=== PATIENT | female | born 1995 | race Caucasian/White ===

== ENCOUNTER 2016-11-15 12:23 | Emergency (ER) | payer OTHER ==
[2016-11-15 12:32] VITALS: PULSE 79; RESP 16
[2016-11-15] MEDS ORDERED: ONDANSETRON 4 MG/2 ML VIAL IVP STA (13:21)
[2016-11-15] MEDS ORDERED: SUCRALFATE 1 GM TAB PO STA (13:21)
[2016-11-15] MEDS ORDERED: SODIUM CHLORIDE 0.9% 1,000 ML IV ONE (13:21)
[2016-11-15] MEDS ORDERED: KETOROLAC 30 MG/ML 1 ML VIAL IVP STA (13:21)
[2016-11-15] MEDS ORDERED: FAMOTIDINE 20 MG/2 ML VIAL IV STA (13:25)
[2016-11-15 14:11] LABS: Basophils % (A) 0 %; CH 31.2; CHCM 34.5; Eosinophils # (A) 0.1 k/uL (0-0.7); Eosinophils % (A) 1 %; HCT 35.6 % (34.0-46.0); HDW 2.75; HGB 12.2 gm/dL (11.4-16.0); Luc # (Auto) 0.17; Luc % (Auto) 2; Lymphocytes % (A) 26 %; MCH 31.1 pg (25.0-35.0); MCHC 34.2 g/dL (31.0-37.0); Mean Platelet Volume 7.5; Monocytes # (A) 0.3 k/uL (0-1.0); Monocytes % (A) 4 %; Neutrophils # (A) 5.1 k/uL (1.3-7.7); Neutrophils % (A) 67 %; RBC 3.91 m/uL (3.80-5.40); RDW 12.6 % (11.5-15.5); WBC 7.6 k/uL (4.0-11.0); WBC (Perox) 7.72
[2016-11-15 14:19] LABS: Appearance,Urine Clear (Clear); Bilirubin,Urine Negative (Negative); Glucose,Urine (UA) Negative (Negative); Ketones,Urine Negative (Negative); Leukocyte Esterase,Urine Negative (Negative); Nitrite,Urine Negative (Negative); PH, Urine 6.5 (5.0-8.0); Protein,Urine Negative (Negative); Specific Gravity,Urine 1.002 (1.001-1.035); UA Billing (MACRO vs. MICRO) CHEM; Urobilinogen,Urine <2.0 mg/dL (<2.0)
[2016-11-15 14:20] LABS: ALT 41 U/L (9-52); AST 27 U/L (14-36); Alkaline Phosphatase 65 U/L (38-126); Anion Gap 11 mmol/L; Blood Urea Nitrogen 8 mg/dL (7-17); Calcium 9.4 mg/dL (8.4-10.2); Carbon Dioxide 26 mmol/L (22-30); Chloride 107 mmol/L (98-107); Glucose 97 mg/dL (74-99); Non-African American GFR(MDRD) >60 (>60 ml/min/1.73 sqM); Potassium 3.8 mmol/L (3.5-5.1); Sodium 144 mmol/L (137-145); Total Bilirubin 0.3 mg/dL (0.2-1.3)
--- NOTE | 2016-11-15 14:49 | US ---
EXAMINATION TYPE: US abdomen limited DATE OF EXAM: 11/15/2016 2:28 PM COMPARISON: Prior ultrasound abdomen second of July 2016 CLINICAL HISTORY: Pain. EXAM MEASUREMENTS: Liver Length: 15.7 cm Gallbladder Wall: 0.2 cm CBD: 0.2 cm Right Kidney: 12.4 x 6.0 x 4.8 cm cm TECHNOLOGIST IMPRESSION: Pancreas: Tail Obscured by bowel gas. Liver: wnl, partially obscured by bowel gas. The liver is penetrated by the ultrasound beam. Gallbladder: wnl Evidence for sonographic Butts's sign: no CBD: wnl Right Kidney: wnl There is no ascites. IMPRESSION: Somewhat limited exam. There may be hepatocellular disease or fatty infiltration of the l iver.
--- NOTE | 2016-11-15 15:00 | ED ---
Abdominal Pain HPI - General Chief Complaint: Abdominal Pain Stated Complaint: abd pain Source: patient Mode of arrival: ambulatory Limitations: no limitations - History of Present Illness Initial Comments: Patient is a 20-year-old female presents for evaluation for epigastric discomfort. Past medical history as below. Patient states that she's been having this pain on and off for the past several weeks. Seems to worsen over the last few days. Pain is worse after eating. States that she eats a lot of fatty foods. Associated nausea. Couple episodes of vomiting. Nothing seems to make the pain better. No radiation of pain. No recent travel or changes in medications. No known sick contacts at home. Patient denies fever, chills, headache, changes in vision, URI symptoms, shortness of breath, cough, chest pain, diarrhea, pain or burning with urination. - Related Data Home Medications Medication Instructions Recorded Confirmed Ibuprofen [Motrin] 400 mg PO Q6HR PRN 11/15/16 11/15/16 Previous Rx's Medication Instructions Recorded Omeprazole [PriLOSEC] 20 mg PO AC-BID 7 Days 11/15/16 Allergies Allergy/AdvReac Type Severity Reaction Status Date / Time peanut Allergy Unknown Anaphylaxis Verified 11/15/16 13:42 celery Allergy Anaphylaxis Verified 11/15/16 13:42 Milk Containing Products Allergy Unknown Verified 11/15/16 13:42 [Dairy] peas Allergy Anaphylaxis Verified 11/15/16 13:42 peppers Allergy Anaphylaxis Uncoded 11/15/16 12:32 Review of Systems ROS Statement: Those systems with pertinent positive or pertinent negative responses have been documented in the HPI. ROS Other: All systems not noted in ROS Statement are negative. Past Medical History Past Medical History: Asthma, Osteoarthritis (OA) History of Any Multi-Drug Resistant Organisms: None Reported Past Surgical History: Appendectomy Past Psychological History: ADD/ADHD, Depression Smoking Status: Former smoker Past Alcohol Use History: None Reported Past Drug Use History: None Reported General Exam Limitations: no limitations General appearance: alert, in no apparent distress, other (Well-appearing. Sitting upright in the stretcher) Head exam: Present: atraumatic, normocephalic, normal inspection Eye exam: Present: normal appearance, PERRL, EOMI. Absent: scleral icterus, conjunctival injection, periorbital swelling ENT exam: Present: normal exam, mucous membranes moist Neck exam: Present: normal inspection. Absent: tenderness, meningismus, lymphadenopathy Respiratory exam: Present: normal lung sounds bilaterally. Absent: respiratory distress, wheezes, rales, rhonchi, stridor Cardiovascular Exam: Present: regular rate, normal rhythm, normal heart sounds. Absent: systolic murmur, diastolic murmur, rubs, gallop, clicks GI/Abdominal exam: Present: soft, tenderness, normal bowel sounds, other ( Tenderness elicited in the epigastric area. Somewhat tender in the right upper quadrant. Negative Butts sign. Soft abdomen. No peritoneal signs.). Absent : distended, guarding, rebound, rigid Extremities exam: Present: normal inspection, full ROM, normal capillary refill. Absent: tenderness, pedal edema, joint swelling, calf tenderness Back exam: Present: normal inspection Neurological exam: Present: alert, oriented X3, CN II-XII intact Psychiatric exam: Present: normal affect, normal mood Skin exam: Present: warm, dry, intact, normal color. Absent: rash Course Vital Signs 11/15/16 11/15/16 12:30 15:11 Temperature 97.3 F L 97.8 F Pulse Rate 79 79 Respiratory 16 16 Rate Blood Pressure 113/57 129/70 O2 Sat by Pulse 99 98 Oximetry Medical Decision Making - Medical Decision Making Patient resents for evaluation for epigastric/right upper quadrant abdominal pain. Worse after eating. The symptoms that she is describing is very classic for biliary colic. We'll order abdominal labs with the GI cocktail, ultrasound of the right upper quadrant. -Laboratory findings as below. Unremarkable. Ultrasound was limited but did not reveal an acute abnormality with the gallbladder. There is evidence of fatty liver. Discussed all the results with the patient. Recommend follow-up with a surgeon and possible further testing with a HIDA scan. She will follow- up with her primary care physician first. Discussed ingesting a bland diet over the next couple of days. Plenty of clear fluids. Will provide omeprazole as an outpatient. Discussed signs and symptoms on when to return to the emergency department for further evaluation. Comfortable with discharge home and will follow-up. - Lab Data Result diagrams: 11/15/16 13:59 11/15/16 13:59 Lab Results 11/15/16 11/15/16 11/15/16 Range/Units 13:59 13:59 13:59 WBC 7.6 (4.0-11.0) k/uL RBC 3.91 (3.80-5.40) m/uL Hgb 12.2 (11.4-16.0) gm/dL Hct 35.6 (34.0-46.0) % MCV 91.0 (80.0-100.0) fL MCH 31.1 (25.0-35.0) pg MCHC 34.2 (31.0-37.0) g/dL RDW 12.6 (11.5-15.5) % Plt Count 262 (150-450) k/uL Neutrophils % 67 % Lymphocytes % 26 % Monocytes % 4 % Eosinophils % 1 % Basophils % 0 % Neutrophils # 5.1 (1.3-7.7) k/uL Lymphocytes # 2.0 (1.0-4.8) k/uL Monocytes # 0.3 (0-1.0) k/uL Eosinophils # 0.1 (0-0.7) k/uL Basophils # 0.0 (0-0.2) k/uL Sodium 144 (137-145) mmol/L Potassium 3.8 (3.5-5.1) mmol/L Chloride 107 (98-107) mmol/L Carbon Dioxide 26 (22-30) mmol/L Anion Gap 11 mmol/L BUN 8 (7-17) mg/dL Creatinine 0.62 (0.52-1.04) mg/dL Est GFR (MDRD) Af Amer >60 (>60 ml/min/1.73 sqM) Est GFR (MDRD) Non-Af >60 (>60 ml/min/1.73 sqM) Glucose 97 (74-99) mg/dL Calcium 9.4 (8.4-10.2) mg/dL Total Bilirubin 0.3 (0.2-1.3) mg/dL AST 27 (14-36) U/L ALT 41 (9-52) U/L Alkaline Phosphatase 65 (38-126) U/L Total Protein 7.0 (6.3-8.2) g/dL Albumin 4.0 (3.5-5.0) g/dL Lipase 74 (23-300) U/L Urine Color Urine Appearance (Clear) Urine pH (5.0-8.0) Ur Specific [place] (1.001-1.035) Urine Protein (Negative) Urine Glucose (UA) (Negative) Urine Ketones (Negative) Urine Blood (Negative) Urine Nitrate (Negative) Urine Bilirubin (Negative) Urine Urobilinogen (<2.0) mg/dL Ur Leukocyte Esterase (Negative) Urine HCG, Qual Not Detected (Not Detectd) 11/15/16 Range/Units 13:59 WBC (4.0-11.0) k/uL RBC (3.80-5.40) m/uL Hgb (11.4-16.0) gm/dL Hct (34.0-46.0) % MCV (80.0-100.0) fL MCH (25.0-35.0) pg MCHC (31.0-37.0) g/dL RDW (11.5-15.5) % Plt Count (150-450) k/uL Neutrophils % % Lymphocytes % % Monocytes % % Eosinophils % % Basophils % % Neutrophils # (1.3-7.7) k/uL Lymphocytes # (1.0-4.8) k/uL Monocytes # (0-1.0) k/uL Eosinophils # (0-0.7) k/uL Basophils # (0-0.2) k/uL Sodium (137-145) mmol/L Potassium (3.5-5.1) mmol/L Chloride (98-107) mmol/L Carbon Dioxide (22-30) mmol/L Anion Gap mmol/L BUN (7-17) mg/dL Creatinine (0.52-1.04) mg/dL Est GFR (MDRD) Af Amer (>60 ml/min/1.73 sqM) Est GFR (MDRD) Non-Af (>60 ml/min/1.73 sqM) Glucose (74-99) mg/dL Calcium (8.4-10.2) mg/dL Total Bilirubin (0.2-1.3) mg/dL AST (14-36) U/L ALT (9-52) U/L Alkaline Phosphatase (38-126) U/L Total Protein (6.3-8.2) g/dL Albumin (3.5-5.0) g/dL Lipase (23-300) U/L Urine Color Colorless Urine Appearance Clear (Clear) Urine pH 6.5 (5.0-8.0) Ur Specific [place] 1.002 (1.001-1.035) Urine Protein Negative (Negative) Urine Glucose (UA) Negative (Negative) Urine Ketones Negative (Negative) Urine Blood Negative (Negative) Urine Nitrate Negative (Negative) Urine Bilirubin Negative (Negative) Urine Urobilinogen <2.0 (<2.0) mg/dL Ur Leukocyte Esterase Negative (Negative) Urine HCG, Qual (Not Detectd) Disposition Clinical Impression: Abdominal pain, Biliary colic Disposition: HOME SELF-CARE Condition: Good Instructions: Biliary Colic (ED) Prescriptions: Omeprazole [PriLOSEC] 20 mg PO AC-BID 7 Days Referrals: Shyann Morgan MD [Primary Care Provider] - 1-2 days
[2016-11-15 15:12] VITALS: BP 129/70; TEMP 97.8
== END 2016-11-15 15:11 | disposition home or self-care (01) ==
LOC: EC 12:23
DX: K80.50 Calculus of bile duct without cholangitis or cholecystitis without obstruction (principal); R11.2 Nausea with vomiting, unspecified; Z87.891 Personal history of nicotine dependence; Z91.010 Allergy to peanuts; Z91.018 Allergy to other foods; Z91.011 Allergy to milk products; Z90.49 Acquired absence of other specified parts of digestive tract
CPT/HCPCS: 36415; 80053; 83690; 85025; 81003; 81025; 76705; 99284; 96374; 96375 ×2; 96361; J2405; J1885

== ENCOUNTER 2016-12-11 11:46 | Emergency (ER) | payer OTHER ==
[2016-12-11 11:58] VITALS: BP 110/68; PULSE 99; RESP 20; TEMP 98.8
--- NOTE | 2016-12-11 12:11 | ED ---
Skin/Abscess/FB HPI - General Chief complaint: Skin/Abscess/Foreign Body Stated complaint: rash Time Seen by Provider: 12/11/16 12:00 Source: patient, RN notes reviewed Mode of arrival: ambulatory Limitations: no limitations - History of Present Illness Initial comments: 21-year-old female presents to the ER with a sore on her left lower lip. She states that it is been there for 1-1/2-2 weeks. She states there is no pain or burning at rest but it does get irritated when she eats certain foods. She states that last week she did have a cough and possible cold. She states that her mom noticed the area on her lip was worsening and decided to bring her to the ER today to get it checked out. She also states that her nose normal normally get dry in the winter and crack. She denies any trauma to the area. She's never noticed something that looks like this. 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 She also states that she does not have a current primary care physician. She denies any nausea, vomiting, diarrhea, any other oral sores, sore throat, difficulty swallowing. - Related Data Home Medications Medication Instructions Recorded Confirmed Ibuprofen [Motrin] 400 mg PO Q6HR PRN 11/15/16 11/15/16 Previous Rx's Medication Instructions Recorded Omeprazole [PriLOSEC] 20 mg PO AC-BID 7 Days 11/15/16 Mupirocin 2% Oint [Bactroban 2% 1 applic TOPICAL TID #22 gm 12/11/16 Oint] Allergies Allergy/AdvReac Type Severity Reaction Status Date / Time peanut Allergy Unknown Anaphylaxis Verified 12/11/16 11:58 celery Allergy Anaphylaxis Verified 12/11/16 11:58 Milk Containing Products Allergy Unknown Verified 12/11/16 11:58 [Dairy] peas Allergy Anaphylaxis Verified 12/11/16 11:58 peppers Allergy Anaphylaxis Uncoded 12/11/16 11:58 Review of Systems ROS Statement: Those systems with pertinent positive or pertinent negative responses have been documented in the HPI. ROS Other: All systems not noted in ROS Statement are negative. Past Medical History Past Medical History: Asthma, Osteoarthritis (OA) History of Any Multi-Drug Resistant Organisms: None Reported Past Surgical History: Appendectomy Past Psychological History: ADD/ADHD, Depression Smoking Status: Current every day smoker Past Alcohol Use History: None Reported Past Drug Use History: None Reported General Exam Limitations: no limitations General appearance: alert, in no apparent distress Head exam: Present: atraumatic, normocephalic Eye exam: Present: normal appearance, PERRL, EOMI Pupils: Present: normal accommodation ENT exam: Present: normal oropharynx, mucous membranes moist, normal external ear exam, other (Left lower wet lip: 2-3 mm areas of superficial ulceration with central honey crust, upper lip clear of any lesions. Oral mucosa clear of any lesions. Multiple cavities noticed on exam.) Neck exam: Present: normal inspection, full ROM Respiratory exam: Present: normal lung sounds bilaterally Cardiovascular Exam: Present: regular rate, normal rhythm Neurological exam: Present: alert, oriented X3, CN II-XII intact Psychiatric exam: Present: normal affect, normal mood Course Vital Signs 12/11/16 11:56 Temperature 98.8 F Pulse Rate 99 Respiratory 20 Rate Blood Pressure 110/68 O2 Sat by Pulse 100 Oximetry Medical Decision Making - Medical Decision Making 21-year-old female presented to the ER with lesions on her lower left lip. She states they've been there for about a week and a half to 2 weeks following a upper respiratory infection. On visual exam there does appear to be 2 areas of superficial ulceration with honey crust. This is consistent with impetigo. Recommend treatment with topical antibiotic to the area 3 times a day. Smoking cessation was also discussed with patient. As well as good oral and hand hygiene to decrease spread. Also urged patient to establish with primary care physician. All questions were answered and patient was instructed to follow-up with a PCP return to ER if any worsening symptoms or concerns. Disposition Clinical Impression: Impetigo Disposition: HOME SELF-CARE Condition: Good Instructions: Impetigo (ED) Additional Instructions: Encourage patient to follow up with her PCP or establish with a new PCP. To return to clinic if any new or worsening symptoms. Referrals: Shyann Morgan MD [Primary Care Provider] - 1-2 days Time of Disposition: 12:18
== END 2016-12-11 12:30 | disposition home or self-care (01) ==
LOC: EC 11:46
DX: L01.00 Impetigo, unspecified (principal); F17.200 Nicotine dependence, unspecified, uncomplicated; Z91.010 Allergy to peanuts; Z91.011 Allergy to milk products; Z91.018 Allergy to other foods
CPT/HCPCS: 99282

== ENCOUNTER 2017-02-07 00:27 | Emergency (ER) | payer OTHER ==
[2017-02-07 00:49] VITALS: BP 123/56; PULSE 90; RESP 16; TEMP 99.1
--- NOTE | 2017-02-07 01:02 | ED ---
Lower Extremity Injury HPI - General Chief Complaint: Extremity Injury, Lower Stated Complaint: R Knee Injury Time Seen by Provider: 02/07/17 00:53 Source: patient, RN notes reviewed Mode of arrival: ambulatory Limitations: no limitations - History of Present Illness Initial Comments: 21-year-old female presents to the department with a chief complaint of right knee pain. Patient states she was getting out of her discharge and she hurt her right knee. Patient states it hurts along the inferior aspect of the right knee. Worse with walking or cuts. Patient states that there is no trauma with the ground at the knee with more of the stepping down motion. Patient states she has a little walk however with pain. Patient states she was concerned so she thought that she should be seen. He states the pain is moderate. There is no radiation. Patient denies any recent fever, chills, shortness of breath, chest pain, back pain, abdominal pain, nausea vomiting, numbness or tingling, dysuria or hematuria, constipation or diarrhea, headaches or visual changes, or any other current symptoms. - Related Data Home Medications Medication Instructions Recorded Confirmed Ibuprofen [Motrin] 400 mg PO Q6HR PRN 11/15/16 02/07/17 Previous Rx's Medication Instructions Recorded Omeprazole [PriLOSEC] 20 mg PO AC-BID 7 Days 11/15/16 Mupirocin 2% Oint [Bactroban 2% 1 applic TOPICAL TID #22 gm 12/11/16 Oint] Ibuprofen [Motrin] 600 mg PO Q6HR PRN #20 tab 02/07/17 Allergies Allergy/AdvReac Type Severity Reaction Status Date / Time peanut Allergy Unknown Anaphylaxis Verified 02/07/17 00:48 celery Allergy Anaphylaxis Verified 02/07/17 00:48 Milk Containing Products Allergy Unknown Verified 02/07/17 00:48 [Dairy] peas Allergy Anaphylaxis Verified 02/07/17 00:48 peppers Allergy Anaphylaxis Uncoded 02/07/17 00:48 Review of Systems ROS Statement: Those systems with pertinent positive or pertinent negative responses have been documented in the HPI. ROS Other: All systems not noted in ROS Statement are negative. Past Medical History Past Medical History: Asthma, Osteoarthritis (OA) History of Any Multi-Drug Resistant Organisms: None Reported Past Surgical History: Appendectomy Past Psychological History: ADD/ADHD, Depression Smoking Status: Current every day smoker Past Alcohol Use History: None Reported Past Drug Use History: None Reported General Exam - General Exam Comments Initial Comments: General: The patient is awake and alert, in no distress, and does not appear acutely ill. Neck: The neck is supple, there is no tenderness. Cardiovascular: There is a regular rate and rhythm. No murmur, rub or gallop is appreciated. Respiratory: Lungs are clear to auscultation, respirations are non-labored, breath sounds are equal. No wheezes, stridor, rales, or rhonchi. Musculoskeletal: Sensation intact with 2+ pulses throughout the right lower extremity. Full range of motion of the right knee, right ankle and right hip. There is some anterior tenderness no swelling or deformity noted. No laxity noted. 5 out of 5 muscle strength testing. Neurological: CN II-XII intact, There are no obvious motor or sensory deficits. Coordination appears grossly intact. Speech is normal. Skin: Skin is warm and dry and no rashes or lesions are noted. Psychiatric: Normal mood and affect. Limitations: no limitations Course Vital Signs 02/07/17 00:45 Temperature 99.1 F Pulse Rate 90 Respiratory 16 Rate Blood Pressure 123/56 O2 Sat by Pulse 99 Oximetry Medical Decision Making - Medical Decision Making 21-year-old female presents for what appears to be a right knee strain. This and we did place him utilizing to follow-up with orthopedic. Discussed return parameters all patient's questions. She stated that she understood and she is in agreement. At this time she will be discharged home. - Radiology Data Radiology results: report reviewed, image reviewed Disposition Clinical Impression: Right knee sprain Disposition: HOME SELF-CARE Condition: Serious Instructions: Knee Sprain (ED) Additional Instructions: Please use medication as discussed. Please follow up with family doctor if symptoms have not improved over the next two days. Please return to the emergency room if your symptoms increase or worsen or for any other concerns. Prescriptions: Ibuprofen [Motrin] 600 mg PO Q6HR PRN #20 tab PRN Reason: Pain Referrals: Shyann Morgan MD [Primary Care Provider] - 1-2 days Kevyn Butts MD [STAFF PHYSICIAN] - 1-2 days Time of Disposition: 01:24
[2017-02-07] MEDS ORDERED: IBUPROFEN 600 MG TAB PO STA (01:08)
--- NOTE | 2017-02-07 01:24 | XR ---
EXAM: XR Right Knee, 3 views CLINICAL HISTORY: Pain TECHNIQUE: Three views of the right knee. COMPARISON: No relevant prior studies available. FINDINGS: Bones/joints: Unremarkable. No acute fracture. No dislocation. Soft tissues: Unremarkable. IMPRESSION: Normal right knee x-rays.
== END 2017-02-07 01:36 | disposition home or self-care (01) ==
LOC: EC 00:27
DX: S83.91XA Sprain of unspecified site of right knee, initial encounter (principal); F17.200 Nicotine dependence, unspecified, uncomplicated; Z91.010 Allergy to peanuts; Z91.011 Allergy to milk products; Z91.018 Allergy to other foods; Z91.048 Other nonmedicinal substance allergy status; X58.XXXA Exposure to other specified factors, initial encounter; Y93.39 Activity, other involving climbing, rappelling and jumping off
CPT/HCPCS: 73562; 99283; L1830 ×2

== ENCOUNTER 2017-03-20 23:49 | Emergency (ER) | payer OTHER ==
--- NOTE | 2017-03-21 02:16 | XR ---
EXAM: XR Left Ankle Complete, 3 or More Views CLINICAL HISTORY: Fall TECHNIQUE: Frontal, lateral and oblique views of the left ankle. COMPARISON: No relevant prior studies available. FINDINGS: Bones/joints: Unremarkable. No acute fracture. No dislocation. Soft tissues: Unremarkable. IMPRESSION: Normal left ankle x-rays.
--- NOTE | 2017-03-21 02:22 | XR ---
EXAM: XR Left Foot Complete, 3 or More Views CLINICAL HISTORY: Fall TECHNIQUE: Frontal, lateral and oblique views of the left foot. COMPARISON: No relevant prior studies available. FINDINGS: Bones/joints: Fracture of the medial navicula. Adjacent soft tissue swelling. No dislocation. Soft tissues: See above. IMPRESSION: Fracture of the medial navicula. Adjacent soft tissue swelling.
[2017-03-21] MEDS ORDERED: ACET/COD 300 MG/30 MG STARTER PACK 6 TAB BTL PO STA (02:46)
--- NOTE | 2017-03-21 02:49 | ED ---
Lower Extremity Injury HPI - General Chief Complaint: Extremity Injury, Lower Stated Complaint: Fall-Ankle Injury Time Seen by Provider: 03/21/17 01:35 Source: patient, RN notes reviewed, old records reviewed Mode of arrival: wheelchair Limitations: no limitations - History of Present Illness Initial Comments: 21 -year-old female chief complaint of left foot and ankle pain after she fell off of the hover board. Patient reports that she rolled her foot. Patient states that the pain is mainly over the top of her foot and ankle. She denies any difficulty moving her toes. Denies any peripheral paresthesias. Patient states that she's had a previous fractures or injuries to the ankle. She reports that she was having a difficult time bearing weight over and did have to walk to the emergency department. Patient denies any recent fever, chills, shortness of breath, chest pain, back pain, abdominal pain, nausea vomiting, numbness or tingling, dysuria or hematuria, constipation or diarrhea, headaches or visual changes, or any other current symptoms - Related Data Home Medications Medication Instructions Recorded Confirmed Atomoxetine HCl [Strattera] 25 mg PO 03/21/17 Naproxen Sodium [Naprelan] 500 mg PO DAILY 03/21/17 03/21/17 Previous Rx's Medication Instructions Recorded Acetaminophen-Codeine 300-30mg 1 tab PO Q4H PRN #15 tablet 03/21/17 [Tylenol #3] Allergies Allergy/AdvReac Type Severity Reaction Status Date / Time peanut Allergy Unknown Anaphylaxis Verified 02/07/17 00:48 celery Allergy Anaphylaxis Verified 02/07/17 00:48 Milk Containing Products Allergy Unknown Verified 02/07/17 00:48 [Dairy] peas Allergy Anaphylaxis Verified 02/07/17 00:48 peppers Allergy Anaphylaxis Uncoded 02/07/17 00:48 Review of Systems ROS Statement: Those systems with pertinent positive or pertinent negative responses have been documented in the HPI. ROS Other: All systems not noted in ROS Statement are negative. Past Medical History Past Medical History: Asthma, Osteoarthritis (OA) History of Any Multi-Drug Resistant Organisms: None Reported Past Surgical History: Appendectomy Past Psychological History: ADD/ADHD, Depression Smoking Status: Current every day smoker Past Alcohol Use History: None Reported Past Drug Use History: None Reported General Exam - General Exam Comments Initial Comments: 21-year-old female. No acute distress. Limitations: no limitations General appearance: alert, in no apparent distress Head exam: Present: atraumatic, normocephalic, normal inspection Eye exam: Present: normal appearance, PERRL, EOMI. Absent: scleral icterus, conjunctival injection, periorbital swelling ENT exam: Present: normal exam, mucous membranes moist Neck exam: Present: normal inspection. Absent: tenderness, meningismus, lymphadenopathy Respiratory exam: Present: normal lung sounds bilaterally. Absent: respiratory distress, wheezes, rales, rhonchi, stridor Cardiovascular Exam: Present: regular rate, normal rhythm, normal heart sounds. Absent: systolic murmur, diastolic murmur, rubs, gallop, clicks GI/Abdominal exam: Present: soft, normal bowel sounds. Absent: distended, tenderness, guarding, rebound, rigid Extremities exam: Present: normal inspection, full ROM, normal capillary refill. Absent: tenderness, pedal edema, joint swelling, calf tenderness Left Knee exam: Present: normal inspection, full ROM Lower Leg exam: Present: normal inspection, full ROM Ankle exam: Present: normal inspection, full ROM Foot/Toe exam: Present: normal inspection, tenderness (Patient is some tenderness and swelling over the dorsum proximal aspect of the foot.), swelling Neurovascular tendon exam: Present: no vascular compromise Gait: observed and limited by pain Back exam: Present: normal inspection Neurological exam: Present: alert, oriented X3, CN II-XII intact Psychiatric exam: Present: normal affect, normal mood Course Vital Signs 03/21/17 03/21/17 00:30 03:10 Temperature 97.0 F L 97.8 F Pulse Rate 87 78 Respiratory 18 16 Rate Blood Pressure 126/71 107/63 O2 Sat by Pulse 100 98 Oximetry Procedures - Orthopedic Splinting/Casting Injury #1 Side: left Lower Extremity Injury Location: foot Lower Extremity Immobilizer: posterior splint, post-op shoe Medical Decision Making - Medical Decision Making 21 -year-old female chief complaint of left foot and ankle pain after she fell off of the hover board. Patient reports that she rolled her foot. Patient states that the pain is mainly over the top of her foot and ankle. She denies any difficulty moving her toes. Denies any peripheral paresthesias. Asians x- ray shows evidence of a midclavicular fracture. No significant displacement. Patient is placed in a posterior splint. Patient draped for crutches and pain medication. Advised to follow[facility]up with [facility]. Patient agrees to treatment plan and will comply. Return parameters were discussed. - Radiology Data Radiology results: report reviewed X-ray shows evidence of a mid left navicular fracture. Disposition Clinical Impression: Left navicular fracture of foot Disposition: HOME SELF-CARE Condition: Good Instructions: Foot Fracture in Adults (ED) Additional Instructions: Advised to rest, ice, elevate extremity. Take medications and follow-up with orthopedic physician. Return to emergency department if any alarming signs or symptoms occur. Prescriptions: Acetaminophen-Codeine 300-30mg [Tylenol #3] 1 tab PO Q4H PRN #15 tablet PRN Reason: Pain Referrals: Shyann Morgan MD [Primary Care Provider] - 1-2 days Sidney Beavers MD [STAFF PHYSICIAN] - 1-2 days Time of Disposition: 02:45
[2017-03-21 03:11] VITALS: BP 107/63; PULSE 78; RESP 16; TEMP 97.8
--- NOTE | 2017-04-04 10:38 | CDI ---
Documentation Clarification OP Dear Dr. Jarrell Diaz Please do addendum to ED report that provides Splint MAterial Thank you, Yanick Peter Sales Assistant [employer] If you have any questions, please contact House Father at [phone] [facility]
== END 2017-03-21 03:10 | disposition home or self-care (01) ==
LOC: EC 23:49
DX: S92.252A Displaced fracture of navicular [scaphoid] of left foot, initial encounter for closed fracture (principal); M19.90 Unspecified osteoarthritis, unspecified site; F90.9 Attention-deficit hyperactivity disorder, unspecified type; F17.200 Nicotine dependence, unspecified, uncomplicated; Z88.8 Allergy status to other drugs, medicaments and biological substances; Z91.010 Allergy to peanuts; Z91.011 Allergy to milk products; Z91.018 Allergy to other foods; Z79.1 Long term (current) use of non-steroidal anti-inflammatories (NSAID); Z79.899 Other long term (current) drug therapy; V00.831A Fall from motorized mobility scooter, initial encounter
CPT/HCPCS: 29515; 99284

== ENCOUNTER 2017-04-09 20:46 | Emergency (ER) | payer OTHER ==
[2017-04-09 21:19] VITALS: TEMP 98
--- NOTE | 2017-04-09 21:19 | ED ---
Lower Extremity Injury HPI - General Stated Complaint: Got her cast wet Time Seen by Provider: 04/09/17 21:11 - History of Present Illness Initial Comments: 21-year-old male with a history of a left medial navicular fracture would like her cast off today. Patient states it's been almost 5 weeks and she feels like it is fully healed. Patient states she is supposed to have the cast removed on April 21. Patient states she just wants it off she feels like it "barricading her". She states she is no pain in her foot or ankle anymore. She denies any numbness or tingling, she denies any cold extremities. She states she feels great and she just wants it off. Patient wants to go back to work. [facility] Patient denies any other pain on her left lower extremity. MD Complaint: foot injury - Related Data Home Medications Medication Instructions Recorded Confirmed Atomoxetine HCl [Strattera] 25 mg PO 03/21/17 Naproxen Sodium [Naprelan] 500 mg PO DAILY 03/21/17 03/21/17 Previous Rx's Medication Instructions Recorded Acetaminophen-Codeine 300-30mg 1 tab PO Q4H PRN #15 tablet 03/21/17 [Tylenol #3] Allergies Allergy/AdvReac Type Severity Reaction Status Date / Time peanut Allergy Unknown Anaphylaxis Verified 02/07/17 00:48 celery Allergy Anaphylaxis Verified 02/07/17 00:48 Milk Containing Products Allergy Unknown Verified 02/07/17 00:48 [Dairy] peas Allergy Anaphylaxis Verified 02/07/17 00:48 peppers Allergy Anaphylaxis Uncoded 02/07/17 00:48 Review of Systems ROS Statement: Those systems with pertinent positive or pertinent negative responses have been documented in the HPI. ROS Other: All systems not noted in ROS Statement are negative. Constitutional: Reports: as per HPI Skin: Denies: rash Neurological: Denies: weakness, numbness, paresthesias, abnormal gait Past Medical History Past Medical History: Asthma, Osteoarthritis (OA) History of Any Multi-Drug Resistant Organisms: None Reported Past Surgical History: Appendectomy Past Psychological History: ADD/ADHD, Depression Smoking Status: Current every day smoker Past Alcohol Use History: None Reported Past Drug Use History: None Reported General Exam General appearance: alert Left Upper Leg exam: Present: normal inspection, full ROM. Absent: tenderness, swelling Knee exam: Present: normal inspection, full ROM. Absent: tenderness, swelling Lower Leg exam: Absent: normal inspection (Patient has cast on), tenderness Ankle exam: Absent: normal inspection (Patient has), tenderness, swelling Foot/Toe exam: Absent: normal inspection (Patient has), tenderness, swelling, abrasion, ecchymosis Neurovascular tendon exam: Present: no vascular compromise. Absent: abnormal cap refill, motor deficit, sensory deficit, extremity cold to touch, pallor, abnormal 2-point discrimination, decreased fine/light touch Gait: observed and normal (With cast on) Medical Decision Making - Medical Decision Making Discussed with both Dr. Carpenter and Dr. Fontana. Patient was asked again and examined by me and there is no neurovascular compromise and no pain. Therefore at this time I explained that she needs to leave the cast on until evaluated by her floor care specialist and she does not have any neurovascular compromise or pain. Disposition Clinical Impression: Navicular fracture of ankle Disposition: HOME SELF-CARE Condition: Good Referrals: Shyann Morgan MD [Primary Care Provider] - 1-2 days Candace Feng PAC [PHYSICIAN RENAL TECHNICIAN] - 1-2 days Time of Disposition: 21:18
[2017-04-09 21:44] VITALS: BP 120/78; PULSE 94; RESP 16
== END 2017-04-09 21:43 | disposition home or self-care (01) ==
LOC: EC 20:46
DX: S92.252D Displaced fracture of navicular [scaphoid] of left foot, subsequent encounter for fracture with routine healing (principal); F90.9 Attention-deficit hyperactivity disorder, unspecified type; M19.90 Unspecified osteoarthritis, unspecified site; F17.200 Nicotine dependence, unspecified, uncomplicated; Z91.010 Allergy to peanuts; Z91.011 Allergy to milk products; Z91.018 Allergy to other foods; Z79.1 Long term (current) use of non-steroidal anti-inflammatories (NSAID); Z79.899 Other long term (current) drug therapy
CPT/HCPCS: 99282

== ENCOUNTER 2017-04-10 14:36 | Emergency (ER) | payer OTHER ==
[2017-04-10 14:45] VITALS: RESP 18
--- NOTE | 2017-04-10 14:55 | ED ---
Psych HPI - General Chief Complaint: Psychiatric Symptoms Stated Complaint: Mental Health Time Seen by Provider: 04/10/17 14:46 Source: patient, RN notes reviewed Mode of arrival: ambulatory Limitations: no limitations - History of Present Illness Initial Comments: 21-year-old female presents emergency Department with chief complaint of depression suicidal ideations. Patient states that she's been increasing depressive last 2 weeks. States her last few days she's felt suicidal. Patient states that she denied yesterday when she was in the emergency department states she is suicidal with no plan. Patient has any homicidal thoughts denies any drug or alcohol abuse. Patient states she has not tried to harm himself she has never been admitted to psychiatric services and states that she's never been on medications for depression. - Related Data Home Medications Medication Instructions Recorded Confirmed Atomoxetine HCl [Strattera] 25 mg PO DAILY 04/10/17 04/10/17 Naproxen 500 mg PO BID 04/10/17 04/10/17 traZODone HCL 50 mg PO HS 04/10/17 04/10/17 Allergies Allergy/AdvReac Type Severity Reaction Status Date / Time peanut Allergy Unknown Anaphylaxis Verified 04/10/17 15:30 celery Allergy Anaphylaxis Verified 04/10/17 15:30 Milk Containing Products Allergy Unknown Verified 04/10/17 15:30 [Dairy] peas Allergy Anaphylaxis Verified 04/10/17 15:30 peppers Allergy Anaphylaxis Uncoded 04/10/17 14:45 Review of Systems ROS Statement: Those systems with pertinent positive or pertinent negative responses have been documented in the HPI. ROS Other: All systems not noted in ROS Statement are negative. Past Medical History Past Medical History: Asthma, Osteoarthritis (OA) History of Any Multi-Drug Resistant Organisms: None Reported Past Surgical History: Appendectomy Past Psychological History: ADD/ADHD, Depression Smoking Status: Current every day smoker Past Alcohol Use History: None Reported Past Drug Use History: None Reported General Exam Limitations: physical limitation General appearance: alert, in no apparent distress Head exam: Present: atraumatic, normocephalic, normal inspection Eye exam: Present: normal appearance, PERRL, EOMI. Absent: scleral icterus, conjunctival injection, periorbital swelling ENT exam: Present: normal exam, normal oropharynx, mucous membranes moist, TM's normal bilaterally, normal external ear exam Neck exam: Present: normal inspection, full ROM. Absent: tenderness, meningismus, lymphadenopathy Respiratory exam: Present: normal lung sounds bilaterally. Absent: respiratory distress, wheezes, rales, rhonchi, stridor Cardiovascular Exam: Present: regular rate, normal rhythm, normal heart sounds. Absent: systolic murmur, diastolic murmur, rubs, gallop, clicks Extremities exam: Present: other (Short leg cast noted on the left) Psychiatric exam: Present: depressed Skin exam: Present: warm, dry, intact, normal color. Absent: rash Course Vital Signs 04/10/17 14:42 Temperature 97.3 F L Pulse Rate 105 H Respiratory 18 Rate Blood Pressure 105/52 O2 Sat by Pulse 98 Oximetry Medical Decision Making - Medical Decision Making 21-year-old female presented emergency department for psychiatric evaluation. Patient was evaluated by EPS and case is discussed with psychiatrist in which recommend discharge and follow palpation. Patient was given information for follow-up return parameters were discussed. - Lab Data Lab Results 04/10/17 Range/Units 15:06 Urine Opiates Screen Not Detected (NotDetected) Ur Oxycodone Screen Not Detected (NotDetected) Urine Methadone Screen Not Detected (NotDetected) Ur Propoxyphene Screen Not Detected (NotDetected) Ur Barbiturates Screen Not Detected (NotDetected) U Tricyclic Antidepress Not Detected (NotDetected) Ur Phencyclidine Scrn Not Detected (NotDetected) Ur Amphetamines Screen Not Detected (NotDetected) U Methamphetamines Scrn Not Detected (NotDetected) U Benzodiazepines Scrn Not Detected (NotDetected) Urine Cocaine Screen Not Detected (NotDetected) U Marijuana (THC) Screen Not Detected (NotDetected) Disposition Clinical Impression: Depression Disposition: HOME SELF-CARE Condition: Stable Instructions: Depression (ED) Additional Instructions: Please return to the Emergency Department if symptoms worsen or any other concerns. Referrals: Shyann Morgan MD [Primary Care Provider] - 1-2 days Time of Disposition: 16:04
[2017-04-10 16:52] VITALS: BP 110/73; PULSE 97; TEMP 97.9
== END 2017-04-10 16:52 | disposition home or self-care (01) ==
LOC: EC 14:36
DX: F32.9 Major depressive disorder, single episode, unspecified (principal); F90.9 Attention-deficit hyperactivity disorder, unspecified type; M19.90 Unspecified osteoarthritis, unspecified site; F17.200 Nicotine dependence, unspecified, uncomplicated; Z91.010 Allergy to peanuts; Z91.018 Allergy to other foods; Z91.011 Allergy to milk products; Z79.1 Long term (current) use of non-steroidal anti-inflammatories (NSAID); Z79.899 Other long term (current) drug therapy
CPT/HCPCS: 80306; 82075; 99285

== ENCOUNTER 2017-09-28 12:05 | Emergency (ER) | payer OTHER ==
[2017-09-28 12:29] VITALS: BP 113/68; PULSE 90; RESP 16; TEMP 98.1
--- NOTE | 2017-09-28 14:16 | ED ---
Female Urogenital HPI - General Chief complaint: Urogenital Stated complaint: Cannot Urinate Time Seen by Provider: 09/28/17 13:46 Source: patient, RN notes reviewed Mode of arrival: ambulatory Limitations: no limitations - History of Present Illness Initial comments: This is a 21-year-old female who presents to the emergency department with chief complaint of failure to urinate. Patient states that she has been unable to urinate for the past 2 weeks. She states that she uses the bathroom every couple hours and does have some dribbling but does not empty her bladder fully. She states that she has been drinking the same amount of fluid as she usually does. Patient denies hematuria or dysuria. She does state that she has a sensation to go all the time and reports an increase in frequency. Patient admits to having one UTI in the past. She denies any history of STDs. She denies any sexual activity. Patient also reports some suprapubic pain that is sharp in nature and radiates to the right side of her back. This is made worse while lying down at night. Patient states that yesterday at work she experienced the pain every half an hour to every hour. Patient denies any past pregnancies. She states that she ended her last menstrual period on Monday. States bowel movements have been normal. Denies ever experiencing something like this in the past. Denies fever, chills, chest pain, shortness of breath, nausea or vomiting, constipation or diarrhea, numbness or tingling, headache or vision changes. Last Menstrual Period: 09/25/17 - Related Data Home Medications Medication Instructions Recorded Confirmed Atomoxetine HCl [Strattera] 25 mg PO DAILY 04/10/17 04/10/17 Naproxen 500 mg PO BID 04/10/17 04/10/17 traZODone HCL 50 mg PO HS 04/10/17 04/10/17 Allergies Allergy/AdvReac Type Severity Reaction Status Date / Time peanut Allergy Unknown Anaphylaxis Verified 09/28/17 12:29 celery Allergy Anaphylaxis Verified 09/28/17 12:29 Milk Containing Products Allergy Unknown Verified 09/28/17 12:29 [Dairy] peas Allergy Anaphylaxis Verified 09/28/17 12:29 peppers Allergy Anaphylaxis Uncoded 09/28/17 12:29 Review of Systems ROS Statement: Those systems with pertinent positive or pertinent negative responses have been documented in the HPI. ROS Other: All systems not noted in ROS Statement are negative. Past Medical History Past Medical History: Asthma, Osteoarthritis (OA) History of Any Multi-Drug Resistant Organisms: None Reported Past Surgical History: Appendectomy Past Psychological History: ADD/ADHD, Depression Smoking Status: Current every day smoker Past Alcohol Use History: None Reported Past Drug Use History: None Reported General Exam - General Exam Comments Initial Comments: General: Awake and alert, well-developed; in no apparent distress. HEENT: Head atraumatic, normocephalic. Pupils are equal, round and reactive to light. Extraocular movements intact. Oropharynx moist without erythema or exudate. Missing dentition throughout. Neck: Supple. Normal ROM. Cardiovascular: Regular rate and rhythm. No murmurs, rubs or gallops. Chest symmetrical. Respiratory: Lungs clear to auscultation bilaterally. No wheezes, rales or rhonchi. Normal respiratory effort with no use of accessory muscles. Abdomen: Soft, non-distended. Suprapubic tenderness on palpation. No rigidity , rebound or guarding. Normal bowel sounds in all 4 quadrants. Musculoskeletal: Normal ROM, no tenderness bilateral upper and lower extremities. Patient is wearing a left wrist brace. Ambulating normally. Skin: [place], warm and dry without rashes or lesions. Neurological: Alert and oriented x3. CN II-XII grossly intact. Speech is fluent and answers are appropriate. No focal neuro deficits. Psychiatric: Normal mood and affect. No overt signs of depression or anxiety noted. Limitations: no limitations Course Vital Signs 09/28/17 12:26 Temperature 98.1 F Pulse Rate 90 Respiratory 16 Rate Blood Pressure 113/68 O2 Sat by Pulse 99 Oximetry Medical Decision Making - Medical Decision Making This is a 21-year-old female who presented to the emergency department for evaluation of urinary retention. Patient attempted to urinate twice while in the emergency department and was unable to. Bladder scan revealed volume of 500 cc. A paredes catheter was inserted and volume of approximately 450 cc was collected. UA revealed small blood, small leukocyte esterase and rare bacteria. CBC and CMP were within normal limits. Patient has good kidney function with a BUN of 9 and creatinine of 0.79. Patient states that she is feeling much better and she has no longer experiencing the abdominal pain. This case was discussed with attending physician, Dr. Brian. Patient will be discharged home with recommendation to follow-up with her primary care provider if this issue should continue. Patient is in agreement with plan and voices understanding. All questions were answered. - Lab Data Result diagrams: 09/28/17 14:50 09/28/17 14:50 Lab Results 09/28/17 09/28/17 09/28/17 Range/Units 14:35 14:35 14:50 WBC 8.9 (3.8-10.6) k/uL RBC 3.81 (3.80-5.40) m/uL Hgb 12.0 (11.4-16.0) gm/dL Hct 35.1 (34.0-46.0) % MCV 92.1 (80.0-100.0) fL MCH 31.5 (25.0-35.0) pg MCHC 34.2 (31.0-37.0) g/dL RDW 13.0 (11.5-15.5) % Plt Count 262 (150-450) k/uL Neutrophils % 64 % Lymphocytes % 29 % Monocytes % 4 % Eosinophils % 1 % Basophils % 0 % Neutrophils # 5.6 (1.3-7.7) k/uL Lymphocytes # 2.6 (1.0-4.8) k/uL Monocytes # 0.4 (0-1.0) k/uL Eosinophils # 0.1 (0-0.7) k/uL Basophils # 0.0 (0-0.2) k/uL Sodium (137-145) mmol/L Potassium (3.5-5.1) mmol/L Chloride (98-107) mmol/L Carbon Dioxide (22-30) mmol/L Anion Gap mmol/L BUN (7-17) mg/dL Creatinine (0.52-1.04) mg/dL Est GFR (MDRD) Af Amer (>60 ml/min/1.73 sqM) Est GFR (MDRD) Non-Af (>60 ml/min/1.73 sqM) Glucose (74-99) mg/dL Calcium (8.4-10.2) mg/dL Total Bilirubin (0.2-1.3) mg/dL AST (14-36) U/L ALT (9-52) U/L Alkaline Phosphatase (38-126) U/L Total Protein (6.3-8.2) g/dL Albumin (3.5-5.0) g/dL Urine Color Light Yellow Urine Appearance Clear (Clear) Urine pH 7.5 (5.0-8.0) Ur Specific [place] 1.002 (1.001-1.035) Urine Protein Negative (Negative) Urine Glucose (UA) Negative (Negative) Urine Ketones Negative (Negative) Urine Blood Small H (Negative) Urine Nitrite Negative (Negative) Urine Bilirubin Negative (Negative) Urine Urobilinogen <2.0 (<2.0) mg/dL Ur Leukocyte Esterase Small H (Negative) Urine RBC 1 (0-5) /hpf Urine WBC 2 (0-5) /hpf Ur Squamous Epith Cells <1 (0-4) /hpf Urine Bacteria Rare H (None) /hpf Urine HCG, Qual Not Detected (Not Detectd) 09/28/17 Range/Units 14:50 WBC (3.8-10.6) k/uL RBC (3.80-5.40) m/uL Hgb (11.4-16.0) gm/dL Hct (34.0-46.0) % MCV (80.0-100.0) fL MCH (25.0-35.0) pg MCHC (31.0-37.0) g/dL RDW (11.5-15.5) % Plt Count (150-450) k/uL Neutrophils % % Lymphocytes % % Monocytes % % Eosinophils % % Basophils % % Neutrophils # (1.3-7.7) k/uL Lymphocytes # (1.0-4.8) k/uL Monocytes # (0-1.0) k/uL Eosinophils # (0-0.7) k/uL Basophils # (0-0.2) k/uL Sodium 142 (137-145) mmol/L Potassium 4.1 (3.5-5.1) mmol/L Chloride 107 (98-107) mmol/L Carbon Dioxide 25 (22-30) mmol/L Anion Gap 10 mmol/L BUN 9 (7-17) mg/dL Creatinine 0.79 (0.52-1.04) mg/dL Est GFR (MDRD) Af Amer >60 (>60 ml/min/1.73 sqM) Est GFR (MDRD) Non-Af >60 (>60 ml/min/1.73 sqM) Glucose 92 (74-99) mg/dL Calcium 9.7 (8.4-10.2) mg/dL Total Bilirubin 0.3 (0.2-1.3) mg/dL AST 15 (14-36) U/L ALT 21 (9-52) U/L Alkaline Phosphatase 78 (38-126) U/L Total Protein 6.7 (6.3-8.2) g/dL Albumin 4.0 (3.5-5.0) g/dL Urine Color Urine Appearance (Clear) Urine pH (5.0-8.0) Ur Specific [place] (1.001-1.035) Urine Protein (Negative) Urine Glucose (UA) (Negative) Urine Ketones (Negative) Urine Blood (Negative) Urine Nitrite (Negative) Urine Bilirubin (Negative) Urine Urobilinogen (<2.0) mg/dL Ur Leukocyte Esterase (Negative) Urine RBC (0-5) /hpf Urine WBC (0-5) /hpf Ur Squamous Epith Cells (0-4) /hpf Urine Bacteria (None) /hpf Urine HCG, Qual (Not Detectd) Disposition Clinical Impression: Acute urinary retention Disposition: HOME SELF-CARE Condition: Good Instructions: Acute Urinary Retention in Women (ED) Additional Instructions: Please follow up with primary care provider within 1-2 days. Return to emergency department if symptoms should worsen or any concerns arise. Referrals: Malini Piña MD [Primary Care Provider] - 1-2 days Time of Disposition: 15:36
[2017-09-28 14:56] LABS: Appearance,Urine Clear (Clear); Bacteria,Urine Rare /hpf; Bilirubin,Urine Negative (Negative); Blood,Urine Small (Negative); Color,Urine Light Yellow; Glucose,Urine (UA) Negative (Negative); Ketones,Urine Negative (Negative); Leukocyte Esterase,Urine Small (Negative); Nitrite,Urine Negative (Negative); PH, Urine 7.5 (5.0-8.0); Protein,Urine Negative (Negative); RBC,Urine 1 /hpf (0-5); Specific Gravity,Urine 1.002 (1.001-1.035); Squamous Epithelial Cell,Urine <1 /hpf (0-4); Urobilinogen,Urine <2.0 mg/dL (<2.0); WBC,Urine 2 /hpf (0-5)
[2017-09-28 15:06] LABS: Basophils % (A) 0 %; Eosinophils # (A) 0.1 k/uL (0-0.7); Eosinophils % (A) 1 %; HCT 35.1 % (34.0-46.0); Lymphocytes # (A) 2.6 k/uL (1.0-4.8); Lymphocytes % (A) 29 %; MCH 31.5 pg (25.0-35.0); MCHC 34.2 g/dL (31.0-37.0); MCV 92.1 fL (80.0-100.0); Mean Platelet Volume 7.3; Monocytes # (A) 0.4 k/uL (0-1.0); Monocytes % (A) 4 %; Neutrophils # (A) 5.6 k/uL (1.3-7.7); Neutrophils % (A) 64 %; Platelet Count 262 k/uL (150-450); RBC 3.81 m/uL (3.80-5.40); WBC 8.9 k/uL (3.8-10.6)
[2017-09-28 15:22] LABS: ALT 21 U/L (9-52); AST 15 U/L (14-36); Alkaline Phosphatase 78 U/L (38-126); Anion Gap 10 mmol/L; Blood Urea Nitrogen 9 mg/dL (7-17); Calcium 9.7 mg/dL (8.4-10.2); Carbon Dioxide 25 mmol/L (22-30); Chloride 107 mmol/L (98-107); Glucose 92 mg/dL (74-99); Potassium 4.1 mmol/L (3.5-5.1); Sodium 142 mmol/L (137-145); Total Bilirubin 0.3 mg/dL (0.2-1.3); Total Protein 6.7 g/dL (6.3-8.2)
== END 2017-09-28 15:44 | disposition home or self-care (01) ==
LOC: EC 12:05
DX: R33.9 Retention of urine, unspecified (principal); R82.71 Bacteriuria; R31.9 Hematuria, unspecified; R82.99 Other abnormal findings in urine; R35.0 Frequency of micturition; R10.30 Lower abdominal pain, unspecified; M54.9 Dorsalgia, unspecified; M19.90 Unspecified osteoarthritis, unspecified site; F90.9 Attention-deficit hyperactivity disorder, unspecified type; F32.9 Major depressive disorder, single episode, unspecified; F17.200 Nicotine dependence, unspecified, uncomplicated; Z79.1 Long term (current) use of non-steroidal anti-inflammatories (NSAID); Z79.899 Other long term (current) drug therapy; Z91.010 Allergy to peanuts; Z91.011 Allergy to milk products; Z91.018 Allergy to other foods; Z87.440 Personal history of urinary (tract) infections
CPT/HCPCS: 36415; 51798; 80053; 81001; 81025; 85025; 99284

== ENCOUNTER 2017-09-30 18:51 | Emergency (ER) | payer OTHER ==
--- NOTE | 2017-09-30 19:13 | ED ---
General Adult HPI - General Chief complaint: Abdominal Pain Stated complaint: Urinary problems Time Seen by Provider: 09/30/17 19:01 Source: patient, RN notes reviewed Mode of arrival: ambulatory Limitations: no limitations - History of Present Illness Initial comments: 21 yo female presents to the ER with cc of constipation. She states she has been under the bowel movement for about 2 weeks. She states she's having hard time urinating now due to this. She states she hasn't had any fever chills cough cold Raynaud's. She denies any nausea or vomiting. Patient states just having a lot of abdominal discomfort. She has not had any high fevers. She denies any history of this in the past. Changes in eating or drinking. She states that she has been drinking more water and they've tried some over-the- counter constipation medication without any relief. Patient states that they were concerned due to her continued constipation so they thought that they should be seen. Patient denies any recent fever, chills, shortness of breath, chest pain, back pain, nausea vomiting, numbness or tingling, diarrhea, headaches or visual changes, or any other current symptoms. - Related Data Home Medications Medication Instructions Recorded Confirmed Atomoxetine HCl [Strattera] 80 mg PO QAM 09/30/17 09/30/17 Loratadine [Claritin] 10 mg PO DAILY 09/30/17 09/30/17 Sertraline [Zoloft] 100 mg PO DAILY 09/30/17 09/30/17 Zolpidem [Ambien] 10 mg PO HS PRN 09/30/17 09/30/17 Allergies Allergy/AdvReac Type Severity Reaction Status Date / Time peanut Allergy Unknown Anaphylaxis Verified 09/30/17 18:59 celery Allergy Anaphylaxis Verified 09/30/17 18:59 Milk Containing Products Allergy Unknown Verified 09/30/17 18:59 [Dairy] peas Allergy Anaphylaxis Verified 09/30/17 18:59 peppers Allergy Anaphylaxis Uncoded 09/30/17 18:59 Review of Systems ROS Statement: Those systems with pertinent positive or pertinent negative responses have been documented in the HPI. ROS Other: All systems not noted in ROS Statement are negative. Past Medical History Past Medical History: Asthma, Osteoarthritis (OA) History of Any Multi-Drug Resistant Organisms: None Reported Past Surgical History: Appendectomy Past Psychological History: ADD/ADHD, Depression Smoking Status: Current every day smoker Past Alcohol Use History: None Reported Past Drug Use History: None Reported General Exam - General Exam Comments Initial Comments: General: The patient is awake and alert, in no distress, and does not appear acutely ill. Eye: Pupils are equal, round and reactive to light. Ears, nose, mouth and throat: There are moist mucous membranes. Neck: The neck is supple, there is no tenderness. Cardiovascular: There is a regular rate and rhythm. No murmur, rub or gallop is appreciated. Respiratory: Lungs are clear to auscultation, respirations are non-labored, breath sounds are equal. No wheezes, stridor, rales, or rhonchi. Gastrointestinal: Soft, non-distended, non-tender abdomen without masses or organomegaly noted. There is no rebound or guarding present. No CVA tenderness. Bowel sounds are unremarkable. Back: There is no tenderness to palpation in the midline. There is no obvious deformity. No rashes noted. Musculoskeletal: Normal ROM, no tenderness, There is no pedal edema. There is no calf tenderness or swelling. Sensation intact. Pulses equal bilaterally 2+. Neurological: CN II-XII intact, There are no obvious motor or sensory deficits. Coordination appears grossly intact. Speech is normal. Skin: Skin is warm and dry and no rashes or lesions are noted. Psychiatric: Cooperative, appropriate mood & affect, normal judgment. Limitations: no limitations Course Vital Signs 09/30/17 18:57 Temperature 97.1 F L Pulse Rate 101 H Respiratory 18 Rate Blood Pressure 120/68 O2 Sat by Pulse 100 Oximetry Medical Decision Making - Medical Decision Making 21-year-old female presents to the emergency department with a chief complaint of constipation. This time patient did have a large bowel movement states that she is feeling much better. This and patient will be discharged home. We discussed continued care at home for her constipation. We discussed dietary recommendations. We discussed return parameters and follow-up. The patient stated that she understood and she is agreement this plan. All questions have been answered. She will be discharged. - Radiology Data Radiology results: report reviewed, image reviewed Disposition Clinical Impression: Constipation Disposition: HOME SELF-CARE Condition: Stable Instructions: Constipation (ED) Additional Instructions: Please use medication as discussed. Please follow up with family doctor if symptoms have not improved over the next two days. Please return to the emergency room if your symptoms increase or worsen or for any other concerns. Referrals: Malini Piña MD [Primary Care Provider] - 1-2 days Time of Disposition: 21:25
--- NOTE | 2017-09-30 19:51 | XR ---
EXAMINATION TYPE: XR abdomen 2V DATE OF EXAM: 09/30/2017 CLINICAL HISTORY: Difficulty urinating for 4 to 5 days. TECHNIQUE: Supine and upright views of the abdomen are obtained. COMPARISON: Abdominal x-ray March 05, 2015. CT abdomen and pelvis July 23, 2011. FINDINGS: Scattered gas is seen in non-distended stomach and small bowel loops. Gas and fecal mater ial is seen in non-distended colon. There is no visceromegaly, pneumoperitoneum, or abnormal calcif ication appreciated. The lung bases are clear and the osseous structures are intact. IMPRESSION: Overall nonobstructive bowel gas pattern. No definite nephrolithiasis.
[2017-09-30] MEDS ORDERED: MAGNESIUM CITRATE 296 ML BOTTLE PO ONE (21:25)
[2017-09-30 22:00] VITALS: BP 111/63; PULSE 99; RESP 20; TEMP 97.8
== END 2017-09-30 22:01 | disposition home or self-care (01) ==
LOC: EC 18:51
DX: K59.00 Constipation, unspecified (principal); F90.9 Attention-deficit hyperactivity disorder, unspecified type; F32.9 Major depressive disorder, single episode, unspecified; F17.200 Nicotine dependence, unspecified, uncomplicated; Z79.899 Other long term (current) drug therapy; Z91.010 Allergy to peanuts; Z91.011 Allergy to milk products; Z91.018 Allergy to other foods
CPT/HCPCS: 74019; 99284

== ENCOUNTER 2017-10-02 16:32 | Emergency (ER) | payer OTHER ==
--- NOTE | 2017-10-02 17:02 | ED ---
General Adult HPI - General Chief complaint: Abdominal Pain Stated complaint: Constipated Time Seen by Provider: 10/02/17 16:35 Source: patient, RN notes reviewed Mode of arrival: ambulatory Limitations: no limitations - History of Present Illness Initial comments: This is a 21-year-old female presents emergency Department complaining that she is constipated. Patient states she was here twice in the last week for difficulty urinating. Patient states he didn't findings. No urinary tract infection. Patient states she has been constipated for the last couple of days. Patient states she's also noticed a little bit of blood in her urine and a little bit of dysuria. Patient denies any sexual activity. Patient denies any abdominal pain. Patient denies nausea vomiting or diarrhea. Patient denies any fever chills. Patient denies any back pain. - Related Data Home Medications Medication Instructions Recorded Confirmed Atomoxetine HCl [Strattera] 80 mg PO QAM 09/30/17 10/02/17 Loratadine [Claritin] 10 mg PO DAILY 09/30/17 10/02/17 Sertraline [Zoloft] 100 mg PO HS 09/30/17 10/02/17 Zolpidem [Ambien] 10 mg PO HS PRN 09/30/17 10/02/17 Ascorbic Acid [Vitamin C] 1,000 mg PO DAILY 10/02/17 10/02/17 Calcium Carbonate [Calcium] 600 mg PO DAILY 10/02/17 10/02/17 buPROPion HCL [Wellbutrin SR] 150 mg PO DAILY 10/02/17 10/02/17 Previous Rx's Medication Instructions Recorded Sulfamethox-Tmp 800-160Mg [Bactrim 1 each PO Q12HR #14 tab 10/02/17 DS 800-160 mg] Allergies Allergy/AdvReac Type Severity Reaction Status Date / Time peanut Allergy Unknown Anaphylaxis Verified 10/02/17 16:56 celery Allergy Anaphylaxis Verified 10/02/17 16:56 Milk Containing Products Allergy Unknown Verified 10/02/17 16:56 [Dairy] peas Allergy Anaphylaxis Verified 10/02/17 16:56 peppers Allergy Anaphylaxis Uncoded 10/02/17 16:35 Review of Systems ROS Statement: Those systems with pertinent positive or pertinent negative responses have been documented in the HPI. ROS Other: All systems not noted in ROS Statement are negative. Past Medical History Past Medical History: Asthma, Osteoarthritis (OA) History of Any Multi-Drug Resistant Organisms: None Reported Past Surgical History: Appendectomy Past Psychological History: ADD/ADHD, Depression Smoking Status: Current every day smoker Past Alcohol Use History: None Reported Past Drug Use History: None Reported General Exam - General Exam Comments Initial Comments: GENERAL: Patient is well-developed and well-nourished. Patient is nontoxic and well- hydrated and is in no acute distress. ENT: Neck is soft and supple. No significant lymphadenopathy is noted. Oropharynx is clear. Moist mucous membranes. Neck has full range of motion without eliciting any pain. EYES: The sclera were anicteric and conjunctiva were pink and moist. Extraocular movements were intact and pupils were equal round and reactive to light. Eyelids were unremarkable. PULMONARY: Unlabored respirations. Good breath sounds bilaterally. No audible rales rhonchi or wheezing was noted. CARDIOVASCULAR: There is a regular rate and rhythm without any murmurs gallops or rubs. ABDOMEN: Soft and nontender with normal bowel sounds. No palpable organomegaly was noted. There is no palpable pulsatile mass. SKIN: Skin is clear with no lesions or rashes and otherwise unremarkable. NEUROLOGIC: Patient is alert and oriented x3. Cranial nerves II through XII are grossly intact. Motor and sensory are also intact. Normal speech, volume and content. Symmetrical smile. MUSCULOSKELETAL: Normal extremities with adequate strength and full range of motion. No lower extremity swelling or edema. No calf tenderness. LYMPHATICS: No significant lymphadenopathy is noted PSYCHIATRIC: Normal psychiatric evaluation. Limitations: no limitations Course Vital Signs 10/02/17 16:33 Temperature 97.7 F Pulse Rate 107 H Respiratory 18 Rate Blood Pressure 116/77 O2 Sat by Pulse 99 Oximetry Medical Decision Making - Lab Data Lab Results 10/02/17 Range/Units 17:20 Urine Color Yellow Urine Appearance Cloudy H (Clear) Urine pH 7.5 (5.0-8.0) Ur Specific [place] 1.006 (1.001-1.035) Urine Protein Trace H (Negative) Urine Glucose (UA) Negative (Negative) Urine Ketones Negative (Negative) Urine Blood Large H (Negative) Urine Nitrite Negative (Negative) Urine Bilirubin Negative (Negative) Urine Urobilinogen <2.0 (<2.0) mg/dL Ur Leukocyte Esterase Trace H (Negative) Urine RBC >182 H (0-5) /hpf Urine WBC 42 H (0-5) /hpf Ur Squamous Epith Cells 21 H (0-4) /hpf Amorphous Sediment Rare H (None) /hpf Urine Bacteria Many H (None) /hpf Urine Mucus Rare H (None) /hpf Disposition Clinical Impression: Urinary tract infection Disposition: HOME SELF-CARE Condition: Good Instructions: Urinary Tract Infection in Women (ED) Prescriptions: Sulfamethox-Tmp 800-160Mg [Bactrim DS 800-160 mg] 1 each PO Q12HR #14 tab Referrals: Malini Piña MD [Primary Care Provider] - 1-2 days Time of Disposition: 17:50
--- NOTE | 2017-10-02 17:40 | XR ---
EXAMINATION TYPE: XR KUB DATE OF EXAM: 10/02/2017 COMPARISON: 09/30/2017 HISTORY: Constipation and hematuria TECHNIQUE: 2 views FINDINGS: There is no sign of intestinal obstruction or pneumoperitoneum. Fecal pattern is normal. Th ere is no sign of a mass. Lung bases are clear. There are no pathologic calcifications over the kidne ys. IMPRESSION: Nonacute abdomen. No adverse change compared to old exam. There is decrease in the fecal material compared to last exam.
[2017-10-02 17:41] LABS: Amorphous Sediment,Urine Rare /hpf; Appearance,Urine Cloudy (Clear); Bacteria,Urine Many /hpf; Bilirubin,Urine Negative (Negative); Blood,Urine Large (Negative); Color,Urine Yellow; Glucose,Urine (UA) Negative (Negative); Ketones,Urine Negative (Negative); Leukocyte Esterase,Urine Trace (Negative); Mucus,Urine Rare /hpf; Nitrite,Urine Negative (Negative); PH, Urine 7.5 (5.0-8.0); Protein,Urine Trace (Negative); RBC,Urine >182 /hpf (0-5); Specific Gravity,Urine 1.006 (1.001-1.035); Squamous Epithelial Cell,Urine 21 /hpf (0-4); Urobilinogen,Urine <2.0 mg/dL (<2.0); WBC,Urine 42 /hpf (0-5)
[2017-10-02] MEDS ORDERED: cefTRIAXone 250 MG VIAL IM STA (17:48)
[2017-10-02] MEDS ORDERED: cefTRIAXone 1,000 MG VIAL (IM USE) IM STA (18:06)
[2017-10-02 18:08] VITALS: BP 107/57; PULSE 106; RESP 16; TEMP 98
== END 2017-10-02 18:28 | disposition home or self-care (01) ==
LOC: EC 16:32
DX: N39.0 Urinary tract infection, site not specified (principal); K59.00 Constipation, unspecified; F32.9 Major depressive disorder, single episode, unspecified; F90.9 Attention-deficit hyperactivity disorder, unspecified type; F17.200 Nicotine dependence, unspecified, uncomplicated; Z79.899 Other long term (current) drug therapy; Z91.010 Allergy to peanuts; Z91.011 Allergy to milk products; Z91.018 Allergy to other foods; Z90.49 Acquired absence of other specified parts of digestive tract
CPT/HCPCS: 81001; 74018; 99284; 96372; J0696

== ENCOUNTER → 2017-10-12 | Outpatient (CLI) | payer OTHER ==
--- NOTE | 2017-10-12 09:20 | US ---
EXAMINATION TYPE: US kidneys/renal and bladder DATE OF EXAM: 10/12/2017 COMPARISON: CT abdomen and pelvis July 23, 2011 CLINICAL HISTORY: R31.9 Hematuria. Difficulty urinating. Difficult exam as patient cannot tolerate pr essure from the ultrasound probe. EXAM MEASUREMENTS: Right Kidney: 10.0 x 4.8 x 4.5 cm Left Kidney: 9.4 x 5.0 x 5.2 cm Post Void Residual Volume: 9.5 mL Right Kidney: No hydronephrosis or masses seen Left Kidney: No hydronephrosis or masses seen Bladder: wnl Bilateral Jets seen: Yes Normal Post Void Residual: Yes There is no evidence for hydronephrosis at this point in time. No nephrolithiasis is seen. No ally s are identified. The urinary bladder is anechoic. Bilateral ureteral jets are seen. IMPRESSION: Suboptimal study due to patient pain, saved images show no suspicious abnormality.
== END | disposition home or self-care (01) ==
LOC: RADUSWWP 08:26
PROVIDERS: ATTEND Internal Medicine
DX: R31.9 Hematuria, unspecified (principal)
CPT/HCPCS: 76770

== ENCOUNTER 2017-10-17 06:54 | Day surgery (SDC) | payer OTHER ==
[2017-10-12 14:43] VITALS: BMI 31.5
[~2017-10-17 06:54] MED LIST: LACTATED RINGERS 1,000 ML IV SCH
[2017-10-17 07:24] VITALS: TEMP 98.5
[2017-10-17] MEDS ORDERED: PROPOFOL 10 MG/ML 20 ML VIAL IV ONE (07:50)
--- NOTE | 2017-10-17 07:51 | P.GSHP ---
History of Present Illness H&P Date: 10/17/17 Chief Complaint: GI Bleed This a 21-year-old female referred from Dr. Piña. Patient rents today for colonoscopy. She's had issues with GI bleed. Past Medical History Past Medical History: Asthma, Osteoarthritis (OA) Additional Past Medical History / Comment(s): SEVERE CONSTIPATION History of Any Multi-Drug Resistant Organisms: None Reported Past Surgical History: Appendectomy Past Anesthesia/Blood Transfusion Reactions: No Reported Reaction Smoking Status: Current every day smoker - Past Family History Mother Family Medical History: No Reported History Medications and Allergies Home Medications Medication Instructions Recorded Confirmed Type Atomoxetine HCl [Strattera] 80 mg PO QAM 09/30/17 10/17/17 History Loratadine [Claritin] 10 mg PO DAILY 09/30/17 10/17/17 History Sertraline [Zoloft] 100 mg PO HS 09/30/17 10/17/17 History Zolpidem [Ambien] 10 mg PO HS PRN 09/30/17 10/17/17 History Ascorbic Acid [Vitamin C] 1,000 mg PO DAILY 10/02/17 10/17/17 History Calcium Carbonate [Calcium] 600 mg PO DAILY 10/02/17 10/17/17 History buPROPion HCL [Wellbutrin SR] 150 mg PO DAILY 10/02/17 10/17/17 History Allergies Allergy/AdvReac Type Severity Reaction Status Date / Time peanut Allergy Unknown Anaphylaxis Verified 10/12/17 14:23 celery Allergy Anaphylaxis Verified 10/12/17 14:23 Milk Containing Products Allergy Abdominal Verified 10/12/17 14:23 [Dairy] Pain peas Allergy Anaphylaxis Verified 10/12/17 14:23 peppers Allergy Anaphylaxis Uncoded 10/12/17 14:23 Surgical - Exam Vital Signs Temp Pulse Resp BP Pulse Ox 98.5 F 106 H 14 106/69 99 10/17/17 07:22 10/17/17 07:22 10/17/17 07:22 10/17/17 07:22 10/17/17 07:22 - General well developed, no distress - Eyes PERRL - ENT normal pinna - Respiratory normal expansion - Cardiovascular Rhythm: regular - Abdomen Abdomen: soft, non tender Assessment and Plan Assessment: GI bleed. We'll perform colonoscopy.
--- NOTE | 2017-10-17 08:07 | P.OP ---
Date of Procedure: 10/17/17 Preoperative Diagnosis: GI bleed Postoperative Diagnosis: Normal colonoscopy Procedure(s) Performed: Colonoscopy Anesthesia: MAC Surgeon: Arturo Diego Pathology: none sent Condition: stable Disposition: PACU Description of Procedure: PROCEDURE: The patient was placed on the endoscopy table in the lateral position. Digital rectal examination was performed which revealed no abnormalities. s. Flexible colonoscope was then placed in the patient's anus and passed throughout the entire colon. The ileocecal valve was visualized. The cecum, ascending, transverse, descending and sigmoid colon were normal. The rectum was normal as well. There were no masses, polyps or diverticula noted in the entire colon. SUMMARY OF FINDINGS: Normal colonoscopy.
[2017-10-17 08:11] VITALS: PULSE 86; RESP 16
[2017-10-17 08:35] VITALS: BP 109/72
== END 2017-10-17 08:55 | disposition home or self-care (01) ==
LOC: ORWHC2ENDO 06:54
PROVIDERS: ATTEND Surgery
DX: K92.2 Gastrointestinal hemorrhage, unspecified (principal); J45.909 Unspecified asthma, uncomplicated; M19.90 Unspecified osteoarthritis, unspecified site; F17.200 Nicotine dependence, unspecified, uncomplicated; F39 Unspecified mood [affective] disorder; Z79.899 Other long term (current) drug therapy; Z91.011 Allergy to milk products; Z91.010 Allergy to peanuts; Z91.018 Allergy to other foods
CPT/HCPCS: 81025; 84703; 45378; J2704

== ENCOUNTER 2018-01-05 13:31 | Emergency (ER) | payer OTHER ==
[2018-01-05] MEDS ORDERED: KETOROLAC 30 MG/ML 1 ML VIAL IVP STA (15:38)
[2018-01-05] MEDS ORDERED: diphenhydrAMINE 50 MG/ML 1 ML VIAL IVP STA (15:38)
[2018-01-05] MEDS ORDERED: PANTOPRAZOLE 40 MG/10 ML VIAL IVP STA (15:38)
[2018-01-05] MEDS ORDERED: ONDANSETRON 4 MG/2 ML VIAL IVP STA (15:38)
[2018-01-05] MEDS ORDERED: METOCLOPRAMIDE 5 MG/ML 2 ML VIAL IVP STA (15:38)
[2018-01-05] MEDS ORDERED: ACETAMINOPHEN IV (For NPO) 1,000 MG in EMPTY BAG 1 BAG IVPB STA (15:38)
[2018-01-05] MEDS ORDERED: SODIUM CHLORIDE 0.9% 1,000 ML IV STA (15:38)
--- NOTE | 2018-01-05 15:38 | ED ---
General Adult HPI - General Chief complaint: Nausea/Vomiting/Diarrhea Stated complaint: vomiting Time Seen by Provider: 01/05/18 14:50 Source: patient, RN notes reviewed, old records reviewed Mode of arrival: ambulatory Limitations: no limitations - History of Present Illness Initial comments: This is a 22-year-old female the ER for evaluation. Patient was essay for evaluation regards to significant nausea vomiting intractable nausea vomiting. Denies . No fever. States she has had fever recent the last 2 weeks. But still with persistent nausea vomiting no medication changes - Related Data Home Medications Medication Instructions Recorded Confirmed Atomoxetine HCl [Strattera] 80 mg PO QAM 09/30/17 01/05/18 Loratadine [Claritin] 10 mg PO DAILY 09/30/17 01/05/18 Sertraline [Zoloft] 100 mg PO HS 09/30/17 01/05/18 Zolpidem [Ambien] 10 mg PO HS PRN 09/30/17 01/05/18 Ascorbic Acid [Vitamin C] 1,000 mg PO DAILY 10/02/17 01/05/18 Calcium Carbonate [Calcium] 600 mg PO DAILY 10/02/17 01/05/18 buPROPion HCL [Wellbutrin XL] 300 mg PO DAILY 01/05/18 01/05/18 Allergies Allergy/AdvReac Type Severity Reaction Status Date / Time peanut Allergy Unknown Anaphylaxis Verified 01/05/18 14:40 celery Allergy Anaphylaxis Verified 01/05/18 14:40 Milk Containing Products Allergy Abdominal Verified 01/05/18 14:40 [Dairy] Pain peas Allergy Anaphylaxis Verified 01/05/18 14:40 peppers Allergy Anaphylaxis Uncoded 01/05/18 14:07 Review of Systems ROS Statement: Those systems with pertinent positive or pertinent negative responses have been documented in the HPI. ROS Other: All systems not noted in ROS Statement are negative. Past Medical History Past Medical History: Asthma, Osteoarthritis (OA) History of Any Multi-Drug Resistant Organisms: None Reported Past Surgical History: Appendectomy Past Psychological History: ADD/ADHD, Depression Smoking Status: Current every day smoker Past Alcohol Use History: None Reported Past Drug Use History: None Reported General Exam Limitations: no limitations General appearance: alert, in no apparent distress Head exam: Present: atraumatic, normocephalic, normal inspection Eye exam: Present: normal appearance, PERRL, EOMI. Absent: scleral icterus, conjunctival injection, periorbital swelling ENT exam: Present: normal exam, mucous membranes moist Neck exam: Present: normal inspection. Absent: tenderness, meningismus, lymphadenopathy Respiratory exam: Present: normal lung sounds bilaterally. Absent: respiratory distress, wheezes, rales, rhonchi, stridor Cardiovascular Exam: Present: regular rate, normal rhythm, normal heart sounds. Absent: systolic murmur, diastolic murmur, rubs, gallop, clicks GI/Abdominal exam: Present: soft, normal bowel sounds. Absent: distended, tenderness, guarding, rebound, rigid Extremities exam: Present: normal inspection, full ROM, normal capillary refill. Absent: tenderness, pedal edema, joint swelling, calf tenderness Back exam: Present: normal inspection Neurological exam: Present: alert, oriented X3, CN II-XII intact Psychiatric exam: Present: normal affect, normal mood Skin exam: Present: warm, dry, intact, normal color. Absent: rash Course Vital Signs 01/05/18 14:05 Temperature 98.3 F Pulse Rate 110 H Respiratory 18 Rate Blood Pressure 125/76 O2 Sat by Pulse 100 Oximetry - Reevaluation(s) Reevaluation #1: 01/05/18 17:32 Symptoms improved Medical Decision Making - Medical Decision Making 22 female the ER with nausea vomiting intractable, symptoms resolved. Labwork unremarkable. Patient can be discharged home - Lab Data Result diagrams: 01/05/18 15:00 01/05/18 15:00 Lab Results 01/05/18 01/05/18 Range/Units 15:00 15:00 WBC 11.9 H (3.8-10.6) k/uL RBC 3.99 (3.80-5.40) m/uL Hgb 12.0 (11.4-16.0) gm/dL Hct 35.6 (34.0-46.0) % MCV 89.4 (80.0-100.0) fL MCH 30.1 (25.0-35.0) pg MCHC 33.7 (31.0-37.0) g/dL RDW 12.1 (11.5-15.5) % Plt Count 291 (150-450) k/uL Neutrophils % 76 % Lymphocytes % 19 % Monocytes % 3 % Eosinophils % 1 % Basophils % 0 % Neutrophils # 9.0 H (1.3-7.7) k/uL Lymphocytes # 2.3 (1.0-4.8) k/uL Monocytes # 0.4 (0-1.0) k/uL Eosinophils # 0.1 (0-0.7) k/uL Basophils # 0.0 (0-0.2) k/uL Sodium 145 (137-145) mmol/L Potassium 3.8 (3.5-5.1) mmol/L Chloride 105 (98-107) mmol/L Carbon Dioxide 25 (22-30) mmol/L Anion Gap 15 mmol/L BUN 8 (7-17) mg/dL Creatinine 0.90 (0.52-1.04) mg/dL Est GFR (CKD-EPI)AfAm >90 (>60 ml/min/1.73 sqM) Est GFR (CKD-EPI)NonAf >90 (>60 ml/min/1.73 sqM) Glucose 85 (74-99) mg/dL Calcium 9.4 (8.4-10.2) mg/dL Phosphorus 4.0 (2.5-4.5) mg/dL Magnesium 1.9 (1.6-2.3) mg/dL Total Bilirubin 0.2 (0.2-1.3) mg/dL AST 16 (14-36) U/L ALT 15 (9-52) U/L Alkaline Phosphatase 76 (38-126) U/L Total Protein 6.3 (6.3-8.2) g/dL Albumin 3.7 (3.5-5.0) g/dL Disposition Clinical Impression: Nausea and vomiting, Anxiety Disposition: HOME SELF-CARE Condition: Good Instructions: Acute Nausea and Vomiting (ED) Is patient prescribed a controlled substance at d/c from ED?: No Referrals: Morteza Davis MD [Primary Care Provider] - 1-2 days
[2018-01-05 16:00] LABS: Basophils % (A) 0 %; Eosinophils # (A) 0.1 k/uL (0-0.7); Eosinophils % (A) 1 %; HCT 35.6 % (34.0-46.0); Lymphocytes # (A) 2.3 k/uL (1.0-4.8); Lymphocytes % (A) 19 %; MCH 30.1 pg (25.0-35.0); MCHC 33.7 g/dL (31.0-37.0); MCV 89.4 fL (80.0-100.0); Mean Platelet Volume 7.4; Monocytes # (A) 0.4 k/uL (0-1.0); Monocytes % (A) 3 %; Neutrophils % (A) 76 %; Platelet Count 291 k/uL (150-450); RBC 3.99 m/uL (3.80-5.40); RDW 12.1 % (11.5-15.5); WBC 11.9 k/uL (3.8-10.6)
[2018-01-05 16:10] LABS: ALT 15 U/L (9-52); AST 16 U/L (14-36); Albumin 3.7 g/dL (3.5-5.0); Alkaline Phosphatase 76 U/L (38-126); Anion Gap 15 mmol/L; Blood Urea Nitrogen 8 mg/dL (7-17); Calcium 9.4 mg/dL (8.4-10.2); Carbon Dioxide 25 mmol/L (22-30); Chloride 105 mmol/L (98-107); Glucose 85 mg/dL (74-99); Magnesium 1.9 mg/dL (1.6-2.3); Potassium 3.8 mmol/L (3.5-5.1); Sodium 145 mmol/L (137-145); Total Bilirubin 0.2 mg/dL (0.2-1.3); Total Protein 6.3 g/dL (6.3-8.2)
[2018-01-05 17:35] LABS: Appearance,Urine Cloudy (Clear); Bacteria,Urine Many /hpf; Bilirubin,Urine Negative (Negative); Blood,Urine Negative (Negative); Budding Yeast,Urine Occasional /hpf; Color,Urine Light Yellow; Glucose,Urine (UA) Negative (Negative); Ketones,Urine Negative (Negative); Leukocyte Esterase,Urine Large (Negative); Mucus,Urine Rare /hpf; Nitrite,Urine Negative (Negative); Protein,Urine Negative (Negative); RBC,Urine 2 /hpf (0-5); Squamous Epithelial Cell,Urine 10 /hpf (0-4); Urobilinogen,Urine <2.0 mg/dL (<2.0); WBC,Urine 12 /hpf (0-5)
[2018-01-05 18:08] VITALS: BP 142/64; PULSE 68; RESP 16; TEMP 97.8
== END 2018-01-05 18:06 | disposition home or self-care (01) ==
LOC: EC 13:31
DX: F41.9 Anxiety disorder, unspecified (principal); R11.2 Nausea with vomiting, unspecified; F32.9 Major depressive disorder, single episode, unspecified; F90.9 Attention-deficit hyperactivity disorder, unspecified type; F17.200 Nicotine dependence, unspecified, uncomplicated; Z79.899 Other long term (current) drug therapy; Z91.010 Allergy to peanuts; Z91.011 Allergy to milk products; Z91.018 Allergy to other foods
CPT/HCPCS: 36415; 80053; 83735; 84100; 85025; 81001; 81025; 87086; 99284; 96374; 96375 ×5; 96361; J1200; J2765; J2405; J1885; J0131; C9113

== ENCOUNTER 2018-01-17 16:38 | Emergency (ER) | payer OTHER ==
[2018-01-17 17:00] VITALS: BP 121/77; PULSE 55; RESP 16; TEMP 98
--- NOTE | 2018-01-17 17:10 | ED ---
General Adult HPI - General Stated complaint: Arm/wrist injury-[facility] Time Seen by Provider: 01/17/18 16:58 Source: patient, RN notes reviewed Mode of arrival: ambulatory Limitations: no limitations - History of Present Illness Initial comments: 22-year-old female presents to the emergency department for a chief complaint of right arm pain 2 days. 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 Patient states this also hurt her right elbow. Patient denies any other injuries. Patient denies falling or hitting her head. Patient states her elbow hurts more than her wrist. Patient has not taken Motrin or Tylenol for pain. Patient has no other complaints at this time including shortness of breath, chest pain, abdominal pain, nausea or vomiting, headache, or visual changes. - Related Data Home Medications Medication Instructions Recorded Confirmed Atomoxetine HCl [Strattera] 80 mg PO QAM 09/30/17 01/05/18 Loratadine [Claritin] 10 mg PO DAILY 09/30/17 01/05/18 Sertraline [Zoloft] 100 mg PO HS 09/30/17 01/05/18 Zolpidem [Ambien] 10 mg PO HS PRN 09/30/17 01/05/18 Ascorbic Acid [Vitamin C] 1,000 mg PO DAILY 10/02/17 01/05/18 Calcium Carbonate [Calcium] 600 mg PO DAILY 10/02/17 01/05/18 buPROPion HCL [Wellbutrin XL] 300 mg PO DAILY 01/05/18 01/05/18 Allergies Allergy/AdvReac Type Severity Reaction Status Date / Time peanut Allergy Unknown Anaphylaxis Verified 01/05/18 14:40 celery Allergy Anaphylaxis Verified 01/05/18 14:40 Milk Containing Products Allergy Abdominal Verified 01/05/18 14:40 [Dairy] Pain peas Allergy Anaphylaxis Verified 01/05/18 14:40 peppers Allergy Anaphylaxis Uncoded 01/05/18 14:07 Review of Systems ROS Statement: Those systems with pertinent positive or pertinent negative responses have been documented in the HPI. ROS Other: All systems not noted in ROS Statement are negative. Past Medical History Past Medical History: Asthma, Osteoarthritis (OA) History of Any Multi-Drug Resistant Organisms: None Reported Past Surgical History: Appendectomy Past Psychological History: ADD/ADHD, Depression Smoking Status: Current every day smoker Past Alcohol Use History: None Reported Past Drug Use History: None Reported General Exam Limitations: no limitations General appearance: alert, in no apparent distress Head exam: Present: atraumatic, normocephalic, normal inspection Neck exam: Present: normal inspection. Absent: tenderness, meningismus, lymphadenopathy Respiratory exam: Present: normal lung sounds bilaterally. Absent: respiratory distress, wheezes, rales, rhonchi, stridor Cardiovascular Exam: Present: regular rate, normal rhythm, normal heart sounds. Absent: bradycardia, tachycardia, irregular rhythm Extremities exam: Present: tenderness (Patient has tenderness throughout her right wrist and forearm and right elbow. No tenderness in the scaphoid area.), normal capillary refill (Refill less than 2 seconds and radial pulse 2+.), other (Sensation intact in RUE. ). Absent: normal inspection, full ROM (Full range of motion in the right wrist. Patient refuses to bend her R elbow.), joint swelling (No swelling edema or ecchymosis noted in the right wrist or elbow.) Course Vital Signs 01/17/18 16:55 Temperature 98 F Pulse Rate 55 L Respiratory 16 Rate Blood Pressure 121/77 O2 Sat by Pulse 96 Oximetry Medical Decision Making - Medical Decision Making 22-year-old female presents to the emergency department for a chief complaint of right arm pain 2 days. 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 Patient complains of wrist pain forearm pain and elbow pain. Patient states her elbow hurts the worse. On exam there is no swelling or ecchymosis. Patient has full range of motion of the right wrist but refuses to try to move the right elbow. Tenderness from wrist to elbow. No tenderness in the hand. No scaphoid tenderness. Neurovascular intact in the right upper extremity and sensation intact as well. Patient has not had Motrin or Tylenol. Patient denies any chance of and states she is not currently sexually active. She requests to have ibuprofen in the emergency department which was given to her. X-ray of the right forearm including the wrist and elbow shows no acute fracture or dislocation. Overlying soft tissue appears unremarkable. Patient likely has a muscle strain of the right arm. She was wrapped with an javy wrap on her elbow. Patient states she has Motrin and Tylenol at home for pain. She was educated to rest, ice, and elevate the right elbow and wrist. She is aware she can return to the emergency Department if she has any worsening symptoms. Otherwise she will follow-up with primary care in 1-2 days. Disposition Clinical Impression: Arm pain Disposition: HOME SELF-CARE Condition: Good Instructions: RICE Therapy (ED) Additional Instructions: Please take Motrin or Tylenol for pain relief. Please rest, ice, and elevate the right arm. You may wrap it with an Javy wrap if that is helpful. Return to the emergency department if symptoms worsen. Otherwise follow-up with primary care in 1-2 days. Is patient prescribed a controlled substance at d/c from ED?: No Referrals: Morteza Davis MD [Primary Care Provider] - 1-2 days Time of Disposition: 17:47
--- NOTE | 2018-01-17 17:18 | XR ---
EXAMINATION TYPE: XR forearm RT DATE OF EXAM: 01/17/2018 CLINICAL HISTORY: pain TECHNIQUE: Frontal and lateral images of the right forearm are obtained. COMPARISON: None. FINDINGS: There is no acute fracture/dislocation evident. The joint spaces appear within normal limi ts. The overlying soft tissue appears unremarkable. IMPRESSION: There is no acute fracture or dislocation. ICD 10 NO FRACTURE, INITIAL EVALUATION
== END 2018-01-17 18:05 | disposition home or self-care (01) ==
LOC: EC 16:38
DX: M79.601 Pain in right arm (principal); F90.9 Attention-deficit hyperactivity disorder, unspecified type; F32.9 Major depressive disorder, single episode, unspecified; Z79.899 Other long term (current) drug therapy; Z91.010 Allergy to peanuts; Z91.018 Allergy to other foods; Z91.011 Allergy to milk products
CPT/HCPCS: 99283

== ENCOUNTER 2018-01-27 21:09 | Emergency (ER) | payer OTHER ==
[2018-01-27 21:22] VITALS: BP 120/77; PULSE 100; RESP 20; TEMP 98.7
--- NOTE | 2018-01-27 21:40 | XR ---
EXAMINATION TYPE: XR wrist complete RT DATE OF EXAM: 01/27/2018 CLINICAL HISTORY: Right wrist pain TECHNIQUE: Frontal, lateral and oblique images of the right wrist are obtained. Scaphoid view was al so obtained. COMPARISON: 01/17/2018 right forearm radiograph FINDINGS: There is no acute fracture/dislocation evident in the right wrist. The joint spaces in th e right wrist appear within normal limits. The overlying soft tissue appears unremarkable. IMPRESSION: There is no acute fracture or dislocation in the right wrist.
--- NOTE | 2018-01-27 21:44 | ED ---
General Adult HPI - General Chief complaint: Extremity Injury, Upper Stated complaint: Wrist injury Time Seen by Provider: 01/27/18 21:23 Source: patient, family, RN notes reviewed Mode of arrival: ambulatory Limitations: no limitations - History of Present Illness Initial comments: 22-year-old female presents to the emergency department for a chief complaint of right wrist pain. Patient states she was pushing carts when she twisted her wrist backwards. Patient had a similar injury that I saw about a week ago. Patient states she has injured it again since that time. Patient denies pain in the hand. She states all the pain in the wrist. Patient denies any other injuries or complaints. Patient has no other complaints at this time including shortness of breath, chest pain, abdominal pain, nausea or vomiting, headache, or visual changes. - Related Data Home Medications Medication Instructions Recorded Confirmed Atomoxetine HCl [Strattera] 80 mg PO QAM 09/30/17 01/27/18 Loratadine [Claritin] 10 mg PO DAILY 09/30/17 01/27/18 Sertraline [Zoloft] 100 mg PO HS 09/30/17 01/27/18 Zolpidem [Ambien] 10 mg PO HS PRN 09/30/17 01/27/18 Ascorbic Acid [Vitamin C] 1,000 mg PO DAILY 10/02/17 01/27/18 Calcium Carbonate [Calcium] 600 mg PO DAILY 10/02/17 01/27/18 buPROPion HCL [Wellbutrin XL] 300 mg PO DAILY 01/05/18 01/27/18 Allergies Allergy/AdvReac Type Severity Reaction Status Date / Time peanut Allergy Unknown Anaphylaxis Verified 01/27/18 21:22 celery Allergy Anaphylaxis Verified 01/27/18 21:22 Milk Containing Products Allergy Abdominal Verified 01/27/18 21:22 [Dairy] Pain peas Allergy Anaphylaxis Verified 01/27/18 21:22 peppers Allergy Anaphylaxis Uncoded 01/27/18 21:22 Review of Systems ROS Statement: Those systems with pertinent positive or pertinent negative responses have been documented in the HPI. ROS Other: All systems not noted in ROS Statement are negative. Past Medical History Past Medical History: Asthma, Osteoarthritis (OA) History of Any Multi-Drug Resistant Organisms: None Reported Past Surgical History: Appendectomy Past Psychological History: ADD/ADHD, Depression Smoking Status: Current every day smoker Past Alcohol Use History: None Reported Past Drug Use History: None Reported General Exam Limitations: no limitations General appearance: alert, in no apparent distress Respiratory exam: Present: normal lung sounds bilaterally. Absent: respiratory distress, wheezes, rales, rhonchi, stridor Cardiovascular Exam: Present: regular rate Extremities exam: Present: full ROM (Patient has limited range of motion of the right wrist. Patient has about 45 of flexion and extension.), tenderness ( Patient has tenderness to the wrist. No scaphoid tenderness. No tenderness in the hand.), normal capillary refill (Refill less than 2 seconds and radial pulse 2+.), other (Sensation intact in the right upper extremity.). Absent: joint swelling (No swelling, redness, ecchymosis noted in the right wrist or hand.) Course Vital Signs 01/27/18 21:19 Temperature 98.7 F Pulse Rate 100 Respiratory 20 Rate Blood Pressure 120/77 O2 Sat by Pulse 100 Oximetry Medical Decision Making - Medical Decision Making 22-year-old female presents to the emergency department for a chief complaint of right wrist pain times one week. Patient states she was pushing carts at [facility] when she bent her wrist backwards. Patient denies any other injuries. Patient states pain is on her wrist and denies pain in the hand. Patient was seen for a similar complaint about a week ago and given 2 days off of car pushing duty. Patient states she hurt it again since that time. Patient states it never fully resolved either. On exam patient has some limited range of motion of the right wrist. Tenderness of the right wrist. No Alirio. Neurovascular intact. X-ray done states no acute fracture or dislocation. Patient was wrapped with an Javy wrap. She was educated to rest ice and elevate the wrist. She was given a referral to orthopedics as well as her family doctor. She was educated that we cannot keep giving car pushing restrictions to her and she needs to see one of these providers for further restrictions. She will return if she has any worsening symptoms. Disposition Clinical Impression: Right wrist injury Disposition: HOME SELF-CARE Condition: Good Instructions: Wrist Injury (ED) Additional Instructions: Please take Motrin or Tylenol for pain. Please return if you have worsening symptoms. Otherwise follow-up with orthopedics in one to 2 days. Contact your insurance provider about which primary care physician you can see in the area. Is patient prescribed a controlled substance at d/c from ED?: No Referrals: Morteza Davis MD [Primary Care Provider] - 1-2 days Mitchell Blackwood DO [Doctor of Osteopathic Medicine] - 1-2 days Time of Disposition: 21:44
== END 2018-01-27 21:57 | disposition home or self-care (01) ==
LOC: EC 21:09
DX: S69.91XA Unspecified injury of right wrist, hand and finger(s), initial encounter (principal); F32.9 Major depressive disorder, single episode, unspecified; F90.9 Attention-deficit hyperactivity disorder, unspecified type; F17.200 Nicotine dependence, unspecified, uncomplicated; Z79.899 Other long term (current) drug therapy; Z91.010 Allergy to peanuts; Z91.011 Allergy to milk products; Z91.018 Allergy to other foods; X50.1XXA Overexertion from prolonged static or awkward postures, initial encounter; Y93.89 Activity, other specified; Y92.69 Other specified industrial and construction area as the place of occurrence of the external cause; Y99.0 Civilian activity done for income or pay
CPT/HCPCS: 99283

== ENCOUNTER → 2018-02-14 | Outpatient (CLI) | payer OTHER ==
--- NOTE | 2018-02-14 15:21 | XR ---
Left ankle HISTORY: Trauma and pain 3 views of the left ankle Bone mineralization, joint spaces and alignment are maintained. IMPRESSION: No fracture or dislocation.
== END | disposition home or self-care (01) ==
LOC: RADXRMAIN 12:52
PROVIDERS: ATTEND Family Medicine
DX: M25.572 Pain in left ankle and joints of left foot (principal)

== ENCOUNTER → 2018-02-21 | Outpatient (CLI) | payer OTHER ==
--- NOTE | 2018-02-21 15:02 | BD ---
EXAMINATION TYPE: Axial Bone Density DATE OF EXAM: 02/21/2018 COMPARISON: NONE CLINICAL HISTORY: disorder of bone Height: 5'3 1/2 Weight: 185 FRAX RISK QUESTIONS: History of Fracture in Adulthood: y Secondary Osteoporosis: Current Tobacco Use: y RISK FACTORS HISTORY OF: History of Wrist Fracture: both When: age 19 Diet low in dairy products/other sources of calcium: y Frequent falls: y MEDICATIONS: Additional Medications: ADHD ,zoloft Additional History: EXAM MEASUREMENTS: Bone mineral densitometry was performed using the GOODWIN System. Bone mineral density as measured about the Lumbar spine is: ----- L1-L4(G/cm2): 1.304 T Score Values are as follows: ----- L2: 1.0 ----- L3: 1.6 ----- L4: 0.9 ----- L1-L4: 1.0 Bone mineral density about the R hip (g/cm2): 1.127 Bone mineral density about the L hip (g/cm2): 1.070 T Score values are as follows: -----R Neck: 0.6 -----L Neck: 0.2 -----R Total: 1.1 -----L Total: 0.6 IMPRESSION: Normal (Values between +1 and -1 indicate normal bone mass). Consider repeating this study in 5 year s or sooner if there is some new clinical indication. NOTE: T-SCORE=SD OF THE YOUNG ADULT MEAN.
== END | disposition home or self-care (01) ==
LOC: RADBDWWP 08:43
PROVIDERS: ATTEND Family Medicine
DX: M89.9 Disorder of bone, unspecified (principal)
CPT/HCPCS: 77080

== ENCOUNTER → 2018-10-29 | Outpatient (CLI) | payer OTHER | END | disposition home or self-care (01) | LOC: LABWHC1 15:47 | PROVIDERS: ATTEND Family Medicine | DX: I82.409 Acute embolism and thrombosis of unspecified deep veins of unspecified lower extremity (principal) | CPT/HCPCS: 36415; 85379 ==

== ENCOUNTER 2019-03-20 08:08 | Emergency (ER) | payer BC, OTHER ==
[2019-03-20] MEDS ORDERED: SODIUM CHLORIDE 0.9% 1,000 ML IV STA (08:38)
[2019-03-20] MEDS ORDERED: ONDANSETRON 4 MG/2 ML VIAL IVP STA (08:38)
--- NOTE | 2019-03-20 08:40 | ED ---
Nausea/Vomiting/Diarrhea HPI - General Chief complaint: Nausea/Vomiting/Diarrhea Stated complaint: vomiting, fever Time Seen by Provider: 03/20/19 08:20 Source: patient, RN notes reviewed, old records reviewed Mode of arrival: ambulatory Limitations: no limitations - History of Present Illness Initial comments: Patient is a 23-year-old female presents emergency department today with complaints of a had increased coughing. She is a nonsmoker. Surgical history includes appendectomy. She states that she has no pain. She will that her nieces and nephews have been sick with viral gastroenteritis illnesses the past few weeks. Patient states that she's had Motrin and Tylenol for fevers. Patient states that she has no changes in stools or urination at this time. - Related Data Home Medications Medication Instructions Recorded Confirmed Atomoxetine HCl [Strattera] 80 mg PO QAM 09/30/17 03/20/19 Sertraline [Zoloft] 100 mg PO HS 09/30/17 03/20/19 Abilify Unknown Dose 1 tab PO DAILY 03/20/19 03/20/19 Previous Rx's Medication Instructions Recorded Famotidine [Pepcid] 20 mg PO BID #20 tablet 03/20/19 Ondansetron Odt [Zofran Odt] 4 mg PO Q8HR PRN #12 tab 03/20/19 Allergies Allergy/AdvReac Type Severity Reaction Status Date / Time peanut Allergy Unknown Anaphylaxis Verified 03/20/19 08:29 celery Allergy Anaphylaxis Verified 03/20/19 08:29 Milk Containing Products Allergy Abdominal Verified 03/20/19 08:29 [Dairy] Pain peas Allergy Anaphylaxis Verified 03/20/19 08:29 peppers Allergy Anaphylaxis Uncoded 03/20/19 08:17 Review of Systems ROS Statement: Those systems with pertinent positive or pertinent negative responses have been documented in the HPI. ROS Other: All systems not noted in ROS Statement are negative. Past Medical History Past Medical History: Asthma, Osteoarthritis (OA) History of Any Multi-Drug Resistant Organisms: None Reported Past Surgical History: Appendectomy Past Psychological History: ADD/ADHD, Depression Smoking Status: Current every day smoker Past Alcohol Use History: None Reported Past Drug Use History: None Reported General Exam - General Exam Comments Initial Comments: Patient is a 23-year-old female. Alert and oriented. No distress. Limitations: no limitations General appearance: alert, in no apparent distress Head exam: Present: atraumatic, normocephalic, normal inspection Eye exam: Present: normal appearance, PERRL, EOMI. Absent: scleral icterus, conjunctival injection, periorbital swelling ENT exam: Present: normal exam, mucous membranes moist Neck exam: Present: normal inspection. Absent: tenderness, meningismus, lymphadenopathy Respiratory exam: Present: normal lung sounds bilaterally. Absent: respiratory distress, wheezes, rales, rhonchi, stridor Cardiovascular Exam: Present: regular rate, normal rhythm, normal heart sounds. Absent: systolic murmur, diastolic murmur, rubs, gallop, clicks GI/Abdominal exam: Present: soft, normal bowel sounds. Absent: distended, tenderness, guarding, rebound, rigid Extremities exam: Present: normal inspection, full ROM, normal capillary refill. Absent: tenderness, pedal edema, joint swelling, calf tenderness Back exam: Present: normal inspection Neurological exam: Present: alert, oriented X3, CN II-XII intact Psychiatric exam: Present: normal affect, normal mood Course Vital Signs 03/20/19 08:15 Temperature 98.1 F Pulse Rate 99 Respiratory 16 Rate Blood Pressure 129/78 O2 Sat by Pulse 99 Oximetry Medical Decision Making - Medical Decision Making Patient's 23-year-old female presents with nausea and vomiting for 3 days. She otherwise appears well. No significant abdominal tenderness. Patient started on IV fluids given Zofran and labwork obtained. Lab work was reviewed and unremarkable. Patient's urinalysis is negative for any acute process. Patient likely has viral gastritis. Discussed close follow-up with PCP. Was instructed Patient with a prescription for Zofran and Bentyl. All questions were answered return parameters were discussed. - Lab Data Result diagrams: 03/20/19 08:35 03/20/19 08:35 Lab Results 03/20/19 03/20/19 03/20/19 Range/Units 08:35 08:35 08:35 WBC 8.7 (3.8-10.6) k/uL RBC 4.44 (3.80-5.40) m/uL Hgb 13.3 (11.4-16.0) gm/dL Hct 39.5 (34.0-46.0) % MCV 88.9 (80.0-100.0) fL MCH 29.9 (25.0-35.0) pg MCHC 33.7 (31.0-37.0) g/dL RDW 13.1 (11.5-15.5) % Plt Count 219 (150-450) k/uL Neutrophils % 69 % Lymphocytes % 24 % Monocytes % 4 % Eosinophils % 2 % Basophils % 0 % Neutrophils # 6.0 (1.3-7.7) k/uL Lymphocytes # 2.1 (1.0-4.8) k/uL Monocytes # 0.4 (0-1.0) k/uL Eosinophils # 0.2 (0-0.7) k/uL Basophils # 0.0 (0-0.2) k/uL Sodium 142 (137-145) mmol/L Potassium 4.1 (3.5-5.1) mmol/L Chloride 107 (98-107) mmol/L Carbon Dioxide 24 (22-30) mmol/L Anion Gap 11 mmol/L BUN 9 (7-17) mg/dL Creatinine 0.75 (0.52-1.04) mg/dL Est GFR (CKD-EPI)AfAm >90 (>60 ml/min/1.73 sqM) Est GFR (CKD-EPI)NonAf >90 (>60 ml/min/1.73 sqM) Glucose 89 (74-99) mg/dL Calcium 9.6 (8.4-10.2) mg/dL Total Bilirubin 0.4 (0.2-1.3) mg/dL AST 15 (14-36) U/L ALT 15 (9-52) U/L Alkaline Phosphatase 63 (38-126) U/L Total Protein 7.3 (6.3-8.2) g/dL Albumin 4.4 (3.5-5.0) g/dL Amylase 63 (30-110) U/L Lipase 90 (23-300) U/L Urine Color Urine Appearance (Clear) Urine pH (5.0-8.0) Ur Specific [place] (1.001-1.035) Urine Protein (Negative) Urine Glucose (UA) (Negative) Urine Ketones (Negative) Urine Blood (Negative) Urine Nitrite (Negative) Urine Bilirubin (Negative) Urine Urobilinogen (<2.0) mg/dL Ur Leukocyte Esterase (Negative) Urine HCG, Qual Not Detected (Not Detectd) 03/20/19 Range/Units 10:00 WBC (3.8-10.6) k/uL RBC (3.80-5.40) m/uL Hgb (11.4-16.0) gm/dL Hct (34.0-46.0) % MCV (80.0-100.0) fL MCH (25.0-35.0) pg MCHC (31.0-37.0) g/dL RDW (11.5-15.5) % Plt Count (150-450) k/uL Neutrophils % % Lymphocytes % % Monocytes % % Eosinophils % % Basophils % % Neutrophils # (1.3-7.7) k/uL Lymphocytes # (1.0-4.8) k/uL Monocytes # (0-1.0) k/uL Eosinophils # (0-0.7) k/uL Basophils # (0-0.2) k/uL Sodium (137-145) mmol/L Potassium (3.5-5.1) mmol/L Chloride (98-107) mmol/L Carbon Dioxide (22-30) mmol/L Anion Gap mmol/L BUN (7-17) mg/dL Creatinine (0.52-1.04) mg/dL Est GFR (CKD-EPI)AfAm (>60 ml/min/1.73 sqM) Est GFR (CKD-EPI)NonAf (>60 ml/min/1.73 sqM) Glucose (74-99) mg/dL Calcium (8.4-10.2) mg/dL Total Bilirubin (0.2-1.3) mg/dL AST (14-36) U/L ALT (9-52) U/L Alkaline Phosphatase (38-126) U/L Total Protein (6.3-8.2) g/dL Albumin (3.5-5.0) g/dL Amylase (30-110) U/L Lipase (23-300) U/L Urine Color Colorless Urine Appearance Clear (Clear) Urine pH 7.0 (5.0-8.0) Ur Specific [place] 1.003 (1.001-1.035) Urine Protein Negative (Negative) Urine Glucose (UA) Negative (Negative) Urine Ketones Negative (Negative) Urine Blood Negative (Negative) Urine Nitrite Negative (Negative) Urine Bilirubin Negative (Negative) Urine Urobilinogen <2.0 (<2.0) mg/dL Ur Leukocyte Esterase Negative (Negative) Urine HCG, Qual (Not Detectd) - Radiology Data Radiology results: report reviewed Disposition Clinical Impression: Nausea & vomiting Disposition: HOME SELF-CARE Condition: Good Instructions (If sedation given, give patient instructions): Acute Nausea and Vomiting (ED) Additional Instructions: Patient is advised of close follow-up with primary care doctor. Return to the emergency department if any alarming signs or symptoms occur. Prescriptions: Famotidine [Pepcid] 20 mg PO BID #20 tablet Ondansetron Odt [Zofran Odt] 4 mg PO Q8HR PRN #12 tab PRN Reason: Nausea Is patient prescribed a controlled substance at d/c from ED?: No Referrals: Morteza Davis MD [Primary Care Provider] - 1-2 days Time of Disposition: 10:33
[2019-03-20 08:49] LABS: Basophils % (A) 0 %; Eosinophils # (A) 0.2 k/uL (0-0.7); Eosinophils % (A) 2 %; HCT 39.5 % (34.0-46.0); HGB 13.3 gm/dL (11.4-16.0); Lymphocytes # (A) 2.1 k/uL (1.0-4.8); Lymphocytes % (A) 24 %; MCH 29.9 pg (25.0-35.0); MCHC 33.7 g/dL (31.0-37.0); MCV 88.9 fL (80.0-100.0); Mean Platelet Volume 7.9; Monocytes # (A) 0.4 k/uL (0-1.0); Monocytes % (A) 4 %; Neutrophils % (A) 69 %; Platelet Count 219 k/uL (150-450); RBC 4.44 m/uL (3.80-5.40); RDW 13.1 % (11.5-15.5); WBC 8.7 k/uL (3.8-10.6)
--- NOTE | 2019-03-20 08:58 | XR ---
EXAMINATION TYPE: XR chest 2V DATE OF EXAM: 03/20/2019 COMPARISON: 01/16/2016 HISTORY: Chest pain TECHNIQUE: Frontal and lateral views of the chest are obtained. FINDINGS: There is no focal air space opacity. No evidence for pneumothorax. No pleural effusion. The cardiac silhouette size is within normal limits. The osseous structures are grossly intact. IMPRESSION: 1. No acute cardiopulmonary process.
[2019-03-20 09:11] LABS: ALT 15 U/L (9-52); AST 15 U/L (14-36); African American GFR (CKD) >90 (>60 ml/min/1.73 sqM); Albumin 4.4 g/dL (3.5-5.0); Alkaline Phosphatase 63 U/L (38-126); Amylase 63 U/L (30-110); Anion Gap 11 mmol/L; Blood Urea Nitrogen 9 mg/dL (7-17); Calcium 9.6 mg/dL (8.4-10.2); Carbon Dioxide 24 mmol/L (22-30); Chloride 107 mmol/L (98-107); Glucose 89 mg/dL (74-99); Lipase 90 U/L (23-300); Potassium 4.1 mmol/L (3.5-5.1); Sodium 142 mmol/L (137-145); Total Bilirubin 0.4 mg/dL (0.2-1.3); Total Protein 7.3 g/dL (6.3-8.2)
[2019-03-20 10:26] LABS: Appearance,Urine Clear (Clear); Bilirubin,Urine Negative (Negative); Blood,Urine Negative (Negative); Color,Urine Colorless; Glucose,Urine (UA) Negative (Negative); Ketones,Urine Negative (Negative); Leukocyte Esterase,Urine Negative (Negative); Nitrite,Urine Negative (Negative); Protein,Urine Negative (Negative); Specific Gravity,Urine 1.003 (1.001-1.035); Urobilinogen,Urine <2.0 mg/dL (<2.0)
[2019-03-20] MEDS ORDERED: DICYCLOMINE 20 MG TAB PO STA (10:30)
[2019-03-20] MEDS ORDERED: PANTOPRAZOLE 40 MG/10 ML VIAL IVP STA (10:35)
[2019-03-20 10:47] VITALS: BP 106/67; PULSE 71; RESP 18; TEMP 97.8
== END 2019-03-20 10:50 | disposition home or self-care (01) ==
LOC: EC 08:08
DX: R11.2 Nausea with vomiting, unspecified (principal); R50.9 Fever, unspecified; R05 Cough; F90.9 Attention-deficit hyperactivity disorder, unspecified type; F32.9 Major depressive disorder, single episode, unspecified; F17.200 Nicotine dependence, unspecified, uncomplicated; Z79.899 Other long term (current) drug therapy; Z91.010 Allergy to peanuts; Z91.011 Allergy to milk products; Z91.018 Allergy to other foods; Z90.49 Acquired absence of other specified parts of digestive tract
CPT/HCPCS: 36415; 71046; 80053; 81003; 81025; 82150; 83690; 85025; 96361; 96374; 96375; 99284

== ENCOUNTER 2019-06-27 15:59 | Emergency (ER) | payer BC, OTHER ==
[2019-06-27] MEDS ORDERED: ONDANSETRON 4 MG/2 ML VIAL IVP STA (17:03)
[2019-06-27] MEDS ORDERED: SODIUM CHLORIDE 0.9% 1,000 ML IV STA (17:03)
[2019-06-27 17:37] LABS: Basophils % (A) 0 %; Eosinophils # (A) 0.2 k/uL (0-0.7); Eosinophils % (A) 2 %; HGB 13.1 gm/dL (11.4-16.0); Lymphocytes # (A) 2.1 k/uL (1.0-4.8); Lymphocytes % (A) 19 %; MCH 30.4 pg (25.0-35.0); MCHC 33.5 g/dL (31.0-37.0); MCV 90.7 fL (80.0-100.0); Mean Platelet Volume 7.1; Monocytes # (A) 0.4 k/uL (0-1.0); Monocytes % (A) 3 %; Neutrophils # (A) 8.2 k/uL (1.3-7.7); Neutrophils % (A) 74 %; Platelet Count 222 k/uL (150-450); RDW 12.4 % (11.5-15.5)
[2019-06-27] MEDS ORDERED: IPRATROPIUM-ALBUTEROL 3 ML NEB INHALATION STA (17:39)
[2019-06-27 17:41] LABS: Appearance,Urine Clear (Clear); Bacteria,Urine Many /hpf; Bilirubin,Urine Negative (Negative); Blood,Urine Negative (Negative); Color,Urine Light Yellow; Glucose,Urine (UA) Negative (Negative); Ketones,Urine Negative (Negative); Leukocyte Esterase,Urine Trace (Negative); Mucus,Urine Rare /hpf; Nitrite,Urine Negative (Negative); PH, Urine 6.5 (5.0-8.0); Protein,Urine Negative (Negative); RBC,Urine 2 /hpf (0-5); Specific Gravity,Urine 1.006 (1.001-1.035); Squamous Epithelial Cell,Urine 1 /hpf (0-4); Urobilinogen,Urine <2.0 mg/dL (<2.0); WBC,Urine <1 /hpf (0-5)
[2019-06-27 17:46] LABS: ALT 19 U/L (9-52); AST 28 U/L (14-36); African American GFR (CKD) >90 (>60 ml/min/1.73 sqM); Albumin 3.9 g/dL (3.5-5.0); Alkaline Phosphatase 57 U/L (38-126); Anion Gap 8 mmol/L; Blood Urea Nitrogen 7 mg/dL (7-17); Carbon Dioxide 19 mmol/L (22-30); Chloride 112 mmol/L (98-107); Glucose 87 mg/dL (74-99); Sodium 139 mmol/L (137-145); Total Bilirubin 0.6 mg/dL (0.2-1.3); Total Protein 7.3 g/dL (6.3-8.2)
[2019-06-27 17:48] LABS: Potassium 4.8 mmol/L (3.5-5.1)
--- NOTE | 2019-06-27 18:32 | XR ---
EXAMINATION TYPE: XR chest 2V DATE OF EXAM: 06/27/2019 COMPARISON: 03/20/2019 HISTORY: Cough TECHNIQUE: Frontal and lateral views of the chest are obtained. FINDINGS: Heart and mediastinum are normal. Lungs are clear. Diaphragm is normal. Bony thorax appear s normal. IMPRESSION: Normal chest. No change.
--- NOTE | 2019-06-27 20:54 | ED ---
General Adult HPI - General Chief complaint: Nausea/Vomiting/Diarrhea Stated complaint: Cold/cough Time Seen by Provider: 06/27/19 16:20 Source: patient, family Mode of arrival: ambulatory Limitations: no limitations - History of Present Illness Initial comments: The patient is a 22-year-old female presents emergency room with reported cough. States it's been persistent for the past week. Denies sputum production. Admits to sick contacts. No recent travel. Denies any chest pain. Admits to mild shortness of breath. She has not taken any medications at home for her symptoms. States the cough is worsening to the point where she is having post tussive emesis. No history of asthma. Denies any ear pain. Admits to mild sore throat. States that she is able to fluid. No abdominal pain. No changes in her bowel or bladder habits. No calf pain or swelling. There are no other alleviating, precipitating or modifying factors - Related Data Home Medications Medication Instructions Recorded Confirmed Atomoxetine HCl [Strattera] 80 mg PO QAM 09/30/17 06/27/19 Sertraline [Zoloft] 100 mg PO HS 09/30/17 06/27/19 Previous Rx's Medication Instructions Recorded Albuterol Sulfate [Proair Hfa] 1 - 2 puff INHALATION Q4HR PRN #1 06/27/19 inhaler Azithromycin [Zithromax Z-pack] 250 mg PO DIRECTED #1 pack 06/27/19 predniSONE 20 mg PO BID #10 tab 06/27/19 Allergies Allergy/AdvReac Type Severity Reaction Status Date / Time peanut Allergy Unknown Anaphylaxis Verified 06/27/19 17:16 celery Allergy Anaphylaxis Verified 06/27/19 17:16 Milk Containing Products Allergy Abdominal Verified 06/27/19 17:16 [Dairy] Pain peas Allergy Anaphylaxis Verified 06/27/19 17:16 peppers Allergy Anaphylaxis Uncoded 06/27/19 16:17 Review of Systems ROS Statement: Those systems with pertinent positive or pertinent negative responses have been documented in the HPI. ROS Other: All systems not noted in ROS Statement are negative. Past Medical History Past Medical History: Asthma, Osteoarthritis (OA) History of Any Multi-Drug Resistant Organisms: None Reported Past Surgical History: Appendectomy Past Psychological History: ADD/ADHD, Depression Smoking Status: Current every day smoker Past Alcohol Use History: None Reported Past Drug Use History: None Reported General Exam Limitations: no limitations General appearance: alert, in no apparent distress Head exam: Present: atraumatic, normocephalic, normal inspection Eye exam: Present: normal appearance, PERRL, EOMI. Absent: scleral icterus, conjunctival injection, periorbital swelling ENT exam: Present: normal exam, mucous membranes moist Neck exam: Present: normal inspection. Absent: tenderness, meningismus, lymphadenopathy Respiratory exam: Present: normal lung sounds bilaterally. Absent: respiratory distress, wheezes, rales, rhonchi, stridor Cardiovascular Exam: Present: regular rate, normal rhythm, normal heart sounds. Absent: systolic murmur, diastolic murmur, rubs, gallop, clicks GI/Abdominal exam: Present: soft, normal bowel sounds. Absent: distended, tenderness, guarding, rebound, rigid Extremities exam: Present: normal inspection, full ROM, normal capillary refill. Absent: tenderness, pedal edema, joint swelling, calf tenderness Back exam: Present: normal inspection Neurological exam: Present: alert, oriented X3, CN II-XII intact Psychiatric exam: Present: normal affect, normal mood Skin exam: Present: warm, dry, intact, normal color. Absent: rash Course Vital Signs 06/27/19 06/27/19 06/27/19 16:15 16:17 17:17 Temperature 98.5 F 98.3 F Pulse Rate 101 H 100 Respiratory 20 20 20 Rate Blood Pressure 103/69 97/63 O2 Sat by Pulse 99 97 Oximetry 06/27/19 06/27/19 06/27/19 17:58 18:08 20:00 Temperature 98.6 F Pulse Rate 76 80 90 Respiratory 18 Rate Blood Pressure 110/72 O2 Sat by Pulse 98 Oximetry Medical Decision Making - Medical Decision Making Upon arrival the patient is placed in room 22 and a thorough history and physical exam was performed. The patient states she did take a test at home and was positive. I did request a UA. Peripheral IV was established. The patient was given a liter bolus of normal saline. I also provided her with a DuoNeb breathing treatment. Laboratory studies returned. White blood cell count is 11. Urine hCG is negative. Urinalysis shows many bacteria. Patient is asymptomatic and therefore it is not treated at this time. Influenza is tested and is negative. Chest x-ray demonstrates no acute process. I did provide the patient with a dose of Zofran. She has had no further vomiting while within the ED. She is requesting a work note. I did provide her with 1. Patient also be given a prescription for an inhaler, steroid course and azithromycin. She is to follow-up with the primary care physician in 2-4 days. Return to the emergency room for any new or worsening symptoms. Patient was discharged in stable condition - Lab Data Result diagrams: 06/27/19 17:20 06/27/19 17:20 Lab Results 06/27/19 06/27/19 06/27/19 Range/Units 17:20 17:20 17:20 WBC 11.0 H (3.8-10.6) k/uL RBC 4.30 (3.80-5.40) m/uL Hgb 13.1 (11.4-16.0) gm/dL Hct 39.0 (34.0-46.0) % MCV 90.7 (80.0-100.0) fL MCH 30.4 (25.0-35.0) pg MCHC 33.5 (31.0-37.0) g/dL RDW 12.4 (11.5-15.5) % Plt Count 222 (150-450) k/uL Neutrophils % 74 % Lymphocytes % 19 % Monocytes % 3 % Eosinophils % 2 % Basophils % 0 % Neutrophils # 8.2 H (1.3-7.7) k/uL Lymphocytes # 2.1 (1.0-4.8) k/uL Monocytes # 0.4 (0-1.0) k/uL Eosinophils # 0.2 (0-0.7) k/uL Basophils # 0.0 (0-0.2) k/uL Sodium 139 (137-145) mmol/L Potassium 4.8 (3.5-5.1) mmol/L Chloride 112 H (98-107) mmol/L Carbon Dioxide 19 L (22-30) mmol/L Anion Gap 8 mmol/L BUN 7 (7-17) mg/dL Creatinine 0.58 (0.52-1.04) mg/dL Est GFR (CKD-EPI)AfAm >90 (>60 ml/min/1.73 sqM) Est GFR (CKD-EPI)NonAf >90 (>60 ml/min/1.73 sqM) Glucose 87 (74-99) mg/dL Calcium 9.0 (8.4-10.2) mg/dL Total Bilirubin 0.6 (0.2-1.3) mg/dL AST 28 (14-36) U/L ALT 19 (9-52) U/L Alkaline Phosphatase 57 (38-126) U/L Total Protein 7.3 (6.3-8.2) g/dL Albumin 3.9 (3.5-5.0) g/dL Urine Color Light Yellow Urine Appearance Clear (Clear) Urine pH 6.5 (5.0-8.0) Ur Specific [place] 1.006 (1.001-1.035) Urine Protein Negative (Negative) Urine Glucose (UA) Negative (Negative) Urine Ketones Negative (Negative) Urine Blood Negative (Negative) Urine Nitrite Negative (Negative) Urine Bilirubin Negative (Negative) Urine Urobilinogen <2.0 (<2.0) mg/dL Ur Leukocyte Esterase Trace H (Negative) Urine RBC 2 (0-5) /hpf Urine WBC <1 (0-5) /hpf Ur Squamous Epith Cells 1 (0-4) /hpf Urine Bacteria Many H (None) /hpf Urine Mucus Rare H (None) /hpf Urine HCG, Qual (Not Detectd) Influenza Type A RNA (Not Detectd) Influenza Type B (PCR) (Not Detectd) 06/27/19 06/27/19 Range/Units 17:20 17:20 WBC (3.8-10.6) k/uL RBC (3.80-5.40) m/uL Hgb (11.4-16.0) gm/dL Hct (34.0-46.0) % MCV (80.0-100.0) fL MCH (25.0-35.0) pg MCHC (31.0-37.0) g/dL RDW (11.5-15.5) % Plt Count (150-450) k/uL Neutrophils % % Lymphocytes % % Monocytes % % Eosinophils % % Basophils % % Neutrophils # (1.3-7.7) k/uL Lymphocytes # (1.0-4.8) k/uL Monocytes # (0-1.0) k/uL Eosinophils # (0-0.7) k/uL Basophils # (0-0.2) k/uL Sodium (137-145) mmol/L Potassium (3.5-5.1) mmol/L Chloride (98-107) mmol/L Carbon Dioxide (22-30) mmol/L Anion Gap mmol/L BUN (7-17) mg/dL Creatinine (0.52-1.04) mg/dL Est GFR (CKD-EPI)AfAm (>60 ml/min/1.73 sqM) Est GFR (CKD-EPI)NonAf (>60 ml/min/1.73 sqM) Glucose (74-99) mg/dL Calcium (8.4-10.2) mg/dL Total Bilirubin (0.2-1.3) mg/dL AST (14-36) U/L ALT (9-52) U/L Alkaline Phosphatase (38-126) U/L Total Protein (6.3-8.2) g/dL Albumin (3.5-5.0) g/dL Urine Color Urine Appearance (Clear) Urine pH (5.0-8.0) Ur Specific [place] (1.001-1.035) Urine Protein (Negative) Urine Glucose (UA) (Negative) Urine Ketones (Negative) Urine Blood (Negative) Urine Nitrite (Negative) Urine Bilirubin (Negative) Urine Urobilinogen (<2.0) mg/dL Ur Leukocyte Esterase (Negative) Urine RBC (0-5) /hpf Urine WBC (0-5) /hpf Ur Squamous Epith Cells (0-4) /hpf Urine Bacteria (None) /hpf Urine Mucus (None) /hpf Urine HCG, Qual Not Detected (Not Detectd) Influenza Type A RNA Not Detected (Not Detectd) Influenza Type B (PCR) Not Detected (Not Detectd) Disposition Clinical Impression: Cough Disposition: HOME SELF-CARE Condition: Stable Instructions (If sedation given, give patient instructions): Acute Nausea and Vomiting (ED) Additional Instructions: Please follow with your primary care doctor in 2-4 days. Return to emergency for any new or worsening symptoms Prescriptions: predniSONE 20 mg PO BID #10 tab Albuterol Sulfate [Proair Hfa] 1 - 2 puff INHALATION Q4HR PRN #1 inhaler PRN Reason: difficulty in breathing Azithromycin [Zithromax Z-pack] 250 mg PO DIRECTED #1 pack Is patient prescribed a controlled substance at d/c from ED?: No Referrals: Morteza Davis MD [Primary Care Provider] - 1-2 days Time of Disposition: 20:51
[2019-06-27 21:10] VITALS: BP 110/72; PULSE 90; RESP 18; TEMP 98.6
== END 2019-06-27 21:12 | disposition home or self-care (01) ==
LOC: EC 15:59
DX: R05 Cough (principal); R11.2 Nausea with vomiting, unspecified; R19.7 Diarrhea, unspecified; R06.02 Shortness of breath; J02.9 Acute pharyngitis, unspecified; F90.9 Attention-deficit hyperactivity disorder, unspecified type; F32.9 Major depressive disorder, single episode, unspecified; F17.220 Nicotine dependence, chewing tobacco, uncomplicated; Z87.09 Personal history of other diseases of the respiratory system; Z79.899 Other long term (current) drug therapy; Z91.010 Allergy to peanuts; Z91.018 Allergy to other foods; Z91.011 Allergy to milk products
CPT/HCPCS: 36415; 94640; 80053; 85025; 81001; 81025; 87502; 71046; 99284; 96374; 96361; J2405

== ENCOUNTER 2019-09-05 13:20 | Emergency (ER) | payer BC, OTHER ==
[2019-09-05] MEDS ORDERED: ACET/COD 300 MG/30 MG STARTER PACK 6 TAB BTL PO STA (14:18)
--- NOTE | 2019-09-05 14:21 | ED ---
Upper Extremity HPI - General Chief Complaint: Extremity Injury, Upper Stated Complaint: wrist pain Time Seen by Provider: 09/05/19 14:03 Source: patient Mode of arrival: ambulatory Limitations: no limitations - History of Present Illness Initial Comments: 23-year-old female presenting today for chief complaint of fall yesterday and right wrist pain. Patient states she tripped and fell yesterday falling onto her right wrist. Patient states she has had pain in the right wrist with pain with range of motion sense. Patient denies any numbness tingling or loss sensation. Patient denies any limitation to range of motion but states that is very painful. Patient denies any pain in the elbow or the shoulder. Patient denies any coolness or pallor of the extremity. Patient states the pain persisted today she felt is appropriate to come to emergency department for evaluation to ensure there is no fracture. Patient denies any injury to head neck back or abdomen or chest. Patient denies any injury to other extremities. Patient appears well on arrival. - Related Data Home Medications Medication Instructions Recorded Confirmed Atomoxetine HCl [Strattera] 80 mg PO QAM 09/30/17 06/27/19 Sertraline [Zoloft] 100 mg PO HS 09/30/17 06/27/19 Previous Rx's Medication Instructions Recorded Albuterol Sulfate [Proair Hfa] 1 - 2 puff INHALATION Q4HR PRN #1 06/27/19 inhaler Azithromycin [Zithromax Z-pack] 250 mg PO DIRECTED #1 pack 06/27/19 predniSONE 20 mg PO BID #10 tab 06/27/19 Allergies Allergy/AdvReac Type Severity Reaction Status Date / Time peanut Allergy Unknown Anaphylaxis Verified 06/27/19 17:16 celery Allergy Anaphylaxis Verified 06/27/19 17:16 Milk Containing Products Allergy Abdominal Verified 06/27/19 17:16 [Dairy] Pain peas Allergy Anaphylaxis Verified 06/27/19 17:16 peppers Allergy Anaphylaxis Uncoded 06/27/19 16:17 Review of Systems ROS Statement: Those systems with pertinent positive or pertinent negative responses have been documented in the HPI. ROS Other: All systems not noted in ROS Statement are negative. Past Medical History Past Medical History: Asthma, Osteoarthritis (OA) History of Any Multi-Drug Resistant Organisms: None Reported Past Surgical History: Appendectomy Past Psychological History: ADD/ADHD, Depression Smoking Status: Current every day smoker Past Alcohol Use History: None Reported Past Drug Use History: None Reported General Exam - General Exam Comments Initial Comments: General: The patient is awake and alert, in no distress, splinting right wrist. Eye: +3 mm pupils are equal, round and reactive to light, extra-ocular movements are intact. No nystagmus. There is normal conjunctiva bilaterally. No signs of icterus. Ears, nose, mouth and throat: There are moist mucous membranes and no oral lesions. Neck: The neck is supple, there is no tenderness or JVD. Cardiovascular: There is a regular rate and rhythm. No murmur, rub or gallop is appreciated. Respiratory: Lungs are clear to auscultation, respirations are non-labored, breath sounds are equal. No wheezes, stridor, rales, or rhonchi. Musculoskeletal: Upon inspection of the wrist bilaterally there is mild soft tissue swelling along the radial aspect of the right wrist. No ecchymosis. Patient has midl snuffbox tenderness. Patient is able to extend flex at wrist limited, no evidence of wrist drop. Normal ROM, no tenderness of the digits of the hand. Strength 5/5 at the MCP, PIP and DIP joints, refuses to fully strength test right wrist secondary to pain.. Sensation intact proximal and distal to injury site. Radial and ulnar pulses equal bilaterally 2+. Capillary refill < 3 seconds. Neurological: A&O x 3. CN II-XII intact grossly, There are no obvious motor or sensory deficits. Coordination appears grossly intact. Speech is normal. Skin: Skin is warm and dry and no rashes or lesions are noted. Psychiatric: Cooperative, appropriate mood & affect, normal judgment. Limitations: no limitations Course Vital Signs 09/05/19 13:33 Temperature 97.4 F L Pulse Rate 124 H Respiratory 19 Rate Blood Pressure 119/79 O2 Sat by Pulse 100 Oximetry Medical Decision Making - Medical Decision Making 23-year-old female presenting for right wrist pain status post fall yesterday. Patient neurovascularly intact. X-ray revealed no obviously displaced fracture. Given anatomical snuffbox tenderness patient was placed in a thumb spica splint--pre-padded synthetic taste Javy bandages. Patient is neurovascularly intact after splint placed she was also given orthopedic referral for possible outpatient MRI/further evaluation and discussion. Return parameters discussed at length as well as importance of f/u and patient was discharged appearing well. Disposition Clinical Impression: Wrist injury, Fall, Right wrist pain Disposition: HOME SELF-CARE Condition: Good Instructions (If sedation given, give patient instructions): Wrist Injury (ED) Additional Instructions: Please use medication as discussed. Please follow-up with orthopedic surgery in the next week, to rule out scaphoid fracture. Please return to emergency room if the symptoms increase or worsen or for any other concerns. Is patient prescribed a controlled substance at d/c from ED?: No Referrals: Malini Piña MD [Primary Care Provider] - 1-2 days Wing Singer DO [Medical Doctor] - 1-2 days Time of Disposition: 15:00
--- NOTE | 2019-09-05 14:52 | XR ---
EXAMINATION TYPE: XR wrist complete RT DATE OF EXAM: 09/05/2019 COMPARISON: NONE HISTORY: 23-year-old female with fall downstairs, radial sided pain and swelling TECHNIQUE: 4 views FINDINGS: The radiocarpal and distal radioulnar joint as well as the midcarpal compartment appear intact. Only seen on the oblique view, the sagittal linear lucency along the proximal third scaphoid waist wh ich could represent projectional artifact. Otherwise, no acute fracture, subluxation, dislocation see n. IMPRESSION: A subtle lucency seen along the proximal third scaphoid only on the oblique view could be projectiona l artifact. If high clinical suspicion for subtle scaphoid fracture, follow-up in 10-14 days versus c ross-sectional evaluation.
[2019-09-05 15:22] VITALS: BP 121/80; PULSE 100; RESP 18; TEMP 98
== END 2019-09-05 15:16 | disposition home or self-care (01) ==
LOC: EC 13:20 → SUPCPDRO 13:20 → EC 15:16
DX: S69.91XA Unspecified injury of right wrist, hand and finger(s), initial encounter (principal); F90.9 Attention-deficit hyperactivity disorder, unspecified type; F32.9 Major depressive disorder, single episode, unspecified; F17.200 Nicotine dependence, unspecified, uncomplicated; Z91.010 Allergy to peanuts; Z91.011 Allergy to milk products; Z91.018 Allergy to other foods; Z79.899 Other long term (current) drug therapy; W10.9XXA Fall (on) (from) unspecified stairs and steps, initial encounter
CPT/HCPCS: 29125; 99283

== ENCOUNTER 2019-11-21 08:44 | Emergency (ER) | payer OTHER ==
[2019-11-21 08:48] VITALS: BP 106/69; PULSE 112; RESP 19; TEMP 97.9
[2019-11-21] MEDS ORDERED: SODIUM CHLORIDE 0.9% 1,000 ML IV STA (09:24)
[2019-11-21] MEDS ORDERED: FAMOTIDINE 20 MG/2 ML VIAL IV STA (09:25)
[2019-11-21 09:36] LABS: Appearance,Urine Clear (Clear); Basophils % (A) 0 %; Bilirubin,Urine Negative (Negative); Blood,Urine Negative (Negative); Color,Urine Light Yellow; Eosinophils # (A) 0.1 k/uL (0-0.7); Eosinophils % (A) 1 %; Glucose,Urine (UA) Negative (Negative); HCT 38.1 % (34.0-46.0); Ketones,Urine Negative (Negative); Leukocyte Esterase,Urine Negative (Negative); Lymphocytes # (A) 1.8 k/uL (1.0-4.8); Lymphocytes % (A) 17 %; MCHC 34.1 g/dL (31.0-37.0); Mean Platelet Volume 7.4; Monocytes # (A) 0.3 k/uL (0-1.0); Monocytes % (A) 3 %; Neutrophils % (A) 77 %; Nitrite,Urine Negative (Negative); PH, Urine 6.5 (5.0-8.0); Platelet Count 262 k/uL (150-450); Protein,Urine Negative (Negative); RBC 4.18 m/uL (3.80-5.40); RDW 13.3 % (11.5-15.5); Urobilinogen,Urine <2.0 mg/dL (<2.0); WBC 10.4 k/uL (3.8-10.6)
[2019-11-21 09:48] LABS: ALT 16 U/L (4-34); AST 21 U/L (14-36); African American GFR (CKD) >90 (>60 ml/min/1.73 sqM); Alkaline Phosphatase 65 U/L (38-126); Amylase 75 U/L (30-110); Anion Gap 8 mmol/L; Blood Urea Nitrogen 17 mg/dL (7-17); Calcium 9.4 mg/dL (8.4-10.2); Carbon Dioxide 21 mmol/L (22-30); Chloride 108 mmol/L (98-107); Glucose 135 mg/dL (74-99); Non-African American GFR(CKD) >90 (>60 ml/min/1.73 sqM); Potassium 4.4 mmol/L (3.5-5.1); Sodium 137 mmol/L (137-145); Total Bilirubin 0.1 mg/dL (0.2-1.3); Total Protein 7.1 g/dL (6.3-8.2)
--- NOTE | 2019-11-21 10:44 | ED ---
General Adult HPI - General Chief complaint: Abdominal Pain Stated complaint: ABd Pain Time Seen by Provider: 11/21/19 08:59 Source: patient, family, RN notes reviewed Mode of arrival: ambulatory Limitations: no limitations - History of Present Illness Initial comments: 24-year-old female presents to the emergency department for left upper quadrant pain. This has been ongoing for 60s. Patient states this worsens when she eats. Admitted to nausea and vomiting 2 days ago but has not had any since. Denies chance of . Denies diarrhea. Denies any back pain. Denies dysuria or fevers.Patient has no other complaints at this time including s hortness of breath, chest pain, nausea or vomiting, headache, or visual changes. - Related Data Home Medications Medication Instructions Recorded Confirmed Albuterol Sulfate [Ventolin HFA] 2 puff INHALATION Q4H PRN 11/21/19 11/21/19 Sertraline HCl [Zoloft] 50 mg PO DAILY 11/21/19 11/21/19 Zolpidem [Ambien] 10 mg PO HS PRN 11/21/19 11/21/19 buPROPion HCL [Wellbutrin SR] 150 mg PO DAILY 11/21/19 11/21/19 Allergies Allergy/AdvReac Type Severity Reaction Status Date / Time No Known Allergies Allergy Verified 11/21/19 09:49 Review of Systems ROS Statement: Those systems with pertinent positive or pertinent negative responses have been documented in the HPI. ROS Other: All systems not noted in ROS Statement are negative. Past Medical History Past Medical History: Asthma, Osteoarthritis (OA) History of Any Multi-Drug Resistant Organisms: None Reported Past Surgical History: Appendectomy Past Psychological History: ADD/ADHD, Depression Smoking Status: Current every day smoker Past Alcohol Use History: Occasional Past Drug Use History: None Reported General Exam Limitations: no limitations General appearance: alert, in no apparent distress Head exam: Present: atraumatic, normocephalic, normal inspection Eye exam: Present: normal appearance, PERRL, EOMI. Absent: scleral icterus, conjunctival injection, periorbital swelling ENT exam: Present: normal exam, mucous membranes moist Neck exam: Present: normal inspection, full ROM. Absent: tenderness, meningismus, lymphadenopathy Respiratory exam: Present: normal lung sounds bilaterally. Absent: respiratory distress, wheezes, rales, rhonchi, stridor Cardiovascular Exam: Present: regular rate, normal rhythm, normal heart sounds. Absent: systolic murmur, diastolic murmur, rubs, gallop, clicks GI/Abdominal exam: Present: soft, tenderness (Minimal left upper quadrant tenderness without guarding or rebound.), normal bowel sounds. Absent: distended, guarding, rebound, rigid Neurological exam: Present: alert Psychiatric exam: Present: normal affect, normal mood Course Vital Signs 11/21/19 08:46 Temperature 97.9 F Pulse Rate 112 H Respiratory 19 Rate Blood Pressure 106/69 O2 Sat by Pulse 99 Oximetry Procedures - FAST Exam Fluid in Morison's pouch: No Fluid in Splenorenal Junction: No Fluid around bladder, Transverse view: No Fluid around bladder, Sagittal view: No Gross Wall Motion Abnormality: No Study normal for this patient: Yes Images saved for further review: Yes Medical Decision Making - Medical Decision Making HPI physical exam is documented. Physical exam pertinent for mild left upper quadrant tenderness. Patient was given Pepcid. Patient was found to have a positive test. HCG Quant 588. Last menstrual period was about a month or so ago. Patient reports it was sometime in October although she is unsure of when in October. No vaginal bleeding or discharge today. She is a with history of miscarriage when she was 15. Ultrasound shows no IUP. Findings felt to reflect too early to visualize IUP. However spontaneous abo rtion and ectopic is not excluded from the differential. Dr. Dao also saw patient and did a bedside FAST exam which was normal. She talked with Dr. Stanton who recommended repeat hCG and ABO Rh in 2 days and to follow up with her and office. - Lab Data Result diagrams: 11/21/19 09:20 11/21/19 09:20 Lab Results 11/21/19 11/21/19 11/21/19 Range/Units 09:20 09:20 09:20 WBC 10.4 (3.8-10.6) k/uL RBC 4.18 (3.80-5.40) m/uL Hgb 13.0 (11.4-16.0) gm/dL Hct 38.1 (34.0-46.0) % MCV 91.0 (80.0-100.0) fL MCH 31.0 (25.0-35.0) pg MCHC 34.1 (31.0-37.0) g/dL RDW 13.3 (11.5-15.5) % Plt Count 262 (150-450) k/uL Neutrophils % 77 % Lymphocytes % 17 % Monocytes % 3 % Eosinophils % 1 % Basophils % 0 % Neutrophils # 8.0 H (1.3-7.7) k/uL Lymphocytes # 1.8 (1.0-4.8) k/uL Monocytes # 0.3 (0-1.0) k/uL Eosinophils # 0.1 (0-0.7) k/uL Basophils # 0.0 (0-0.2) k/uL Sodium (137-145) mmol/L Potassium (3.5-5.1) mmol/L Chloride (98-107) mmol/L Carbon Dioxide (22-30) mmol/L Anion Gap mmol/L BUN (7-17) mg/dL Creatinine (0.52-1.04) mg/dL Est GFR (CKD-EPI)AfAm (>60 ml/min/1.73 sqM) Est GFR (CKD-EPI)NonAf (>60 ml/min/1.73 sqM) Glucose (74-99) mg/dL Calcium (8.4-10.2) mg/dL Total Bilirubin (0.2-1.3) mg/dL AST (14-36) U/L ALT (4-34) U/L Alkaline Phosphatase (38-126) U/L Total Protein (6.3-8.2) g/dL Albumin (3.5-5.0) g/dL Amylase (30-110) U/L Lipase (23-300) U/L HCG, Quant mIU/mL Urine Color Light Yellow Urine Appearance Clear (Clear) Urine pH 6.5 (5.0-8.0) Ur Specific [place] 1.010 (1.001-1.035) Urine Protein Negative (Negative) Urine Glucose (UA) Negative (Negative) Urine Ketones Negative (Negative) Urine Blood Negative (Negative) Urine Nitrite Negative (Negative) Urine Bilirubin Negative (Negative) Urine Urobilinogen <2.0 (<2.0) mg/dL Ur Leukocyte Esterase Negative (Negative) Urine HCG, Qual Detected (Not Detectd) 11/21/19 11/21/19 Range/Units 09:20 09:20 WBC (3.8-10.6) k/uL RBC (3.80-5.40) m/uL Hgb (11.4-16.0) gm/dL Hct (34.0-46.0) % MCV (80.0-100.0) fL MCH (25.0-35.0) pg MCHC (31.0-37.0) g/dL RDW (11.5-15.5) % Plt Count (150-450) k/uL Neutrophils % % Lymphocytes % % Monocytes % % Eosinophils % % Basophils % % Neutrophils # (1.3-7.7) k/uL Lymphocytes # (1.0-4.8) k/uL Monocytes # (0-1.0) k/uL Eosinophils # (0-0.7) k/uL Basophils # (0-0.2) k/uL Sodium 137 (137-145) mmol/L Potassium 4.4 (3.5-5.1) mmol/L Chloride 108 H (98-107) mmol/L Carbon Dioxide 21 L (22-30) mmol/L Anion Gap 8 mmol/L BUN 17 (7-17) mg/dL Creatinine 0.76 (0.52-1.04) mg/dL Est GFR (CKD-EPI)AfAm >90 (>60 ml/min/1.73 sqM) Est GFR (CKD-EPI)NonAf >90 (>60 ml/min/1.73 sqM) Glucose 135 H (74-99) mg/dL Calcium 9.4 (8.4-10.2) mg/dL Total Bilirubin 0.1 L (0.2-1.3) mg/dL AST 21 (14-36) U/L ALT 16 (4-34) U/L Alkaline Phosphatase 65 (38-126) U/L Total Protein 7.1 (6.3-8.2) g/dL Albumin 4.0 (3.5-5.0) g/dL Amylase 75 (30-110) U/L Lipase 137 (23-300) U/L HCG, Quant 588.3 mIU/mL Urine Color Urine Appearance (Clear) Urine pH (5.0-8.0) Ur Specific [place] (1.001-1.035) Urine Protein (Negative) Urine Glucose (UA) (Negative) Urine Ketones (Negative) Urine Blood (Negative) Urine Nitrite (Negative) Urine Bilirubin (Negative) Urine Urobilinogen (<2.0) mg/dL Ur Leukocyte Esterase (Negative) Urine HCG, Qual (Not Detectd) Disposition Clinical Impression: , Abdominal pain Disposition: HOME SELF-CARE Condition: Good Instructions (If sedation given, give patient instructions): Abdominal Pain in (ED) Additional Instructions: Please follow up with Dr. Stanton. Call the office to make an appointment this week. Repeat blood work through the outpatient lab on Monday. If you have any worsening symptoms or worsening abdominal pain return to the emergency department. Is patient prescribed a controlled substance at d/c from ED?: No Referrals: Malini Piña MD [Primary Care Provider] - 1-2 days Kaye Stanton DO [Doctor of Osteopathic Medicine] - 1-2 days Time of Disposition: 12:22
--- NOTE | 2019-11-21 11:26 | US ---
EXAMINATION TYPE: Transabdominal DATE OF EXAM: 11/21/2019 11:08 AM COMPARISON: NONE CLINICAL HISTORY: pain. Cramping with positive beta-hCG test. EXAM PERFORMED: Transabdominal (TA) EXAM MEASUREMENTS: GESTATIONAL AGE / DATING Physician Established: Not yet established Dates by LMP: (4 weeks/2 days) EDC: 07/28/2020 Dates by First Scan: No previous this is first scan Dates by Current Scan for: No IUP seen at this time MATERNAL ANATOMY Uterus: 6.7 x 3.2 x 3.8 cm Right Ovary: 2.1 x 1.6 x 1.6 cm Left Ovary: 2.4 x 2.4 x 2.3 cm Post CDS / Adnexa: wnl Presence of free fluid: No Presence of corpus luteal cyst: Yes, left ovary measuring 1.8 x 1.4 x 1.7 cm Presence of subchorionic bleed: No GESTATION / SURVEY IUP: No IUP seen at this time Date of LMP: 10/22/2019 Beta HcG (if available): 588 Heterogeneous anteverted uterus. Endometrium measures roughly 10 mm in thickness. No gestational sac, yolk sac, or pole identified. No free fluid in pelvic cul-de-sac. Both ovaries seen. Within the left ovary there is a 1.8 cm peripheral hypervascular hypoechoic lesion thought to reflect corpus luteal cyst. IMPRESSION: Findings felt to reflect too early to visualize intrauterine given ultrasound f indings and beta-hCG value 588 along with last known menstrual period, however spontaneous i s in differential and ectopic is not excluded. Serial beta hCG and ultrasound follow-up is advised.
== END 2019-11-21 12:48 | disposition home or self-care (01) ==
LOC: EC 08:44
DX: O99.89 Other specified diseases and conditions complicating pregnancy, childbirth and the puerperium (principal); O99.511 Diseases of the respiratory system complicating pregnancy, first trimester; J45.909 Unspecified asthma, uncomplicated; O99.341 Other mental disorders complicating pregnancy, first trimester; F32.9 Major depressive disorder, single episode, unspecified; O99.331 Smoking (tobacco) complicating pregnancy, first trimester; F17.200 Nicotine dependence, unspecified, uncomplicated; Z3A.01 Less than 8 weeks gestation of pregnancy; Z79.899 Other long term (current) drug therapy
CPT/HCPCS: 36415; 76801; 80053; 81003; 81025; 82150; 83690; 84702; 85025; 96361; 96374; 99284

== ENCOUNTER 2019-12-16 15:10 | Emergency (ER) | payer OTHER ==
--- NOTE | 2019-12-16 15:33 | ED ---
Abdominal Pain HPI - General Chief Complaint: Abdominal Pain Stated Complaint: upper abd pain/7 wks preg Time Seen by Provider: 12/16/19 15:18 Source: patient, family Mode of arrival: ambulatory Limitations: no limitations - History of Present Illness Initial Comments: The patient is a 24-year-old female is currently approximately 7 weeks presents to emergency room with reported right upper quadrant abdominal pain. Patient was seen previously in the emergency room for similar complaints. States that last time she was evaluated she was told that she was . Review the patient's chart demonstrates that she did have a positive beta Quant however nothing was visualized on ultrasound. She was told to follow-up with OB. States that she follow up with Dr. Stanton and her beta Quant has been rising appropriately. She also had a repeat ultrasound which demonstrated that the patient had an intrauterine . Reports that last night her right upper quadrant pain began once again. She states that intermittently no provocative factors. Denies pain with eating. No nausea or vomiting. Denies any chest pain or shortness of breath. No back or flank pain. Denies any changes in her urination to include dysuria, hematuria or difficulty voiding. Denies diarrhea, constipation, melanotic stools or hematochezia. Denies any abnormal vaginal bleeding or discharge. No fevers or chills. Has not taken any medications at home for her symptoms. There are no alleviating, precipitating or modifying factors - Related Data Home Medications Medication Instructions Recorded Confirmed Albuterol Sulfate [Ventolin HFA] 2 puff INHALATION Q4H PRN 11/21/19 11/21/19 Sertraline HCl [Zoloft] 50 mg PO DAILY 11/21/19 11/21/19 Zolpidem [Ambien] 10 mg PO HS PRN 11/21/19 11/21/19 buPROPion HCL [Wellbutrin SR] 150 mg PO DAILY 11/21/19 11/21/19 Previous Rx's Medication Instructions Recorded Pnv No.95/Ferrous Fum/Folic AC 1 each PO DAILY #90 tablet 11/21/19 [ Multivitamin Tablet] Allergies Allergy/AdvReac Type Severity Reaction Status Date / Time No Known Allergies Allergy Verified 11/21/19 09:49 Review of Systems ROS Statement: Those systems with pertinent positive or pertinent negative responses have been documented in the HPI. ROS Other: All systems not noted in ROS Statement are negative. Past Medical History Past Medical History: Asthma, Osteoarthritis (OA) History of Any Multi-Drug Resistant Organisms: None Reported Past Surgical History: Appendectomy Past Psychological History: ADD/ADHD, Depression Smoking Status: Former smoker Past Alcohol Use History: Occasional Past Drug Use History: None Reported General Exam Limitations: no limitations General appearance: alert, in no apparent distress Head exam: Present: atraumatic, normocephalic, normal inspection Eye exam: Present: normal appearance, PERRL, EOMI. Absent: scleral icterus, conjunctival injection, periorbital swelling ENT exam: Present: normal exam, mucous membranes moist Neck exam: Present: normal inspection. Absent: tenderness, meningismus, lymphadenopathy Respiratory exam: Present: normal lung sounds bilaterally. Absent: respiratory distress, wheezes, rales, rhonchi, stridor Cardiovascular Exam: Present: regular rate, normal rhythm, normal heart sounds. Absent: systolic murmur, diastolic murmur, rubs, gallop, clicks GI/Abdominal exam: Present: soft, tenderness (right upper quadrant), normal bowel sounds. Absent: distended, guarding, rebound, rigid Extremities exam: Present: normal inspection, full ROM, normal capillary refill. Absent: tenderness, pedal edema, joint swelling, calf tenderness Back exam: Present: normal inspection Neurological exam: Present: alert, oriented X3, CN II-XII intact Psychiatric exam: Present: normal affect, normal mood Skin exam: Present: warm, dry, intact, normal color. Absent: rash Course Vital Signs 12/16/19 12/16/19 15:13 17:58 Temperature 98.0 F 97.9 F Pulse Rate 107 H 96 Respiratory 18 16 Rate Blood Pressure 115/70 124/79 O2 Sat by Pulse 98 98 Oximetry Medical Decision Making - Medical Decision Making Upon arrival the patient is placed into room 8. A thorough history and physical exam was performed. Patient was given Tylenol for pain control. Lab studies were conducted. White count elevated at 15. Beta Quant is 125,203. Urinalysis is negative. Ultrasound of the right upper quadrant is performed which demo nstrates no definite process. The patient is reevaluated and continues to have some discomfort. She is then given a dose of Pepcid. I discussed diagnosis, differential and treatment options. I did perform a bedside ultrasound which demonstrated an intrauterine . I also completed an ultrasound of the right upper quadrant which demonstrated no free fluid in Morison's pouch. Blood pressures are normal. I informed the patient that she needs to follow up with Dr. Martinez and she does have a scheduled appointment coming up. I also told her that she needs to follow up with her primary care physician for further evaluation of her discomfort. She may benefit from a HIDA scan. If she has any new or worsening symptoms she should return to the emergency room. The patient was in agreement treatment plan she was discharged home in stable condition - Lab Data Result diagrams: 12/16/19 15:36 12/16/19 15:36 Lab Results 12/16/19 12/16/19 12/16/19 Range/Units 15:36 15:36 15:36 WBC 15.0 H (3.8-10.6) k/uL RBC 4.11 (3.80-5.40) m/uL Hgb 12.6 (11.4-16.0) gm/dL Hct 37.4 (34.0-46.0) % MCV 91.0 (80.0-100.0) fL MCH 30.6 (25.0-35.0) pg MCHC 33.7 (31.0-37.0) g/dL RDW 12.9 (11.5-15.5) % Plt Count 290 (150-450) k/uL Neutrophils % 82 % Lymphocytes % 13 % Monocytes % 4 % Eosinophils % 1 % Basophils % 0 % Neutrophils # 12.2 H (1.3-7.7) k/uL Lymphocytes # 1.9 (1.0-4.8) k/uL Monocytes # 0.5 (0-1.0) k/uL Eosinophils # 0.2 (0-0.7) k/uL Basophils # 0.0 (0-0.2) k/uL Sodium 135 L (137-145) mmol/L Potassium 4.0 (3.5-5.1) mmol/L Chloride 105 (98-107) mmol/L Carbon Dioxide 22 (22-30) mmol/L Anion Gap 8 mmol/L BUN 11 (7-17) mg/dL Creatinine 0.64 (0.52-1.04) mg/dL Est GFR (CKD-EPI)AfAm >90 (>60 ml/min/1.73 sqM) Est GFR (CKD-EPI)NonAf >90 (>60 ml/min/1.73 sqM) Glucose 116 H (74-99) mg/dL Calcium 9.7 (8.4-10.2) mg/dL Total Bilirubin 0.2 (0.2-1.3) mg/dL AST 16 (14-36) U/L ALT 13 (4-34) U/L Alkaline Phosphatase 66 (38-126) U/L Total Protein 6.8 (6.3-8.2) g/dL Albumin 4.0 (3.5-5.0) g/dL Lipase 78 (23-300) U/L HCG, Quant 713368.0 mIU/mL Urine Color Colorless Urine Appearance Clear (Clear) Urine pH 7.0 (5.0-8.0) Ur Specific [employer] 1.002 (1.001-1.035) Urine Protein Negative (Negative) Urine Glucose (UA) Negative (Negative) Urine Ketones Negative (Negative) Urine Blood Negative (Negative) Urine Nitrite Negative (Negative) Urine Bilirubin Negative (Negative) Urine Urobilinogen <2.0 (<2.0) mg/dL Ur Leukocyte Esterase Negative (Negative) Disposition Clinical Impression: Right upper quadrant abdominal pain, First trimester Disposition: HOME SELF-CARE Condition: Stable Instructions (If sedation given, give patient instructions): Abdominal Pain in (ED) Additional Instructions: Please follow up with your primary care doctor. I do recommend you have a HIDA scan performed. Do not eat any foods high in fat. Return to the emergency room for any new or worsening symptoms Is patient prescribed a controlled substance at d/c from ED?: No Referrals: Malini Piña MD [Primary Care Provider] - 1-2 days Sangita Houser DO [Doctor of Osteopathic Medicine] - 1-2 days Kaye Stanton DO [Doctor of Osteopathic Medicine] - 1-2 days Time of Disposition: 17:32
[2019-12-16] MEDS ORDERED: ACETAMINOPHEN TAB 325 MG TAB PO STA (15:39)
[2019-12-16 15:45] LABS: Basophils % (A) 0 %; Eosinophils # (A) 0.2 k/uL (0-0.7); Eosinophils % (A) 1 %; HCT 37.4 % (34.0-46.0); HGB 12.6 gm/dL (11.4-16.0); Lymphocytes # (A) 1.9 k/uL (1.0-4.8); Lymphocytes % (A) 13 %; MCH 30.6 pg (25.0-35.0); MCHC 33.7 g/dL (31.0-37.0); Mean Platelet Volume 7.5; Monocytes # (A) 0.5 k/uL (0-1.0); Monocytes % (A) 4 %; Neutrophils # (A) 12.2 k/uL (1.3-7.7); Neutrophils % (A) 82 %; Platelet Count 290 k/uL (150-450); RBC 4.11 m/uL (3.80-5.40); RDW 12.9 % (11.5-15.5)
[2019-12-16 15:46] LABS: Appearance,Urine Clear (Clear); Bilirubin,Urine Negative (Negative); Blood,Urine Negative (Negative); Color,Urine Colorless; Glucose,Urine (UA) Negative (Negative); Ketones,Urine Negative (Negative); Leukocyte Esterase,Urine Negative (Negative); Nitrite,Urine Negative (Negative); Protein,Urine Negative (Negative); Specific Gravity,Urine 1.002 (1.001-1.035); Urobilinogen,Urine <2.0 mg/dL (<2.0)
[2019-12-16 15:54] LABS: ALT 13 U/L (4-34); AST 16 U/L (14-36); African American GFR (CKD) >90 (>60 ml/min/1.73 sqM); Alkaline Phosphatase 66 U/L (38-126); Anion Gap 8 mmol/L; Blood Urea Nitrogen 11 mg/dL (7-17); Calcium 9.7 mg/dL (8.4-10.2); Carbon Dioxide 22 mmol/L (22-30); Chloride 105 mmol/L (98-107); Glucose 116 mg/dL (74-99); Non-African American GFR(CKD) >90 (>60 ml/min/1.73 sqM); Sodium 135 mmol/L (137-145); Total Bilirubin 0.2 mg/dL (0.2-1.3); Total Protein 6.8 g/dL (6.3-8.2)
--- NOTE | 2019-12-16 16:27 | US ---
EXAMINATION TYPE: US abdomen limited DATE OF EXAM: 12/16/2019 COMPARISON: NONE CLINICAL HISTORY: right upper quadrant pain. RUQ pain, patient not NPO, ate 3 hours prior to exam EXAM MEASUREMENTS: Liver Length: 15.2 cm Gallbladder Wall: 0.3 cm CBD: 0.3 cm Right Kidney: 10.4 x 4.6 x 4.7 cm Technical limitations due to large amount of overlying bowel content Pancreas: Obscured by bowel gas Liver: visualized portions appear wnl Gallbladder: no evidence of stones Evidence for sonographic Butts's sign: no CBD: limited evaluation Right Kidney: no evidence of hydronephrosis IMPRESSION: 1. Limited exam demonstrates no definite acute process.
[2019-12-16] MEDS: FAMOTIDINE 20 MG/2 ML VIAL IV STA ×2 (17:43→17:48)
[2019-12-16] MEDS ORDERED: FAMOTIDINE 20 MG TAB PO STA (17:48)
[2019-12-16 18:00] VITALS: BP 124/79; PULSE 96; RESP 16; TEMP 97.9
== END 2019-12-16 17:58 | disposition home or self-care (01) ==
LOC: EC 15:10
DX: O99.111 Other diseases of the blood and blood-forming organs and certain disorders involving the immune mechanism complicating pregnancy, first trimester (principal); D72.829 Elevated white blood cell count, unspecified; O99.511 Diseases of the respiratory system complicating pregnancy, first trimester; J45.909 Unspecified asthma, uncomplicated; O99.341 Other mental disorders complicating pregnancy, first trimester; F32.9 Major depressive disorder, single episode, unspecified; Z87.891 Personal history of nicotine dependence; Z3A.01 Less than 8 weeks gestation of pregnancy; Z79.899 Other long term (current) drug therapy; Z53.29 Procedure and treatment not carried out because of patient's decision for other reasons
CPT/HCPCS: 36415; 76705; 80053; 81003; 83690; 84702; 85025; 99284

== ENCOUNTER 2019-12-31 19:19 | Emergency (ER) | payer OTHER ==
--- NOTE | 2019-12-31 19:40 | ED ---
General Adult HPI - General Chief complaint: Abdominal Pain Stated complaint: Abd pain, 9 weeks Time Seen by Provider: 12/31/19 19:30 Source: patient Mode of arrival: ambulatory Limitations: no limitations - History of Present Illness Initial comments: Dictation was produced using [employer] dictation software. please excuse any grammatical, word or spelling errors. This patient was cared for during a federal and state declared state of emergency secondary to Covid 19 Chief Complaint: 24-year-old female presents with right upper quadrant abdominal pain. History of Present Illness: She 24-year-old feel she presents today with right u pper quadrant abdominal pain. She states is been on and off for the last 2 weeks. Patient was seen here in emergency department approximately 2 weeks ago where she had an abdominal ultrasound performed. States that her ultrasound was negative for any acute processes. Patient states she has right upper quadrant pain is worse with eating fatty foods. Denies any fever, chills or night sweats. His complain of some mild nausea. She states that her tenderness is worse with deep inspiration. She is allegedly 19 weeks . She states she had an ultrasound to confirm the already. The ROS documented in this emergency department record has been reviewed and confirmed by me. Those systems with pertinent positive or negative responses have been documented in the HPI. All other systems are other negative and/or noncontributory. PHYSICAL EXAM: General Impression: Alert and oriented x3, not in acute distress HEENT: Normocephalic atraumatic, extra-ocular movements intact, pupils equal and reactive to light bilaterally, mucous membranes moist. Cardiovascular: Heart regular rate and rhythm Chest: Able to complete full sentences, no retractions, no tachypnea Abdomen: abdomen soft, right upper quadrant abdominal pain, positive Butts sign Musculoskeletal: Pulses present and equal in all extremities, no peripheral edema Motor: no focal deficits noted Neurological: CN II-XII grossly intact, no focal motor or sensory deficits noted Skin: Intact with no visualized rashes Psych: Normal affect and mood ED course: 24-year-old male presents with chief complaint of right upper quadrant abdominal pain. Patient is . Vital signs upon arrival are within acceptable limits. Laboratory evaluation obtained mild leukocytosis of 13.4 likely secondary to . Metabolic panel is unremarkable. Normal labs are negative. Beta Quant is 141,000. Urinalysis is negative. ultrasound shows no comment of getting processes. She is dated 410 weeks in 2 days gallbladder ultrasound was repeated showing no acute processes. Discussed with patient that there is no identifiable abnormalities. She is told that perhaps her symptoms could be secondary to gastritis. Patient given prescription of Pepcid. She is given referral to general surgery for outpatient management of right upper quadrant pain. Patient assembled agreeable to plan. Return parameters discussed. Patient will be discharged. - Related Data Home Medications Medication Instructions Recorded Confirmed Albuterol Sulfate [Ventolin HFA] 2 puff INHALATION Q4H PRN 11/21/19 11/21/19 Sertraline HCl [Zoloft] 50 mg PO DAILY 11/21/19 11/21/19 Zolpidem [Ambien] 10 mg PO HS PRN 11/21/19 11/21/19 buPROPion HCL [Wellbutrin SR] 150 mg PO DAILY 11/21/19 11/21/19 Previous Rx's Medication Instructions Recorded Pnv No.95/Ferrous Fum/Folic AC 1 each PO DAILY #90 tablet 11/21/19 [ Multivitamin Tablet] Famotidine [Pepcid] 40 mg PO BID #24 tab 12/31/19 Allergies Allergy/AdvReac Type Severity Reaction Status Date / Time No Known Allergies Allergy Verified 12/31/19 19:27 Review of Systems ROS Statement: Those systems with pertinent positive or pertinent negative responses have been documented in the HPI. ROS Other: All systems not noted in ROS Statement are negative. Past Medical History Past Medical History: Asthma, Osteoarthritis (OA) History of Any Multi-Drug Resistant Organisms: None Reported Past Surgical History: Appendectomy Past Psychological History: ADD/ADHD, Depression Smoking Status: Former smoker Past Alcohol Use History: Occasional Past Drug Use History: None Reported General Exam Limitations: no limitations Course Vital Signs 12/31/19 12/31/19 19:24 21:57 Temperature 97.8 F 100.0 F H Pulse Rate 92 113 H Respiratory 20 18 Rate Blood Pressure 104/70 135/82 O2 Sat by Pulse 100 97 Oximetry Medical Decision Making - Lab Data Result diagrams: 12/31/19 19:50 12/31/19 19:50 Lab Results 12/31/19 12/31/19 12/31/19 Range/Units 19:50 19:50 19:50 WBC 13.4 H (3.8-10.6) k/uL RBC 4.11 (3.80-5.40) m/uL Hgb 12.9 (11.4-16.0) gm/dL Hct 38.2 (34.0-46.0) % MCV 93.0 (80.0-100.0) fL MCH 31.5 (25.0-35.0) pg MCHC 33.9 (31.0-37.0) g/dL RDW 12.7 (11.5-15.5) % Plt Count 258 (150-450) k/uL Neutrophils % 80 % Lymphocytes % 16 % Monocytes % 3 % Eosinophils % 1 % Basophils % 0 % Neutrophils # 10.7 H (1.3-7.7) k/uL Lymphocytes # 2.1 (1.0-4.8) k/uL Monocytes # 0.4 (0-1.0) k/uL Eosinophils # 0.1 (0-0.7) k/uL Basophils # 0.0 (0-0.2) k/uL Sodium 137 (137-145) mmol/L Potassium 3.5 (3.5-5.1) mmol/L Chloride 102 (98-107) mmol/L Carbon Dioxide 25 (22-30) mmol/L Anion Gap 10 mmol/L BUN 5 L (7-17) mg/dL Creatinine 0.71 (0.52-1.04) mg/dL Est GFR (CKD-EPI)AfAm >90 (>60 ml/min/1.73 sqM) Est GFR (CKD-EPI)NonAf >90 (>60 ml/min/1.73 sqM) Glucose 93 (74-99) mg/dL Calcium 9.4 (8.4-10.2) mg/dL Total Bilirubin 0.2 (0.2-1.3) mg/dL AST 18 (14-36) U/L ALT 16 (4-34) U/L Alkaline Phosphatase 70 (38-126) U/L Total Protein 7.2 (6.3-8.2) g/dL Albumin 4.1 (3.5-5.0) g/dL Lipase 81 (23-300) U/L HCG, Quant 575230.0 mIU/mL Urine Color Light Yellow Urine Appearance Clear (Clear) Urine pH 6.5 (5.0-8.0) Ur Specific [place] 1.008 (1.001-1.035) Urine Protein Negative (Negative) Urine Glucose (UA) Negative (Negative) Urine Ketones Negative (Negative) Urine Blood Negative (Negative) Urine Nitrite Negative (Negative) Urine Bilirubin Negative (Negative) Urine Urobilinogen <2.0 (<2.0) mg/dL Ur Leukocyte Esterase Negative (Negative) Disposition Clinical Impression: Abdominal pain Disposition: HOME SELF-CARE Condition: Good Instructions (If sedation given, give patient instructions): Abdominal Pain (ED), Abdominal Pain in (ED) Additional Instructions: Today you were evaluated for right upper quadrant pain. Ultrasound of her gallbladder did not show any significant processes. Her labs were unremarkable. There is concern however that your symptoms are secondary to gastritis. Please. Your prescriptions for Pepcid at [facility]. Please follow up with Dr. Diego for outpatient evaluation of her symptoms. Prescriptions: Famotidine [Pepcid] 40 mg PO BID #24 tab Is patient prescribed a controlled substance at d/c from ED?: No Referrals: Arturo Diego MD [STAFF PHYSICIAN] - 1-2 days Time of Disposition: 22:10
[2019-12-31 20:08] LABS: Basophils % (A) 0 %; Eosinophils # (A) 0.1 k/uL (0-0.7); Eosinophils % (A) 1 %; HCT 38.2 % (34.0-46.0); HGB 12.9 gm/dL (11.4-16.0); Lymphocytes # (A) 2.1 k/uL (1.0-4.8); Lymphocytes % (A) 16 %; MCH 31.5 pg (25.0-35.0); MCHC 33.9 g/dL (31.0-37.0); Mean Platelet Volume 7.7; Monocytes # (A) 0.4 k/uL (0-1.0); Monocytes % (A) 3 %; Neutrophils # (A) 10.7 k/uL (1.3-7.7); Neutrophils % (A) 80 %; Platelet Count 258 k/uL (150-450); RBC 4.11 m/uL (3.80-5.40); RDW 12.7 % (11.5-15.5); WBC 13.4 k/uL (3.8-10.6)
[2019-12-31 20:14] LABS: ALT 16 U/L (4-34); AST 18 U/L (14-36); African American GFR (CKD) >90 (>60 ml/min/1.73 sqM); Albumin 4.1 g/dL (3.5-5.0); Alkaline Phosphatase 70 U/L (38-126); Anion Gap 10 mmol/L; Blood Urea Nitrogen 5 mg/dL (7-17); Calcium 9.4 mg/dL (8.4-10.2); Carbon Dioxide 25 mmol/L (22-30); Chloride 102 mmol/L (98-107); Glucose 93 mg/dL (74-99); Non-African American GFR(CKD) >90 (>60 ml/min/1.73 sqM); Potassium 3.5 mmol/L (3.5-5.1); Sodium 137 mmol/L (137-145); Total Bilirubin 0.2 mg/dL (0.2-1.3); Total Protein 7.2 g/dL (6.3-8.2)
[2019-12-31 20:19] LABS: Appearance,Urine Clear (Clear); Bilirubin,Urine Negative (Negative); Blood,Urine Negative (Negative); Color,Urine Light Yellow; Glucose,Urine (UA) Negative (Negative); Ketones,Urine Negative (Negative); Leukocyte Esterase,Urine Negative (Negative); Nitrite,Urine Negative (Negative); PH, Urine 6.5 (5.0-8.0); Protein,Urine Negative (Negative); Specific Gravity,Urine 1.008 (1.001-1.035); Urobilinogen,Urine <2.0 mg/dL (<2.0)
--- NOTE | 2019-12-31 21:40 | US ---
EXAMINATION TYPE: US gallbladder DATE OF EXAM: 12/31/2019 COMPARISON: US 2019 CLINICAL HISTORY: RUQ pain. Abdominal pain x 3 weeks. Appendectomy. EXAM MEASUREMENTS: Liver Length: 16.7 cm Gallbladder Wall: 0.24 cm CBD: Not visualized Right Kidney: 11.1 x 6.2 x 5.3 cm *Limited due to overlying bowel gas. Pancreas: Limited. Liver: Limited due to gas. Slightly increased echogenicity. Gallbladder: Appears partially contracted, limited. Evidence for sonographic Butts's sign: Yes CBD: Not visualized. Right Kidney: Hypoechoic area seen 1.9 x 2.5 x 1.5 cm. IMPRESSION: No gallstones or dilated ducts. Small right renal cortical cyst. No free fluid.
--- NOTE | 2019-12-31 21:43 | US ---
EXAMINATION TYPE: Transabdominal DATE OF EXAM: 12/31/2019 9:20 PM COMPARISON: US 2019 CLINICAL HISTORY: abd pain. Abdominal pain x 3 weeks. EXAM PERFORMED: Transabdominal (TA) EXAM MEASUREMENTS: GESTATIONAL AGE / DATING Physician Established: (9 weeks/4 days) EDC: 07/31/2020 Dates by LMP: (11 weeks/3 days) EDC: 07/18/2020 Dates by First Scan: No IUP seen Dates by Current Scan for: (10 weeks/2 days) EDC: 07/26/2020 MATERNAL ANATOMY Uterus: 11.8 x 6.9 x 6.3 cm. Anteverted. Right Ovary: 3.3 x 1.8 x 1.7 cm. Left Ovary: 2.9 x 2.0 x 2.3 cm. Hypoechoic area seen measurin.1 x 1.5 x 1.1 cm. Post CDS / Adnexa: Appears to be wnl. Presence of free fluid: Not seen. Presence of corpus luteal cyst: Hypoechoic area seen left ovary measurin.1 x 1.5 x 1.1 cm. Presence of subchorionic bleed: No GESTATION / SURVEY CRL: 3.33 cm. (10 weeks/2 days) Yolk Sac (normal less than 6mm): 2.8 mm. Heart Rate: 171 bpm Rhythm: Slightly elevated? IUP: Viable IUP Nuchal Translucency 10-14wks (normal less than 3mm): Not well seen. Date of LMP: 10/12/2019 Beta HcG (if available): 141,287.0 IMPRESSION: The ultrasound gestational age is 10 weeks and 2 days. No complicating process seen.
[2019-12-31 21:57] VITALS: BP 135/82; RESP 18
[2019-12-31 22:38] VITALS: PULSE 93; TEMP 99
== END 2019-12-31 22:38 | disposition home or self-care (01) ==
LOC: EC 19:19
DX: O99.89 Other specified diseases and conditions complicating pregnancy, childbirth and the puerperium (principal); R10.11 Right upper quadrant pain; O99.511 Diseases of the respiratory system complicating pregnancy, first trimester; J45.909 Unspecified asthma, uncomplicated; O99.341 Other mental disorders complicating pregnancy, first trimester; F32.9 Major depressive disorder, single episode, unspecified; O99.111 Other diseases of the blood and blood-forming organs and certain disorders involving the immune mechanism complicating pregnancy, first trimester; D72.829 Elevated white blood cell count, unspecified; Z79.51 Long term (current) use of inhaled steroids; Z79.899 Other long term (current) drug therapy; Z87.891 Personal history of nicotine dependence; Z3A.11 11 weeks gestation of pregnancy
CPT/HCPCS: 36415; 76705; 76801; 80053; 81003; 83690; 84702; 85025; 99284

== ENCOUNTER 2020-01-02 21:23 | Emergency (ER) | payer OTHER ==
[2020-01-02 21:30] VITALS: RESP 18
[2020-01-02] MEDS ORDERED: METOCLOPRAMIDE 5 MG/ML 2 ML VIAL IVP STA (21:49)
[2020-01-02] MEDS ORDERED: SODIUM CHLORIDE 0.9% 500 ML 500 ML IV STA (21:49)
[2020-01-02] MEDS ORDERED: SODIUM CHLORIDE 0.9% 1,000 ML IV STA (21:49)
[2020-01-02] MEDS ORDERED: FAMOTIDINE 20 MG/2 ML VIAL IV STA (21:50)
--- NOTE | 2020-01-02 21:52 | ED ---
General Adult HPI - General Chief complaint: Abdominal Pain Stated complaint: Abdominal Pain Time Seen by Provider: 01/02/20 21:39 Source: patient, RN notes reviewed, old records reviewed Mode of arrival: ambulatory Limitations: no limitations - History of Present Illness Initial comments: Patient is a pleasant 24-year-old female presenting to the emergency Department with right upper quadrant abdominal discomfort. Symptoms have been occurring for weeks. Symptoms are worse after eating pizza this evening. Patient has abdominal discomfort, more of the upper or/right abdomen. Patient has had similar problems previously and seen 3 times previously in the emergency department. 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 Patient is . Patient has minimal nausea. No vomiting. patient diarrhea. No fevers. - Related Data Home Medications Medication Instructions Recorded Confirmed Albuterol Sulfate [Ventolin HFA] 2 puff INHALATION Q4H PRN 11/21/19 11/21/19 Sertraline HCl [Zoloft] 50 mg PO DAILY 11/21/19 11/21/19 Zolpidem [Ambien] 10 mg PO HS PRN 11/21/19 11/21/19 buPROPion HCL [Wellbutrin SR] 150 mg PO DAILY 11/21/19 11/21/19 Previous Rx's Medication Instructions Recorded Pnv No.95/Ferrous Fum/Folic AC 1 each PO DAILY #90 tablet 11/21/19 [ Multivitamin Tablet] Famotidine [Pepcid] 40 mg PO BID #24 tab 12/31/19 Allergies Allergy/AdvReac Type Severity Reaction Status Date / Time No Known Allergies Allergy Verified 01/02/20 21:30 Review of Systems ROS Statement: Those systems with pertinent positive or pertinent negative responses have been documented in the HPI. ROS Other: All systems not noted in ROS Statement are negative. Constitutional: Denies: fever, chills Eyes: Denies: eye pain ENT: Denies: ear pain Respiratory: Denies: cough Cardiovascular: Denies: chest pain Endocrine: Denies: fatigue Gastrointestinal: Reports: as per HPI. Denies: vomiting Genitourinary: Denies: dysuria Musculoskeletal: Denies: back pain Skin: Denies: rash Neurological: Denies: weakness Past Medical History Past Medical History: Asthma, Osteoarthritis (OA) History of Any Multi-Drug Resistant Organisms: None Reported Past Surgical History: Appendectomy Past Psychological History: ADD/ADHD, Depression Smoking Status: Former smoker Past Alcohol Use History: Occasional Past Drug Use History: None Reported General Exam Limitations: no limitations General appearance: alert, in no apparent distress Head exam: Present: normocephalic Eye exam: Present: normal appearance Neck exam: Present: normal inspection Respiratory exam: Present: normal lung sounds bilaterally Cardiovascular Exam: Present: regular rate, normal rhythm GI/Abdominal exam: Present: soft, tenderness (Mild tenderness right upper quadrant), normal bowel sounds, other (No lower abdominal tenderness). Absent: distended, guarding, rebound, rigid, pulsatile mass Extremities exam: Present: normal inspection Neurological exam: Present: alert Psychiatric exam: Present: normal affect, normal mood Skin exam: Present: normal color Course Vital Signs 01/02/20 21:27 Temperature 98.4 F Pulse Rate 107 H Respiratory 18 Rate Blood Pressure 127/76 O2 Sat by Pulse 100 Oximetry Medical Decision Making - Medical Decision Making heart tones reported as positive by mother-baby. Patient reevaluated and resting comfortably in bed. Abdomen nontender and soft. Patient updated on results and need for follow-up. Patient does request Tylenol - Lab Data Result diagrams: 01/02/20 21:45 01/02/20 21:45 Lab Results 01/02/20 01/02/20 01/02/20 Range/Units 21:45 21:45 21:45 WBC 14.5 H (3.8-10.6) k/uL RBC 3.96 (3.80-5.40) m/uL Hgb 12.2 (11.4-16.0) gm/dL Hct 37.1 (34.0-46.0) % MCV 93.7 (80.0-100.0) fL MCH 30.9 (25.0-35.0) pg MCHC 33.0 (31.0-37.0) g/dL RDW 12.7 (11.5-15.5) % Plt Count 266 (150-450) k/uL Neutrophils % 77 % Lymphocytes % 17 % Monocytes % 3 % Eosinophils % 1 % Basophils % 0 % Neutrophils # 11.2 H (1.3-7.7) k/uL Lymphocytes # 2.5 (1.0-4.8) k/uL Monocytes # 0.5 (0-1.0) k/uL Eosinophils # 0.1 (0-0.7) k/uL Basophils # 0.0 (0-0.2) k/uL Sodium 136 L (137-145) mmol/L Potassium 4.1 (3.5-5.1) mmol/L Chloride 106 (98-107) mmol/L Carbon Dioxide 20 L (22-30) mmol/L Anion Gap 10 mmol/L BUN 7 (7-17) mg/dL Creatinine 0.65 (0.52-1.04) mg/dL Est GFR (CKD-EPI)AfAm >90 (>60 ml/min/1.73 sqM) Est GFR (CKD-EPI)NonAf >90 (>60 ml/min/1.73 sqM) Glucose 99 (74-99) mg/dL Calcium 9.7 (8.4-10.2) mg/dL Total Bilirubin 0.2 (0.2-1.3) mg/dL AST 20 (14-36) U/L ALT 15 (4-34) U/L Alkaline Phosphatase 68 (38-126) U/L Total Protein 7.2 (6.3-8.2) g/dL Albumin 4.0 (3.5-5.0) g/dL Amylase 63 (30-110) U/L Lipase 76 (23-300) U/L Urine Color Yellow Urine Appearance Clear (Clear) Urine pH 6.0 (5.0-8.0) Ur Specific [place] 1.013 (1.001-1.035) Urine Protein Negative (Negative) Urine Glucose (UA) Negative (Negative) Urine Ketones Negative (Negative) Urine Blood Negative (Negative) Urine Nitrite Negative (Negative) Urine Bilirubin Negative (Negative) Urine Urobilinogen <2.0 (<2.0) mg/dL Ur Leukocyte Esterase Negative (Negative) Disposition Clinical Impression: Abdominal pain Disposition: HOME SELF-CARE Condition: Stable Instructions (If sedation given, give patient instructions): Abdominal Pain in (ED) Additional Instructions: Please follow-up with your BIKE DESIGNER and primary care physician in the next day or 2 for recheck. Return for fevers, persistent vomiting, increased pain, pelvic pain, bleeding, worsening or changing symptoms or other concerns. Is patient prescribed a controlled substance at d/c from ED?: No Referrals: Malini Piña MD [Primary Care Provider] - 1-2 days Kaye Stanton DO [Doctor of Osteopathic Medicine] - 1-2 days Time of Disposition: 23:05
[2020-01-02 22:03] LABS: Basophils % (A) 0 %; Eosinophils # (A) 0.1 k/uL (0-0.7); Eosinophils % (A) 1 %; HCT 37.1 % (34.0-46.0); HGB 12.2 gm/dL (11.4-16.0); Lymphocytes # (A) 2.5 k/uL (1.0-4.8); Lymphocytes % (A) 17 %; MCH 30.9 pg (25.0-35.0); MCV 93.7 fL (80.0-100.0); Mean Platelet Volume 7.6; Monocytes # (A) 0.5 k/uL (0-1.0); Monocytes % (A) 3 %; Neutrophils # (A) 11.2 k/uL (1.3-7.7); Neutrophils % (A) 77 %; Platelet Count 266 k/uL (150-450); RBC 3.96 m/uL (3.80-5.40); RDW 12.7 % (11.5-15.5); WBC 14.5 k/uL (3.8-10.6)
[2020-01-02 22:06] LABS: Appearance,Urine Clear (Clear); Bilirubin,Urine Negative (Negative); Blood,Urine Negative (Negative); Color,Urine Yellow; Glucose,Urine (UA) Negative (Negative); Ketones,Urine Negative (Negative); Leukocyte Esterase,Urine Negative (Negative); Nitrite,Urine Negative (Negative); Protein,Urine Negative (Negative); Specific Gravity,Urine 1.013 (1.001-1.035); Urobilinogen,Urine <2.0 mg/dL (<2.0)
[2020-01-02 22:14] LABS: ALT 15 U/L (4-34); AST 20 U/L (14-36); African American GFR (CKD) >90 (>60 ml/min/1.73 sqM); Alkaline Phosphatase 68 U/L (38-126); Amylase 63 U/L (30-110); Anion Gap 10 mmol/L; Blood Urea Nitrogen 7 mg/dL (7-17); Calcium 9.7 mg/dL (8.4-10.2); Carbon Dioxide 20 mmol/L (22-30); Chloride 106 mmol/L (98-107); Glucose 99 mg/dL (74-99); Non-African American GFR(CKD) >90 (>60 ml/min/1.73 sqM); Potassium 4.1 mmol/L (3.5-5.1); Sodium 136 mmol/L (137-145); Total Bilirubin 0.2 mg/dL (0.2-1.3); Total Protein 7.2 g/dL (6.3-8.2)
[2020-01-02] MEDS ORDERED: ACETAMINOPHEN TAB 500 MG TAB PO STA (23:04)
[2020-01-02 23:22] VITALS: BP 121/84; PULSE 85; TEMP 98
== END 2020-01-02 23:20 | disposition home or self-care (01) ==
LOC: EC 21:23
DX: O26.891 Other specified pregnancy related conditions, first trimester (principal); R10.9 Unspecified abdominal pain; R10.811 Right upper quadrant abdominal tenderness; O99.511 Diseases of the respiratory system complicating pregnancy, first trimester; J45.909 Unspecified asthma, uncomplicated; O99.341 Other mental disorders complicating pregnancy, first trimester; F32.9 Major depressive disorder, single episode, unspecified; Z3A.00 Weeks of gestation of pregnancy not specified; Z79.899 Other long term (current) drug therapy; Z90.89 Acquired absence of other organs; Z87.891 Personal history of nicotine dependence
CPT/HCPCS: 99284; 96374; 96375; 96361; 36415; 80053; 82150; 83690; 85025; 81003; 84702; J2765

== ENCOUNTER 2020-03-16 15:41 | Outpatient (CLI) | payer OTHER ==
[2020-03-16 16:46] LABS: Amorphous Sediment,Urine Rare /hpf; Appearance,Urine Cloudy (Clear); Bacteria,Urine Occasional /hpf; Bilirubin,Urine Negative (Negative); Blood,Urine Negative (Negative); Color,Urine Yellow; Glucose,Urine (UA) Negative (Negative); Hyaline Casts,Urine 1 /lpf (0-2); Ketones,Urine Negative (Negative); Leukocyte Esterase,Urine Moderate (Negative); Mucus,Urine Rare /hpf; Nitrite,Urine Negative (Negative); PH, Urine 7.5 (5.0-8.0); Protein,Urine Negative (Negative); RBC,Urine 1 /hpf (0-5); Specific Gravity,Urine 1.009 (1.001-1.035); Squamous Epithelial Cell,Urine 2 /hpf (0-4); Urobilinogen,Urine <2.0 mg/dL (<2.0); WBC,Urine 4 /hpf (0-5)
[2020-03-16 17:57] VITALS: BP 125/66; PULSE 113; RESP 18; TEMP 97.8
--- NOTE | 2020-03-22 12:49 | P.MSEPDOC ---
Presenting Problems - Arrival Data Date of Arrival on Unit: 03/16/20 Time of Arrival on Unit: 15:41 Mode of Transport: Wheelchair - Complaint OB-Reason for Admission/Chief Complaint: Pain Comment: pt presents to triage for cramping that started last night, rates pain at 6/10 Medical History - Information : 1 Para: 0 Term: 0 : 0 Abortions: Spontaneous or Elective: 0 Number of Living Children: 0 - Gestational Age Gestational Age by LEONEL (wks/days): 20 Weeks and 3 Days Review of Systems - Review of Systems Constitutional: No problems Breast: No problems ENT: No problems Cardiovascular: No problems Respiratory: No problems Gastrointestinal: No problems Genitourinary: No problems Musculoskeletal: No problems Neurological: No problems Skin: No problems Vital Signs - Temperature Temperature: 97.8 F Temperature Source: Oral - Pulse Right Brachial Pulse Rate: 113 Pulse Assessment Method: Automatic Cuff - Respirations Respiratory Rate: 18 Oxygen Delivery Method: Room Air O2 Sat by Pulse Oximetry: 98 - Blood Pressure Right Arm Blood Pressure: 125/66 Blood Pressure Mean: 85 Blood Pressure Source: Automatic Cuff Medical Screen Scoring (Pre) - Cervical Exam Dilation: 0 cm = 0 Effacement: Exam Deferred Membranes: Intact - Uterine Contractions Frequency: N/A Duration: N/A Intensity: N/A - Maternal Vital Signs Maternal Temperature: N/A Signs of Preeclampsia: N/A Maternal Respirations: N/A - Maternal Trauma Maternal Trauma: N/A - Assessment - Baby A Heart Rate - NICHD Category: Category I (Normal) = 0 Position: N/A Station: N/A - Total Score - Baby A Total Score - Baby A: 0 - Total Score - Baby B Total Score - Baby B: 0 - Total Score - Baby C Total Score - Baby C: 0 - Level of Risk - Baby A Level of Risk - Baby A: Low (0-5) - Level of Risk - Baby B Level of Risk - Baby B: Low (0-5) - Level of Risk - Baby C Level of Risk - Baby C: Low (0-5) Physician Notification (Pre) - Physician Notified Physician Notified Date: 03/16/20 Physician Notified Time: 17:05 New Order Received: Yes - Notification Comment Comment: sent urine for ua and culture, discharge pt home with instructions to increase oral fluids, and call office to be seen later this week for follow up Disposition - Disposition OB Disposition: Triage, Discharge to home, Written follow up instructions reviewed Discharge Date: 03/16/20 Discharge Time: 17:15 I agree with the RN Medical Screening Exam: Yes Risk & Benefit of care provided described in d/c instruction: Yes Diagnosis: RELATED CONDITIONS, UNSPECIFIED, SECOND TRIMESTER
== END 2020-03-16 17:15 | disposition home or self-care (01) ==
LOC: FBPOP 15:41
PROVIDERS: ATTEND Obstetrics & Gynecology
DX: O26.92 Pregnancy related conditions, unspecified, second trimester (principal); Z3A.20 20 weeks gestation of pregnancy
CPT/HCPCS: 81001; 87086; G0463; 99213

== ENCOUNTER 2020-05-30 12:52 | Emergency (ER) | payer OTHER ==
[2020-05-30 13:17] VITALS: RESP 18
--- NOTE | 2020-05-30 13:52 | XR ---
EXAMINATION TYPE: XR chest 2V DATE OF EXAM: 05/30/2020 COMPARISON: Chest x-ray June 27, 2019 HISTORY: Cough and fever. TECHNIQUE: Frontal and lateral views of the chest are obtained. FINDINGS: There is no focal air space opacity, pleural effusion, or pneumothorax seen. The cardiac silhouette size is within normal limits. The osseous structures are intact. IMPRESSION: No suspicious acute pulmonary process. No significant change from prior.
[2020-05-30 14:42] LABS: Basophils % (A) 0 %; Eosinophils # (A) 0.1 k/uL (0-0.7); Eosinophils % (A) 1 %; HCT 31.6 % (34.0-46.0); HGB 10.4 gm/dL (11.4-16.0); Lymphocytes # (A) 1.7 k/uL (1.0-4.8); Lymphocytes % (A) 13 %; MCH 29.5 pg (25.0-35.0); MCV 89.3 fL (80.0-100.0); Mean Platelet Volume 7.4; Monocytes # (A) 0.4 k/uL (0-1.0); Monocytes % (A) 3 %; Neutrophils % (A) 82 %; Platelet Count 236 k/uL (150-450); RBC 3.54 m/uL (3.80-5.40); RDW 13.5 % (11.5-15.5); WBC 13.4 k/uL (3.8-10.6)
[2020-05-30 14:50] LABS: Appearance,Urine Cloudy (Clear); Bacteria,Urine Rare /hpf; Bilirubin,Urine Negative (Negative); Blood,Urine Trace (Negative); Color,Urine Yellow; Glucose,Urine (UA) Negative (Negative); Ketones,Urine Negative (Negative); Leukocyte Esterase,Urine Trace (Negative); Mucus,Urine Rare /hpf; Nitrite,Urine Negative (Negative); PH, Urine 6.5 (5.0-8.0); Protein,Urine Negative (Negative); RBC,Urine 1 /hpf (0-5); Squamous Epithelial Cell,Urine 22 /hpf (0-4); Urobilinogen,Urine <2.0 mg/dL (<2.0); WBC,Urine 10 /hpf (0-5)
[2020-05-30 14:52] LABS: ALT 9 U/L (4-34); AST 13 U/L (14-36); African American GFR (CKD) >90 (>60 ml/min/1.73 sqM); Albumin 3.1 g/dL (3.5-5.0); Alkaline Phosphatase 95 U/L (38-126); Anion Gap 6 mmol/L; Blood Urea Nitrogen 5 mg/dL (7-17); Calcium 8.7 mg/dL (8.4-10.2); Carbon Dioxide 20 mmol/L (22-30); Chloride 108 mmol/L (98-107); Glucose 110 mg/dL (74-99); Non-African American GFR(CKD) >90 (>60 ml/min/1.73 sqM); Potassium 3.6 mmol/L (3.5-5.1); Sodium 134 mmol/L (137-145); Total Bilirubin 0.3 mg/dL (0.2-1.3)
--- NOTE | 2020-05-30 14:57 | US ---
EXAMINATION TYPE: US OB >= 14 wk fetus DATE OF EXAM: 05/30/2020 COMPARISON: None CLINICAL HISTORY: mild cramping TECHNIQUE: US 12/31/2019 GESTATIONAL AGE / DATING Physician Established: (31 weeks/1 days) EDC: 07/31/2020 Dates by LMP: Does not correlate Dates by First Scan: (31 weeks/6 days) EDC: 07/26/2020 Dates by Current Scan: (30 weeks/0 days) EDC: 08/08/2020 SURVEY IUP: Single PLACENTA: Anterior PREVIA: No Previa SHERRIE: 15.3 cm Normal CERVICAL LENGTH (transabdominal: norm > 3.0cm): 3.4 cm BIOMETRY PRESENTATION: Vertex LIE: Longitudinal BPD: 7.5 cm 30 weeks / 1 days HC: 27.9 cm 30 weeks / 4 days AC: 25.8 cm 30 weeks / 0 days FL: 5.5 cm 29 weeks / 0 days ESTIMATED WEIGHT IN GRAMS: 1431 grams ESTIMATED WEIGHT IN LBS/OZ: 3 lbs. 2 oz. WEIGHT PERCENTAGE BASED ON ESTABLISHED DATES: 2% HC/AC: 1.08 Normal FL/AC: 21 Normal HEART RATE: 136 bpm RHYTHM: Normal Viable IUP with an LEONEL of 08/08/2020 by this exam. IMPRESSION: The ultrasound gestational age is 30 weeks and the LEONEL is 08/08/2020 which is 13 days later than the E DD estimation from the first exam of 12/31/2019. The possibility of some mild IUGR should be considere jude
--- NOTE | 2020-05-30 15:28 | ED ---
URI HPI - General Chief Complaint: Upper Respiratory Infection Stated Complaint: Weakness Time Seen by Provider: 05/30/20 13:18 Source: patient Mode of arrival: ambulatory Limitations: no limitations - History of Present Illness Initial Comments: 24-year-old feel presenting for cough, congestion low grade fever. Patient is currently 31 weeks . She states she is worried about baby was having this upper respiratory infection. She denies any decreased movement she denies any vaginal bleeding or severe pain patient denies dysuria urgency frequency. Patient denies any shortness of breath chest pain. Deep inspiration or leg swelling. Patient is no additional complaints she states that she has not had any nausea vomiting diarrhea or rashes. Patient appears well and nontoxic on arrival blood pressure thinks that the limits heart rate mildly elevated - Related Data Home Medications Medication Instructions Recorded Confirmed Albuterol Sulfate [Ventolin HFA] 2 puff INHALATION Q4H PRN 11/21/19 11/21/19 Sertraline HCl [Zoloft] 50 mg PO DAILY 11/21/19 11/21/19 Zolpidem [Ambien] 10 mg PO HS PRN 11/21/19 11/21/19 buPROPion HCL [Wellbutrin SR] 150 mg PO DAILY 11/21/19 11/21/19 Previous Rx's Medication Instructions Recorded Pnv No.95/Ferrous Fum/Folic AC 1 each PO DAILY #90 tablet 11/21/19 [ Multivitamin Tablet] Famotidine [Pepcid] 40 mg PO BID #24 tab 12/31/19 Allergies Allergy/AdvReac Type Severity Reaction Status Date / Time No Known Allergies Allergy Verified 03/16/20 15:51 Review of Systems ROS Statement: Those systems with pertinent positive or pertinent negative responses have been documented in the HPI. ROS Other: All systems not noted in ROS Statement are negative. Past Medical History Past Medical History: Asthma, Osteoarthritis (OA) History of Any Multi-Drug Resistant Organisms: None Reported Past Surgical History: Appendectomy Past Psychological History: ADD/ADHD, Depression Smoking Status: Never smoker Past Alcohol Use History: None Reported Past Drug Use History: None Reported General Exam - General Exam Comments Initial Comments: General: The patient is awake and alert, in no distress Eye: +3 mm pupils are equal, round and reactive to light, extra-ocular movements are intact. No nystagmus. There is normal conjunctiva bilaterally. No signs of icterus. Ears, nose, mouth and throat: There are moist mucous membranes and no oral lesions. Neck: The neck is supple, there is no tenderness or JVD. Cardiovascular: There is a regular rate and rhythm. No murmur, rub or gallop is appreciated. Respiratory: Lungs are clear to auscultation, respirations are non-labored, breath sounds are equal. No wheezes, stridor, rales, or rhonchi. dry cough Gastrointestinal: non-tender abdomen without masses or organomegaly noted. There is no rebound or guarding present. Musculoskeletal: Normal ROM, no tenderness. Strength 5/5. Sensation intact. radial pulses equal bilaterally 2+. Neurological: A&O x 3. CN II-XII intact grossly, There are no obvious motor or sensory deficits. Coordination appears grossly intact. Speech is normal. Skin: Skin is warm and dry and no rashes or lesions are noted. Psychiatric: Cooperative, appropriate mood & affect, normal judgment. Limitations: no limitations Course Vital Signs 05/30/20 05/30/20 13:15 15:40 Temperature 97.9 F 98.2 F Pulse Rate 128 H 94 Respiratory 18 18 Rate Blood Pressure 116/80 118/74 O2 Sat by Pulse 98 98 Oximetry Medical Decision Making - Medical Decision Making 24 yo female presenting for cc of URI symptoms. Mild occasional cramping-wanted to "check on baby". CXR (-) obtained after discussing risk vs benefit. no PNA. labs consistent with third trimester. 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 I discussed case wt Dr. Ceron who is agreeable to care plan and discharge. - Lab Data Result diagrams: 05/30/20 14:30 05/30/20 14:30 Lab Results 05/30/20 05/30/20 05/30/20 Range/Units 14:30 14:30 14:30 WBC 13.4 H (3.8-10.6) k/uL RBC 3.54 L (3.80-5.40) m/uL Hgb 10.4 L (11.4-16.0) gm/dL Hct 31.6 L (34.0-46.0) % MCV 89.3 (80.0-100.0) fL MCH 29.5 (25.0-35.0) pg MCHC 33.0 (31.0-37.0) g/dL RDW 13.5 (11.5-15.5) % Plt Count 236 (150-450) k/uL Neutrophils % 82 % Lymphocytes % 13 % Monocytes % 3 % Eosinophils % 1 % Basophils % 0 % Neutrophils # 11.0 H (1.3-7.7) k/uL Lymphocytes # 1.7 (1.0-4.8) k/uL Monocytes # 0.4 (0-1.0) k/uL Eosinophils # 0.1 (0-0.7) k/uL Basophils # 0.0 (0-0.2) k/uL Sodium 134 L (137-145) mmol/L Potassium 3.6 (3.5-5.1) mmol/L Chloride 108 H (98-107) mmol/L Carbon Dioxide 20 L (22-30) mmol/L Anion Gap 6 mmol/L BUN 5 L (7-17) mg/dL Creatinine 0.59 (0.52-1.04) mg/dL Est GFR (CKD-EPI)AfAm >90 (>60 ml/min/1.73 sqM) Est GFR (CKD-EPI)NonAf >90 (>60 ml/min/1.73 sqM) Glucose 110 H (74-99) mg/dL Calcium 8.7 (8.4-10.2) mg/dL Total Bilirubin 0.3 (0.2-1.3) mg/dL AST 13 L (14-36) U/L ALT 9 (4-34) U/L Alkaline Phosphatase 95 (38-126) U/L Total Protein 6.0 L (6.3-8.2) g/dL Albumin 3.1 L (3.5-5.0) g/dL Urine Color Yellow Urine Appearance Cloudy H (Clear) Urine pH 6.5 (5.0-8.0) Ur Specific [place] 1.010 (1.001-1.035) Urine Protein Negative (Negative) Urine Glucose (UA) Negative (Negative) Urine Ketones Negative (Negative) Urine Blood Trace H (Negative) Urine Nitrite Negative (Negative) Urine Bilirubin Negative (Negative) Urine Urobilinogen <2.0 (<2.0) mg/dL Ur Leukocyte Esterase Trace H (Negative) Urine RBC 1 (0-5) /hpf Urine WBC 10 H (0-5) /hpf Ur Squamous Epith Cells 22 H (0-4) /hpf Urine Bacteria Rare H (None) /hpf Urine Mucus Rare H (None) /hpf Disposition Clinical Impression: Cough, Low grade fever Disposition: HOME SELF-CARE Condition: Good Instructions (If sedation given, give patient instructions): Upper Respiratory Infection (ED) Additional Instructions: Please use medication as discussed. Please follow-up with OBGYN in the next 2 days. Please return to emergency room if the symptoms increase or worsen or for any other concerns. Is patient prescribed a controlled substance at d/c from ED?: No Referrals: Malini Piña MD [Primary Care Provider] - 1-2 days Sandip Quintana MD [STAFF PHYSICIAN] - 1-2 days Time of Disposition: 15:25
[2020-05-30 15:44] VITALS: BP 118/74; PULSE 94; TEMP 98.2
== END 2020-05-30 15:46 | disposition home or self-care (01) ==
LOC: EC 12:52
DX: O99.89 Other specified diseases and conditions complicating pregnancy, childbirth and the puerperium (principal); R05 Cough; R50.9 Fever, unspecified; O99.513 Diseases of the respiratory system complicating pregnancy, third trimester; J45.909 Unspecified asthma, uncomplicated; O99.343 Other mental disorders complicating pregnancy, third trimester; F90.9 Attention-deficit hyperactivity disorder, unspecified type; F32.9 Major depressive disorder, single episode, unspecified; Z79.899 Other long term (current) drug therapy; Z3A.30 30 weeks gestation of pregnancy; Z20.828 Contact with and (suspected) exposure to other viral communicable diseases
CPT/HCPCS: 99285 ×2; 36415; 80053; 85025; 81001; 71046; 76805; U0003

== ENCOUNTER 2020-06-01 12:21 | Outpatient (CLI) | payer OTHER ==
[2020-06-01] MEDS ORDERED: ONDANSETRON 4 MG/2 ML VIAL IVP STA (12:50)
[2020-06-01] MEDS ORDERED: LACTATED RINGERS 1,000 ML IV SCH ×2 (13:00→14:15)
[2020-06-01 13:26] VITALS: BP 96/54; PULSE 123; RESP 15; TEMP 99
[2020-06-01 13:38] LABS: Appearance,Urine Cloudy (Clear); Bacteria,Urine Rare /hpf; Bilirubin,Urine Negative (Negative); Blood,Urine Small (Negative); Color,Urine Yellow; Glucose,Urine (UA) Negative (Negative); Hyaline Casts,Urine 2 /lpf (0-2); Ketones,Urine Negative (Negative); Leukocyte Esterase,Urine Trace (Negative); Mucus,Urine Occasional /hpf; Nitrite,Urine Negative (Negative); Protein,Urine Trace (Negative); RBC,Urine 1 /hpf (0-5); Specific Gravity,Urine 1.012 (1.001-1.035); Squamous Epithelial Cell,Urine 20 /hpf (0-4); Urobilinogen,Urine <2.0 mg/dL (<2.0); WBC,Urine 6 /hpf (0-5)
--- NOTE | 2020-06-18 17:10 | P.MSEPDOC ---
Presenting Problems - Arrival Data Date of Arrival on Unit: 06/01/20 Time of Arrival on Unit: 12:21 Mode of Transport: Ambulatory - Complaint OB-Reason for Admission/Chief Complaint: Acute Nausea/Vomiting Comment: Pt complains of n/v for 4 days Medical History - Information : 1 Para: 0 Term: 0 : 0 Abortions: Spontaneous or Elective: 0 Number of Living Children: 0 - Gestational Age Gestational Age by LEONEL (wks/days): 31 Weeks and 3 Days Review of Systems - Review of Systems Constitutional: No problems Breast: No problems ENT: No problems Cardiovascular: No problems Respiratory: No problems Gastrointestinal: No problems Genitourinary: No problems Musculoskeletal: No problems Neurological: No problems Skin: No problems Vital Signs - Temperature Temperature: 99 F Temperature Source: Axillary - Pulse Pulse Oximetery Pulse Rate: 123 Pulse Assessment Method: Pulse Oximetry - Respirations Respiratory Rate: 15 Oxygen Delivery Method: Room Air - Blood Pressure Right Arm Blood Pressure: 96/54 Blood Pressure Mean: 68 Blood Pressure Source: Automatic Cuff Medical Screen Scoring (Pre) - Cervical Exam Dilation: Exam Deferred Effacement: Exam Deferred Membranes: Intact - Uterine Contractions Frequency: N/A Duration: N/A Intensity: N/A - Maternal Vital Signs Maternal Temperature: N/A Maternal Blood Pressure: N/A Signs of Preeclampsia: N/A Maternal Respirations: N/A - Maternal Trauma Maternal Trauma: N/A - Assessment - Baby A Baseline FHR: 140 Heart Rate - NICHD Category: Category I (Normal) = 0 NST: Reactive Position: N/A Station: N/A - Total Score - Baby A Total Score - Baby A: 0 - Total Score - Baby B Total Score - Baby B: 0 - Total Score - Baby C Total Score - Baby C: 0 - Level of Risk - Baby A Level of Risk - Baby A: Low (0-5) - Level of Risk - Baby B Level of Risk - Baby B: Low (0-5) - Level of Risk - Baby C Level of Risk - Baby C: Low (0-5) Medical Screen Scoring (Post) - Cervical Exam Dilation: Exam Deferred Effacement: Exam Deferred Membranes: Intact - Uterine Contractions Frequency: N/A Duration: N/A Intensity: N/A - Maternal Vital Signs Maternal Temperature: N/A Maternal Blood Pressure: N/A Signs of Preeclampsia: N/A Maternal Respirations: N/A - Maternal Trauma Maternal Trauma: N/A - Assessment - Baby A Heart Rate: 140 Heart Rate - NICHD Category: Category I (Normal) = 0 NST: Reactive Position: N/A Station: N/A - Total Score Total Score - Baby A: 0 Total Score - Baby B: 0 Total Score - Baby C: 0 - Post Treatment Level of Risk Post Treatment Level of Risk - Baby A: Low (0-5) Post Treatment Level of Risk - Baby B: Low (0-5) Post Treatment Level of Risk - Baby C: Low (0-5) Disposition - Disposition OB Disposition: Discharge to home Discharge Date: 06/01/20 Discharge Time: 15:24 I agree with the RN Medical Screening Exam: Yes Risk & Benefit of care provided described in d/c instruction: Yes Diagnosis: VOMITING OF , UNSPECIFIED
== END 2020-06-01 15:26 | disposition home or self-care (01) ==
LOC: FBPOP 12:21
PROVIDERS: ATTEND Obstetrics & Gynecology Obstetrics
DX: O21.2 Late vomiting of pregnancy (principal); Z3A.31 31 weeks gestation of pregnancy
CPT/HCPCS: 59025; 96361; 96374; 81001; 87502; G0463; J2405; 99214

== ENCOUNTER 2020-06-08 16:44 | Emergency (ER) | payer OTHER ==
[2020-06-08 16:53] VITALS: BP 106/64; PULSE 108; RESP 16; TEMP 97.7
[2020-06-08] MEDS ORDERED: ACETAMINOPHEN TAB 325 MG TAB PO STA (17:05)
--- NOTE | 2020-06-08 17:07 | ED ---
General Adult HPI - General Chief complaint: Fall Stated complaint: 32 wks pre fell down stairs Time Seen by Provider: 06/08/20 16:58 Source: patient, RN notes reviewed, old records reviewed Mode of arrival: wheelchair Limitations: no limitations - History of Present Illness Initial comments: 24-year-old female patient presented to ED for evaluation of slip and fall. Patient is 32 weeks gestation. She reports that she was walking when she short slipped on something landed on her backside. Patient reports that her cheif complaint is left ankle pain but does have a very mild amount of minimal left paralumbar discomfort, denies any red flag symptoms. Denies any trauma to her abdomen denies any abdominal pain cramping or any vaginal bleeding. Denies any other complaints. Systemic: Pt denies fatigue, fever/chills, rash. Pt denies weakness, night sweats, weight loss. Neuro: Pt denies headache, visual disturbances, syncope or pre-syncope. HEENT: Pt denies ocular discharge or irritation, otalgia, rhinorrhea, pharyngitis or notable lymphadenopathy. Cardiopulmonary: Pt denies chest pain, SOB, heart palpitations, dyspnea on exertion. Abdominal/GI: Pt denies abdominal pain, n/v/d. : Pt denies dysuria, burning w/ urination, frequency/urgency. Denies new onset urinary or bowel incontinence. MSK: Pt denies myalgia, loss of strength or function in extremities. Neuro: Pt denies new onset weakness, paresthesias. - Related Data Home Medications Medication Instructions Recorded Confirmed busPIRone HCl [Buspar] 5 mg PO BID 06/01/20 06/01/20 Previous Rx's Medication Instructions Recorded Pnv No.95/Ferrous Fum/Folic AC 1 each PO DAILY #90 tablet 11/21/19 [ Multivitamin Tablet] Allergies Allergy/AdvReac Type Severity Reaction Status Date / Time No Known Allergies Allergy Verified 06/08/20 16:53 Review of Systems ROS Statement: Those systems with pertinent positive or pertinent negative responses have been documented in the HPI. ROS Other: All systems not noted in ROS Statement are negative. Past Medical History Past Medical History: Asthma, Osteoarthritis (OA) History of Any Multi-Drug Resistant Organisms: None Reported Past Surgical History: Appendectomy Past Psychological History: ADD/ADHD, Depression Smoking Status: Never smoker General Exam - General Exam Comments Initial Comments: Constitutional: NAD, AOX3, Pt has pleasant affect. HEENT: NC/AT, trachea midline, neck supple, no lymphadenopathy. External ears appear normal, without discharge. Mucous membranes moist. Eyes PERRLA, EOM intact. There is no scleral icterus. No pallor noted. Cardiopulmonary: RRR, no murmurs, rubs or gallops, no JVD noted. Lungs CTAB in anterior and posterior paez. No peripheral edema. Abdominal exam: Abdomen soft and non-distended. Abdomen non-tender to palpation in all 4 quadrants. Bowel sounds active in LLQ. No hepatosplenomegaly. No ecchymosis Neuro: CN II-XII grossly intact. No nuchal rigidity. No raccon eyes, no cruz sign, no hemotympanum. No cervical spinal tenderness. MSK: left lateral malleoli mildly tender to palpation. No other areas of tenderness. No proximal tib-fib tenderness. No midfoot tenderness. Pulses intact and equal. Mild left paralumbar tenderness. SFull active ROM in upper and lower extremities, 5/5 stregnth. Limitations: no limitations Course Vital Signs 06/08/20 16:48 Temperature 97.7 F Pulse Rate 108 H Respiratory 16 Rate Blood Pressure 106/64 O2 Sat by Pulse 100 Oximetry Medical Decision Making - Medical Decision Making 24-year-old female patient presents to ED for evaluation of a slip and fall. Patient was that she was walking slipped on something twisted her ankle fell on her backside. Patient is denies any abdominal trauma denies abdominal pain and vaginal bleeding. Plain films are negative patient placed in an ankle stirrup splint. heart tones are reassuring 138. We'll discharge the patient, The patient will go upstairs for 4 hours of monitoring on the OB floor. Will follow up with PCP and orthopedics and return to ED with any worsening symptoms. Dr. Dao did bedside ultrasound which was reassuring. Cse discussed with Dr. Dao. Disposition Clinical Impression: Fall, Ankle sprain Disposition: HOME SELF-CARE Condition: Stable Instructions (If sedation given, give patient instructions): Ankle Sprain (ED), Ankle Stirrup Splint (ED) Additional Instructions: Go directly to OB floor for monitoring. Continue to to wear ankle stirrup splint. Use crutches do not bear weight on left lower extremity. Follow-up with orthopedic consult 1-2 days. Return to ER if any worsening symptoms. Is patient prescribed a controlled substance at d/c from ED?: No Referrals: Malini Piña MD [Primary Care Provider] - 1-2 days Kyle Nguyen DO [Doctor of Osteopathic Medicine] - 1-2 days
--- NOTE | 2020-06-08 17:47 | XR ---
Left ankle and left foot HISTORY: Trauma and pain 3 views of the left ankle and 3 views of the left foot Correlation to prior exam 02/14/2018 There is no significant interval change. Bone mineralization, joint spaces and alignment are maintain ed. No significant soft tissue swelling. IMPRESSION: No fracture or dislocation.
== END 2020-06-08 18:35 | disposition home or self-care (01) ==
LOC: EC 16:44
DX: O9A.213 Injury, poisoning and certain other consequences of external causes complicating pregnancy, third trimester (principal); S93.402A Sprain of unspecified ligament of left ankle, initial encounter; O99.343 Other mental disorders complicating pregnancy, third trimester; F32.9 Major depressive disorder, single episode, unspecified; Z79.899 Other long term (current) drug therapy; Z3A.32 32 weeks gestation of pregnancy; W01.0XXA Fall on same level from slipping, tripping and stumbling without subsequent striking against object, initial encounter; Y93.01 Activity, walking, marching and hiking; Y92.009 Unspecified place in unspecified non-institutional (private) residence as the place of occurrence of the external cause
CPT/HCPCS: 29515; 99284

== ENCOUNTER 2020-06-08 18:31 | Outpatient (CLI) | payer OTHER ==
[2020-06-08 23:36] VITALS: BP 95/53; PULSE 85; RESP 16; TEMP 97
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
== END 2020-06-08 20:05 | disposition home or self-care (01) ==
LOC: FBPOP 18:31
PROVIDERS: ATTEND Obstetrics & Gynecology
DX: O26.93 Pregnancy related conditions, unspecified, third trimester (principal); Z3A.32 32 weeks gestation of pregnancy
CPT/HCPCS: 59025; G0463; 99213

== ENCOUNTER 2020-07-22 12:35 | Inpatient (IN) | payer OTHER ==
[~2020-07-22 12:35] MED LIST changes: -LACTATED RINGERS 1,000 ML IV SCH; +ROPIVACAINE 5MG/ML 20ML VIAL ONE; +SODIUM CHLORIDE 0.9% 100 ML BAG ONE; +fentaNYL (PF) 50 MCG/ML 5 ML AMP ONE
[2020-07-22] MEDS ORDERED: OXYTOCIN 10 UNIT/ML 1 ML VIAL IM PRN (12:50)
[2020-07-22] MEDS ORDERED: METHYLERGONOVINE 0.2 MG/ML 1 ML AMP IM PRN (12:50)
[2020-07-22] MEDS ORDERED: LIDOCAINE 0.5% (PF) 5 MG/ML (50 ML SDV) SQ PRN (12:50)
[2020-07-22] MEDS ORDERED: TERBUTALINE 1 MG/ML VIAL SQ PRN (12:50)
[2020-07-22] MEDS ORDERED: CARBOPROST TROMETHAMINE 250 MCG/ML 1 ML AMP IM PRN (12:50)
[2020-07-22] MEDS ORDERED: DINOPROSTONE 10 MG INSERT.ER VAGINAL ONE (12:52)
[2020-07-22 14:28] LABS: Basophils % (A) 0 %; Eosinophils % (A) 0 %; HCT 35.2 % (34.0-46.0); HGB 11.9 gm/dL (11.4-16.0); Lymphocytes # (A) 1.7 k/uL (1.0-4.8); Lymphocytes % (A) 11 %; MCH 30.3 pg (25.0-35.0); MCV 89.1 fL (80.0-100.0); Mean Platelet Volume 8.5; Monocytes # (A) 0.4 k/uL (0-1.0); Monocytes % (A) 3 %; Neutrophils # (A) 12.3 k/uL (1.3-7.7); Neutrophils % (A) 84 %; Platelet Count 278 k/uL (150-450); RBC 3.95 m/uL (3.80-5.40); RDW 13.9 % (11.5-15.5); WBC 14.6 k/uL (3.8-10.6)
[2020-07-22] MEDS: BUTORPHANOL 1 MG/ML 1 ML VIAL IV PRN (21:58)
[2020-07-22] MEDS: LACTATED RINGERS 1,000 ML IV SCH (22:06)
[2020-07-23] MEDS: OXYTOCIN 30 UNITS/500 ML NS 30 UNIT in SALINE 1 500ML.BAG IV SCH (01:30)
[2020-07-23] MEDS: BUTORPHANOL 1 MG/ML 1 ML VIAL IV PRN ×2 (01:50→04:26)
[2020-07-23] MEDS: LACTATED RINGERS 1,000 ML IV SCH ×3 (01:52→23:48)
[2020-07-23] MEDS ORDERED: MEASLES-MUMPS-RUBELLA VACC/PF 12,500 UNIT/0.5 ML VIAL SQ ONE (01:58)
[2020-07-23] MEDS ORDERED: CITRIC ACID-SODIUM CITRATE 15 ML CUP PO ONE (11:38)
[2020-07-23] MEDS ORDERED: MORPHINE SULFATE (PF) 0.3 MG/0.3 ML SYR ONE (11:53)
[2020-07-23] MEDS ORDERED: ROPIVACAINE 5MG/ML 20ML VIAL ONE (11:53)
[2020-07-23] MEDS ORDERED: ceFAZolin 1,000 MG VIAL ONE (11:53)
[2020-07-23] MEDS ORDERED: NALBUPHINE 10 MG/ML (1 ML AMP) ONE (11:53)
[2020-07-23] MEDS ORDERED: ONDANSETRON 4 MG/2 ML VIAL ONE (11:53)
[2020-07-23] MEDS ORDERED: SODIUM CHLORIDE 0.9% 100 ML BAG ONE ×2 (11:53)
[2020-07-23] MEDS ORDERED: fentaNYL (PF) 50 MCG/ML 5 ML AMP ONE (11:53)
[2020-07-23] MEDS ORDERED: OXYTOCIN 10 UNIT/ML 1 ML VIAL ONE (11:53)
[2020-07-23] MEDS ORDERED: ZOLPIDEM 5 MG TAB PO PRN (12:35)
[2020-07-23] MEDS ORDERED: ACETAMINOPHEN IV (For NPO) 1,000 MG in EMPTY BAG 1 BAG IVPB ONE (12:35)
[2020-07-23] MEDS ORDERED: diphenhydrAMINE 50 MG CAP PO PRN (12:35)
[2020-07-23] MEDS ORDERED: SIMETHICONE 80 MG CHEWABLE PO PRN (12:35)
[2020-07-23] MEDS ORDERED: ONDANSETRON 4 MG/2 ML VIAL IVP PRN (12:35)
[2020-07-23] MEDS ORDERED: diphenhydrAMINE 25 MG CAP PO PRN (12:35)
[2020-07-23] MEDS ORDERED: ACETAMINOPHEN TAB 325 MG TAB PO PRN (12:35)
[2020-07-23] MEDS ORDERED: METOCLOPRAMIDE 5 MG/ML 2 ML VIAL IVP PRN (12:35)
[2020-07-23] MEDS ORDERED: diphenhydrAMINE 50 MG/ML 1 ML VIAL IVP PRN ×2 (12:35)
[2020-07-23] MEDS ORDERED: NALOXONE 0.4 MG/ML 1 ML VIAL IV PRN (12:35)
[2020-07-23] MEDS ORDERED: IBUPROFEN IV 800 MG in SODIUM CHLORIDE 0.9% 250 ML IV ONE (12:42)
--- NOTE | 2020-07-23 12:42 | P.HPOB ---
History of Present Illness H&P Date: 07/23/20 Chief Complaint: IUP @ 38 6/7 weeks, IUGR This is a 24-year-old 1 para 0 at 38-6/7 weeks that presented from the office for nonreassuring heart tones. Patient is being followed for small for gestational age with noted decreasing head circumference, length. Patient has noted good movement. Patient denies contractions. Patient's cervix is unfavorable but given the decrease in her head circumference and length and also nonreactive NST patient was sent to the hospital for induction of labor with Cervidil. Patient has been receiving routine care which has been complicated by small for gestational age she has been followed with ultrasound and nonstress test. On blood work, patient has a blood type of A+, rubella status nonimmune, HIV negative, RPR nonreactive, hepatitis B surface antigen negative, GBS negative. Review of Systems Constitutional: Denies chills, Denies fatigue, Denies fever Ears, nose, mouth and throat: Denies headache Cardiovascular: Reports leg edema Respiratory: Denies dyspnea Gastrointestinal: Denies nausea, Denies vomiting Genitourinary: Reports Past Medical History Past Medical History: Asthma, Osteoarthritis (OA) History of Any Multi-Drug Resistant Organisms: None Reported Past Surgical History: Appendectomy Past Anesthesia/Blood Transfusion Reactions: No Reported Reaction Past Psychological History: ADD/ADHD, Depression Smoking Status: Former smoker Past Alcohol Use History: None Reported Past Drug Use History: None Reported - Past Family History Father Family Medical History: No Reported History Medications and Allergies Home Medications Medication Instructions Recorded Confirmed Type Pnv No.95/Ferrous Fum/Folic AC 1 each PO DAILY #90 tablet 11/21/19 07/22/20 Rx [ Multivitamin Tablet] Allergies Allergy/AdvReac Type Severity Reaction Status Date / Time No Known Allergies Allergy Verified 07/22/20 14:07 Exam Osteopathic Statement: *. No significant issues noted on an osteopathic struc tural exam other than those noted in the History and Physical/Consult. 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 Of note her cervical exams are very difficult secondary to discomfort. Results Result Diagrams: 07/22/20 13:30 Abnormal Lab Results - Last 24 Hours (Table) 07/22/20 Range/Units 13:30 WBC 14.6 H (3.8-10.6) k/uL Neutrophils # 12.3 H (1.3-7.7) k/uL Assessment and Plan (1) Term Current Visit: Yes Status: Acute Code(s): Z34.90 - ENCNTR FOR SUPRVSN OF NORMAL , UNSP, UNSP TRIMESTER SNOMED Code(s): 70487276 (2) IUGR (intrauterine growth restriction) Current Visit: Yes Status: Acute Code(s): QET8250 - SNOMED Code(s): 89032035 Plan: This 24-year-old 1 para 0 at 38-6/7 weeks presented to labor and delivery for Cervidil induction of labor secondary to IUGR. Patient is offered Stadol or epidural should she change her cervix. Patient states understanding of the plan of care and denies questions.
--- NOTE | 2020-07-23 12:42 | P.OP ---
Date of Procedure: 07/23/20 Preoperative Diagnosis: IUP at 38 and 6/sevenths weeks, IUGR, nonreassuring heart tones Postoperative Diagnosis: Same Procedure(s) Performed: Primary low transverse section Anesthesia: epidural Surgeon: Kaye Stanton Service Dog Trainer #1: Jennifer Cooper Estimated Blood Loss (ml): 400 IV fluids (ml): 600 Urine output (ml): 200 Pathology: other (Placenta) Condition: stable Disposition: observation Indications for Procedure: This 24-year-old 1 para 0 presented to the hospital for Cervidil induction of labor secondary to IUGR. She has made minimal change with Cervidil/Pitocin augmentation of labor clear fluid was noted on amniotomy, nonreassuring heart tones were noted with Pitocin augmentation of labor. Operative Findings: Normal uterus tubes and ovaries were appreciated, viable female delivered at 1207, weight of 5:15 Apgars 9 and 9 at one and 5 minutes respectively. Description of Procedure: The patient was prepped and draped in the usual fashion after epidural anesthesia was found be adequate. A Pfannenstiel incision was made and extended of the abdominal cavity without difficulty. The bladder peritoneum was elevated and incised and reflected distally. A 2 cm incision was made in the transverse plane of the lower uterine segment to enter the uterus at which time clear fluid was noted. The incision was extended, . the head was encountered within the field and delivered up and through the incision where the nose and mouth were thoroughly suctioned. Remainder of the was delivered onto the surgical field where the cord was doubly clamped, cut, and the infant was passed for resuscitative measures with weight and Apgars as noted above. A segment of cord was then doubly clamped, cut, and set aside should cord gases become necessary. The placenta was delivered manually, intact, and was grossly normal with a grossly normal three-vessel cord. The uterus was exteriorized and the interior cavity of the uterus swept of any remaining placental and membranous fragments with a laparotomy sponge. The margins of the incision were grasped with allis clamps and the incision closed in 2 layers. First layer was a running locking layer of 0 vicrylt from margin to margin followed by a second layer of imbricating 0 vicryl from margin to margin. Any small points of bl eeding were then made hemostatic with the Bovie. Once hemostasis was achieved, the posterior cul-de-sac was suctioned with a guard and the uterine and ovarian findings are as noted above. The uterus was replaced within the abdominal cavity and the gutters swept of any remaining blood fluid or clot. The incision was again reexamined and hemostasis was noted to be excellent. Any small point of bleeding were made hemostatic with the Bovie. Once hemostasis was achieved the parietal peritoneum was loosely reapproximated. The layer of muscles were examined and made hemostatic with the Bovie. Attention was then turned to the fascia which was closed with 2 running stitches of 0 Vicryl proceeding from the lateral margins to the midpoint. The subcutaneous tissues were irrigated, made hemostatic with the Bovie, and reapproximated with a running stitch of 30 plain catgut. The skin was reapproximated with 4-0 vicryl. Estimated blood loss for the case was approximately 400 mL. All sponge instrument and needle counts are correct. There were no complications. The patient tolerated the procedure well and proceeded to the recovery room in stable condition. Both mother and infant are resting comfortably in recovery.
[2020-07-23] MEDS ORDERED: OXYTOCIN 20 UNITS/1000 ML NS 1,000 ML IV SCH (12:45)
[2020-07-23] MEDS: SENNOSIDES-DOCUSATE SODIUM 1 EACH TAB PO SCH (19:55)
[2020-07-24] MEDS: HYDROcodone/APAP 5-325MG 1 EACH TAB PO PRN ×4 (02:55→18:23)
--- NOTE | 2020-07-24 05:38 | P.PNOBGPC ---
Subjective - Subjective Principal diagnosis: POD 1 LTCS NRFHTs Interval history: Patient is doing well. She is ambulating without difficulty, lot awaiting spontaneous void status post straight cath last evening. Patient states her pain is well-controlled. She is bottle feeding. Her lochia is noted to be minimal. Patient reports: Reports appetite normal, Reports pain well controlled, Reports ambulating normally [place]: doing well, bottle feeding Objective - Vital Signs Latest vital signs: Vital Signs Temp Pulse Resp BP Pulse Ox 07/24/20 03:21 98.4 F 90 16 131/76 99 07/24/20 00:00 98.1 F 89 16 126/75 96 07/23/20 20:00 98.5 F 93 16 121/73 96 07/23/20 16:00 98.3 F 95 16 132/72 100 07/23/20 14:20 96 16 128/61 07/23/20 13:50 93 16 125/62 07/23/20 13:20 100 16 133/79 07/23/20 13:05 115 H 16 162/89 98 07/23/20 12:50 101 H 16 145/88 99 07/23/20 12:35 98.9 F 107 H 16 138/79 99 Intake and Output 07/23/20 07/23/20 07/24/20 14:59 22:59 06:59 Output Total 1250 1000 Balance -1250 -1000 Output: Urine 850 1000 Uretheral (Childers) 350 650 Estimated Blood Loss 400 - Exam Extremities: Present: normal, edema Abdomen: Present: normal appearance, soft Incision: Present: normal, dry, intact Uterus: Present: normal, firm Assessment and Plan (1) Term Current Visit: Yes Status: Acute Code(s): Z34.90 - ENCNTR FOR SUPRVSN OF NORMAL , UNSP, UNSP TRIMESTER SNOMED Code(s): 04700526 (2) IUGR (intrauterine growth restriction) Current Visit: Yes Status: Acute Code(s): YPP9947 - SNOMED Code(s): 23042127 (3) S/P section Current Visit: Yes Status: Acute Code(s): Z98.891 - HISTORY OF UTERINE SCAR FROM PREVIOUS SURGERY SNOMED Code(s): 484924177 Plan: This 24-year-old G1 now P1 status post primary for nonreassuring heart tones is doing well overall. Awaiting spontaneous void this morning. We'll advance diet to regular for breakfast. Encouraged increased ambulation today.
[2020-07-24 06:59] LABS: Basophils % (A) 0 %; Eosinophils % (A) 0 %; HCT 29.1 % (34.0-46.0); Lymphocytes # (A) 1.5 k/uL (1.0-4.8); Lymphocytes % (A) 14 %; MCH 29.7 pg (25.0-35.0); MCHC 33.6 g/dL (31.0-37.0); MCV 88.5 fL (80.0-100.0); Mean Platelet Volume 8.2; Monocytes # (A) 0.4 k/uL (0-1.0); Monocytes % (A) 4 %; Neutrophils # (A) 8.6 k/uL (1.3-7.7); Neutrophils % (A) 80 %; Platelet Count 211 k/uL (150-450); RBC 3.28 m/uL (3.80-5.40); RDW 13.9 % (11.5-15.5); WBC 10.7 k/uL (3.8-10.6)
[2020-07-24 07:09] LABS: HGB 9.8 gm/dL (11.4-16.0)
[2020-07-24] MEDS: IBUPROFEN 600 MG TAB PO PRN ×3 (09:46→20:07)
[2020-07-24] MEDS: SENNOSIDES-DOCUSATE SODIUM 1 EACH TAB PO SCH (09:46)
[2020-07-24] MEDS: PRENATAL VIT-IRON-FOLIC ACID 1 EACH CAP PO SCH (09:46)
[2020-07-25] MEDS: HYDROcodone/APAP 5-325MG 1 EACH TAB PO PRN ×2 (00:40→09:05)
[2020-07-25] MEDS: LACTATED RINGERS 1,000 ML IV SCH ×4 (00:49→06:39)
[2020-07-25] MEDS: PRENATAL VIT-IRON-FOLIC ACID 1 EACH CAP PO SCH ×2 (00:50→07:59)
[2020-07-25] MEDS: SENNOSIDES-DOCUSATE SODIUM 1 EACH TAB PO SCH ×2 (00:54→07:59)
[2020-07-25] MEDS: IBUPROFEN 600 MG TAB PO PRN (06:01)
[2020-07-25] MEDS: OXYTOCIN 30 UNITS/500 ML NS 30 UNIT in SALINE 1 500ML.BAG IV SCH (06:39)
[2020-07-25 08:29] VITALS: BP 111/73; PULSE 86; RESP 18; TEMP 99
--- NOTE | 2020-07-25 11:04 | P.DS ---
Providers Date of admission: 07/22/20 12:35 Expected date of discharge: 07/25/20 Attending physician: Kaye Stanton Primary care physician: Stated None - Discharge Diagnosis(es) (1) IUGR (intrauterine growth restriction) Current Visit: Yes Status: Acute (2) Non-reassuring heart rate or rhythm affecting management of fetus Current Visit: Yes Status: Acute (3) S/P section Current Visit: Yes Status: Acute (4) Term Current Visit: Yes Status: Acute Hospital Course: This is a 24-year-old 1 now para 1 woman who is admitted at 38-6/7 weeks' gestation from the office for nonreassuring heart tones. She is a known small for gestational age infant. Plan for an induction secondary to this. She had a Cervidil placed for cervical ripening as her cervix was unfavorable. We went on to have a Pitocin induction of labor with artificial rupture of membranes however developed nonreassuring heart tones remote from delivery. She therefore was taken for primary low transverse section. Findings at the time of surgery were significant for a female with Apgars of 9 at 1 minute and 9 at 5 minutes weighing 5 lbs. 15 oz. The patient's postoperative course was unremarkable. By postoperative day #1 she was ambulating and voiding without difficulty her vital signs were stable and her lochia was moderate. By postoperative day #2 she continued to do very well. Her incision appeared well healing, her postoperative labs were within normal limits and her lochia was minimal. She was therefore discharged home with routine instructions for postoperative care and follow-up. Procedures: Primary low transverse section Patient Condition at Discharge: Good Plan - Discharge Summary New Discharge Prescriptions: New Ibuprofen [Motrin] 600 mg PO Q6HR PRN tab PRN Reason: Mild Pain Or Fever >= 100.5 Acetaminophen Tab [Tylenol] 650 mg PO Q4HR PRN tab PRN Reason: Mild Pain Or Fever >= 100.5 No Action Pnv No.95/Ferrous Fum/Folic AC [ Multivitamin Tablet] 1 each PO DAILY #90 tablet Discharge Medication List Pnv No.95/Ferrous Fum/Folic AC [ Multivitamin Tablet] 1 each PO DAILY #90 tablet 11/21/19 [Rx] Acetaminophen Tab [Tylenol] 650 mg PO Q4HR PRN tab 07/25/20 [Rx] Ibuprofen [Motrin] 600 mg PO Q6HR PRN tab 07/25/20 [Rx] Follow up Appointment(s)/Referral(s): Kaye Stanton DO [Doctor of Osteopathic Medicine] - 2 Weeks Activity/Diet/Wound Care/Special Instructions: Follow-up in 2 weeks after surgery in the office. Call the office with any conc erning signs or symptoms including fever greater than 101, severe abdominal pain, heavy vaginal bleeding, signs of wound infection, increased swelling or redness of the lower extremities, signs of depression. No driving for 2 weeks after surgery. No heavy lifting or vigorous activity until reevaluated in the office. No intercourse for 6 weeks after delivery. Discharge Disposition: HOME SELF-CARE
== END 2020-07-25 12:10 | disposition home or self-care (01) | DRG 788 ==
LOC: 4FBP 12:35
PROVIDERS: ADMIT Obstetrics & Gynecology Obstetrics; ATTEND Obstetrics & Gynecology Obstetrics
PROC: 3E0P7VZ Introduction of Hormone into Female Reproductive, Via Natural or Artificial Opening (ICD-10-PCS; 2020-07-23)
PROC: 10907ZC Drainage of Amniotic Fluid, Therapeutic from Products of Conception, Via Natural or Artificial Opening (ICD-10-PCS; 2020-07-23)
PROC: 3E0R3BZ Introduction of Anesthetic Agent into Spinal Canal, Percutaneous Approach (ICD-10-PCS; 2020-07-23)
PROC: 3E0134Z Introduction of Serum, Toxoid and Vaccine into Subcutaneous Tissue, Percutaneous Approach (ICD-10-PCS; 2020-07-23)
PROC: 10D00Z1 Extraction of Products of Conception, Low, Open Approach (ICD-10-PCS; principal; 2020-07-23 11:45)
DX: O76 Abnormality in fetal heart rate and rhythm complicating labor and delivery (principal); O36.5930 Maternal care for other known or suspected poor fetal growth, third trimester, not applicable or unspecified; J45.909 Unspecified asthma, uncomplicated; O99.52 Diseases of the respiratory system complicating childbirth; M19.90 Unspecified osteoarthritis, unspecified site; F32.9 Major depressive disorder, single episode, unspecified; O99.344 Other mental disorders complicating childbirth; F90.9 Attention-deficit hyperactivity disorder, unspecified type; Z3A.38 38 weeks gestation of pregnancy; Z37.0 Single live birth; Z87.891 Personal history of nicotine dependence; Z79.899 Other long term (current) drug therapy; Z23 Encounter for immunization
CPT/HCPCS: 85025; 86850; 86900; 86901; 88307; 90471; 90707

== ENCOUNTER 2020-08-06 20:35 | Emergency (ER) | payer OTHER ==
--- NOTE | 2020-08-06 21:32 | ED ---
General Adult HPI - General Source: patient Mode of arrival: ambulatory Limitations: no limitations <Liss Angel - Last Filed: 08/06/20 22:59> <Aftab Ceron - Last Filed: 08/07/20 02:08> - General Chief complaint: Psychiatric Symptoms Stated complaint: Mental Health Time Seen by Provider: 08/06/20 20:54 - History of Present Illness Initial comments: 24-year-old female 2 weeks presents to the emergency Department with complaints of feeling depressed and suicidal. Patient states she was home for 4 days from the hospital with her new baby before she began feeling overwhelmed by her situation. Patient states her baby cries frequently and sleeps very little; her mother and sister are present in the home to assist her with the 's needs. Patient reports poor appetite and lack of energy for the past 5 days. Patient denies any recent rash, fever, chills, cough, shortness of breath, chest pain, abdominal pain, nausea, vomiting, diarrhea, constipation, back pain, numbness, tingling, dizziness, weakness, hematuria, dysuria, urinary urgency, urinary frequency, headache, visual changes, or any other complaints. (Liss Angel) - Related Data Home Medications Medication Instructions Recorded Confirmed Famotidine 40 mg PO DAILY 08/06/20 08/06/20 Pnv No.95/Ferrous Fum/Folic AC 1 tab PO DAILY 08/06/20 08/06/20 [ Multivitamin Tablet] Previous Rx's Medication Instructions Recorded Acetaminophen Tab [Tylenol] 650 mg PO Q4HR PRN tab 07/25/20 Ibuprofen [Motrin] 600 mg PO Q6HR PRN tab 07/25/20 Allergies Allergy/AdvReac Type Severity Reaction Status Date / Time No Known Allergies Allergy Verified 08/06/20 21:41 Review of Systems ROS Other: All systems not noted in ROS Statement are negative. <Liss Angel - Last Filed: 08/06/20 22:59> ROS Other: All systems not noted in ROS Statement are negative. <Aftab Ceron - Last Filed: 08/07/20 02:08> ROS Statement: Those systems with pertinent positive or pertinent negative responses have been documented in the HPI. Past Medical History Past Medical History: Asthma, Osteoarthritis (OA) History of Any Multi-Drug Resistant Organisms: None Reported Past Surgical History: Appendectomy Additional Past Surgical History / Comment(s): Past Anesthesia/Blood Transfusion Reactions: No Reported Reaction Past Psychological History: ADD/ADHD, Anxiety, Depression Smoking Status: Never smoker Past Alcohol Use History: None Reported Past Drug Use History: None Reported - Past Family History Father Family Medical History: No Reported History <Liss Angel M - Last Filed: 08/06/20 22:59> General Exam Limitations: no limitations General appearance: alert, in no apparent distress, other (Well-developed, well- nourished female reporting depression and suicidal thoughts. Initial temperature 97.8F, pulse 112, respirations 19, blood pressure 104/62, pulse ox 100% on room air) Respiratory exam: Present: normal lung sounds bilaterally. Absent: respiratory distress, wheezes, rales, rhonchi, stridor Cardiovascular Exam: Present: regular rate, normal rhythm, tachycardia, normal heart sounds. Absent: systolic murmur, diastolic murmur, rubs, gallop, clicks GI/Abdominal exam: Present: soft, normal bowel sounds, other (Surgical incision site appears well-healed; no drainage or tenderness.). Absent: distended, tenderness, guarding, rebound, rigid Neurological exam: Present: alert, oriented X3 Psychiatric exam: Present: depressed, flat affect, suicidal ideation (States she is so tired she wants to . Denies having a plan to hurt herself.), other (Patient is pleasant and cooperative with plan of care. Tearfully describes having a colicky baby with an irregular sleep pattern that frequently wants to be held and eats inconsistently.) Skin exam: Present: warm, dry, intact, normal color. Absent: rash <Liss Angel M - Last Filed: 08/06/20 22:59> General appearance: alert, in no apparent distress Head exam: Present: atraumatic, normocephalic, normal inspection Eye exam: Present: normal appearance, PERRL, EOMI. Absent: scleral icterus, conjunctival injection, periorbital swelling ENT exam: Present: normal exam, mucous membranes moist Neck exam: Present: normal inspection. Absent: tenderness, meningismus, lymphadenopathy Respiratory exam: Present: normal lung sounds bilaterally. Absent: respiratory distress, wheezes, rales, rhonchi, stridor Cardiovascular Exam: Present: regular rate, normal rhythm, normal heart sounds. Absent: systolic murmur, diastolic murmur, rubs, gallop, clicks GI/Abdominal exam: Present: soft, normal bowel sounds. Absent: distended, tenderness, guarding, rebound, rigid Extremities exam: Present: normal inspection, full ROM, normal capillary refill. Absent: tenderness, pedal edema, joint swelling, calf tenderness Back exam: Present: normal inspection Neurological exam: Present: alert, oriented X3, CN II-XII intact Psychiatric exam: Present: normal affect, normal mood Skin exam: Present: warm, dry, intact, normal color. Absent: rash <Aftab Ceron - Last Filed: 08/07/20 02:08> Course <Aftab Ceron - Last Filed: 08/07/20 02:08> Vital Signs 08/06/20 20:40 Temperature 97.8 F Pulse Rate 112 H Respiratory 19 Rate Blood Pressure 104/62 O2 Sat by Pulse 100 Oximetry - Reevaluation(s) Reevaluation #1: 08/07/20 02:08 Medical record is reviewed 08/07/20 02:08 Patient was made medically clear for psychiatric evaluation (Aftab Ceron) Reevaluation #2: 08/07/20 02:08 patient is not homicidal or suicidal (Aftab Ceron) Medical Decision Making <Liss Angel - Last Filed: 08/06/20 22:59> <Aftab Ceron - Last Filed: 08/07/20 02:08> - Medical Decision Making 24 year-old female patient presents to the emergency department for reports of depression and suicidal ideation. She is 2 weeks post . Denies any specific plan to take her life. She is cleared medically and will be evaluated by EPS. Care is handed over to my attending Dr. Ceron at 2300. (Liss Angel) 24 female is able to be discharged after psychiatric evaluation, patient given follow-up (Aftab Ceron) - Lab Data Lab Results 08/06/20 08/06/20 Range/Units 21:25 21:25 Urine HCG, Qual Not Detected (Not Detectd) Urine Opiates Screen Not Detected (NotDetected) Ur Oxycodone Screen Not Detected (NotDetected) Urine Methadone Screen Not Detected (NotDetected) Ur Propoxyphene Screen Not Detected (NotDetected) Ur Barbiturates Screen Not Detected (NotDetected) U Tricyclic Antidepress Not Detected (NotDetected) Ur Phencyclidine Scrn Not Detected (NotDetected) Ur Amphetamines Screen Not Detected (NotDetected) U Methamphetamines Scrn Not Detected (NotDetected) U Benzodiazepines Scrn Not Detected (NotDetected) Urine Cocaine Screen Not Detected (NotDetected) U Marijuana (THC) Screen Not Detected (NotDetected) Disposition <Liss Angel - Last Filed: 08/06/20 22:59> Is patient prescribed a controlled substance at d/c from ED?: No <Aftab Ceron - Last Filed: 08/07/20 02:08> Clinical Impression: Depression Disposition: HOME SELF-CARE Condition: Fair Instructions (If sedation given, give patient instructions): Depression (DC) Referrals: Malini Piña MD [Primary Care Provider] - 1-2 days
[2020-08-06 21:49] LABS: Amphetamine Screen,Urine Not Detected (NotDetected); Barbiturate Screen,Urine Not Detected (NotDetected); Benzodiazepines Screen,Urine Not Detected (NotDetected); Cocaine Screen,Urine Not Detected (NotDetected); Methadone Screen, Urine Not Detected (NotDetected); Opiate Screen,Urine Not Detected (NotDetected); Oxycodone Screen, Urine Not Detected (NotDetected); Phencyclidine Screen,Urine Not Detected (NotDetected); Tricyclic Antidepressant,Urine Not Detected (NotDetected); Urn Cannabinoid Scrn Not Detected (NotDetected)
[2020-08-06] MEDS ORDERED: IBUPROFEN 600 MG TAB PO STA (22:41)
[2020-08-06] MEDS ORDERED: FAMOTIDINE 20 MG TAB PO STA (22:42)
[2020-08-07 02:38] VITALS: BP 109/63; PULSE 95; RESP 18; TEMP 97.9
== END 2020-08-07 02:34 | disposition home or self-care (01) ==
LOC: EC 20:35
DX: F32.9 Major depressive disorder, single episode, unspecified (principal); R45.851 Suicidal ideations; Z79.899 Other long term (current) drug therapy
CPT/HCPCS: 80306; 81025; 82075; 99285

== ENCOUNTER 2020-09-06 16:32 | Emergency (ER) | payer OTHER ==
[2020-09-06 16:39] VITALS: RESP 18
[2020-09-06] MEDS ORDERED: SODIUM CHLORIDE 0.9% 1,000 ML IV STA ×3 (17:07→19:44)
[2020-09-06 17:30] LABS: Basophils # (A) 0.1 k/uL (0-0.2); Basophils % (A) 1 %; Eosinophils # (A) 0.1 k/uL (0-0.7); Eosinophils % (A) 1 %; HCT 38.9 % (34.0-46.0); Lymphocytes % (A) 21 %; MCH 28.8 pg (25.0-35.0); MCHC 33.2 g/dL (31.0-37.0); MCV 86.9 fL (80.0-100.0); Mean Platelet Volume 7.6; Monocytes # (A) 0.4 k/uL (0-1.0); Monocytes % (A) 4 %; Neutrophils # (A) 6.9 k/uL (1.3-7.7); Neutrophils % (A) 73 %; Platelet Count 224 k/uL (150-450); RBC 4.47 m/uL (3.80-5.40); RDW 13.7 % (11.5-15.5); WBC 9.5 k/uL (3.8-10.6)
[2020-09-06 17:37] LABS: HGB 12.9 gm/dL (11.4-16.0)
[2020-09-06 17:45] LABS: ALT 32 U/L (4-34); AST 30 U/L (14-36); African American GFR (CKD) >90 (>60 ml/min/1.73 sqM); Albumin 4.2 g/dL (3.5-5.0); Alkaline Phosphatase 63 U/L (38-126); Anion Gap 6 mmol/L; Blood Urea Nitrogen 13 mg/dL (7-17); Calcium 9.6 mg/dL (8.4-10.2); Carbon Dioxide 27 mmol/L (22-30); Chloride 104 mmol/L (98-107); Glucose 99 mg/dL (74-99); Non-African American GFR(CKD) 88 (>60 ml/min/1.73 sqM); Potassium 4.2 mmol/L (3.5-5.1); Sodium 137 mmol/L (137-145); Total Bilirubin 0.4 mg/dL (0.2-1.3); Total Protein 7.4 g/dL (6.3-8.2)
--- NOTE | 2020-09-06 18:07 | ED ---
General Adult HPI - General Chief complaint: Dizziness Stated complaint: High BP, Lightheaded Time Seen by Provider: 09/06/20 16:53 Source: patient, RN notes reviewed Mode of arrival: wheelchair Limitations: no limitations - History of Present Illness Initial comments: 24-year-old female with a past medical history of asthma, osteoarthritis, hypertension currently 6 weeks presents to the emergency room for a chief complaint of lightheadedness. Patient states for the past 3 or 4 days she has been lightheaded. Reports this is especially bad when she is in the shower and feels like she needs to sit down. Patient does have a history of high blood pressure and is supposed to take medications however has not been taking these since her . Patient denies taking any blood pressure medications today. Patient reports at home her blood pressure has been running in the 180s over 90. She denies any other symptoms. Denies chest pain, shortness of breath, leg swelling.Patient has no other complaints at this time including shortness of breath, chest pain, abdominal pain, nausea or vomiting, headache, or visual changes. - Related Data Home Medications Medication Instructions Recorded Confirmed Famotidine 40 mg PO DAILY 08/06/20 09/06/20 Pnv No.95/Ferrous Fum/Folic AC 1 tab PO DAILY 08/06/20 09/06/20 [ Multivitamin Tablet] Previous Rx's Medication Instructions Recorded Acetaminophen Tab [Tylenol] 650 mg PO Q4HR PRN tab 07/25/20 Ibuprofen [Motrin] 600 mg PO Q6HR PRN tab 07/25/20 Allergies Allergy/AdvReac Type Severity Reaction Status Date / Time No Known Allergies Allergy Verified 09/06/20 19:51 Review of Systems ROS Statement: Those systems with pertinent positive or pertinent negative responses have been documented in the HPI. ROS Other: All systems not noted in ROS Statement are negative. Past Medical History Past Medical History: Asthma, Osteoarthritis (OA) History of Any Multi-Drug Resistant Organisms: None Reported Past Surgical History: Appendectomy Additional Past Surgical History / Comment(s): Past Anesthesia/Blood Transfusion Reactions: No Reported Reaction Past Psychological History: ADD/ADHD, Anxiety, Depression Smoking Status: Never smoker Past Alcohol Use History: None Reported Past Drug Use History: None Reported - Past Family History Father Family Medical History: No Reported History General Exam Limitations: no limitations General appearance: alert Head exam: Present: atraumatic, normocephalic, normal inspection Eye exam: Present: normal appearance ENT exam: Present: normal exam, mucous membranes moist Neck exam: Present: normal inspection. Absent: tenderness, meningismus, lymphadenopathy Respiratory exam: Present: normal lung sounds bilaterally. Absent: respiratory distress, wheezes, rales, rhonchi, stridor Cardiovascular Exam: Present: regular rate, normal rhythm, normal heart sounds. Absent: systolic murmur, diastolic murmur, rubs, gallop, clicks GI/Abdominal exam: Present: soft, normal bowel sounds. Absent: distended, tenderness, guarding, rebound, rigid Neurological exam: Present: alert Course Vital Signs 09/06/20 09/06/20 09/06/20 16:34 17:08 19:43 Temperature 98.4 F Pulse Rate 98 Pulse Rate [ 112 H 72 Right Sitting Pulse Oximetery ] Pulse Rate [ 123 H Right Standing Graphics Editor ] Pulse Rate [ 102 H Right Standing Pulse Oximetery ] Pulse Rate [ 74 58 L Right Supine Pulse Oximetery ] Respiratory 18 Rate Blood Pressure 84/65 Blood Pressure 119/84 136/89 [Left Arm Sitting] Blood Pressure 98/67 133/86 [Left Arm Standing] Blood Pressure 102/66 131/89 [Left Arm Supine] O2 Sat by Pulse 98 Oximetry 09/06/20 20:28 Temperature 98.3 F Pulse Rate Pulse Rate [ 89 Right Sitting Pulse Oximetery ] Pulse Rate [ 94 Right Standing Graphics Editor ] Pulse Rate [ Right Standing Pulse Oximetery ] Pulse Rate [ 57 L Right Supine Pulse Oximetery ] Respiratory 18 Rate Blood Pressure Blood Pressure 113/91 [Left Arm Sitting] Blood Pressure 121/79 [Left Arm Standing] Blood Pressure 137/97 [Left Arm Supine] O2 Sat by Pulse 100 Oximetry EKG Findings - EKG Comments: EKG Findings:: Normal sinus rhythm, ventricular rate 80, NJ interval 136, QTC 438 Medical Decision Making - Medical Decision Making Vitals are stable however orthostatics are positive when going from sitting to standing. This does explain patient's symptoms. EKG shows a normal sinus rhythm. Ventricular rate is 80. CBC CMP are unremarkable. Hemoglobin is stable. Patient was given a liter of fluids. Patient continued to be symptomatic after a liter of fluids with orthostatic vitals from sitting to standing so a second liter was given. She did have significant improvement in symptoms. No longer orthostatic or symptomatic with standing. She did have orthostatic BP with laying to sitting but was asymptomatic. Patient requesting discharge home. She will drink any fluids at home and return here for any worsening symptoms. - Lab Data Result diagrams: 09/06/20 17:17 09/06/20 17:17 Lab Results 09/06/20 09/06/20 Range/Units 17:17 17:17 WBC 9.5 (3.8-10.6) k/uL RBC 4.47 (3.80-5.40) m/uL Hgb 12.9 D (11.4-16.0) gm/dL Hct 38.9 (34.0-46.0) % MCV 86.9 (80.0-100.0) fL MCH 28.8 (25.0-35.0) pg MCHC 33.2 (31.0-37.0) g/dL RDW 13.7 (11.5-15.5) % Plt Count 224 (150-450) k/uL MPV 7.6 Neutrophils % 73 % Lymphocytes % 21 % Monocytes % 4 % Eosinophils % 1 % Basophils % 1 % Neutrophils # 6.9 (1.3-7.7) k/uL Lymphocytes # 2.0 (1.0-4.8) k/uL Monocytes # 0.4 (0-1.0) k/uL Eosinophils # 0.1 (0-0.7) k/uL Basophils # 0.1 (0-0.2) k/uL Sodium 137 (137-145) mmol/L Potassium 4.2 (3.5-5.1) mmol/L Chloride 104 (98-107) mmol/L Carbon Dioxide 27 (22-30) mmol/L Anion Gap 6 mmol/L BUN 13 (7-17) mg/dL Creatinine 0.92 (0.52-1.04) mg/dL Est GFR (CKD-EPI)AfAm >90 (>60 ml/min/1.73 sqM) Est GFR (CKD-EPI)NonAf 88 (>60 ml/min/1.73 sqM) Glucose 99 (74-99) mg/dL Calcium 9.6 (8.4-10.2) mg/dL Total Bilirubin 0.4 (0.2-1.3) mg/dL AST 30 (14-36) U/L ALT 32 (4-34) U/L Alkaline Phosphatase 63 (38-126) U/L Total Protein 7.4 (6.3-8.2) g/dL Albumin 4.2 (3.5-5.0) g/dL Disposition Clinical Impression: Orthostatic hypotension Disposition: HOME SELF-CARE Condition: Good Instructions (If sedation given, give patient instructions): Hypotension (ED) Additional Instructions: Please drink plenty of fluids. Please follow-up with your doctor in one to 2 days. If you have worsening symptoms return to the emergency room. Is patient prescribed a controlled substance at d/c from ED?: No Referrals: Malini Piña MD [Primary Care Provider] - 1-2 days Time of Disposition: 20:53
[2020-09-06 20:38] VITALS: BP 137/97; PULSE 57; TEMP 98.3
== END 2020-09-06 20:59 | disposition home or self-care (01) ==
LOC: EC 16:32
DX: I95.1 Orthostatic hypotension (principal); Z90.49 Acquired absence of other specified parts of digestive tract
CPT/HCPCS: 36415; 80053; 85025; 93005; 96360; 96361; 99284

== ENCOUNTER 2020-09-08 17:24 | Observation (INO) | payer OTHER ==
[2020-09-08] MEDS ORDERED: SODIUM CHLORIDE 0.9% 1,000 ML IV STA (17:45)
[2020-09-08 18:10] LABS: Basophils # (A) 0.1 k/uL (0-0.2); Basophils % (A) 1 %; Eosinophils # (A) 0.1 k/uL (0-0.7); Eosinophils % (A) 2 %; HCT 41.7 % (34.0-46.0); HGB 13.8 gm/dL (11.4-16.0); Lymphocytes # (A) 2.1 k/uL (1.0-4.8); Lymphocytes % (A) 24 %; MCH 28.8 pg (25.0-35.0); MCV 87.2 fL (80.0-100.0); Mean Platelet Volume 7.6; Monocytes # (A) 0.3 k/uL (0-1.0); Monocytes % (A) 3 %; Neutrophils # (A) 6.2 k/uL (1.3-7.7); Neutrophils % (A) 70 %; Platelet Count 232 k/uL (150-450); RBC 4.78 m/uL (3.80-5.40); RDW 13.6 % (11.5-15.5); WBC 8.8 k/uL (3.8-10.6)
[2020-09-08 18:31] LABS: ALT 33 U/L (4-34); AST 30 U/L (14-36); African American GFR (CKD) >90 (>60 ml/min/1.73 sqM); Albumin 4.3 g/dL (3.5-5.0); Alkaline Phosphatase 70 U/L (38-126); Anion Gap 9 mmol/L; Blood Urea Nitrogen 14 mg/dL (7-17); Calcium 9.6 mg/dL (8.4-10.2); Carbon Dioxide 20 mmol/L (22-30); Chloride 108 mmol/L (98-107); Glucose 94 mg/dL (74-99); Magnesium 1.8 mg/dL (1.6-2.3); Non-African American GFR(CKD) >90 (>60 ml/min/1.73 sqM); Potassium 3.8 mmol/L (3.5-5.1); Sodium 137 mmol/L (137-145); Total Bilirubin 0.3 mg/dL (0.2-1.3); Total Protein 7.5 g/dL (6.3-8.2)
[2020-09-08 18:31] LABS: Appearance,Urine Clear (Clear); Bilirubin,Urine Negative (Negative); Blood,Urine Negative (Negative); Color,Urine Light Yellow; Glucose,Urine (UA) Negative (Negative); Ketones,Urine Negative (Negative); Leukocyte Esterase,Urine Small (Negative); Nitrite,Urine Negative (Negative); PH, Urine 6.5 (5.0-8.0); Protein,Urine Negative (Negative); RBC,Urine 2 /hpf (0-5); Specific Gravity,Urine 1.007 (1.001-1.035); Squamous Epithelial Cell,Urine 1 /hpf (0-4); Urobilinogen,Urine <2.0 mg/dL (<2.0); WBC,Urine 8 /hpf (0-5)
[2020-09-08 18:36] LABS: Amphetamine Screen,Urine Not Detected (NotDetected); Barbiturate Screen,Urine Not Detected (NotDetected); Benzodiazepines Screen,Urine Not Detected (NotDetected); Cocaine Screen,Urine Not Detected (NotDetected); Methadone Screen, Urine Not Detected (NotDetected); Opiate Screen,Urine Not Detected (NotDetected); Oxycodone Screen, Urine Not Detected (NotDetected); Phencyclidine Screen,Urine Not Detected (NotDetected); Tricyclic Antidepressant,Urine Not Detected (NotDetected); Urn Cannabinoid Scrn Not Detected (NotDetected)
--- NOTE | 2020-09-08 19:00 | ED ---
General Adult HPI - General Chief complaint: Dizziness Stated complaint: High BP, Lightheaded Time Seen by Provider: 09/08/20 17:40 Source: patient, RN notes reviewed Mode of arrival: wheelchair Limitations: no limitations - History of Present Illness Initial comments: 24-year-old female with a past medical history of asthma, osteoarthritis, hypertension currently 6 weeks with presents for lightheadedness. Patient reports she has been lightheaded for about one week. States that when she is at home it is difficult to get up and walk because of this. Which she is in the shower she feels like she needs to sit down. States she has a at home and it is difficult to care for her because of this. She denies chest pain or shortness of breath. Patient was seen here 2 days ago and given fluids. She did have some improvement at that time however apparently this worsened again when she went home. States she has been trying to drink fluids but has not been helping.Patient has no other complaints at this time including shortness of breath, chest pain, abdominal pain, nausea or vomiting, headache, or visual changes. - Related Data Home Medications Medication Instructions Recorded Confirmed Famotidine 40 mg PO DAILY PRN 08/06/20 09/08/20 Albuterol Sulfate [Proventil Hfa] 2 puff INHALATION RT-QID PRN 09/08/20 09/08/20 Atomoxetine HCl [Strattera] 25 mg PO DAILY@0900 09/08/20 09/08/20 Clindamycin HCl 300 mg PO Q6H 09/08/20 09/08/20 Norethindrone-Ethinyl Estrad 1 tab PO HS 09/08/20 09/08/20 [Ortho-Novum 7-7-7-28 Tablet] Sertraline [Zoloft] 50 mg PO BID@0900,1500 09/08/20 09/08/20 Previous Rx's Medication Instructions Recorded Ibuprofen [Motrin] 600 mg PO Q6HR PRN tab 07/25/20 Allergies Allergy/AdvReac Type Severity Reaction Status Date / Time No Known Allergies Allergy Verified 09/08/20 18:29 Review of Systems ROS Statement: Those systems with pertinent positive or pertinent negative responses have been documented in the HPI. ROS Other: All systems not noted in ROS Statement are negative. Past Medical History Past Medical History: Asthma, Osteoarthritis (OA) History of Any Multi-Drug Resistant Organisms: None Reported Past Surgical History: Appendectomy Additional Past Surgical History / Comment(s): Past Anesthesia/Blood Transfusion Reactions: No Reported Reaction Past Psychological History: ADD/ADHD, Anxiety, Depression Smoking Status: Never smoker Past Alcohol Use History: None Reported Past Drug Use History: None Reported - Past Family History Father Family Medical History: No Reported History General Exam Limitations: no limitations General appearance: alert, in no apparent distress Head exam: Present: atraumatic, normocephalic, normal inspection Eye exam: Present: normal appearance, PERRL, EOMI. Absent: scleral icterus, conjunctival injection, periorbital swelling ENT exam: Present: normal exam, mucous membranes moist Neck exam: Present: normal inspection, full ROM Respiratory exam: Present: normal lung sounds bilaterally. Absent: respiratory distress, wheezes, rales, rhonchi, stridor Cardiovascular Exam: Present: regular rate, normal rhythm, normal heart sounds. Absent: systolic murmur, diastolic murmur, rubs, gallop, clicks GI/Abdominal exam: Present: soft, normal bowel sounds. Absent: distended, tenderness, guarding, rebound, rigid Course Vital Signs 09/08/20 09/08/20 17:28 18:03 Temperature 97.6 F Pulse Rate 102 H Pulse Rate [ 91 Soft Hat Binder ] Respiratory 18 18 Rate Blood Pressure 105/72 Blood Pressure 121/91 [Right Arm Sitting] Blood Pressure 109/83 [Right Arm Standing] Blood Pressure 112/82 [Right Arm Supine] O2 Sat by Pulse 97 97 Oximetry EKG Findings - EKG Comments: EKG Findings:: Normal sinus rhythm, ventricular rate 91, IN interval 144, QTC 437 Medical Decision Making - Medical Decision Making This is patient's second visit to the emergency room for this complaint. Patient was again given fluids and remained symptomatic. Workup was negative in the emergency room. Chest x-ray pending. At this time patient will be admitted for cardiology consultation to rule out cardiomyopathy. - Lab Data Result diagrams: 09/08/20 18:02 09/08/20 18:02 Lab Results 09/08/20 09/08/20 09/08/20 Range/Units 18:02 18:02 18:02 WBC 8.8 (3.8-10.6) k/uL RBC 4.78 (3.80-5.40) m/uL Hgb 13.8 (11.4-16.0) gm/dL Hct 41.7 (34.0-46.0) % MCV 87.2 (80.0-100.0) fL MCH 28.8 (25.0-35.0) pg MCHC 33.0 (31.0-37.0) g/dL RDW 13.6 (11.5-15.5) % Plt Count 232 (150-450) k/uL MPV 7.6 Neutrophils % 70 % Lymphocytes % 24 % Monocytes % 3 % Eosinophils % 2 % Basophils % 1 % Neutrophils # 6.2 (1.3-7.7) k/uL Lymphocytes # 2.1 (1.0-4.8) k/uL Monocytes # 0.3 (0-1.0) k/uL Eosinophils # 0.1 (0-0.7) k/uL Basophils # 0.1 (0-0.2) k/uL D-Dimer (<0.60) mg/L FEU Sodium 137 (137-145) mmol/L Potassium 3.8 (3.5-5.1) mmol/L Chloride 108 H (98-107) mmol/L Carbon Dioxide 20 L (22-30) mmol/L Anion Gap 9 mmol/L BUN 14 (7-17) mg/dL Creatinine 0.86 (0.52-1.04) mg/dL Est GFR (CKD-EPI)AfAm >90 (>60 ml/min/1.73 sqM) Est GFR (CKD-EPI)NonAf >90 (>60 ml/min/1.73 sqM) Glucose 94 (74-99) mg/dL Calcium 9.6 (8.4-10.2) mg/dL Magnesium 1.8 (1.6-2.3) mg/dL Total Bilirubin 0.3 (0.2-1.3) mg/dL AST 30 (14-36) U/L ALT 33 (4-34) U/L Alkaline Phosphatase 70 (38-126) U/L Troponin I <0.012 (0.000-0.034) ng/mL Total Protein 7.5 (6.3-8.2) g/dL Albumin 4.3 (3.5-5.0) g/dL Urine Color Urine Appearance (Clear) Urine pH (5.0-8.0) Ur Specific [place] (1.001-1.035) Urine Protein (Negative) Urine Glucose (UA) (Negative) Urine Ketones (Negative) Urine Blood (Negative) Urine Nitrite (Negative) Urine Bilirubin (Negative) Urine Urobilinogen (<2.0) mg/dL Ur Leukocyte Esterase (Negative) Urine RBC (0-5) /hpf Urine WBC (0-5) /hpf Ur Squamous Epith Cells (0-4) /hpf Urine Opiates Screen (NotDetected) Ur Oxycodone Screen (NotDetected) Urine Methadone Screen (NotDetected) Ur Propoxyphene Screen (NotDetected) Ur Barbiturates Screen (NotDetected) U Tricyclic Antidepress (NotDetected) Ur Phencyclidine Scrn (NotDetected) Ur Amphetamines Screen (NotDetected) U Methamphetamines Scrn (NotDetected) U Benzodiazepines Scrn (NotDetected) Urine Cocaine Screen (NotDetected) U Marijuana (THC) Screen (NotDetected) 09/08/20 09/08/20 09/08/20 Range/Units 18:02 18:17 18:17 WBC (3.8-10.6) k/uL RBC (3.80-5.40) m/uL Hgb (11.4-16.0) gm/dL Hct (34.0-46.0) % MCV (80.0-100.0) fL MCH (25.0-35.0) pg MCHC (31.0-37.0) g/dL RDW (11.5-15.5) % Plt Count (150-450) k/uL MPV Neutrophils % % Lymphocytes % % Monocytes % % Eosinophils % % Basophils % % Neutrophils # (1.3-7.7) k/uL Lymphocytes # (1.0-4.8) k/uL Monocytes # (0-1.0) k/uL Eosinophils # (0-0.7) k/uL Basophils # (0-0.2) k/uL D-Dimer <0.17 (<0.60) mg/L FEU Sodium (137-145) mmol/L Potassium (3.5-5.1) mmol/L Chloride (98-107) mmol/L Carbon Dioxide (22-30) mmol/L Anion Gap mmol/L BUN (7-17) mg/dL Creatinine (0.52-1.04) mg/dL Est GFR (CKD-EPI)AfAm (>60 ml/min/1.73 sqM) Est GFR (CKD-EPI)NonAf (>60 ml/min/1.73 sqM) Glucose (74-99) mg/dL Calcium (8.4-10.2) mg/dL Magnesium (1.6-2.3) mg/dL Total Bilirubin (0.2-1.3) mg/dL AST (14-36) U/L ALT (4-34) U/L Alkaline Phosphatase (38-126) U/L Troponin I (0.000-0.034) ng/mL Total Protein (6.3-8.2) g/dL Albumin (3.5-5.0) g/dL Urine Color Light Yellow Urine Appearance Clear (Clear) Urine pH 6.5 (5.0-8.0) Ur Specific [place] 1.007 (1.001-1.035) Urine Protein Negative (Negative) Urine Glucose (UA) Negative (Negative) Urine Ketones Negative (Negative) Urine Blood Negative (Negative) Urine Nitrite Negative (Negative) Urine Bilirubin Negative (Negative) Urine Urobilinogen <2.0 (<2.0) mg/dL Ur Leukocyte Esterase Small H (Negative) Urine RBC 2 (0-5) /hpf Urine WBC 8 H (0-5) /hpf Ur Squamous Epith Cells 1 (0-4) /hpf Urine Opiates Screen Not Detected (NotDetected) Ur Oxycodone Screen Not Detected (NotDetected) Urine Methadone Screen Not Detected (NotDetected) Ur Propoxyphene Screen Not Detected (NotDetected) Ur Barbiturates Screen Not Detected (NotDetected) U Tricyclic Antidepress Not Detected (NotDetected) Ur Phencyclidine Scrn Not Detected (NotDetected) Ur Amphetamines Screen Not Detected (NotDetected) U Methamphetamines Scrn Not Detected (NotDetected) U Benzodiazepines Scrn Not Detected (NotDetected) Urine Cocaine Screen Not Detected (NotDetected) U Marijuana (THC) Screen Not Detected (NotDetected) Disposition Clinical Impression: Near syncope, Light headed Disposition: ADMITTED IP TO THIS HOSP Is patient prescribed a controlled substance at d/c from ED?: No Referrals: Malini Piña MD [Primary Care Provider] - 1-2 days Time of Disposition: 19:20
[2020-09-08] MEDS ORDERED: NALOXONE 0.4 MG/ML 1 ML VIAL IV PRN (19:20)
[2020-09-08] MEDS ORDERED: ALBUTEROL NEBULIZED 2.5 MG/3 ML INHALATION PRN (19:23)
[2020-09-08] MEDS ORDERED: FAMOTIDINE 20 MG TAB PO PRN (19:23)
[2020-09-08] MEDS ORDERED: IBUPROFEN 600 MG TAB PO PRN (19:23)
--- NOTE | 2020-09-08 19:44 | XR ---
EXAMINATION TYPE: XR chest 2V DATE OF EXAM: 09/08/2020 COMPARISON: 05/30/2020 HISTORY: Syncope TECHNIQUE: 2 views FINDINGS: Heart and mediastinum are normal. Lungs are clear. Diaphragm is normal. Bony thorax appears normal. IMPRESSION: Normal chest. No change.
[2020-09-08] MEDS ORDERED: [UNRECOGNIZED DRUG - OTHER] PO SCH (21:00)
[2020-09-08] MEDS: CLINDAMYCIN 150 MG CAP PO SCH (21:00)
[2020-09-08] MEDS ORDERED: NORETHINDRONE PO SCH (21:00)
[2020-09-08] MEDS: SODIUM CHLORIDE 0.9% 1,000 ML IV SCH (21:00)
[2020-09-08] MEDS ORDERED: ETHINYL ESTRADIOL PO SCH (21:00)
[2020-09-09 05:02] VITALS: RESP 16
[2020-09-09] MEDS ORDERED: ATOMOXETINE HCL 25 MG PO SCH (09:00)
[2020-09-09] MEDS ORDERED: SERTRALINE 50 MG TAB PO SCH (09:00)
[2020-09-09 09:41] VITALS: BP 101/63; PULSE 52; TEMP 97.9
[2020-09-09] MEDS: CLINDAMYCIN 150 MG CAP PO SCH (09:53)
[2020-09-09] MEDS: SODIUM CHLORIDE 0.9% 1,000 ML IV SCH (09:54)
--- NOTE | 2020-09-09 10:40 | P.CRDCN ---
History of Present Illness Consult date: 09/09/20 History of present illness: CHIEF COMPLAINT: Lightheadedness HISTORY OF PRESENT ILLNESS: This is a 24-year-old female with a past medical history significant for asthma and osteoarthritis. Patient also gives a history of hypertension, however she is not prescribed any anti-hypertensive medications Patient does not follow his requisition approver. We have been asked to see the patient in consultation for lightheadedness. Patient has 6 weeks with a C- section delivery. Patient presents to the hospital with a chief complaint of feeling lightheaded for the past week. Patient was evaluated in the emergency room 2 days ago. At that time patient was found to have positive orthostatic blood pressures. She was given 2 L of fluid and discharged home in stable condition. Patient reports she continues to feel lightheaded. This occurs when patient is going from a sitting or laying position to a standing position. She denies any lightheadedness at rest. Orthostatic blood pressures obtained this morning were negative. Patient states when she has been checking her blood pressure at home it has been running with a systolic in the 160s. However patient has not had any elevated blood pressure readings since admission. DIAGNOSTICS: EKG reveals sinus rhythm with no signs of acute ischemia Chest xray negative for acute process. Laboratory data: WBC 8.8. Hemoglobin 13.8. Platelet count 232. D-dimer 0.17. Sodium 137. Potassium 3.8. BUN 14. Creatinine 0.86. Troponin negative 1. B BAFFLE MOUNTER 25. Tox screen negative. Current home cardiac medications include none REVIEW OF SYSTEMS: At the time of my exam: CONSTITUTIONAL: Denies fever or chills. HEENT: Denies blurred vision, vision changes, or eye pain. Denies hemoptysis CARDIOVASCULAR: Denies chest pain, orthopnea, PND or palpitations RESPIRATORY: No shortness of breath. GASTROINTESTINAL: Denies abdominal pain. Denies nausea or vomiting. HEMATOLOGIC: Denies bleeding disorders. GENITOURINARY: Denies any blood in urine. SKIN: Denies pruitis. Denies rash. PHYSICAL EXAM: VITAL SIGNS: Reviewed. GENERAL: Well-developed in no acute distress. HEENT: Head is normocephalic. Pupils are equal, round. Sclerae anicteric. Mucous membranes of the mouth are moist. Neck supple. No JVD or thyromegaly LUNGS: Respirations even and unlabored. Lungs essentially clear to auscultation bilaterally. HEART: Regular rate and rhythm. S1 and S2 heard. ABDOMEN: Soft. Nondistended. Nontender. EXTREMITIES: Normal range of motion. No clubbing or cyanosis. Peripheral pulses intact. No lower extremity edema NEUROLOGIC: Awake and alert. Oriented x 3. ASSESSMENT: Lightheadedness 1 week Orthostatic hypotension, per ER notes from 09/06/2020, orthostatics currently negative 6 weeks post , delivery PLAN: Orthostatics obtained this morning and were negative Patient encouraged to move slowly from a laying/sitting position to a standing position Will obtain 2D echo to assess cardiac structure and function. If no significant abnormalities noted on echocardiogram, patient can be discharged home today from a cardiac perspective. Nurse practitioner note has been reviewed by physician. Signing provider agrees with the documented findings, assessment, and plan of care. Past Medical History Past Medical History: Asthma, Osteoarthritis (OA) History of Any Multi-Drug Resistant Organisms: None Reported Past Surgical History: Appendectomy Additional Past Surgical History / Comment(s): Past Anesthesia/Blood Transfusion Reactions: No Reported Reaction Past Psychological History: ADD/ADHD, Anxiety, Depression Smoking Status: Never smoker Past Alcohol Use History: None Reported Past Drug Use History: None Reported - Past Family History Father Family Medical History: No Reported History Mother Family Medical History: No Reported History Medications and Allergies Home Medications Medication Instructions Recorded Confirmed Type Ibuprofen [Motrin] 600 mg PO Q6HR PRN tab 07/25/20 09/08/20 Rx Famotidine 40 mg PO DAILY PRN 08/06/20 09/08/20 History Albuterol Sulfate [Proventil Hfa] 2 puff INHALATION RT-QID PRN 09/08/20 09/08/20 History Atomoxetine HCl [Strattera] 25 mg PO DAILY@0900 09/08/20 09/08/20 History Clindamycin HCl 300 mg PO Q6H 09/08/20 09/08/20 History Norethindrone-Ethinyl Estrad 1 tab PO HS 09/08/20 09/08/20 History [Ortho-Novum 7-7-7-28 Tablet] Sertraline [Zoloft] 50 mg PO BID@0900,1500 09/08/20 09/08/20 History Allergies Allergy/AdvReac Type Severity Reaction Status Date / Time No Known Allergies Allergy Verified 09/08/20 18:29 Physical Exam Vitals: Vital Signs Temp Pulse Pulse Pulse Pulse Pulse Resp 09/09/20 09:00 62 87 52 L 16 09/09/20 08:25 97.9 F 62 87 52 L 16 09/09/20 04:00 97.6 F 81 16 09/08/20 20:40 98 F 80 17 09/08/20 20:02 97.6 F 71 18 09/08/20 18:03 91 18 09/08/20 17:28 97.6 F 102 H 18 BP BP BP BP Pulse Ox 09/09/20 09:00 09/09/20 08:25 118/68 107/72 101/63 99 09/09/20 04:00 108/70 98 09/08/20 20:40 115/87 97 09/08/20 20:02 120/79 98 09/08/20 18:03 121/91 109/83 112/82 97 09/08/20 17:28 105/72 97 Intake and Output 09/08/20 09/09/20 09/09/20 22:59 06:59 14:59 Intake Total 200 Balance 200 Intake: Oral 200 Other: Voiding Method Toilet Toilet Toilet Weight 81.647 kg Results 09/08/20 18:02 09/08/20 18:02 Cardiac Enzymes 09/08/20 09/08/20 Range/Units 18:02 18:02 AST 30 (14-36) U/L Troponin I <0.012 (0.000-0.034) ng/mL CBC 09/08/20 Range/Units 18:02 WBC 8.8 (3.8-10.6) k/uL RBC 4.78 (3.80-5.40) m/uL Hgb 13.8 (11.4-16.0) gm/dL Hct 41.7 (34.0-46.0) % Plt Count 232 (150-450) k/uL Comprehensive Metabolic Panel 09/08/20 Range/Units 18:02 Sodium 137 (137-145) mmol/L Potassium 3.8 (3.5-5.1) mmol/L Chloride 108 H (98-107) mmol/L Carbon Dioxide 20 L (22-30) mmol/L BUN 14 (7-17) mg/dL Creatinine 0.86 (0.52-1.04) mg/dL Glucose 94 (74-99) mg/dL Calcium 9.6 (8.4-10.2) mg/dL AST 30 (14-36) U/L ALT 33 (4-34) U/L Alkaline Phosphatase 70 (38-126) U/L Total Protein 7.5 (6.3-8.2) g/dL Albumin 4.3 (3.5-5.0) g/dL Current Medications Generic Name Dose Route Start Last Admin Trade Name Freq PRN Reason Stop Dose Admin Albuterol Sulfate 2.5 mg 09/08/20 19:23 Albuterol Nebulized 2.5 Mg/3 Ml INHALATION RT-QID PRN Shortness Of Breath Clindamycin HCl 300 mg 09/08/20 22:00 09/09/20 09:53 Clindamycin 150 Mg Cap PO 09/09/20 13:01 300 mg QID PATRICIA Administration Famotidine 40 mg 09/08/20 19:23 Famotidine 20 Mg Tab PO DAILY PRN Heartburn Sodium Chloride 1,000 mls @ 75 mls/hr 09/08/20 19:30 09/09/20 09:54 Saline 0.9% IV 75 mls/hr .[id number] PATRICIA Administration Ibuprofen 600 mg 09/08/20 19:23 Ibuprofen 600 Mg Tab PO Q6HR PRN Mild Pain or Fever >= 100.5 Naloxone HCl 0.2 mg 09/08/20 19:20 Naloxone 0.4 Mg/Ml 1 Ml Vial IV Q2M PRN Opioid Reversal Non-Formulary Medication 25 mg 09/09/20 09:00 09/09/20 09:55 Atomoxetine Hcl [Strattera] PO Not Given DAILY@0900 PATRICIA Non-Formulary Medication 1 tab 09/08/20 21:00 09/08/20 21:01 Norethindrone-Ethinyl Estrad [Ortho-Novum 7-7-7-28 Tablet] PO Not Given HS PATRICIA Sertraline HCl 50 mg 09/09/20 09:00 09/09/20 09:53 Sertraline 50 Mg Tab PO 50 mg BID@0900,1500 PATRICIA Administration Intake and Output 09/08/20 09/09/20 09/09/20 22:59 06:59 14:59 Intake Total 200 Balance 200 Intake: Oral 200 Other: Voiding Method Toilet Toilet Toilet Weight 81.647 kg 09/08/20 18:02 09/08/20 18:02
--- NOTE | 2020-09-09 11:22 | ECHOF ---
Referral Reason:near syncope, post , rule out PPCM MEASUREMENTS -------- HEIGHT: 160.0 cm WEIGHT: 81.6 kg BP: 108/70 RVIDd: 3.2 cm (< 3.3) IVSd: 1.0 cm (0.6 - 1.1) LVIDd: 4.2 cm (3.9 - 5.3) LVPWd: 1.1 cm (0.6 - 1.1) IVSs: 1.5 cm LVIDs: 2.6 cm LVPWs: 1.7 cm LA Diam: 3.4 cm (2.7 - 3.8) LAESV Index (A-L): 20.16 ml/m Ao Diam: 2.7 cm (2.0 - 3.7) AV Cusp: 1.9 cm (1.5 - 2.6) MV EXCURSION: 11.712 mm (> 18.000) MV EF SLOPE: 92 mm/s (70 - 150) EPSS: 0.5 cm MV E [place]: 0.79 m/s MV DecT: 316 ms MV A [place]: 0.41 m/s MV E/A Ratio: 1.93 RAP: 5.00 mmHg RVSP: 18.77 mmHg FINDINGS -------- Sinus rhythm. This was a technically good study. The left ventricular size is normal. Left ventricular wall thickness is normal. Overall left vent ricular systolic function is normal with, an EF between 60 - 65 %. The right ventricle is normal in size. Normal LA size by volume 22+/-6 ml/m2. The right atrium is normal in size. Interatrial and interventricular septum intact. The aortic valve is trileaflet and appears structurally normal. There is trace mitral regurgitation. Mild tricuspid regurgitation present. Right ventricular systolic pressure is normal at < 35 mmHg. Trace/mild (physiologic) pulmonic regurgitation. The aortic root size is normal. Normal inferior vena cava with normal inspiratory collapse consistent with estimated right atrial pre ssure of 5 mmHg. There is no pericardial effusion. CONCLUSIONS -------- 1. The left ventricular size is normal. 2. Left ventricular wall thickness is normal. 3. Overall left ventricular systolic function is normal with, an EF between 60 - 65 %. 4. There is trace mitral regurgitation. 5. Mild tricuspid regurgitation present. 6. Trace/mild (physiologic) pulmonic regurgitation. 7. There is no pericardial effusion. DIRECT SUPPORT STAFF MEMBER: DAWSON Spencer
--- NOTE | 2020-09-09 12:16 | P.HPIM ---
History of Present Illness Patient is a pleasant 24-year-old female came in with complaints of dizziness has been going on for about for about last 2-3 days send her dizziness is lightheadedness denied any spinning around her vertiginous symptoms patient is 6 weeks patient denied any fever chills nausea vomiting diarrhea. Patient had an echocardiogram which did not show any significant valvular abnormality EKG is within normal limits telemetry did not show any significant abnormality. Patient lightheadedness is better today. Patient apparently has positive orthostatic vitals on admission to ER and presently her orthostatic vitals are negative. Patient received IV fluids overnight. Patient is not on any antihypertensive medications at this time. Review of Systems REVIEW OF SYSTEMS: CONSTITUTIONAL: No fever, no malaise, no fatigue. HEENT: No recent visual problems or hearing problems. Denied any sore throat. CARDIOVASCULAR: No chest pain, orthopnea, PND, no palpitations, no syncope. PULMONARY: No shortness of breath, no cough, no hemoptysis. GASTROINTESTINAL: No diarrhea, no nausea, no vomiting, no abdominal pain. NEUROLOGICAL: No headaches, no weakness, no numbness. HEMATOLOGICAL: Denies any bleeding or petechiae. GENITOURINARY: Denies any burning micturition, frequency, or urgency. MUSCULOSKELETAL/RHEUMATOLOGICAL: Denies any joint pain, swelling, or any muscle pain. ENDOCRINE: Denies any polyuria or polydipsia. The rest of the 14-point review of systems is negative. Past Medical History Past Medical History: Asthma, Osteoarthritis (OA) History of Any Multi-Drug Resistant Organisms: None Reported Past Surgical History: Appendectomy Additional Past Surgical History / Comment(s): Past Anesthesia/Blood Transfusion Reactions: No Reported Reaction Past Psychological History: ADD/ADHD, Anxiety, Depression Smoking Status: Never smoker Past Alcohol Use History: None Reported Past Drug Use History: None Reported - Past Family History Father Family Medical History: No Reported History Mother Family Medical History: No Reported History Medications and Allergies Home Medications Medication Instructions Recorded Confirmed Type Ibuprofen [Motrin] 600 mg PO Q6HR PRN tab 07/25/20 09/08/20 Rx Famotidine 40 mg PO DAILY PRN 08/06/20 09/08/20 History Albuterol Sulfate [Proventil Hfa] 2 puff INHALATION RT-QID PRN 09/08/20 09/08/20 History Atomoxetine HCl [Strattera] 25 mg PO DAILY@0900 09/08/20 09/08/20 History Norethindrone-Ethinyl Estrad 1 tab PO HS 09/08/20 09/08/20 History [Ortho-Novum 7-7-7-28 Tablet] Sertraline [Zoloft] 50 mg PO BID@0900,1500 09/08/20 09/08/20 History Allergies Allergy/AdvReac Type Severity Reaction Status Date / Time No Known Allergies Allergy Verified 09/08/20 18:29 Physical Exam Vitals: Vital Signs Temp Pulse Pulse Pulse Pulse Pulse Resp 09/09/20 09:00 62 87 52 L 16 09/09/20 08:25 97.9 F 62 87 52 L 16 09/09/20 04:00 97.6 F 81 16 09/08/20 20:40 98 F 80 17 09/08/20 20:02 97.6 F 71 18 09/08/20 18:03 91 18 09/08/20 17:28 97.6 F 102 H 18 BP BP BP BP Pulse Ox 09/09/20 09:00 09/09/20 08:25 118/68 107/72 101/63 99 09/09/20 04:00 108/70 98 09/08/20 20:40 115/87 97 09/08/20 20:02 120/79 98 09/08/20 18:03 121/91 109/83 112/82 97 09/08/20 17:28 105/72 97 Intake and Output 09/08/20 09/09/20 09/09/20 22:59 06:59 14:59 Intake Total 200 Balance 200 Intake: Oral 200 Other: Voiding Method Toilet Toilet Toilet # Voids 2 Weight 81.647 kg PHYSICAL EXAMINATION: GENERAL: The patient is alert and oriented x3, not in any acute distress. Well developed, well nourished. HEENT: Pupils are round and equally reacting to light. EOMI. No scleral icterus. No conjunctival pallor. Normocephalic, atraumatic. No pharyngeal erythema. No thyromegaly. CARDIOVASCULAR: S1 and S2 present. No murmurs, rubs, or gallops. PULMONARY: Chest is clear to auscultation, no wheezing or crackles. ABDOMEN: Soft, nontender, nondistended, normoactive bowel sounds. No palpable organomegaly. MUSCULOSKELETAL: No joint swelling or deformity. EXTREMITIES: No cyanosis, clubbing, or pedal edema. NEUROLOGICAL: Gross neurological examination did not reveal any focal deficits. SKIN: No rashes. Results CBC & Chem 7: 09/08/20 18:02 09/08/20 18:02 Labs: Abnormal Lab Results - Last 24 Hours (Table) 09/08/20 09/08/20 Range/Units 18:02 18:17 Chloride 108 H (98-107) mmol/L Carbon Dioxide 20 L (22-30) mmol/L Ur Leukocyte Esterase Small H (Negative) Urine WBC 8 H (0-5) /hpf Thrombosis Risk Factor Assmnt - Choose All That Apply Any of the Below Risk Factors Present?: Yes Each Factor Represents 1 point: Obesity (BMI >25) Other Risk Factors: No Other congenital or acquired thrombophilia - If yes, enter type in comment: No Thrombosis Risk Factor Assessment Total Risk Factor Score: 1 Thrombosis Risk Factor Assessment Level: Low Risk Assessment and Plan Plan: -Lightheadedness and dizziness: Probably secondary to mild intravascular volume depletion patient received IV fluids overnight no significant cardiac rhythm abnormalities on overnight telemetry monitoring and echocardiogram is within normal limits cardiology evaluated the patient patient will be discharged today. If patient continues to have these symptoms of a syncopal episode patient will need to follow with glassware selector or PCP and may benefit from Holter monitor at that time. Patient is presently 6 weeks she says she has been taking clindamycin for one month for UTI. Clindamycin will be discontinued patient denied any UTI symptoms at this time -ADD/ADHD Heparin depression -
--- NOTE | 2020-09-09 12:17 | P.DS ---
Providers Date of admission: 09/08/20 19:16 Attending physician: Kana Escalera Consults: 09/08/20 19:21 Consult Physician Routine Consulting Provider: [facility] Consult Reason/Comments: near syncope, r/o PPCM Do you want consulting provider notified?: Yes Primary care physician: Aayna Nayak [facility] Course: As mentioned in HPI Plan - Discharge Summary Discharge Rx Participant: No New Discharge Prescriptions: Continue Ibuprofen [Motrin] 600 mg PO Q6HR PRN tab PRN Reason: Mild Pain Or Fever >= 100.5 Famotidine 40 mg PO DAILY PRN PRN Reason: Heartburn Sertraline [Zoloft] 50 mg PO BID@0900,1500 Albuterol Sulfate [Proventil Hfa] 2 puff INHALATION RT-QID PRN PRN Reason: Shortness Of Breath Norethindrone-Ethinyl Estrad [Ortho-Novum 7-7-7-28 Tablet] 1 tab PO HS Atomoxetine HCl [Strattera] 25 mg PO DAILY@0900 Discontinued Clindamycin HCl 300 mg PO Q6H Discharge Medication List Ibuprofen [Motrin] 600 mg PO Q6HR PRN tab 07/25/20 [Rx] Famotidine 40 mg PO DAILY PRN 08/06/20 [History] Albuterol Sulfate [Proventil Hfa] 2 puff INHALATION RT-QID PRN 09/08/20 [History] Atomoxetine HCl [Strattera] 25 mg PO DAILY@0900 09/08/20 [History] Norethindrone-Ethinyl Estrad [Ortho-Novum 7-7-7-28 Tablet] 1 tab PO HS 09/08/20 [History] Sertraline [Zoloft] 50 mg PO BID@0900,1500 09/08/20 [History] Follow up Appointment(s)/Referral(s): Malini Piña MD [Primary Care Provider] - 1-2 days Discharge Disposition: HOME SELF-CARE
== END 2020-09-09 11:59 | disposition home or self-care (01) ==
LOC: EC 17:24 → 1SOBS 19:16
PROVIDERS: ADMIT Internal Medicine; ATTEND Internal Medicine
DX: O99.43 Diseases of the circulatory system complicating the puerperium (principal); I95.1 Orthostatic hypotension; O99.53 Diseases of the respiratory system complicating the puerperium; J45.909 Unspecified asthma, uncomplicated; O90.89 Other complications of the puerperium, not elsewhere classified; M19.90 Unspecified osteoarthritis, unspecified site; O16.5 Unspecified maternal hypertension, complicating the puerperium; O99.345 Other mental disorders complicating the puerperium; F90.9 Attention-deficit hyperactivity disorder, unspecified type; F41.9 Anxiety disorder, unspecified; F32.9 Major depressive disorder, single episode, unspecified; O99.215 Obesity complicating the puerperium; E66.9 Obesity, unspecified; Z79.899 Other long term (current) drug therapy; Z79.3 Long term (current) use of hormonal contraceptives; Z90.49 Acquired absence of other specified parts of digestive tract; Z98.890 Other specified postprocedural states; Z87.440 Personal history of urinary (tract) infections
CPT/HCPCS: 96360; 96361; 99285; 36415; 93005; 93306; 85379; 83880; 80053; 83735; 84484; 85025; 81001; 80306; 71046; G0378 ×2

== ENCOUNTER 2020-10-30 15:58 | Emergency (ER) | payer OTHER ==
[2020-10-30 16:27] VITALS: BP 131/75; RESP 18; TEMP 98.8
--- NOTE | 2020-10-30 16:40 | ED ---
General Adult HPI - General Chief complaint: Extremity Injury, Lower Stated complaint: knee injury Time Seen by Provider: 10/30/20 16:25 Source: patient, RN notes reviewed, old records reviewed Mode of arrival: ambulatory Limitations: no limitations - History of Present Illness Initial comments: This is a 24-year-old female who presents emergency Department complaining that she hurt her left knee couple days ago when she fell. Patient has been able to ambulate on it since and she has been wearing a little brace that she has at home. Patient also asked if she get she test because she's having this sensation symmetric and her period is 3 weeks late. Patient denies any fever chills or cough per patient denies any nausea or vomiting. Patient states she occasionally has some cramping in the abdomen but no obvious pain. Patient denies any chest pain difficulty breathing shortest breath. Patient denies any swelling to the knee. - Related Data Home Medications Medication Instructions Recorded Confirmed Famotidine 40 mg PO DAILY PRN 08/06/20 09/08/20 Albuterol Sulfate [Proventil Hfa] 2 puff INHALATION RT-QID PRN 09/08/20 09/08/20 Atomoxetine HCl [Strattera] 25 mg PO DAILY@0900 09/08/20 09/08/20 Norethindrone-Ethinyl Estrad 1 tab PO HS 09/08/20 09/08/20 [Ortho-Novum 7-7-7-28 Tablet] Sertraline [Zoloft] 50 mg PO BID@0900,1500 09/08/20 09/08/20 Previous Rx's Medication Instructions Recorded Ibuprofen [Motrin] 600 mg PO Q6HR PRN tab 07/25/20 Allergies Allergy/AdvReac Type Severity Reaction Status Date / Time No Known Allergies Allergy Verified 10/30/20 16:27 Review of Systems ROS Statement: Those systems with pertinent positive or pertinent negative responses have been documented in the HPI. ROS Other: All systems not noted in ROS Statement are negative. Past Medical History Past Medical History: Asthma, Osteoarthritis (OA) History of Any Multi-Drug Resistant Organisms: None Reported Past Surgical History: Appendectomy Additional Past Surgical History / Comment(s): Past Anesthesia/Blood Transfusion Reactions: No Reported Reaction Past Psychological History: ADD/ADHD, Anxiety, Depression Smoking Status: Never smoker Past Alcohol Use History: None Reported Past Drug Use History: None Reported - Past Family History Father Family Medical History: No Reported History Mother Family Medical History: No Reported History General Exam - General Exam Comments Initial Comments: GENERAL: Patient is well-developed and well-nourished. Patient is nontoxic and well- hydrated and is in mild distress. ENT: Neck is soft and supple. No significant lymphadenopathy is noted. Oropharynx is clear. Moist mucous membranes. Neck has full range of motion without eliciting any pain. EYES: The sclera were anicteric and conjunctiva were pink and moist. Extraocular movements were intact and pupils were equal round and reactive to light. Eyelids were unremarkable. PULMONARY: Unlabored respirations. Good breath sounds bilaterally. No audible rales rhonchi or wheezing was noted. CARDIOVASCULAR: There is a regular rate and rhythm without any murmurs gallops or rubs. ABDOMEN: Soft and nontender with normal bowel sounds. No palpable organomegaly was noted. There is no palpable pulsatile mass. SKIN: Skin is clear with no lesions or rashes and otherwise unremarkable. NEUROLOGIC: Patient is alert and oriented x3. Cranial nerves II through XII are grossly intact. Motor and sensory are also intact. Normal speech, volume and content. Symmetrical smile. MUSCULOSKELETAL: Normal extremities with adequate strength and full range of motion. No lower extremity swelling or edema. Patient has no ligamentous laxity of the left knee LYMPHATICS: No significant lymphadenopathy is noted PSYCHIATRIC: Normal psychiatric evaluation. Limitations: no limitations Course Vital Signs 10/30/20 10/30/20 16:24 17:15 Temperature 98.8 F Pulse Rate 120 H 99 Respiratory 18 Rate Blood Pressure 131/75 O2 Sat by Pulse 99 99 Oximetry Medical Decision Making - Medical Decision Making X-ray of the knee shows no acute normalities. Patient is not . - Lab Data Lab Results 10/30/20 Range/Units 16:43 Urine HCG, Qual Not Detected (Not Detectd) Disposition Clinical Impression: Knee sprain Disposition: HOME SELF-CARE Condition: Good Instructions (If sedation given, give patient instructions): Knee Sprain (ED) Additional Instructions: Patient should continue wearing a knee brace that she wore when she came to the emergency department. Is patient prescribed a controlled substance at d/c from ED?: No Referrals: Malini Piña MD [Primary Care Provider] - 1-2 days Time of Disposition: :51
[2020-10-30 17:15] VITALS: PULSE 99
--- NOTE | 2020-10-30 18:19 | XR ---
Result: History: Pain. Comparison: None available. Technique: 3 views of the left knee. Findings: No acute fracture or dislocation is seen. The visualized osseous structures are in anatomic alignmen t. The joint spaces are preserved. There is no significant knee joint effusion. Impression: No acute osseous abnormality.
== END 2020-10-30 18:07 | disposition home or self-care (01) ==
LOC: EC 15:58
DX: S83.92XA Sprain of unspecified site of left knee, initial encounter (principal); J45.909 Unspecified asthma, uncomplicated; F90.9 Attention-deficit hyperactivity disorder, unspecified type; F32.9 Major depressive disorder, single episode, unspecified; F41.9 Anxiety disorder, unspecified; Z79.3 Long term (current) use of hormonal contraceptives; Z79.899 Other long term (current) drug therapy; W19.XXXA Unspecified fall, initial encounter; Y92.009 Unspecified place in unspecified non-institutional (private) residence as the place of occurrence of the external cause
CPT/HCPCS: 81025; 99284

== ENCOUNTER 2020-11-13 19:03 | Emergency (ER) | payer OTHER ==
[2020-11-13 19:06] VITALS: BP 134/78; TEMP 98.9
--- NOTE | 2020-11-13 19:21 | ED ---
General Adult HPI - General Chief complaint: Fever Stated complaint: fever/not feeling good Time Seen by Provider: 11/13/20 19:08 Source: patient Mode of arrival: ambulatory Limitations: no limitations - History of Present Illness Initial comments: Patient is a 24-year-old female presenting to emergency Department with complaints of a fever that been intermittent for the last 2 days as well as body aches. She states she's had a mild cough as well. She took some Tylenol earlier today. She denies any chest pain, short of breath. He does admit to s ome mild nausea, no vomiting or diarrhea. No abdominal pain. She denies any dysuria. Patient denies any sick contacts. She still been eating and drinking as normal. She admits a history of mild asthma, no other pertinent past medical history. She is no further complaints. Upon arrival to the ER, she is afebrile, slightly tachycardia at 110, rest of vitals are normal. - Related Data Home Medications Medication Instructions Recorded Confirmed Famotidine 40 mg PO DAILY PRN 08/06/20 09/08/20 Albuterol Sulfate [Proventil Hfa] 2 puff INHALATION RT-QID PRN 09/08/20 09/08/20 Atomoxetine HCl [Strattera] 25 mg PO DAILY@0900 09/08/20 09/08/20 Norethindrone-Ethinyl Estrad 1 tab PO HS 09/08/20 09/08/20 [Ortho-Novum 7-7-7-28 Tablet] Sertraline [Zoloft] 50 mg PO BID@0900,1500 09/08/20 09/08/20 Previous Rx's Medication Instructions Recorded Ibuprofen [Motrin] 600 mg PO Q6HR PRN tab 07/25/20 Ondansetron Odt [Zofran Odt] 4 mg PO Q8HR PRN #10 tab 11/13/20 Allergies Allergy/AdvReac Type Severity Reaction Status Date / Time No Known Allergies Allergy Verified 11/13/20 19:06 Review of Systems ROS Statement: Those systems with pertinent positive or pertinent negative responses have been documented in the HPI. ROS Other: All systems not noted in ROS Statement are negative. Past Medical History Past Medical History: Asthma, Osteoarthritis (OA) History of Any Multi-Drug Resistant Organisms: None Reported Past Surgical History: Appendectomy Additional Past Surgical History / Comment(s): Past Anesthesia/Blood Transfusion Reactions: No Reported Reaction Past Psychological History: ADD/ADHD, Anxiety, Depression Smoking Status: Vaper Past Alcohol Use History: None Reported Past Drug Use History: None Reported - Past Family History Father Family Medical History: No Reported History Mother Family Medical History: No Reported History General Exam - General Exam Comments Initial Comments: GENERAL: Patient is well-developed and well-nourished. Patient is nontoxic and in no acute distress. HEAD: Atraumatic, normocephalic. EYES: Pupils equal round and reactive to light, extraocular movements intact, sclera anicteric, conjunctiva are normal. Eyelids were unremarkable. ENT: TMs normal, nares patent, oropharynx clear without exudates. Moist mucous membranes. NECK: Normal range of motion, supple without lymphadenopathy or JVD. LUNGS: Unlabored respirations. Breath sounds clear to auscultation bilaterally and equal. No wheezes rales or rhonchi. HEART: Regular rate and rhythm without murmurs, rubs or gallops. ABDOMEN: Soft, nontender, normoactive bowel sounds. No guarding, no rebound. No masses appreciated. : Deferred MUSCULOSKELETAL: Normal extremities with adequate strength and normal range of motion, no pitting or edema. No clubbing or cyanosis. NEUROLOGICAL: Patient is alert and oriented x 3. Motor and sensory are also intact. Cranial nerves II through XII grossly intact. Symmetrical smile. Normal speech, normal gait. PSYCH: Normal mood, normal affect. SKIN: Warm, Dry, normal turgor, no rashes or lesions noted. Limitations: no limitations Course Vital Signs 11/13/20 19:04 Temperature 98.9 F Pulse Rate 115 H Respiratory 20 Rate Blood Pressure 134/78 O2 Sat by Pulse 98 Oximetry Medical Decision Making - Medical Decision Making Patient is a 24-year-old female here with intermittent fevers for 2 days, cough and body aches. She is afebrile upon arrival, slight tachycardia. Her exam is unremarkable. Patient declined a Covid test, only wanted and a flu test. Influenza is negative, hCG is not detected, chest x-ray reveals no acute process. I discussed with patient that her symptoms most likely viral in nature. Continue with Tylenol for fever or body aches, she can follow-up with her regular doctor. Patient is stable for discharge. Patient is in agreement with this plan of care. Return parameters were discussed with the patient and they verbalized understanding. Case discussed with Dr. Self. - Lab Data Lab Results 11/13/20 11/13/20 Range/Units 19:25 19:32 Urine HCG, Qual Not Detected (Not Detectd) Influenza Type A RNA Not Detected (Not Detectd) Influenza Type B (PCR) Not Detected (Not Detectd) Disposition Clinical Impression: Viral respiratory illness Disposition: HOME SELF-CARE Condition: Stable Instructions (If sedation given, give patient instructions): Viral Syndrome (ED) Additional Instructions: Please return to the Emergency Department if symptoms worsen or any other concerns. Tylenol for fever and body aches. May use Zofran for nausea. Follow-up with your regular doctor. Prescriptions: Ondansetron Odt [Zofran Odt] 4 mg PO Q8HR PRN #10 tab PRN Reason: Nausea Is patient prescribed a controlled substance at d/c from ED?: No Referrals: Malini Piña MD [Primary Care Provider] - 1-2 days
--- NOTE | 2020-11-13 20:06 | XR ---
EXAMINATION TYPE: XR chest 2V DATE OF EXAM: 11/13/2020 COMPARISON: NONE HISTORY: Syncope TECHNIQUE: 2 views FINDINGS: Heart and mediastinum are normal. Lungs are clear. Diaphragm is normal. Bony thorax is inta ct. The pulmonary vascularity is normal. IMPRESSION: Normal chest. No change.
[2020-11-13 20:47] VITALS: PULSE 90; RESP 18
== END 2020-11-13 20:47 | disposition home or self-care (01) ==
LOC: EC 19:03
DX: J98.9 Respiratory disorder, unspecified (principal); J45.909 Unspecified asthma, uncomplicated; M19.90 Unspecified osteoarthritis, unspecified site; Z79.1 Long term (current) use of non-steroidal anti-inflammatories (NSAID); Z79.899 Other long term (current) drug therapy
CPT/HCPCS: 71046; 81025; 87502; 99284

== ENCOUNTER 2021-01-29 13:43 | Emergency (ER) | payer OTHER ==
[2021-01-29 13:50] VITALS: BP 117/71; PULSE 109; RESP 18; TEMP 97.4
[2021-01-29] MEDS ORDERED: KETOROLAC 15 MG/ML 1 ML VIAL IM STA (14:01)
--- NOTE | 2021-01-29 14:08 | ED ---
Upper Extremity HPI - General Chief Complaint: Extremity Injury, Upper Stated Complaint: RT hand injury Time Seen by Provider: 01/29/21 13:50 Source: patient Mode of arrival: ambulatory Limitations: no limitations - History of Present Illness Initial Comments: 25-year-old female presents to the emergency room with a chief complaint right wrist pain. States this occurred about 3 days ago while she was moving furniture. States she felt a pop on the lateral aspect of her right wrist. However, she states most of her pain is located on the dorsal aspect of her right wrist with some radiation proximally to the mid forearm. She denies any paresthesias but reports that her range of motion due to pain with flexion and extension. States she still able to move the fingers. Denies any ecchymosis, erythema or swelling to the region. Denies direct trauma to the wrist. - Related Data Home Medications Medication Instructions Recorded Confirmed Atomoxetine HCl [Strattera] 25 mg PO DAILY 09/08/20 01/29/21 Sertraline [Zoloft] 50 mg PO DAILY 09/08/20 01/29/21 Allergies Allergy/AdvReac Type Severity Reaction Status Date / Time No Known Allergies Allergy Verified 01/29/21 14:22 Review of Systems ROS Statement: Those systems with pertinent positive or pertinent negative responses have been documented in the HPI. ROS Other: All systems not noted in ROS Statement are negative. Past Medical History Past Medical History: Asthma, Osteoarthritis (OA) History of Any Multi-Drug Resistant Organisms: None Reported Past Surgical History: Appendectomy Additional Past Surgical History / Comment(s): Past Anesthesia/Blood Transfusion Reactions: No Reported Reaction Past Psychological History: ADD/ADHD, Anxiety, Depression Smoking Status: Vaper Past Alcohol Use History: None Reported Past Drug Use History: None Reported - Past Family History Father Family Medical History: No Reported History Mother Family Medical History: No Reported History General Exam Limitations: no limitations General appearance: alert, in no apparent distress, obese Head exam: Present: atraumatic, normocephalic, normal inspection Eye exam: Present: normal appearance, PERRL, EOMI Pupils: Present: normal accommodation ENT exam: Present: normal exam, normal oropharynx, mucous membranes moist Neck exam: Present: normal inspection, full ROM Respiratory exam: Present: normal lung sounds bilaterally. Absent: respiratory distress, wheezes, rales, rhonchi, stridor, chest wall tenderness, accessory muscle use Cardiovascular Exam: Present: regular rate, normal rhythm, normal heart sounds. Absent: systolic murmur Extremities exam: Present: normal inspection, tenderness (Tenderness at the right wrist), normal capillary refill, other (Palpable ulnar and radial pulses bilaterally.). Absent: full ROM (Range of motion in the right wrist due to pain), pedal edema, joint swelling, calf tenderness Back exam: Present: normal inspection, full ROM Neurological exam: Present: alert, oriented X3 Psychiatric exam: Present: normal affect, normal mood Skin exam: Present: warm, dry, intact, normal color Course Vital Signs 01/29/21 13:48 Temperature 97.4 F L Pulse Rate 109 H Respiratory 18 Rate Blood Pressure 117/71 O2 Sat by Pulse 99 Oximetry Disposition Clinical Impression: Right wrist injury Disposition: HOME SELF-CARE Condition: Stable Instructions (If sedation given, give patient instructions): Wrist Injury (ED) Additional Instructions: Please return to the Emergency Department if symptoms worsen or any other janee rns. Follow with education program specialist Is patient prescribed a controlled substance at d/c from ED?: No Referrals: Malini Piña MD [REFERRING] - 1-2 days Maxi Marshall MD [STAFF PHYSICIAN] - 1-2 days Time of Disposition: 14:49
--- NOTE | 2021-01-29 14:25 | XR ---
Right wrist HISTORY: Trauma 3 days prior and pain 4 views of the right wrist, correlation to prior exam 09/05/2019 Bone mineralization, joint spaces and alignment are maintained. IMPRESSION: No radiographically apparent fracture or dislocation.
== END 2021-01-29 14:56 | disposition home or self-care (01) ==
LOC: EC 13:43
DX: S69.91XA Unspecified injury of right wrist, hand and finger(s), initial encounter (principal); J45.909 Unspecified asthma, uncomplicated; M19.90 Unspecified osteoarthritis, unspecified site; F32.9 Major depressive disorder, single episode, unspecified; F90.9 Attention-deficit hyperactivity disorder, unspecified type; Z90.49 Acquired absence of other specified parts of digestive tract; X50.0XXA Overexertion from strenuous movement or load, initial encounter; Y93.E6 Activity, residential relocation
CPT/HCPCS: 73110; 99283; 96372; J1885

== ENCOUNTER 2021-03-07 12:29 | Emergency (ER) | payer OTHER ==
[2021-03-07] MEDS ORDERED: METOCLOPRAMIDE 5 MG/ML 2 ML VIAL IVP STA (12:52)
[2021-03-07] MEDS ORDERED: PANTOPRAZOLE 40 MG/10 ML VIAL IVP STA (12:52)
[2021-03-07] MEDS ORDERED: SODIUM CHLORIDE 0.9% 1,000 ML IV STA (12:52)
[2021-03-07] MEDS ORDERED: diphenhydrAMINE 50 MG/ML 1 ML VIAL IVP STA (12:52)
[2021-03-07 12:59] LABS: Appearance,Urine Clear (Clear); Bilirubin,Urine Negative (Negative); Blood,Urine Negative (Negative); Color,Urine Yellow; Glucose,Urine (UA) Negative (Negative); Ketones,Urine Negative (Negative); Leukocyte Esterase,Urine Small (Negative); Mucus,Urine Rare /hpf; Nitrite,Urine Negative (Negative); Protein,Urine Negative (Negative); RBC,Urine 1 /hpf (0-5); Specific Gravity,Urine 1.009 (1.001-1.035); Squamous Epithelial Cell,Urine 1 /hpf (0-4); Urobilinogen,Urine <2.0 mg/dL (<2.0); WBC,Urine 9 /hpf (0-5)
[2021-03-07 13:24] LABS: Basophils # (A) 0.1 k/uL (0-0.2); Basophils % (A) 1 %; Eosinophils # (A) 0.1 k/uL (0-0.7); Eosinophils % (A) 2 %; HCT 37.8 % (34.0-46.0); HGB 13.2 gm/dL (11.4-16.0); Lymphocytes # (A) 2.2 k/uL (1.0-4.8); Lymphocytes % (A) 24 %; MCH 30.4 pg (25.0-35.0); MCHC 34.9 g/dL (31.0-37.0); Mean Platelet Volume 7.9; Monocytes # (A) 0.4 k/uL (0-1.0); Monocytes % (A) 4 %; Neutrophils # (A) 6.6 k/uL (1.3-7.7); Neutrophils % (A) 70 %; Platelet Count 219 k/uL (150-450); RBC 4.34 m/uL (3.80-5.40); RDW 13.2 % (11.5-15.5); WBC 9.4 k/uL (3.8-10.6)
--- NOTE | 2021-03-07 13:26 | ED ---
Abdominal Pain HPI - General Chief Complaint: Abdominal Pain Stated Complaint: abd pain Time Seen by Provider: 03/07/21 12:43 Source: patient, RN notes reviewed Mode of arrival: ambulatory Limitations: no limitations - History of Present Illness Initial Comments: 25-year-old female presents emergency Department chief complaint of upper and lower abdominal pain. Patient states that started days ago. Patient states she has some nausea no significant vomiting diarrhea constipation. Patient states she does have some lower abdominal pain with dysuria she is unsure if she is but does not believe she is. Patient denies any vaginal bleeding or vaginal discharge she's had a prior appendectomy denies any back pain, flank pain no chest pain or shortness breath. Patient does admit that she has had some reflux, heartburn issues has not taken them for this. - Related Data Home Medications Medication Instructions Recorded Confirmed Atomoxetine HCl [Strattera] 25 mg PO DAILY 09/08/20 01/29/21 Sertraline [Zoloft] 50 mg PO DAILY 09/08/20 01/29/21 Previous Rx's Medication Instructions Recorded Cephalexin [Keflex] 500 mg PO Q8HR #21 cap 03/07/21 Omeprazole [PriLOSEC] 40 mg PO DAILY #14 cap 03/07/21 Ondansetron Odt [Zofran Odt] 4 mg PO Q8HR PRN #10 tab 03/07/21 Allergies Allergy/AdvReac Type Severity Reaction Status Date / Time No Known Allergies Allergy Verified 03/07/21 12:33 Review of Systems ROS Statement: Those systems with pertinent positive or pertinent negative responses have been documented in the HPI. ROS Other: All systems not noted in ROS Statement are negative. Past Medical History Past Medical History: Asthma, Osteoarthritis (OA) History of Any Multi-Drug Resistant Organisms: None Reported Past Surgical History: Appendectomy, Section Additional Past Surgical History / Comment(s): Past Anesthesia/Blood Transfusion Reactions: No Reported Reaction Past Psychological History: ADD/ADHD, Anxiety, Depression Smoking Status: Vaper Past Alcohol Use History: None Reported Past Drug Use History: None Reported - Past Family History Father Family Medical History: No Reported History Mother Family Medical History: No Reported History General Exam Limitations: no limitations General appearance: alert, in no apparent distress Head exam: Present: atraumatic, normocephalic, normal inspection Neck exam: Present: normal inspection, full ROM. Absent: tenderness, meningismus, lymphadenopathy Respiratory exam: Present: normal lung sounds bilaterally. Absent: respiratory distress, wheezes, rales, rhonchi, stridor Cardiovascular Exam: Present: regular rate, normal rhythm, normal heart sounds. Absent: systolic murmur, diastolic murmur, rubs, gallop, clicks GI/Abdominal exam: Present: soft, tenderness, normal bowel sounds. Absent: distended, guarding, rebound, rigid Back exam: Absent: CVA tenderness (R), CVA tenderness (L) Neurological exam: Present: alert Skin exam: Present: warm, dry, intact, normal color. Absent: rash Course Vital Signs 03/07/21 12:30 Temperature 98.9 F Pulse Rate 101 H Respiratory 20 Rate Blood Pressure 110/75 O2 Sat by Pulse 99 Oximetry Medical Decision Making - Medical Decision Making 25-year-old female presents emergency Department for upper and lower abdominal pain. Patient has evidence urinary tract infection. Patient feels better after some any masses. Patient may have some gastritis, reflux issues. Patient discharged with omeprazole, Zofran, Keflex - Lab Data Result diagrams: 03/07/21 13:11 03/07/21 13:11 Lab Results 03/07/21 03/07/21 03/07/21 Range/Units 12:39 12:39 13:11 WBC 9.4 (3.8-10.6) k/uL RBC 4.34 (3.80-5.40) m/uL Hgb 13.2 (11.4-16.0) gm/dL Hct 37.8 (34.0-46.0) % MCV 87.0 (80.0-100.0) fL MCH 30.4 (25.0-35.0) pg MCHC 34.9 (31.0-37.0) g/dL RDW 13.2 (11.5-15.5) % Plt Count 219 (150-450) k/uL MPV 7.9 Neutrophils % 70 % Lymphocytes % 24 % Monocytes % 4 % Eosinophils % 2 % Basophils % 1 % Neutrophils # 6.6 (1.3-7.7) k/uL Lymphocytes # 2.2 (1.0-4.8) k/uL Monocytes # 0.4 (0-1.0) k/uL Eosinophils # 0.1 (0-0.7) k/uL Basophils # 0.1 (0-0.2) k/uL Sodium (137-145) mmol/L Potassium (3.5-5.1) mmol/L Chloride (98-107) mmol/L Carbon Dioxide (22-30) mmol/L Anion Gap mmol/L BUN (7-17) mg/dL Creatinine (0.52-1.04) mg/dL Est GFR (CKD-EPI)AfAm (>60 ml/min/1.73 sqM) Est GFR (CKD-EPI)NonAf (>60 ml/min/1.73 sqM) Glucose (74-99) mg/dL Calcium (8.4-10.2) mg/dL Total Bilirubin (0.2-1.3) mg/dL AST (14-36) U/L ALT (4-34) U/L Alkaline Phosphatase (38-126) U/L Total Protein (6.3-8.2) g/dL Albumin (3.5-5.0) g/dL Lipase (23-300) U/L Urine Color Yellow Urine Appearance Clear (Clear) Urine pH 6.0 (5.0-8.0) Ur Specific [place] 1.009 (1.001-1.035) Urine Protein Negative (Negative) Urine Glucose (UA) Negative (Negative) Urine Ketones Negative (Negative) Urine Blood Negative (Negative) Urine Nitrite Negative (Negative) Urine Bilirubin Negative (Negative) Urine Urobilinogen <2.0 (<2.0) mg/dL Ur Leukocyte Esterase Small H (Negative) Urine RBC 1 (0-5) /hpf Urine WBC 9 H (0-5) /hpf Ur Squamous Epith Cells 1 (0-4) /hpf Urine Mucus Rare H (None) /hpf Urine HCG, Qual Not Detected (Not Detectd) 03/07/21 Range/Units 13:11 WBC (3.8-10.6) k/uL RBC (3.80-5.40) m/uL Hgb (11.4-16.0) gm/dL Hct (34.0-46.0) % MCV (80.0-100.0) fL MCH (25.0-35.0) pg MCHC (31.0-37.0) g/dL RDW (11.5-15.5) % Plt Count (150-450) k/uL MPV Neutrophils % % Lymphocytes % % Monocytes % % Eosinophils % % Basophils % % Neutrophils # (1.3-7.7) k/uL Lymphocytes # (1.0-4.8) k/uL Monocytes # (0-1.0) k/uL Eosinophils # (0-0.7) k/uL Basophils # (0-0.2) k/uL Sodium 138 (137-145) mmol/L Potassium 4.2 (3.5-5.1) mmol/L Chloride 106 (98-107) mmol/L Carbon Dioxide 25 (22-30) mmol/L Anion Gap 7 mmol/L BUN 10 (7-17) mg/dL Creatinine 0.73 (0.52-1.04) mg/dL Est GFR (CKD-EPI)AfAm >90 (>60 ml/min/1.73 sqM) Est GFR (CKD-EPI)NonAf >90 (>60 ml/min/1.73 sqM) Glucose 108 H (74-99) mg/dL Calcium 9.5 (8.4-10.2) mg/dL Total Bilirubin 0.2 (0.2-1.3) mg/dL AST 27 (14-36) U/L ALT 31 (4-34) U/L Alkaline Phosphatase 67 (38-126) U/L Total Protein 6.9 (6.3-8.2) g/dL Albumin 4.0 (3.5-5.0) g/dL Lipase 96 (23-300) U/L Urine Color Urine Appearance (Clear) Urine pH (5.0-8.0) Ur Specific [place] (1.001-1.035) Urine Protein (Negative) Urine Glucose (UA) (Negative) Urine Ketones (Negative) Urine Blood (Negative) Urine Nitrite (Negative) Urine Bilirubin (Negative) Urine Urobilinogen (<2.0) mg/dL Ur Leukocyte Esterase (Negative) Urine RBC (0-5) /hpf Urine WBC (0-5) /hpf Ur Squamous Epith Cells (0-4) /hpf Urine Mucus (None) /hpf Urine HCG, Qual (Not Detectd) Disposition Clinical Impression: UTI (urinary tract infection), Abdominal pain Disposition: HOME SELF-CARE Condition: Stable Instructions (If sedation given, give patient instructions): Abdominal Pain (ED) Additional Instructions: Please return to the Emergency Department if symptoms worsen or any other concerns. Prescriptions: Cephalexin [Keflex] 500 mg PO Q8HR #21 cap Omeprazole [PriLOSEC] 40 mg PO DAILY #14 cap Ondansetron Odt [Zofran Odt] 4 mg PO Q8HR PRN #10 tab PRN Reason: Nausea Is patient prescribed a controlled substance at d/c from ED?: No Referrals: Osmar Lundberg MD [Primary Care Provider] - 1-2 days Time of Disposition: 14:00
[2021-03-07 13:36] LABS: ALT 31 U/L (4-34); AST 27 U/L (14-36); African American GFR (CKD) >90 (>60 ml/min/1.73 sqM); Alkaline Phosphatase 67 U/L (38-126); Anion Gap 7 mmol/L; Blood Urea Nitrogen 10 mg/dL (7-17); Calcium 9.5 mg/dL (8.4-10.2); Carbon Dioxide 25 mmol/L (22-30); Chloride 106 mmol/L (98-107); Glucose 108 mg/dL (74-99); Lipase 96 U/L (23-300); Non-African American GFR(CKD) >90 (>60 ml/min/1.73 sqM); Potassium 4.2 mmol/L (3.5-5.1); Sodium 138 mmol/L (137-145); Total Bilirubin 0.2 mg/dL (0.2-1.3); Total Protein 6.9 g/dL (6.3-8.2)
[2021-03-07] MEDS ORDERED: cefTRIAXone IN SWFI 1,000 MG/10 ML SYRINGE IVP STA (13:59)
[2021-03-07 14:32] VITALS: BP 128/78; PULSE 68; RESP 16; TEMP 98.2
== END 2021-03-07 14:31 | disposition home or self-care (01) ==
LOC: EC 12:29
DX: N39.0 Urinary tract infection, site not specified (principal); J45.909 Unspecified asthma, uncomplicated; M19.90 Unspecified osteoarthritis, unspecified site; Z90.89 Acquired absence of other organs; F32.9 Major depressive disorder, single episode, unspecified
CPT/HCPCS: 36415; 80053; 83690; 85025; 81001; 81025; 99284; 96374; 96375 ×3; 96361; J1200; J2765; J0696; C9113

== ENCOUNTER 2021-05-17 11:17 | Emergency (ER) | payer OTHER ==
[2021-05-17 11:49] VITALS: RESP 18; TEMP 98.3
[2021-05-17] MEDS ORDERED: ONDANSETRON 4 MG/2 ML VIAL IVP STA (12:30)
[2021-05-17] MEDS ORDERED: SODIUM CHLORIDE 0.9% 1,000 ML IV STA (12:30)
[2021-05-17] MEDS ORDERED: MORPHINE SULFATE 4 MG/ML SYRINGE IV STA (12:30)
[2021-05-17 13:15] LABS: Basophils % (A) 0 %; Eosinophils # (A) 0.1 k/uL (0-0.7); Eosinophils % (A) 1 %; HCT 37.4 % (34.0-46.0); Lymphocytes # (A) 2.4 k/uL (1.0-4.8); Lymphocytes % (A) 27 %; MCH 30.8 pg (25.0-35.0); MCHC 34.7 g/dL (31.0-37.0); MCV 88.7 fL (80.0-100.0); Mean Platelet Volume 8.2; Monocytes # (A) 0.3 k/uL (0-1.0); Monocytes % (A) 4 %; Neutrophils # (A) 6.1 k/uL (1.3-7.7); Neutrophils % (A) 68 %; Platelet Count 195 k/uL (150-450); RBC 4.21 m/uL (3.80-5.40); RDW 12.9 % (11.5-15.5)
[2021-05-17 13:25] LABS: ALT 32 U/L (4-34); AST 32 U/L (14-36); African American GFR (CKD) >90 (>60 ml/min/1.73 sqM); Albumin 3.7 g/dL (3.5-5.0); Alkaline Phosphatase 64 U/L (38-126); Amylase 69 U/L (30-110); Anion Gap 9 mmol/L; Blood Urea Nitrogen 10 mg/dL (7-17); Calcium 9.1 mg/dL (8.4-10.2); Carbon Dioxide 21 mmol/L (22-30); Chloride 107 mmol/L (98-107); Glucose 98 mg/dL (74-99); Lipase 146 U/L (23-300); Non-African American GFR(CKD) >90 (>60 ml/min/1.73 sqM); Potassium 4.2 mmol/L (3.5-5.1); Sodium 137 mmol/L (137-145); Total Bilirubin 0.4 mg/dL (0.2-1.3); Total Protein 6.6 g/dL (6.3-8.2)
[2021-05-17 13:40] LABS: HCG,Quantitative Serum <2.4 mIU/mL
[2021-05-17 13:42] LABS: Appearance,Urine Cloudy (Clear); Bilirubin,Urine Negative (Negative); Blood,Urine Negative (Negative); Color,Urine Light Yellow; Glucose,Urine (UA) Negative (Negative); Ketones,Urine Negative (Negative); Leukocyte Esterase,Urine Negative (Negative); Mucus,Urine Rare /hpf; Nitrite,Urine Negative (Negative); Protein,Urine Negative (Negative); RBC,Urine 1 /hpf (0-5); Squamous Epithelial Cell,Urine 3 /hpf (0-4); Urobilinogen,Urine <2.0 mg/dL (<2.0); WBC,Urine 1 /hpf (0-5)
--- NOTE | 2021-05-17 14:52 | CT ---
EXAMINATION TYPE: CT abdomen pelvis w con DATE OF EXAM: 05/17/2021 COMPARISON: None HISTORY: Abdominal pain CT DLP: 2413.2 mGycm CONTRAST: CT scan of the abdomen and pelvis is performed without Oral Contrast and with IV Contrast, patient in jected with 100 mL of Isovue 300. FINDINGS: LUNG BASES-: No visible nodule. No infiltrate. LIVER/GB: The gallbladder is mildly distended. Small gallstone is noted. Suggestion of mild wall th ickening without pericholecystic fluid. Hepatic steatosis identified. No space occupying hepatic les ion. Biliary tree is of normal caliber. PANCREAS: No inflammation. No distinct mass. SPLEEN: No splenic enlargement. No lesion seen. ADRENALS: No nodule. No thickening. KIDNEYS/BLADDER: No hydronephrosis. Bilateral nephrolithiasis noted. No distinct renal mass. Urinar y bladder grossly unremarkable. BOWEL: Normal appendix. Normal bowel caliber. No inflammation. GENITAL ORGANS: No gross abnormality. LYMPH NODES: No greater than 1cm abdominal or pelvic lymph nodes are appreciated. AORTA: No significant abnormality. OSSEOUS STRUCTURES: No significant abnormality is seen. OTHER: No significant additional abnormality is seen. IMPRESSION: 1. Mild distention of the gallbladder with mild wall thickening and small gallstone. 2. Nonobstructing bilateral nephrolithiasis. 3. Hepatic steatosis.
--- NOTE | 2021-05-17 14:59 | ED ---
Abdominal Pain HPI - General Chief Complaint: Abdominal Pain Stated Complaint: abd pain, cough Time Seen by Provider: 05/17/21 12:24 Source: patient, RN notes reviewed Mode of arrival: wheelchair Limitations: no limitations - History of Present Illness Initial Comments: Patient is a 25-year-old female that presents to emergency department complaining of abdominal pain that started last night no relief from any at home remedies. She notes that the pain is generalized all over. She notes that resting does not improve pain. She notes that nothing really aggravates pain is constant. She notes the pain is a 10 out of 10 with no relief. She denied any other issues or complaints. She denied any chest pain shortness of breath headache nausea vomiting diarrhea constipation fever fatigue chills. - Related Data Home Medications Medication Instructions Recorded Confirmed Docusate [Colace] 100 mg PO DAILY PRN 05/17/21 05/17/21 Escitalopram Oxalate [Lexapro] 20 mg PO DAILY 05/17/21 05/17/21 Ibuprofen [Motrin] 600 mg PO Q4H PRN 05/17/21 05/17/21 Metoprolol Succinate (ER) [Toprol 25 mg PO DAILY 05/17/21 05/17/21 Xl] Pirmella 1 tab PO DAILY 05/17/21 05/17/21 Previous Rx's Medication Instructions Recorded Omeprazole [PriLOSEC] 40 mg PO DAILY #14 cap 03/07/21 Ketorolac [Toradol] 10 mg PO Q8HR #15 tab 05/17/21 Allergies Allergy/AdvReac Type Severity Reaction Status Date / Time No Known Allergies Allergy Verified 05/17/21 13:38 Review of Systems ROS Statement: Those systems with pertinent positive or pertinent negative responses have been documented in the HPI. ROS Other: All systems not noted in ROS Statement are negative. Past Medical History Past Medical History: Asthma, Osteoarthritis (OA) History of Any Multi-Drug Resistant Organisms: None Reported Past Surgical History: Appendectomy, Section Additional Past Surgical History / Comment(s): Past Anesthesia/Blood Transfusion Reactions: No Reported Reaction Past Psychological History: ADD/ADHD, Anxiety, Depression Smoking Status: Vaper Past Alcohol Use History: None Reported Past Drug Use History: None Reported - Past Family History Father Family Medical History: No Reported History Mother Family Medical History: No Reported History General Exam Limitations: no limitations General appearance: alert, in no apparent distress, obese Head exam: Present: atraumatic, normocephalic, normal inspection Eye exam: Present: normal appearance, PERRL, EOMI. Absent: scleral icterus, conjunctival injection, periorbital swelling ENT exam: Present: normal exam, mucous membranes moist Neck exam: Present: normal inspection Respiratory exam: Present: normal lung sounds bilaterally. Absent: respiratory distress, wheezes, rales, rhonchi, stridor Cardiovascular Exam: Present: regular rate, normal rhythm, normal heart sounds. Absent: systolic murmur, diastolic murmur, rubs, gallop, clicks GI/Abdominal exam: Present: soft, tenderness (In all quadrants.), normal bowel sounds. Absent: distended, guarding, rebound, rigid Extremities exam: Present: normal inspection, full ROM, normal capillary refill. Absent: tenderness, pedal edema, joint swelling, calf tenderness Neurological exam: Present: alert, oriented X3 Psychiatric exam: Present: normal affect, normal mood Skin exam: Present: warm, dry, intact, normal color. Absent: rash Course Vital Signs 05/17/21 11:48 Temperature 98.3 F Pulse Rate 92 Respiratory 18 Rate Blood Pressure 119/74 O2 Sat by Pulse 98 Oximetry Medical Decision Making - Medical Decision Making 25-year-old female with abdominal pain times one day. Labs, 1 L normal saline, 4 mg of morphine, 4 mg Zofran, CT abdomen and pelvis ordered. Labs unremarkable. CT shows a distended gallbladder with a small gallstone nonobstructing bilateral kidney stones. Patient did appear to be feeling better while laying in bed upon reevaluation. Case discussed with Dr. Dao, patient discharge home with follow-up to primary care and GI. - Lab Data Result diagrams: 05/17/21 12:46 05/17/21 12:46 Lab Results 05/17/21 05/17/21 05/17/21 Range/Units 12:46 12:46 12:46 WBC 9.0 (3.8-10.6) k/uL RBC 4.21 (3.80-5.40) m/uL Hgb 13.0 (11.4-16.0) gm/dL Hct 37.4 (34.0-46.0) % MCV 88.7 (80.0-100.0) fL MCH 30.8 (25.0-35.0) pg MCHC 34.7 (31.0-37.0) g/dL RDW 12.9 (11.5-15.5) % Plt Count 195 (150-450) k/uL MPV 8.2 Neutrophils % 68 % Lymphocytes % 27 % Monocytes % 4 % Eosinophils % 1 % Basophils % 0 % Neutrophils # 6.1 (1.3-7.7) k/uL Lymphocytes # 2.4 (1.0-4.8) k/uL Monocytes # 0.3 (0-1.0) k/uL Eosinophils # 0.1 (0-0.7) k/uL Basophils # 0.0 (0-0.2) k/uL Sodium 137 (137-145) mmol/L Potassium 4.2 (3.5-5.1) mmol/L Chloride 107 (98-107) mmol/L Carbon Dioxide 21 L (22-30) mmol/L Anion Gap 9 mmol/L BUN 10 (7-17) mg/dL Creatinine 0.71 (0.52-1.04) mg/dL Est GFR (CKD-EPI)AfAm >90 (>60 ml/min/1.73 sqM) Est GFR (CKD-EPI)NonAf >90 (>60 ml/min/1.73 sqM) Glucose 98 (74-99) mg/dL Plasma Lactic Acid [place] (0.7-2.0) mmol/L Calcium 9.1 (8.4-10.2) mg/dL Total Bilirubin 0.4 (0.2-1.3) mg/dL AST 32 (14-36) U/L ALT 32 (4-34) U/L Alkaline Phosphatase 64 (38-126) U/L Total Protein 6.6 (6.3-8.2) g/dL Albumin 3.7 (3.5-5.0) g/dL Amylase 69 (30-110) U/L Lipase 146 (23-300) U/L HCG, Quant <2.4 mIU/mL Urine Color Light Yellow Urine Appearance Cloudy H (Clear) Urine pH 6.0 (5.0-8.0) Ur Specific [place] 1.010 (1.001-1.035) Urine Protein Negative (Negative) Urine Glucose (UA) Negative (Negative) Urine Ketones Negative (Negative) Urine Blood Negative (Negative) Urine Nitrite Negative (Negative) Urine Bilirubin Negative (Negative) Urine Urobilinogen <2.0 (<2.0) mg/dL Ur Leukocyte Esterase Negative (Negative) Urine RBC 1 (0-5) /hpf Urine WBC 1 (0-5) /hpf Ur Squamous Epith Cells 3 (0-4) /hpf Urine Mucus Rare H (None) /hpf 05/17/21 Range/Units 12:46 WBC (3.8-10.6) k/uL RBC (3.80-5.40) m/uL Hgb (11.4-16.0) gm/dL Hct (34.0-46.0) % MCV (80.0-100.0) fL MCH (25.0-35.0) pg MCHC (31.0-37.0) g/dL RDW (11.5-15.5) % Plt Count (150-450) k/uL MPV Neutrophils % % Lymphocytes % % Monocytes % % Eosinophils % % Basophils % % Neutrophils # (1.3-7.7) k/uL Lymphocytes # (1.0-4.8) k/uL Monocytes # (0-1.0) k/uL Eosinophils # (0-0.7) k/uL Basophils # (0-0.2) k/uL Sodium (137-145) mmol/L Potassium (3.5-5.1) mmol/L Chloride (98-107) mmol/L Carbon Dioxide (22-30) mmol/L Anion Gap mmol/L BUN (7-17) mg/dL Creatinine (0.52-1.04) mg/dL Est GFR (CKD-EPI)AfAm (>60 ml/min/1.73 sqM) Est GFR (CKD-EPI)NonAf (>60 ml/min/1.73 sqM) Glucose (74-99) mg/dL Plasma Lactic Acid [place] 1.0 (0.7-2.0) mmol/L Calcium (8.4-10.2) mg/dL Total Bilirubin (0.2-1.3) mg/dL AST (14-36) U/L ALT (4-34) U/L Alkaline Phosphatase (38-126) U/L Total Protein (6.3-8.2) g/dL Albumin (3.5-5.0) g/dL Amylase (30-110) U/L Lipase (23-300) U/L HCG, Quant mIU/mL Urine Color Urine Appearance (Clear) Urine pH (5.0-8.0) Ur Specific [place] (1.001-1.035) Urine Protein (Negative) Urine Glucose (UA) (Negative) Urine Ketones (Negative) Urine Blood (Negative) Urine Nitrite (Negative) Urine Bilirubin (Negative) Urine Urobilinogen (<2.0) mg/dL Ur Leukocyte Esterase (Negative) Urine RBC (0-5) /hpf Urine WBC (0-5) /hpf Ur Squamous Epith Cells (0-4) /hpf Urine Mucus (None) /hpf - Radiology Data Radiology results: report reviewed, image reviewed CT of the abdomen and pelvis: Mild distention of the gallbladder with mild wall thickening and small gallstone. Nonobstructing bilateral nephrolithiasis. Hepatic steatosis. Disposition Clinical Impression: Abdominal pain, Gallstone, Bilateral nephrolithiasis Disposition: HOME SELF-CARE Condition: Stable Instructions (If sedation given, give patient instructions): Abdominal Pain (ED) Additional Instructions: Please return to the Emergency Department if symptoms worsen or any other concerns. Follow-up with primary care in 1-2 days. Follow-up with GI in 1-2 days. Take pain medication as prescribed. Increase oral fluids. Is patient prescribed a controlled substance at d/c from ED?: No Referrals: Osmar Lundberg MD [Primary Care Provider] - 1-2 days Yasemin Torres MD [STAFF PHYSICIAN] - 1-2 days Time of Disposition: 14:59
[2021-05-17 15:15] VITALS: BP 114/63; PULSE 74
== END 2021-05-17 15:15 | disposition home or self-care (01) ==
LOC: EC 11:17
DX: K80.20 Calculus of gallbladder without cholecystitis without obstruction (principal); N20.0 Calculus of kidney; J45.909 Unspecified asthma, uncomplicated; M19.90 Unspecified osteoarthritis, unspecified site; F90.9 Attention-deficit hyperactivity disorder, unspecified type; F41.9 Anxiety disorder, unspecified; F32.9 Major depressive disorder, single episode, unspecified; F17.290 Nicotine dependence, other tobacco product, uncomplicated; Z90.49 Acquired absence of other specified parts of digestive tract
CPT/HCPCS: 99284; 96374; 96375; 96361 ×2; 36415; 80053; 82150; 83605; 83690; 85025; 81001; 84702; 74177; J2270; J2405; Q9967

== ENCOUNTER 2021-06-04 00:26 | Emergency (ER) | payer OTHER ==
[2021-06-04] MEDS ORDERED: SODIUM CHLORIDE 0.9% 1,000 ML IV STA (01:05)
[2021-06-04] MEDS ORDERED: ONDANSETRON 4 MG/2 ML VIAL IVP STA (01:05)
--- NOTE | 2021-06-04 01:15 | ED ---
General Adult HPI - General Chief complaint: Nausea/Vomiting/Diarrhea Stated complaint: N/V Time Seen by Provider: 06/04/21 00:39 Source: patient, EMS, RN notes reviewed Mode of arrival: EMS Limitations: no limitations - History of Present Illness Initial comments: This is a 25-year-old female who presents to the emergency department via EMS for evaluation. States she has had multiple episodes of nausea and vomiting, onset 90 minutes prior to arrival. Patient states she began using "wax," which she says is marijuana, 2 days ago, then increased the frequency of use today; also reports drinking wine coolers this evening. Zofran was administered per EMS prior to arrival and patient has had a reprieve from her vomiting, but continues to complain of persistent nausea and upper abdominal pain. Patient also states she has known gallstones and is scheduled for a HIDA scan. Denies fever, chills, headache, dizziness, chest pain, shortness of breath, urinary symptoms, diarrhea, and constipation. - Related Data Home Medications Medication Instructions Recorded Confirmed Docusate [Colace] 100 mg PO DAILY PRN 05/17/21 05/17/21 Escitalopram Oxalate [Lexapro] 20 mg PO DAILY 05/17/21 05/17/21 Ibuprofen [Motrin] 600 mg PO Q4H PRN 05/17/21 05/17/21 Metoprolol Succinate (ER) [Toprol 25 mg PO DAILY 05/17/21 05/17/21 Xl] Pirmella 1 tab PO DAILY 05/17/21 05/17/21 Previous Rx's Medication Instructions Recorded Omeprazole [PriLOSEC] 40 mg PO DAILY #14 cap 03/07/21 Ketorolac [Toradol] 10 mg PO Q8HR #15 tab 05/17/21 Ondansetron Odt [Zofran Odt] 4 mg PO Q8HR PRN #10 tab 06/04/21 Allergies Allergy/AdvReac Type Severity Reaction Status Date / Time No Known Allergies Allergy Verified 05/17/21 13:38 Review of Systems ROS Statement: Those systems with pertinent positive or pertinent negative responses have been documented in the HPI. ROS Other: All systems not noted in ROS Statement are negative. Past Medical History Past Medical History: Asthma, Osteoarthritis (OA) History of Any Multi-Drug Resistant Organisms: None Reported Past Surgical History: Appendectomy, Section Additional Past Surgical History / Comment(s): Past Anesthesia/Blood Transfusion Reactions: No Reported Reaction Past Psychological History: ADD/ADHD, Anxiety, Depression Smoking Status: Vaper Past Alcohol Use History: Occasional Past Drug Use History: Marijuana - Past Family History Father Family Medical History: No Reported History Mother Family Medical History: No Reported History General Exam Limitations: no limitations General appearance: alert, in no apparent distress, other (well-developed, well- nourished female in no acute distress) Head exam: Present: atraumatic, normocephalic, normal inspection Respiratory exam: Present: normal lung sounds bilaterally. Absent: respiratory distress, wheezes, rales, rhonchi, stridor Cardiovascular Exam: Present: regular rate, normal rhythm, normal heart sounds. Absent: systolic murmur, diastolic murmur, rubs, gallop, clicks GI/Abdominal exam: Present: soft, tenderness (Right upper quadrant), normal bowel sounds. Absent: distended, guarding, rebound, rigid Back exam: Present: CVA tenderness (R), CVA tenderness (L) Neurological exam: Present: alert, oriented X3 Psychiatric exam: Present: normal affect, flat affect Skin exam: Present: warm, dry, intact, normal color Course Vital Signs 06/04/21 06/04/21 00:44 02:58 Temperature 98.2 F 98.0 F Pulse Rate 88 82 Respiratory 17 20 Rate Blood Pressure 120/72 125/84 O2 Sat by Pulse 96 98 Oximetry Medical Decision Making - Medical Decision Making 25-year-old female with a history of known cholelithiasis and nephrolithiasis is evaluated for acute episode of nausea and vomiting. Physical exam is significant for right upper quadrant tenderness; vomiting resolved upon arrival. Patient does have mildly elevated liver enzymes, AST 53, ALT 42; alk phos and bilirubin within normal limits, which is felt to be reactive to her alcohol intake tonight. Nausea improved with Zofran and hydration. Patient does have a HIDA scan scheduled. Dietary modifications were discussed with patient in detail. Patient was instructed to follow up with her primary care provider for recheck in the next 1-2 days. Return parameters were discussed in detail. Patient verbalizes understanding and agrees with this plan. This patient's case was discussed with my attending. - Lab Data Result diagrams: 06/04/21 01:06/04/21 01: Lab Results 06/04/21 06/04/21 06/04/21 Range/Units 01: 01: 01:28 WBC 10.1 (3.8-10.6) k/uL RBC 4.50 (3.80-5.40) m/uL Hgb 13.3 (11.4-16.0) gm/dL Hct 41.9 (34.0-46.0) % MCV 93.2 (80.0-100.0) fL MCH 29.5 (25.0-35.0) pg MCHC 31.6 (31.0-37.0) g/dL RDW 13.3 (11.5-15.5) % Plt Count 215 (150-450) k/uL MPV 8.2 Neutrophils % 68 % Lymphocytes % 26 % Monocytes % 4 % Eosinophils % 1 % Basophils % 1 % Neutrophils # 6.8 (1.3-7.7) k/uL Lymphocytes # 2.6 (1.0-4.8) k/uL Monocytes # 0.4 (0-1.0) k/uL Eosinophils # 0.1 (0-0.7) k/uL Basophils # 0.1 (0-0.2) k/uL Sodium 138 (137-145) mmol/L Potassium 4.3 (3.5-5.1) mmol/L Chloride 103 (98-107) mmol/L Carbon Dioxide 24 (22-30) mmol/L Anion Gap 11 mmol/L BUN 17 (7-17) mg/dL Creatinine 0.94 (0.52-1.04) mg/dL Est GFR (CKD-EPI)AfAm >90 (>60 ml/min/1.73 sqM) Est GFR (CKD-EPI)NonAf 85 (>60 ml/min/1.73 sqM) Glucose 104 H (74-99) mg/dL Calcium 9.9 (8.4-10.2) mg/dL Total Bilirubin 0.5 (0.2-1.3) mg/dL AST 53 H (14-36) U/L ALT 42 H (4-34) U/L Alkaline Phosphatase 61 (38-126) U/L Total Protein 7.3 (6.3-8.2) g/dL Albumin 4.2 (3.5-5.0) g/dL Lipase 101 (23-300) U/L Urine Color Yellow Urine Appearance Cloudy H (Clear) Urine pH 6.5 (5.0-8.0) Ur Specific [place] 1.019 (1.001-1.035) Urine Protein Negative (Negative) Urine Glucose (UA) Negative (Negative) Urine Ketones Negative (Negative) Urine Blood Negative (Negative) Urine Nitrite Negative (Negative) Urine Bilirubin Negative (Negative) Urine Urobilinogen 4.0 (<2.0) mg/dL Ur Leukocyte Esterase Negative (Negative) Urine RBC 2 (0-5) /hpf Urine WBC 1 (0-5) /hpf Ur Squamous Epith Cells 1 (0-4) /hpf Amorphous Sediment Occasional H (None) /hpf Hyaline Casts 1 (0-2) /lpf Granular Casts 1 (0) /lpf Urine Mucus Rare H (None) /hpf Disposition Clinical Impression: Nausea & vomiting Disposition: HOME SELF-CARE Condition: Stable Instructions (If sedation given, give patient instructions): Acute Nausea and Vomiting (ED) Additional Instructions: Make dietary modifications as discussed. Eat small more frequent meals. Avoid fatty, spicy, and difficult to digest foods. Call on your HIDA scan tomorrow morning. Take Zofran for nausea, Tylenol or Motrin for pain. Return to the emergency department for any new, worsening, or concerning symptoms. Prescriptions: Ondansetron Odt [Zofran Odt] 4 mg PO Q8HR PRN #10 tab PRN Reason: Nausea Is patient prescribed a controlled substance at d/c from ED?: No Referrals: Osmar Lundberg MD [Primary Care Provider] - 1-2 days Time of Disposition: 02:36
[2021-06-04 01:56] LABS: ALT 42 U/L (4-34); AST 53 U/L (14-36); African American GFR (CKD) >90 (>60 ml/min/1.73 sqM); Albumin 4.2 g/dL (3.5-5.0); Alkaline Phosphatase 61 U/L (38-126); Anion Gap 11 mmol/L; Basophils # (A) 0.1 k/uL (0-0.2); Basophils % (A) 1 %; Blood Urea Nitrogen 17 mg/dL (7-17); Calcium 9.9 mg/dL (8.4-10.2); Carbon Dioxide 24 mmol/L (22-30); Chloride 103 mmol/L (98-107); Eosinophils # (A) 0.1 k/uL (0-0.7); Eosinophils % (A) 1 %; Glucose 104 mg/dL (74-99); HCT 41.9 % (34.0-46.0); HGB 13.3 gm/dL (11.4-16.0); Lipase 101 U/L (23-300); Lymphocytes # (A) 2.6 k/uL (1.0-4.8); Lymphocytes % (A) 26 %; MCH 29.5 pg (25.0-35.0); MCHC 31.6 g/dL (31.0-37.0); MCV 93.2 fL (80.0-100.0); Mean Platelet Volume 8.2; Monocytes # (A) 0.4 k/uL (0-1.0); Monocytes % (A) 4 %; Neutrophils # (A) 6.8 k/uL (1.3-7.7); Neutrophils % (A) 68 %; Non-African American GFR(CKD) 85 (>60 ml/min/1.73 sqM); Platelet Count 215 k/uL (150-450); Potassium 4.3 mmol/L (3.5-5.1); RDW 13.3 % (11.5-15.5); Sodium 138 mmol/L (137-145); Total Bilirubin 0.5 mg/dL (0.2-1.3); Total Protein 7.3 g/dL (6.3-8.2); WBC 10.1 k/uL (3.8-10.6)
[2021-06-04 02:07] LABS: Amorphous Sediment,Urine Occasional /hpf; Appearance,Urine Cloudy (Clear); Bilirubin,Urine Negative (Negative); Blood,Urine Negative (Negative); Color,Urine Yellow; Glucose,Urine (UA) Negative (Negative); Granular Casts,Urine 1 /lpf (0); Hyaline Casts,Urine 1 /lpf (0-2); Ketones,Urine Negative (Negative); Leukocyte Esterase,Urine Negative (Negative); Mucus,Urine Rare /hpf; Nitrite,Urine Negative (Negative); PH, Urine 6.5 (5.0-8.0); Protein,Urine Negative (Negative); RBC,Urine 2 /hpf (0-5); Specific Gravity,Urine 1.019 (1.001-1.035); Squamous Epithelial Cell,Urine 1 /hpf (0-4); WBC,Urine 1 /hpf (0-5)
[2021-06-04] MEDS ORDERED: ONDANSETRON 4 MG ODT STARTER PACK 2 TAB BTL PO STA (02:32)
[2021-06-04 03:01] VITALS: BP 125/84; PULSE 82; RESP 20; TEMP 98
== END 2021-06-04 03:15 | disposition home or self-care (01) ==
LOC: EC 00:26
DX: R11.2 Nausea with vomiting, unspecified (principal); J45.909 Unspecified asthma, uncomplicated; M19.90 Unspecified osteoarthritis, unspecified site; F41.9 Anxiety disorder, unspecified; F32.9 Major depressive disorder, single episode, unspecified; F17.290 Nicotine dependence, other tobacco product, uncomplicated; F12.90 Cannabis use, unspecified, uncomplicated; Z90.49 Acquired absence of other specified parts of digestive tract
CPT/HCPCS: 99284; 96374; 96361; 36415; 80053; 83690; 85025; 81001; S0119

== ENCOUNTER → 2021-07-07 | Outpatient (CLI) | payer OTHER ==
--- NOTE | 2021-07-07 13:05 | XR ---
Right ankle HISTORY: Pain, M25.579 Pain in ankle 3 views the right ankle correlated to prior exam 10/10/2014 There is no significant soft tissue swelling. Bone mineralization, joint spaces and alignment are concepcion ntained. IMPRESSION: No acute fracture or dislocation.
== END | disposition home or self-care (01) ==
LOC: RADXRMAIN 12:43
PROVIDERS: ATTEND Family Medicine
DX: M25.571 Pain in right ankle and joints of right foot (principal)

== ENCOUNTER 2021-08-04 13:32 | Emergency (ER) | payer OTHER ==
[2021-08-04 14:11] VITALS: BP 123/75; PULSE 97; RESP 19; TEMP 99.6
[2021-08-04] MEDS ORDERED: ONDANSETRON 4 MG/2 ML VIAL IVP STA (17:11)
[2021-08-04] MEDS ORDERED: KETOROLAC 15 MG/ML 1 ML VIAL IVP STA (17:11)
[2021-08-04] MEDS ORDERED: KETOROLAC 30 MG/ML 1 ML VIAL IVP STA (17:16)
[2021-08-04 17:47] LABS: Basophils % (A) 0 %; Eosinophils # (A) 0.2 k/uL (0-0.7); Eosinophils % (A) 2 %; HCT 37.3 % (34.0-46.0); HGB 12.6 gm/dL (11.4-16.0); Lymphocytes # (A) 2.9 k/uL (1.0-4.8); Lymphocytes % (A) 30 %; MCH 30.8 pg (25.0-35.0); MCHC 33.9 g/dL (31.0-37.0); Mean Platelet Volume 7.7; Monocytes # (A) 0.5 k/uL (0-1.0); Monocytes % (A) 5 %; Neutrophils # (A) 5.9 k/uL (1.3-7.7); Neutrophils % (A) 61 %; Platelet Count 232 k/uL (150-450); RDW 12.7 % (11.5-15.5); WBC 9.6 k/uL (3.8-10.6)
[2021-08-04 17:57] LABS: ALT 85 U/L (4-34); AST 61 U/L (14-36); African American GFR (CKD) >90 (>60 ml/min/1.73 sqM); Albumin 4.1 g/dL (3.5-5.0); Alkaline Phosphatase 58 U/L (38-126); Amylase 62 U/L (30-110); Anion Gap 8 mmol/L; Blood Urea Nitrogen 17 mg/dL (7-17); Calcium 9.4 mg/dL (8.4-10.2); Carbon Dioxide 22 mmol/L (22-30); Chloride 107 mmol/L (98-107); Glucose 89 mg/dL (74-99); Lipase 93 U/L (23-300); Non-African American GFR(CKD) >90 (>60 ml/min/1.73 sqM); Potassium 4.1 mmol/L (3.5-5.1); Sodium 137 mmol/L (137-145); Total Bilirubin 0.2 mg/dL (0.2-1.3); Total Protein 7.2 g/dL (6.3-8.2)
[2021-08-04 18:00] LABS: Appearance,Urine Cloudy (Clear); Bilirubin,Urine Negative (Negative); Blood,Urine Negative (Negative); Calcium Oxalate Crystals,Urine Rare /hpf; Color,Urine Yellow; Glucose,Urine (UA) Negative (Negative); Ketones,Urine Negative (Negative); Leukocyte Esterase,Urine Negative (Negative); Mucus,Urine Rare /hpf; Nitrite,Urine Negative (Negative); Protein,Urine Negative (Negative); RBC,Urine 8 /hpf (0-5); Squamous Epithelial Cell,Urine 4 /hpf (0-4); Urobilinogen,Urine <2.0 mg/dL (<2.0); WBC,Urine 4 /hpf (0-5)
--- NOTE | 2021-08-04 18:17 | ED ---
Abdominal Pain HPI - General Chief Complaint: Abdominal Pain Stated Complaint: Abd Pain, Congestion Time Seen by Provider: 08/04/21 16:52 Source: patient Mode of arrival: wheelchair Limitations: no limitations - History of Present Illness Initial Comments: Patient is a 25-year-old female presenting to the emergency Department with complaints of nausea, vomiting, right upper quadrant pain over the past week. Patient states she noticed she has a few stones in her gallbladder, was supposed to have a HIDA scan a few months ago but stated that she was feeling sick since she canceled it. Patient states her symptoms have been increasing over the past week. She is now having 9/10 pain in the right upper quadrant. She states she also "thinks she may be ." Her periods have been irregular over the past couple months. She denies any lower abdominal pain, no vaginal bleeding. His history of appendectomy, , no other abdominal surgeries. She denies any chest pain or shortness of breath, no fevers or chills. She has no further complaints. Her vital signs are stable upon arrival. - Related Data Home Medications Medication Instructions Recorded Confirmed Escitalopram Oxalate [Lexapro] 20 mg PO HS 05/17/21 08/04/21 Metoprolol Succinate (ER) [Toprol 25 mg PO DAILY 05/17/21 08/04/21 Xl] Pirmella 1 tab PO HS 05/17/21 08/04/21 Acetaminophen Tab [Tylenol] 650 mg PO Q4H PRN 08/04/21 08/04/21 Cyanocobalamin (Vitamin B-12) 2,000 mcg PO DAILY 08/04/21 08/04/21 [Vitamin B-12] Ibuprofen [Motrin Ib] 200 mg PO Q8H PRN 08/04/21 08/04/21 Multivitamins, Thera [Multivitamin 1 tab PO DAILY 08/04/21 08/04/21 (formulary)] Allergies Allergy/AdvReac Type Severity Reaction Status Date / Time No Known Allergies Allergy Verified 08/04/21 17:24 Review of Systems ROS Statement: Those systems with pertinent positive or pertinent negative responses have been documented in the HPI. ROS Other: All systems not noted in ROS Statement are negative. Past Medical History Past Medical History: Asthma, Osteoarthritis (OA) History of Any Multi-Drug Resistant Organisms: None Reported Past Surgical History: Appendectomy, Section Additional Past Surgical History / Comment(s): Past Anesthesia/Blood Transfusion Reactions: No Reported Reaction Past Psychological History: ADD/ADHD, Anxiety, Depression Smoking Status: Vaper Past Alcohol Use History: Occasional Past Drug Use History: Marijuana - Past Family History Father Family Medical History: No Reported History Mother Family Medical History: No Reported History General Exam - General Exam Comments Initial Comments: GENERAL: Patient is well-developed and well-nourished. Patient is nontoxic and in no acute distress. HEAD: Atraumatic, normocephalic. EYES: Pupils equal round and reactive to light, extraocular movements intact, sclera anicteric, conjunctiva are normal. Eyelids were unremarkable. ENT: Moist mucous membranes. NECK: Normal range of motion, supple without lymphadenopathy or JVD. LUNGS: Unlabored respirations. Breath sounds clear to auscultation bilaterally and equal. No wheezes rales or rhonchi. HEART: Regular rate and rhythm without murmurs, rubs or gallops. ABDOMEN: Soft, tender to palpation of the right upper quadrant and epigastric area, normoactive bowel sounds. No rebound. No masses appreciated. : Deferred MUSCULOSKELETAL: Normal extremities with adequate strength and normal range of motion, no pitting or edema. No clubbing or cyanosis. NEUROLOGICAL: Patient is alert and oriented x 3. SKIN: Warm, Dry, normal turgor, no rashes or lesions noted. Limitations: no limitations Course Vital Signs 08/04/21 14:09 Temperature 99.6 F Pulse Rate 97 Respiratory 19 Rate Blood Pressure 123/75 O2 Sat by Pulse 95 Oximetry Medical Decision Making - Medical Decision Making Patient is a 25-year-old female here with right upper quadrant pain, nausea and vomiting for the past week. History of , appendectomy. Her vital signs are stable. Labs are unremarkable including normal liver enzymes and bilirubin. Ultrasound reveals cholelithiasis, no acute cholecystitis. Urine is unremarkable, she is not . Patient received some fluids and pain control, has been resting comfortably. I discussed these findings with her. She can follow up with surgery. She is agreeable to this plan of care and is stable for discharge. Case discussed with Dr. Self. - Lab Data Result diagrams: 08/04/21 17:32 08/04/21 17:32 Lab Results 08/04/21 08/04/21 08/04/21 Range/Units 14:13 17:26 17:26 WBC (3.8-10.6) k/uL RBC (3.80-5.40) m/uL Hgb (11.4-16.0) gm/dL Hct (34.0-46.0) % MCV (80.0-100.0) fL MCH (25.0-35.0) pg MCHC (31.0-37.0) g/dL RDW (11.5-15.5) % Plt Count (150-450) k/uL MPV Neutrophils % % Lymphocytes % % Monocytes % % Eosinophils % % Basophils % % Neutrophils # (1.3-7.7) k/uL Lymphocytes # (1.0-4.8) k/uL Monocytes # (0-1.0) k/uL Eosinophils # (0-0.7) k/uL Basophils # (0-0.2) k/uL Sodium (137-145) mmol/L Potassium (3.5-5.1) mmol/L Chloride (98-107) mmol/L Carbon Dioxide (22-30) mmol/L Anion Gap mmol/L BUN (7-17) mg/dL Creatinine (0.52-1.04) mg/dL Est GFR (CKD-EPI)AfAm (>60 ml/min/1.73 sqM) Est GFR (CKD-EPI)NonAf (>60 ml/min/1.73 sqM) Glucose (74-99) mg/dL Calcium (8.4-10.2) mg/dL Total Bilirubin (0.2-1.3) mg/dL AST (14-36) U/L ALT (4-34) U/L Alkaline Phosphatase (38-126) U/L Total Protein (6.3-8.2) g/dL Albumin (3.5-5.0) g/dL Amylase (30-110) U/L Lipase (23-300) U/L Urine Color Yellow Urine Appearance Cloudy H (Clear) Urine pH 6.0 (5.0-8.0) Ur Specific [place] 1.030 (1.001-1.035) Urine Protein Negative (Negative) Urine Glucose (UA) Negative (Negative) Urine Ketones Negative (Negative) Urine Blood Negative (Negative) Urine Nitrite Negative (Negative) Urine Bilirubin Negative (Negative) Urine Urobilinogen <2.0 (<2.0) mg/dL Ur Leukocyte Esterase Negative (Negative) Urine RBC 8 H (0-5) /hpf Urine WBC 4 (0-5) /hpf Ur Squamous Epith Cells 4 (0-4) /hpf Calcium Oxalate Crystal Rare H (None) /hpf Urine Mucus Rare H (None) /hpf Urine HCG, Qual Not Detected (Not Detectd) Coronavirus (PCR) Not Detected (Not Detectd) 08/04/21 08/04/21 Range/Units 17:32 17:32 WBC 9.6 (3.8-10.6) k/uL RBC 4.10 (3.80-5.40) m/uL Hgb 12.6 (11.4-16.0) gm/dL Hct 37.3 (34.0-46.0) % MCV 91.0 (80.0-100.0) fL MCH 30.8 (25.0-35.0) pg MCHC 33.9 (31.0-37.0) g/dL RDW 12.7 (11.5-15.5) % Plt Count 232 (150-450) k/uL MPV 7.7 Neutrophils % 61 % Lymphocytes % 30 % Monocytes % 5 % Eosinophils % 2 % Basophils % 0 % Neutrophils # 5.9 (1.3-7.7) k/uL Lymphocytes # 2.9 (1.0-4.8) k/uL Monocytes # 0.5 (0-1.0) k/uL Eosinophils # 0.2 (0-0.7) k/uL Basophils # 0.0 (0-0.2) k/uL Sodium 137 (137-145) mmol/L Potassium 4.1 (3.5-5.1) mmol/L Chloride 107 (98-107) mmol/L Carbon Dioxide 22 (22-30) mmol/L Anion Gap 8 mmol/L BUN 17 (7-17) mg/dL Creatinine 0.80 (0.52-1.04) mg/dL Est GFR (CKD-EPI)AfAm >90 (>60 ml/min/1.73 sqM) Est GFR (CKD-EPI)NonAf >90 (>60 ml/min/1.73 sqM) Glucose 89 (74-99) mg/dL Calcium 9.4 (8.4-10.2) mg/dL Total Bilirubin 0.2 (0.2-1.3) mg/dL AST 61 H (14-36) U/L ALT 85 H (4-34) U/L Alkaline Phosphatase 58 (38-126) U/L Total Protein 7.2 (6.3-8.2) g/dL Albumin 4.1 (3.5-5.0) g/dL Amylase 62 (30-110) U/L Lipase 93 (23-300) U/L Urine Color Urine Appearance (Clear) Urine pH (5.0-8.0) Ur Specific [place] (1.001-1.035) Urine Protein (Negative) Urine Glucose (UA) (Negative) Urine Ketones (Negative) Urine Blood (Negative) Urine Nitrite (Negative) Urine Bilirubin (Negative) Urine Urobilinogen (<2.0) mg/dL Ur Leukocyte Esterase (Negative) Urine RBC (0-5) /hpf Urine WBC (0-5) /hpf Ur Squamous Epith Cells (0-4) /hpf Calcium Oxalate Crystal (None) /hpf Urine Mucus (None) /hpf Urine HCG, Qual (Not Detectd) Coronavirus (PCR) (Not Detectd) Disposition Clinical Impression: Abdominal pain, Cholelithiasis Disposition: HOME SELF-CARE Condition: Stable Instructions (If sedation given, give patient instructions): Gallstones (ED) Additional Instructions: Please return to the Emergency Department if symptoms worsen or any other concerns. Try limiting foods that are high in fat contact to help decrease your symptoms. Follow-up with your primary care physician and/or surgery. Is patient prescribed a controlled substance at d/c from ED?: No Referrals: Osmar Lundberg MD [Primary Care Provider] - 1-2 days Yulisa Lou MD [STAFF PHYSICIAN] - 1-2 days Time of Disposition: 19:14
--- NOTE | 2021-08-04 18:48 | US ---
EXAMINATION TYPE: US gallbladder DATE OF EXAM: 08/04/2021 COMPARISON: US 12/31/2019, CT 05/17/2021 CLINICAL HISTORY: RUQ pain. RUQ pain. Hx appendectomy. EXAM MEASUREMENTS: Liver Length: 20.7 cm Gallbladder Wall: 0.24 cm Right Kidney: 10.8 x 5.7 x 3.9 cm Limited due to patient body habitus and overlying bowel gas. Pancreas: Tail obscured by gas. Liver: Appears coarse enlarged with increased echogenicity and attenuation. Hypoechoic, indistinct a jessy seen adjacent to the bri hepatis measuring 5.3 x 4.0 x 3.3 cm. This appears to be some focal sp aring identified on the previous CT. Gallbladder: Multiple tiny hyperechoic foci with posterior shadowing seen within the neck. Evidence for sonographic Butts's sign: Yes. CBD: Not visualized. Right Kidney: Hyperechoic focus seen measuring 0.4 x 0.4 x 0.2 cm. Finding can be a nonobstructing r enal stone. IMPRESSION: 1. Cholelithiasis. 2. Nonobstructing right renal stone. 3. Moderate fatty infiltration of liver. Some ill-defined hypoechoic area near the bri hepatis like ly some focal sparing.
== END 2021-08-04 19:19 | disposition home or self-care (01) ==
LOC: EC 13:32
DX: K80.20 Calculus of gallbladder without cholecystitis without obstruction (principal); J45.909 Unspecified asthma, uncomplicated; M19.90 Unspecified osteoarthritis, unspecified site; F41.9 Anxiety disorder, unspecified; F90.9 Attention-deficit hyperactivity disorder, unspecified type; F32.A Depression, unspecified; F12.90 Cannabis use, unspecified, uncomplicated; F17.290 Nicotine dependence, other tobacco product, uncomplicated
CPT/HCPCS: 36415; 80053; 82150; 83690; 85025; 81001; 81025; 87635; 76705; 99284; 96374; 96375; J2405; J1885

== ENCOUNTER 2021-08-14 13:08 | Emergency (ER) | payer OTHER ==
[2021-08-14 13:40] VITALS: RESP 18; TEMP 98.6
[2021-08-14] MEDS ORDERED: SODIUM CHLORIDE 0.9% 1,000 ML IV STA (16:42)
[2021-08-14] MEDS ORDERED: ONDANSETRON 4 MG/2 ML VIAL IVP STA (16:42)
[2021-08-14 17:33] LABS: Appearance,Urine Clear (Clear); Bilirubin,Urine Negative (Negative); Blood,Urine Negative (Negative); Color,Urine Yellow; Glucose,Urine (UA) Negative (Negative); Ketones,Urine Negative (Negative); Leukocyte Esterase,Urine Negative (Negative); Nitrite,Urine Negative (Negative); Protein,Urine Negative (Negative); Specific Gravity,Urine 1.017 (1.001-1.035); Urobilinogen,Urine <2.0 mg/dL (<2.0)
[2021-08-14 17:34] LABS: Basophils % (A) 1 %; Eosinophils # (A) 0.2 k/uL (0-0.7); Eosinophils % (A) 2 %; HCT 37.4 % (34.0-46.0); HGB 12.6 gm/dL (11.4-16.0); Lymphocytes # (A) 2.3 k/uL (1.0-4.8); Lymphocytes % (A) 28 %; MCH 31.8 pg (25.0-35.0); MCHC 33.7 g/dL (31.0-37.0); MCV 94.3 fL (80.0-100.0); Mean Platelet Volume 7.9; Monocytes # (A) 0.4 k/uL (0-1.0); Monocytes % (A) 5 %; Neutrophils % (A) 61 %; Platelet Count 239 k/uL (150-450); RBC 3.97 m/uL (3.80-5.40); RDW 13.3 % (11.5-15.5); WBC 8.1 k/uL (3.8-10.6)
[2021-08-14 17:46] LABS: ALT 55 U/L (4-34); AST 45 U/L (14-36); African American GFR (CKD) >90 (>60 ml/min/1.73 sqM); Alkaline Phosphatase 64 U/L (38-126); Amylase 62 U/L (30-110); Anion Gap 9 mmol/L; Blood Urea Nitrogen 10 mg/dL (7-17); Calcium 9.2 mg/dL (8.4-10.2); Carbon Dioxide 24 mmol/L (22-30); Chloride 104 mmol/L (98-107); Glucose 125 mg/dL (74-99); Lipase 100 U/L (23-300); Non-African American GFR(CKD) >90 (>60 ml/min/1.73 sqM); Potassium 4.1 mmol/L (3.5-5.1); Sodium 137 mmol/L (137-145); Total Bilirubin 0.3 mg/dL (0.2-1.3)
[2021-08-14 18:19] VITALS: BP 113/63; PULSE 71
[2021-08-14] MEDS ORDERED: ONDANSETRON 4 MG ODT STARTER PACK 2 TAB BTL PO STA (18:20)
--- NOTE | 2021-08-14 18:21 | ED ---
Nausea/Vomiting/Diarrhea HPI - General Chief complaint: Nausea/Vomiting/Diarrhea Stated complaint: revisit - nausea, fatigue, headache Time Seen by Provider: 08/14/21 16:40 Source: patient, EMS, RN notes reviewed Mode of arrival: EMS - History of Present Illness Initial comments: Patient is a 25-year-old female that presents to the emergency department complaining of nausea on and off for the past several weeks. She notes no alleviating or aggravating factors. She notes she does have a a follow-up with a surgeon here the next couple weeks. Patient was well-appearing in no apparent distress. She denied chest pain short of breath headache diarrhea constipation fever fatigue chills. She denied . She notes she does have her gallbladder and appendix. - Related Data Home Medications Medication Instructions Recorded Confirmed Escitalopram Oxalate [Lexapro] 20 mg PO HS 05/17/21 08/14/21 Metoprolol Succinate (ER) [Toprol 25 mg PO DAILY 05/17/21 08/14/21 Xl] Acetaminophen Tab [Tylenol] 650 mg PO Q4H PRN 08/04/21 08/14/21 Cyanocobalamin (Vitamin B-12) 2,000 mcg PO DAILY 08/04/21 08/14/21 [Vitamin B-12] Multivitamins, Thera [Multivitamin 1 tab PO DAILY 08/04/21 08/14/21 (formulary)] Albuterol Sulfate [Proair Hfa] 2 puff INHALATION RT-Q4H PRN 08/14/21 08/14/21 Docusate [Colace] 100 mg PO BID 08/14/21 08/14/21 Hyoscyamine Sulfate [Levsin-Sl] 0.125 mg SL HS 08/14/21 08/14/21 Ibuprofen [Motrin] 800 mg PO Q8H PRN 08/14/21 08/14/21 Norethindrone-Ethinyl Estrad 1 tab PO HS 08/14/21 08/14/21 [Necon 0.5-35-28 Tablet] Allergies Allergy/AdvReac Type Severity Reaction Status Date / Time No Known Allergies Allergy Verified 08/14/21 16:55 Review of Systems ROS Statement: Those systems with pertinent positive or pertinent negative responses have been documented in the HPI. ROS Other: All systems not noted in ROS Statement are negative. Past Medical History Past Medical History: Asthma, Osteoarthritis (OA) History of Any Multi-Drug Resistant Organisms: None Reported Past Surgical History: Appendectomy, Section Additional Past Surgical History / Comment(s): Past Anesthesia/Blood Transfusion Reactions: No Reported Reaction Past Psychological History: ADD/ADHD, Anxiety, Depression Smoking Status: Vaper Past Alcohol Use History: Occasional Past Drug Use History: Marijuana - Past Family History Father Family Medical History: No Reported History Mother Family Medical History: No Reported History General Exam General appearance: alert, in no apparent distress, obese Head exam: Present: atraumatic, normocephalic, normal inspection Eye exam: Present: normal appearance, PERRL, EOMI. Absent: scleral icterus, conjunctival injection, periorbital swelling ENT exam: Present: normal exam, mucous membranes moist Neck exam: Present: normal inspection. Absent: tenderness, meningismus, lymphadenopathy Respiratory exam: Present: normal lung sounds bilaterally. Absent: respiratory distress, wheezes, rales, rhonchi, stridor Cardiovascular Exam: Present: regular rate, normal rhythm, normal heart sounds. Absent: systolic murmur, diastolic murmur, rubs, gallop, clicks GI/Abdominal exam: Present: soft, normal bowel sounds. Absent: distended, tenderness, guarding, rebound, rigid Extremities exam: Present: normal inspection, full ROM, normal capillary refill. Absent: tenderness, pedal edema, joint swelling, calf tenderness Neurological exam: Present: alert, oriented X3 Psychiatric exam: Present: normal affect, normal mood Skin exam: Present: warm, dry, intact, normal color. Absent: rash Course Vital Signs 08/14/21 08/14/21 13:36 17:24 Temperature 98.6 F Pulse Rate 77 75 Respiratory 18 18 Rate Blood Pressure 103/70 107/65 O2 Sat by Pulse 95 95 Oximetry Medical Decision Making - Medical Decision Making 25-year-old female with nausea for the past several weeks. Labs, 1 L normal saline, 4 mg of Zofran ordered. Labs are unremarkable from baseline. Patient is agreeable with discharge home with Zofran starter pack and follow-up to surgeon as planned. Case discussed with Dr. Thomas, patient can discharge home. - Lab Data Result diagrams: 08/14/21 17:13 08/14/21 17:13 Lab Results 12/07/2508/14/21 08/14/21 Range/Units 15:33 17:13 17:13 WBC 8.1 (3.8-10.6) k/uL RBC 3.97 (3.80-5.40) m/uL Hgb 12.6 (11.4-16.0) gm/dL Hct 37.4 (34.0-46.0) % MCV 94.3 (80.0-100.0) fL MCH 31.8 (25.0-35.0) pg MCHC 33.7 (31.0-37.0) g/dL RDW 13.3 (11.5-15.5) % Plt Count 239 (150-450) k/uL MPV 7.9 Neutrophils % 61 % Lymphocytes % 28 % Monocytes % 5 % Eosinophils % 2 % Basophils % 1 % Neutrophils # 5.0 (1.3-7.7) k/uL Lymphocytes # 2.3 (1.0-4.8) k/uL Monocytes # 0.4 (0-1.0) k/uL Eosinophils # 0.2 (0-0.7) k/uL Basophils # 0.0 (0-0.2) k/uL Sodium (137-145) mmol/L Potassium (3.5-5.1) mmol/L Chloride (98-107) mmol/L Carbon Dioxide (22-30) mmol/L Anion Gap mmol/L BUN (7-17) mg/dL Creatinine (0.52-1.04) mg/dL Est GFR (CKD-EPI)AfAm (>60 ml/min/1.73 sqM) Est GFR (CKD-EPI)NonAf (>60 ml/min/1.73 sqM) Glucose (74-99) mg/dL Calcium (8.4-10.2) mg/dL Total Bilirubin (0.2-1.3) mg/dL AST (14-36) U/L ALT (4-34) U/L Alkaline Phosphatase (38-126) U/L Total Protein (6.3-8.2) g/dL Albumin (3.5-5.0) g/dL Amylase (30-110) U/L Lipase (23-300) U/L Urine Color Yellow Urine Appearance Clear (Clear) Urine pH 6.0 (5.0-8.0) Ur Specific [place] 1.017 (1.001-1.035) Urine Protein Negative (Negative) Urine Glucose (UA) Negative (Negative) Urine Ketones Negative (Negative) Urine Blood Negative (Negative) Urine Nitrite Negative (Negative) Urine Bilirubin Negative (Negative) Urine Urobilinogen <2.0 (<2.0) mg/dL Ur Leukocyte Esterase Negative (Negative) Coronavirus (PCR) Not Detected (Not Detectd) 08/14/21 Range/Units 17:13 WBC (3.8-10.6) k/uL RBC (3.80-5.40) m/uL Hgb (11.4-16.0) gm/dL Hct (34.0-46.0) % MCV (80.0-100.0) fL MCH (25.0-35.0) pg MCHC (31.0-37.0) g/dL RDW (11.5-15.5) % Plt Count (150-450) k/uL MPV Neutrophils % % Lymphocytes % % Monocytes % % Eosinophils % % Basophils % % Neutrophils # (1.3-7.7) k/uL Lymphocytes # (1.0-4.8) k/uL Monocytes # (0-1.0) k/uL Eosinophils # (0-0.7) k/uL Basophils # (0-0.2) k/uL Sodium 137 (137-145) mmol/L Potassium 4.1 (3.5-5.1) mmol/L Chloride 104 (98-107) mmol/L Carbon Dioxide 24 (22-30) mmol/L Anion Gap 9 mmol/L BUN 10 (7-17) mg/dL Creatinine 0.76 (0.52-1.04) mg/dL Est GFR (CKD-EPI)AfAm >90 (>60 ml/min/1.73 sqM) Est GFR (CKD-EPI)NonAf >90 (>60 ml/min/1.73 sqM) Glucose 125 H (74-99) mg/dL Calcium 9.2 (8.4-10.2) mg/dL Total Bilirubin 0.3 (0.2-1.3) mg/dL AST 45 H (14-36) U/L ALT 55 H (4-34) U/L Alkaline Phosphatase 64 (38-126) U/L Total Protein 7.0 (6.3-8.2) g/dL Albumin 4.0 (3.5-5.0) g/dL Amylase 62 (30-110) U/L Lipase 100 (23-300) U/L Urine Color Urine Appearance (Clear) Urine pH (5.0-8.0) Ur Specific [place] (1.001-1.035) Urine Protein (Negative) Urine Glucose (UA) (Negative) Urine Ketones (Negative) Urine Blood (Negative) Urine Nitrite (Negative) Urine Bilirubin (Negative) Urine Urobilinogen (<2.0) mg/dL Ur Leukocyte Esterase (Negative) Coronavirus (PCR) (Not Detectd) Disposition Clinical Impression: Dehydration, Nausea & vomiting Disposition: HOME SELF-CARE Condition: Stable Instructions (If sedation given, give patient instructions): Acute Nausea and Vomiting (ED) Additional Instructions: Please return to the Emergency Department if symptoms worsen or any other concerns. Is patient prescribed a controlled substance at d/c from ED?: No Referrals: Osmar Lundberg MD [Primary Care Provider] - 1-2 days Time of Disposition: 18:20
== END 2021-08-14 18:33 | disposition home or self-care (01) ==
LOC: EC 13:08
DX: R11.2 Nausea with vomiting, unspecified (principal); E86.0 Dehydration; J45.909 Unspecified asthma, uncomplicated; M19.90 Unspecified osteoarthritis, unspecified site; F41.9 Anxiety disorder, unspecified; F32.A Depression, unspecified; F17.290 Nicotine dependence, other tobacco product, uncomplicated; F12.90 Cannabis use, unspecified, uncomplicated; Z20.822 Contact with and (suspected) exposure to COVID-19; Z90.49 Acquired absence of other specified parts of digestive tract
CPT/HCPCS: 99284; 96374; 96361; 36415; 80053; 82150; 83690; 85025; 81003; 81025; 87635; J2405; S0119

== ENCOUNTER 2021-09-04 11:18 | Emergency (ER) | payer OTHER ==
[2021-09-04 12:11] VITALS: BP 92/58; RESP 18; TEMP 98.2
[2021-09-04] MEDS ORDERED: ONDANSETRON ODT 4 MG TAB PO STA (12:22)
--- NOTE | 2021-09-04 12:28 | ED ---
General Adult HPI - General Chief complaint: Upper Respiratory Infection Stated complaint: Headache,Sore Throat,Cough Time Seen by Provider: 09/04/21 12:20 Source: patient, RN notes reviewed Mode of arrival: ambulatory Limitations: no limitations - History of Present Illness Initial comments: Well-appearing 25-year-old female presents to the emergency room with complaints of sinus congestion, sore throat and headache. She states that her symptoms started 3 days ago. She also has persistent nausea vomiting 4-5 times a day. She denies any diarrhea or fevers. She does have a history of asthma. She has not been vaccinated against coronavirus but has had the influenza vaccine. She denies any sick exposures. -: days(s) (3) Location: head, face Radiation: non-radiation Severity scale (1-10): 6 Quality: aching, other (sinus pressure) Consistency: constant Improves with: none Worsens with: none Associated Symptoms: cough, headaches, nausea/vomiting, other (sore throat) - Related Data Home Medications Medication Instructions Recorded Confirmed Escitalopram Oxalate [Lexapro] 20 mg PO HS 05/17/21 08/14/21 Metoprolol Succinate (ER) [Toprol 25 mg PO DAILY 05/17/21 08/14/21 Xl] Acetaminophen Tab [Tylenol] 650 mg PO Q4H PRN 08/04/21 08/14/21 Cyanocobalamin (Vitamin B-12) 2,000 mcg PO DAILY 08/04/21 08/14/21 [Vitamin B-12] Multivitamins, Thera [Multivitamin 1 tab PO DAILY 08/04/21 08/14/21 (formulary)] Albuterol Sulfate [Proair Hfa] 2 puff INHALATION RT-Q4H PRN 08/14/21 08/14/21 Docusate [Colace] 100 mg PO BID 08/14/21 08/14/21 Hyoscyamine Sulfate [Levsin-Sl] 0.125 mg SL HS 08/14/21 08/14/21 Ibuprofen [Motrin] 800 mg PO Q8H PRN 08/14/21 08/14/21 Norethindrone-Ethinyl Estrad 1 tab PO HS 08/14/21 08/14/21 [Necon 0.5-35-28 Tablet] Allergies Allergy/AdvReac Type Severity Reaction Status Date / Time No Known Allergies Allergy Verified 09/04/21 12:11 Review of Systems ROS Statement: Those systems with pertinent positive or pertinent negative responses have been documented in the HPI. ROS Other: All systems not noted in ROS Statement are negative. Past Medical History Past Medical History: Asthma, Osteoarthritis (OA) History of Any Multi-Drug Resistant Organisms: None Reported Past Surgical History: Appendectomy, Section Additional Past Surgical History / Comment(s): Past Anesthesia/Blood Transfusion Reactions: No Reported Reaction Past Psychological History: ADD/ADHD, Anxiety, Depression Smoking Status: Vaper Past Alcohol Use History: Occasional Past Drug Use History: Marijuana - Past Family History Father Family Medical History: No Reported History Mother Family Medical History: No Reported History General Exam Limitations: no limitations General appearance: alert, in no apparent distress Head exam: Present: atraumatic, normocephalic, normal inspection Eye exam: Present: normal appearance, EOMI. Absent: scleral icterus, conjunctival injection, periorbital swelling ENT exam: Present: normal exam, normal oropharynx, mucous membranes moist Expanded Mouth exam: Present: normal external inspection, tongue normal, tongue elevation. Absent: drooling, trismus, muffled voice Throat exam: negative: tonsillar erythema, tonsillar exudate, R peritonsillar mass, L peritonsillar mass Neck exam: Present: tenderness (Bilateral cervical chain tenderness), full ROM. Absent: meningismus, lymphadenopathy, thyromegaly Respiratory exam: Present: normal lung sounds bilaterally. Absent: respiratory distress, wheezes, rales, rhonchi, stridor, chest wall tenderness, accessory muscle use, decreased breath sounds, prolonged expiratory Cardiovascular Exam: Present: regular rate, normal rhythm, normal heart sounds. Absent: systolic murmur, diastolic murmur, rubs, gallop, clicks, JVD GI/Abdominal exam: Present: soft, normal bowel sounds. Absent: distended, tenderness, guarding, rebound, rigid Extremities exam: Present: normal inspection, full ROM, normal capillary refill. Absent: tenderness, pedal edema, joint swelling, calf tenderness Back exam: Present: normal inspection, full ROM. Absent: tenderness, CVA tenderness (R), CVA tenderness (L), rash noted Neurological exam: Present: alert, oriented X3 Psychiatric exam: Present: normal affect, normal mood Skin exam: Present: warm, dry, intact, normal color. Absent: rash, cyanosis, diaphoretic, petechiae, pallor Course Vital Signs 09/04/21 09/04/21 12:06 13:28 Temperature 98.2 F 98.2 F Pulse Rate 94 78 Respiratory 18 18 Rate Blood Pressure 92/58 O2 Sat by Pulse 99 97 Oximetry Medical Decision Making - Medical Decision Making Well-appearing [id number] complaints of sinus congestion, sore throat and headache. She states that her symptoms started 3 days ago with nausea and vomiting, denies any diarrhea or fevers. She does have a history of asthma. She has not been vaccinated against coronavirus but has had the influenza vaccine. She is covid positive in the ER and declined the monoclonal antibody infusion. She was advised that the monoclonal antibodies infusion needs to be given within 10 days of symptom onset. She was instructed to take vitamin C, vitamin D and zinc for immune health and increase her fluid intake. Self quarantine for 10 days from symptom onset and 24 hours without a fever. Case discussed with Dr Galvan. - Lab Data Lab Results 09/04/21 Range/Units 12:13 Coronavirus (PCR) Detected A (Not Detectd) Disposition Clinical Impression: COVID-19 Disposition: HOME SELF-CARE Condition: Good Instructions (If sedation given, give patient instructions): Coronavirus Diseas e 2019 (COVID-19) Additional Instructions: Increase your fluid intake. Take vitamin C, vitamin D, and zinc to help promote immune health. Self quarantine for 10 days from symptom onset and 24 hours without a fever. Return to the emergency room with any new or worsening symptoms. Is patient prescribed a controlled substance at d/c from ED?: No Referrals: Osmar Lundberg MD [Primary Care Provider] - 1-2 days Time of Disposition: 13:08
[2021-09-04] MEDS ORDERED: ACETAMINOPHEN TAB 325 MG TAB PO STA (13:00)
[2021-09-04 13:31] VITALS: PULSE 78
== END 2021-09-04 13:28 | disposition home or self-care (01) ==
LOC: EC 11:18
DX: U07.1 COVID-19 (principal); J45.909 Unspecified asthma, uncomplicated; M19.90 Unspecified osteoarthritis, unspecified site; F90.9 Attention-deficit hyperactivity disorder, unspecified type; F32.A Depression, unspecified; F17.290 Nicotine dependence, other tobacco product, uncomplicated; F12.90 Cannabis use, unspecified, uncomplicated; Z72.89 Other problems related to lifestyle; F41.9 Anxiety disorder, unspecified; Z79.51 Long term (current) use of inhaled steroids
CPT/HCPCS: 87635; 99284

== ENCOUNTER 2021-09-09 12:20 | Emergency (ER) | payer OTHER ==
[2021-09-09] MEDS ORDERED: SODIUM CHLORIDE 0.9% 1,000 ML IV ONE (13:46)
--- NOTE | 2021-09-09 13:50 | ED ---
General Adult HPI - General Chief complaint: Upper Respiratory Infection Stated complaint: BAM. covid + Time Seen by Provider: 09/09/21 13:10 Source: patient, RN notes reviewed Mode of arrival: ambulatory Limitations: no limitations - History of Present Illness Initial comments: 25-year-old female presents emergency Department with chief complaint of wanting monoclonal antibodies. Patient states that she tested positive few days ago. Patient was offered at the time but declined. Patient states that she does not feel any better anterior today symptoms started approximate 7 days ago. Patient denies shortness breath but she states she has had some periods of shortness breath with coughing. No chest pain no GI symptoms cc feels lightheaded and s lightly dizzy. Patient continues to have fevers and chills. - Related Data Home Medications Medication Instructions Recorded Confirmed Escitalopram Oxalate [Lexapro] 20 mg PO HS 05/17/21 08/14/21 Metoprolol Succinate (ER) [Toprol 25 mg PO DAILY 05/17/21 08/14/21 Xl] Acetaminophen Tab [Tylenol] 650 mg PO Q4H PRN 08/04/21 08/14/21 Cyanocobalamin (Vitamin B-12) 2,000 mcg PO DAILY 08/04/21 08/14/21 [Vitamin B-12] Multivitamins, Thera [Multivitamin 1 tab PO DAILY 08/04/21 08/14/21 (formulary)] Albuterol Sulfate [Proair Hfa] 2 puff INHALATION RT-Q4H PRN 08/14/21 08/14/21 Docusate [Colace] 100 mg PO BID 08/14/21 08/14/21 Hyoscyamine Sulfate [Levsin-Sl] 0.125 mg SL HS 08/14/21 08/14/21 Ibuprofen [Motrin] 800 mg PO Q8H PRN 08/14/21 08/14/21 Pirmella 1 tab PO HS 09/09/21 09/09/21 Allergies Allergy/AdvReac Type Severity Reaction Status Date / Time No Known Allergies Allergy Verified 09/09/21 13:03 Review of Systems ROS Statement: Those systems with pertinent positive or pertinent negative responses have been documented in the HPI. ROS Other: All systems not noted in ROS Statement are negative. Past Medical History Past Medical History: Asthma, Osteoarthritis (OA) History of Any Multi-Drug Resistant Organisms: None Reported Past Surgical History: Appendectomy, Section Additional Past Surgical History / Comment(s): Past Anesthesia/Blood Transfusion Reactions: No Reported Reaction Past Psychological History: ADD/ADHD, Anxiety, Depression Smoking Status: Vaper Past Alcohol Use History: Occasional Past Drug Use History: Marijuana - Past Family History Father Family Medical History: No Reported History Mother Family Medical History: No Reported History General Exam Limitations: no limitations General appearance: alert, in no apparent distress Head exam: Present: atraumatic, normocephalic, normal inspection Eye exam: Present: normal appearance, PERRL, EOMI. Absent: scleral icterus, conjunctival injection, periorbital swelling ENT exam: Present: normal exam, normal oropharynx, mucous membranes moist Neck exam: Present: normal inspection, full ROM. Absent: tenderness, meningismus, lymphadenopathy Respiratory exam: Present: normal lung sounds bilaterally. Absent: respiratory distress, wheezes, rales, rhonchi, stridor Cardiovascular Exam: Present: regular rate, normal rhythm, normal heart sounds. Absent: systolic murmur, diastolic murmur, rubs, gallop, clicks Neurological exam: Present: alert, oriented X3, CN II-XII intact Skin exam: Present: warm, dry, intact, normal color. Absent: rash Course Vital Signs 09/09/21 13:00 Temperature 97.6 F Pulse Rate 88 Respiratory 16 Rate Blood Pressure 92/71 O2 Sat by Pulse 99 Oximetry Medical Decision Making - Medical Decision Making Patient will receive monoclonal antibodies will be hydrated and will be discharged in stable condition. Disposition Clinical Impression: COVID-19 Disposition: HOME SELF-CARE Condition: Stable Instructions (If sedation given, give patient instructions): Coronavirus Disease 2019 (COVID-19) Additional Instructions: Please return to the Emergency Department if symptoms worsen or any other concerns. Is patient prescribed a controlled substance at d/c from ED?: No Referrals: Osmar Lundberg MD [Primary Care Provider] - 1-2 days Time of Disposition: 13:49
[2021-09-09] MEDS ORDERED: SODIUM CHLORIDE 0.9% 50 ML IVPB ONE (14:00)
[2021-09-09] MEDS ORDERED: CASIRIVIMAB (REGN10933) (EUA) 600 MG, IMDEVIMAB (REGN10987) (EUA) 600 MG in SODIUM CHLO... IVPB ONE (14:30)
[2021-09-09] MEDS ORDERED: diphenhydrAMINE 50 MG/ML 1 ML VIAL IVP STA (14:50)
[2021-09-09 15:35] VITALS: BP 113/73; PULSE 75; RESP 18; TEMP 98
== END 2021-09-09 16:22 | disposition home or self-care (01) ==
LOC: EC 12:20
DX: U07.1 COVID-19 (principal); J45.909 Unspecified asthma, uncomplicated; M19.90 Unspecified osteoarthritis, unspecified site; F32.A Depression, unspecified; F41.9 Anxiety disorder, unspecified; F17.290 Nicotine dependence, other tobacco product, uncomplicated; F12.90 Cannabis use, unspecified, uncomplicated; Z79.1 Long term (current) use of non-steroidal anti-inflammatories (NSAID); Z79.51 Long term (current) use of inhaled steroids; Z79.899 Other long term (current) drug therapy
CPT/HCPCS: 99284; 96374; 96361; J1200; Q0244

== ENCOUNTER → 2021-09-28 | Outpatient (CLI) | payer OTHER | END | disposition home or self-care (01) | LOC: LABPAT 13:40 | PROVIDERS: ATTEND Surgery Plastic and Reconstructive Surgery | DX: Z20.822 Contact with and (suspected) exposure to COVID-19 (principal) | CPT/HCPCS: U0003; C9803 ==

== ENCOUNTER 2021-10-01 06:31 | Day surgery (SDC) | payer OTHER ==
[2021-09-28 15:44] VITALS: BMI 39.8
[~2021-10-01 06:31] MED LIST changes: +DEXAMETHASONE SOD PHOSPHATE 4 MG/ML 1 ML VIAL IV ONE; +HEPARIN SODIUM,PORCINE/PF 5,000 UNIT/0.5 ML SYRINGE SQ PRN; +HYDROmorphone 0.5 MG/0.5 ML SYRINGE IVP PRN; +LACTATED RINGERS 1,000 ML IV SCH; +LIDOCAINE 1% (10MG/ML) FOR IV START INTRADERMA PRN; +MIDAZOLAM 2 MG/2 ML VIAL IV PRN; +ONDANSETRON 4 MG/2 ML VIAL IVP ONE; -ROPIVACAINE 5MG/ML 20ML VIAL ONE; -SODIUM CHLORIDE 0.9% 100 ML BAG ONE; -fentaNYL (PF) 50 MCG/ML 5 ML AMP ONE
[2021-10-01] MEDS ORDERED: GABAPENTIN 300 MG CAP PO STA (06:38)
[2021-10-01] MEDS ORDERED: ACETAMINOPHEN TAB 500 MG TAB PO STA (06:38)
[2021-10-01] MEDS ORDERED: SCOPOLAMINE 1.5MG/72HR PATCH TRANSDERM STA (06:38)
--- NOTE | 2021-10-01 06:38 | P.GSHP ---
History of Present Illness H&P Date: 10/01/21 CHIEF COMPLAINT: Cholecystitis HISTORY OF PRESENT ILLNESS: The patient is a 25-year-old female who presents with history of epigastric including right upper quadrant abdominal pain. She underwent diagnostic studies for her gallbladder. Separately her clinical picture was consistent with cholecystitis. Now she presents for surgical intervention. PAST MEDICAL HISTORY: Please see list PAST SURGICAL HISTORY: Please see list MEDICATIONS: Please see list ALLERGIES: Please see list SOCIAL HISTORY: Please see list FAMILY HISTORY: Please see list REVIEW OF ORGAN SYSTEMS: CONSTITUTIONAL: No reports of fevers or chills. HEENT: Denies any troubles with the vision or hearing. ENDOCRINE: No reports of hypothyroidism. No diabetes. RESPIRATORY: No recent pneumonias. CARDIOVASCULAR: Denies chest pain or palpitations GI: No blood in stools or constipation. MUSCULOSKELETAL: Has occasional joint pain including back pain. NEURO: No seizure disorders or headaches. No recent stroke. PSYCH: No depression or suicidal ideation. GENITOURINARY: No active blood in urine. No urinary hesitancy. HEMATOLOGIC: No personal or family history of DVTs or pulmonary emboli. SKIN: No skin cancer. PHYSICAL EXAM: VITAL SIGNS: Afebrile vital signs stable GENERAL: Well-developed pleasant in no acute distress. HEENT: No scleral icterus. Extraocular movements grossly intact. Moist buccal mucosa. NECK: Supple without lymphadenopathy. CHEST: Unlabored respirations. Equal bilateral excursions. CARDIOVASCULAR: Regular rate regular rhythm rhythm. Distal 2+ pulses. ABDOMEN: Soft, nondistended. Tender along the epigastrium and right upper quadrant. MUSCULOSKELETAL: No clubbing, cyanosis, or edema. NEURO: Cranial nerves II to XII within normal limits. No focal or lateralizing signs. PSYCH: Alert and oriented to person, place and time. SKIN: Well-perfused good skin turgor. ASSESSMENT: 1. Epigastric and right upper quadrant abdominal pain 2. Chronic cholecystitis 3. Symptomatic gallstones. PLAN: 1. Will need a robotic cholecystectomy possible open. Benefits and risks were described. 2. Heparin for DVT prophylaxis 5000 units. 3. Antibiotic prophylaxis. Past Medical History Past Medical History: Asthma, Osteoarthritis (OA) Additional Past Medical History / Comment(s): abdominal pain, tested positive for COVID on 09-04-21-received monoclonal antibodies. History of Any Multi-Drug Resistant Organisms: None Reported Past Surgical History: Appendectomy, Section Additional Past Surgical History / Comment(s): Past Anesthesia/Blood Transfusion Reactions: No Reported Reaction Smoking Status: Vaper - Past Family History Father Family Medical History: No Reported History Mother Family Medical History: No Reported History Medications and Allergies Home Medications Medication Instructions Recorded Confirmed Type Escitalopram Oxalate [Lexapro] 20 mg PO HS 05/17/21 09/28/21 History Metoprolol Succinate (ER) [Toprol 25 mg PO HS 05/17/21 09/28/21 History Xl] Acetaminophen Tab [Tylenol] 650 mg PO Q4H PRN 08/04/21 09/28/21 History Cyanocobalamin (Vitamin B-12) 2,000 mcg PO DAILY 08/04/21 09/28/21 History [Vitamin B-12] Multivitamins, Thera [Multivitamin 1 tab PO DAILY 08/04/21 09/28/21 History (formulary)] Albuterol Sulfate [Proair Hfa] 2 puff INHALATION RT-Q4H PRN 08/14/21 09/28/21 History Docusate [Colace] 100 mg PO DAILY 08/14/21 09/28/21 History Hyoscyamine Sulfate [Levsin-Sl] 0.125 mg SL QID 08/14/21 09/28/21 History Ibuprofen [Motrin] 800 mg PO Q8H PRN 08/14/21 09/28/21 History Pirmella 1 tab PO HS 09/09/21 09/28/21 History Cetirizine HCl [Zyrtec] 10 mg PO BID 09/28/21 09/28/21 History Naproxen 500 mg PO BID PRN 09/28/21 09/28/21 History Allergies Allergy/AdvReac Type Severity Reaction Status Date / Time No Known Allergies Allergy Verified 09/28/21 15:31
[2021-10-01] MEDS ORDERED: MELOXICAM 7.5 MG TAB PO SCH (06:43)
[2021-10-01] MEDS ORDERED: INDOCYANINE GREEN 25 MG VIAL IV STA (06:59)
[2021-10-01 07:19] LABS: Basophils # (A) 0.1 k/uL (0-0.2); Basophils % (A) 1 %; Eosinophils # (A) 0.3 k/uL (0-0.7); Eosinophils % (A) 3 %; HCT 39.8 % (34.0-46.0); HGB 13.3 gm/dL (11.4-16.0); Lymphocytes # (A) 3.9 k/uL (1.0-4.8); Lymphocytes % (A) 34 %; MCH 31.9 pg (25.0-35.0); MCHC 33.4 g/dL (31.0-37.0); MCV 95.6 fL (80.0-100.0); Mean Platelet Volume 8.1; Monocytes # (A) 0.6 k/uL (0-1.0); Monocytes % (A) 5 %; Neutrophils # (A) 6.5 k/uL (1.3-7.7); Neutrophils % (A) 57 %; Platelet Count 233 k/uL (150-450); RBC 4.17 m/uL (3.80-5.40); RDW 12.8 % (11.5-15.5); WBC 11.5 k/uL (3.8-10.6)
[2021-10-01] MEDS ORDERED: ROCURONIUM 10 MG/ML (5 ML VIAL) IV ONE (07:35)
[2021-10-01] MEDS ORDERED: PROPOFOL 10 MG/ML 20 ML VIAL IV ONE (07:35)
[2021-10-01] MEDS ORDERED: NEOSTIGMINE 1 MG/ML 10 ML VIAL ONE (07:35)
[2021-10-01] MEDS ORDERED: GLYCOPYRROLATE 0.2 MG/ML 2 ML VIAL ONE (07:35)
[2021-10-01] MEDS ORDERED: SUCCINYLCHOLINE CHLORIDE 100 MG/5 ML SYR IV ONE (07:35)
[2021-10-01] MEDS ORDERED: PHENYLEPHRINE-0.9% NACL SYG 1,000 MCG/10 ML SYRINGE ONE (07:35)
[2021-10-01] MEDS ORDERED: MIDAZOLAM 2 MG/2 ML VIAL ONE (07:35)
[2021-10-01] MEDS ORDERED: fentaNYL (PF) 50 MCG/ML 2 ML AMP ONE (07:35)
[2021-10-01] MEDS ORDERED: HYDROmorphone (PF) 1 MG/ML ONE (07:35)
[2021-10-01 07:39] LABS: ALT 93 U/L (4-34); AST 73 U/L (14-36); African American GFR (CKD) >90 (>60 ml/min/1.73 sqM); Albumin 4.2 g/dL (3.5-5.0); Alkaline Phosphatase 91 U/L (38-126); Anion Gap 11 mmol/L; Blood Urea Nitrogen 13 mg/dL (7-17); Calcium 9.6 mg/dL (8.4-10.2); Carbon Dioxide 20 mmol/L (22-30); Chloride 107 mmol/L (98-107); Glucose 103 mg/dL (74-99); Non-African American GFR(CKD) >90 (>60 ml/min/1.73 sqM); Potassium 4.6 mmol/L (3.5-5.1); Sodium 138 mmol/L (137-145); Total Bilirubin 0.7 mg/dL (0.2-1.3); Total Protein 7.8 g/dL (6.3-8.2)
[2021-10-01] MEDS ORDERED: BUPIVACAINE (PF) 0.25% 30 ML VIAL SQ ONE (08:07)
[2021-10-01] MEDS ORDERED: LACTATED RINGERS 1,000 ML IV ONE (08:44)
[2021-10-01 09:14] VITALS: TEMP 98
[2021-10-01 09:26] VITALS: RESP 16
--- NOTE | 2021-10-01 09:37 | P.OP ---
Date of Procedure: 10/01/21 Description of Procedure: SURGEON: YULISA LOU MD PREOPERATIVE DIAGNOSES: 1. Chronic cholecystitis with right upper quadrant abdominal pain 2. Morbid obesity due to excess calories, BMI 38.8 3. Depressive disorder 4. Generalized anxiety disorder 5. Asthma 6. ADD with ADHD POSTOPERATIVE DIAGNOSES: 1. Chronic cholecystitis with right upper quadrant abdominal pain 2. Morbid obesity due to excess calories, BMI 38.8 3. Depressive disorder 4. Generalized anxiety disorder 5. Asthma 6. ADD with ADHD 7. Right upper quadrant peritoneal adhesions 8. Severe fatty liver disease with hepatomegaly OPERATION: 1. Robotic-assisted da Jung Xi laparoscopic lysis of adhesions 2. Robotic-assisted da Jung Xi laparoscopic cholecystectomy, multiport with FIREFLY ESTIMATED BLOOD LOSS: 5 mL. SPECIMENS REMOVED: Gallbladder. COMPLICATIONS: None. OPERATIVE FINDINGS: 1. Moderate scarring over entire gallbladder with peritoneal adhesions, pericholecystic with features of chronic cholecystitis 2. Severe fatty liver disease with severe hepatomegaly INDICATIONS: The patient is a 25-year-old female who presents with right upper quadrant abdominal pain and chronic cholecystitis. Robotic assisted laparoscopic approach was described. Benefits and risks of the procedure incl uding but not limited to bleeding, infection, injury to the biliary tree was described. Informed consent was obtained. DESCRIPTION OF PROCEDURE: Patient was brought to the operating room, placed in supine position. After general induction, the abdomen had been prepped and draped in standard sterile fashion. The robotic da Jung XI system was primed. After a timeout protocol was performed, the patient had been prepped and draped in standard sterile fashion. The patient was injected with indocyanine green. A 5 mm 0 degrees laparoscopic trocar entry was performed along the left upper quadrant. The abdomen insufflated to 15 mmHg pressure which was tolerated well. Diagnostic laparoscopy demonstrated no injury to bowel viscera or mesentery. The liver surface was unremarkable. Next, two 8 mm robotic ports were placed along the right upper abdomen. The camera 8-mm port was maintained along the epigastrium. Another 8 mm port was placed along the left upper abdominal wall after exchanging the 5 mm port. Please note that the ports were placed at least 10 to 15 cm away from the target anatomy of the gallbladder. The robot was docked along the left lateral abdomen. The patient was repositioned in reverse Trendelenburg position. Using a grasper for arm 3, a grasper for arm 4, including hook cautery for arm 1, the robotic system was docked and primed as described. Instruments were interchanged by the press assistant including hook cautery, Bovie cautery and clip appliers. I had sat at the console. The gallbladder was scarred with peritoneal adhesions. Lysis of adhesions was performed to free the gallbladder from the surrounding tissues which was moderate. Severe hepatomegaly with fatty liver disease at a complexity to the case. Next attention was brought to the infundibulum and cystic structures. The infundibulum and cystic duct were dissected free from surrounding tissues. The cystic duct was isolated. FIREFLY was used to identify the cystic artery and cystic structures. A critical view of safety was obtained. Large PLASTIC clips were used throughout the entire case. Using a clip optical model maker and tester, 3 clips were placed at the junction of the infundibulum and cystic duct. The cystic duct was divided between proximal and two distal clips. Next, the cystic artery was cauterized. Cystic lymph node was intact. Electro-Bovie cautery was used to remove the gallbladder from the hepatic fossa. Hemostasis was checked and found to be adequate. The robot was undocked. I re-scrubbed into the case. Using a 10 mm Endo Catch bag via the left upper quadrant incision, the specimen was removed from the abdominal cavity. All pneumoperitoneum instruments were evacuated from the abdominal cavity. The incisions were reapproximated using 4-0 Monocryl in an interrupted subcuticular fashion. Fascial defects were less than 8 mm in size. Please note along the trocar sites, local anesthetic was placed as a field block prior to insertion of all instruments. Liquid glue was applied to the skin. At the end of the procedure needle, sponge, and instrument count had been verified correct by the surgical training specialist. The patient was transferred to postanesthesia care unit in stable condition. Intraoperative films were shared with the patient's family. Plan - Discharge Summary Discharge Rx Participant: No New Discharge Prescriptions: New Simethicone [Gas-X] 125 mg PO AC-TID PRN #20 capsule PRN Reason: Pain Ibuprofen [Motrin] 600 mg PO Q8HR PRN #30 tab PRN Reason: Pain Acetaminophen Tab [Tylenol Tab] 1,000 mg PO Q6HR PRN #30 tablet PRN Reason: Pain Continue Escitalopram Oxalate [Lexapro] 20 mg PO HS Multivitamins, Thera [Multivitamin (formulary)] 1 tab PO DAILY Albuterol Sulfate [Proair Hfa] 2 puff INHALATION RT-Q4H PRN PRN Reason: Shortness Of Breath Metoprolol Succinate (ER) [Toprol XL] 25 mg PO HS Acetaminophen Tab [Tylenol] 650 mg PO Q4H PRN PRN Reason: Pain Or Fever > 100.5 Cyanocobalamin (Vitamin B-12) [Vitamin B-12] 2,000 mcg PO DAILY Ibuprofen [Motrin] 800 mg PO Q8H PRN PRN Reason: Pain Hyoscyamine Sulfate [Levsin-Sl] 0.125 mg SL QID Docusate [Colace] 100 mg PO DAILY Pirmella 1 tab PO HS Cetirizine HCl [Zyrtec] 10 mg PO BID Discontinued Naproxen 500 mg PO BID PRN PRN Reason: Pain Discharge Medication List Escitalopram Oxalate [Lexapro] 20 mg PO HS 05/17/21 [History] Metoprolol Succinate (ER) [Toprol XL] 25 mg PO HS 05/17/21 [History] Acetaminophen Tab [Tylenol] 650 mg PO Q4H PRN 08/04/21 [History] Cyanocobalamin (Vitamin B-12) [Vitamin B-12] 2,000 mcg PO DAILY 08/04/21 [History] Multivitamins, Thera [Multivitamin (formulary)] 1 tab PO DAILY 08/04/21 [History] Albuterol Sulfate [Proair Hfa] 2 puff INHALATION RT-Q4H PRN 08/14/21 [History] Docusate [Colace] 100 mg PO DAILY 08/14/21 [History] Hyoscyamine Sulfate [Levsin-Sl] 0.125 mg SL QID 08/14/21 [History] Ibuprofen [Motrin] 800 mg PO Q8H PRN 08/14/21 [History] Pirmella 1 tab PO HS 09/09/21 [History] Cetirizine HCl [Zyrtec] 10 mg PO BID 09/28/21 [History] Acetaminophen Tab [Tylenol Tab] 1,000 mg PO Q6HR PRN #30 tablet 10/01/21 [Rx] Ibuprofen [Motrin] 600 mg PO Q8HR PRN #30 tab 10/01/21 [Rx] Simethicone [Gas-X] 125 mg PO AC-TID PRN #20 capsule 10/01/21 [Rx] Follow up Appointment(s)/Referral(s): Yulisa Lou MD [STAFF PHYSICIAN] - 10/12/21 (Telehealth available) Patient Instructions/Handouts: Laparoscopic Cholecystectomy (DC), Low Fat Diet (DC), Non-Alcoholic Fatty Liver Disease (DC), *[facility] - Managing Your Pain After Surgery Without Opioids Discharge Disposition: HOME SELF-CARE
[2021-10-01] MEDS ORDERED: IBUPROFEN 200 MG TAB PO ONE (09:48)
[2021-10-01 10:06] VITALS: BP 120/77; PULSE 86
== END 2021-10-01 11:09 | disposition home or self-care (01) ==
LOC: OR 06:31
PROVIDERS: ATTEND Surgery Plastic and Reconstructive Surgery
DX: K80.10 Calculus of gallbladder with chronic cholecystitis without obstruction (principal); K76.0 Fatty (change of) liver, not elsewhere classified; J45.909 Unspecified asthma, uncomplicated; M19.90 Unspecified osteoarthritis, unspecified site; Z98.891 History of uterine scar from previous surgery; Z90.49 Acquired absence of other specified parts of digestive tract; F17.290 Nicotine dependence, other tobacco product, uncomplicated; Z79.3 Long term (current) use of hormonal contraceptives; Z79.899 Other long term (current) drug therapy; E66.01 Morbid (severe) obesity due to excess calories; Z68.38 Body mass index [BMI] 38.0-38.9, adult; F32.A Depression, unspecified; F41.1 Generalized anxiety disorder; F90.9 Attention-deficit hyperactivity disorder, unspecified type; Z97.2 Presence of dental prosthetic device (complete) (partial)
CPT/HCPCS: 81025; 88304; 80053; 85025; 83036; 47563; J2250; J1100; J2710; J0690; J2405; J3010; J1170; J2370; J0330; J2704; J1644

== ENCOUNTER 2021-10-19 15:08 | Emergency (ER) | payer OTHER ==
[2021-10-19 15:28] VITALS: BP 120/79; PULSE 102; RESP 20; TEMP 98.8
--- NOTE | 2021-10-19 17:25 | XR ---
EXAMINATION TYPE: XR shoulder complete RT DATE OF EXAM: 10/19/2021 COMPARISON: NONE HISTORY: Fall. Pain TECHNIQUE: 3 views FINDINGS: Glenohumeral joint is intact. I see no fracture nor dislocation. Joint spaces are fairly no rmal. IMPRESSION: Negative right shoulder exam.
[2021-10-19] MEDS ORDERED: MORPHINE SULFATE 4 MG/ML SYRINGE IV STA (18:18)
[2021-10-19] MEDS ORDERED: SODIUM CHLORIDE 0.9% 1,000 ML IV STA (18:18)
[2021-10-19] MEDS ORDERED: ONDANSETRON 4 MG/2 ML VIAL IVP STA (18:18)
[2021-10-19] MEDS ORDERED: ASPIRIN 81 MG PO STA (18:18)
[2021-10-19 18:47] LABS: Basophils # (A) 0.1 k/uL (0-0.2); Basophils % (A) 1 %; Eosinophils # (A) 0.2 k/uL (0-0.7); Eosinophils % (A) 2 %; HCT 37.4 % (34.0-46.0); HGB 12.7 gm/dL (11.4-16.0); Lymphocytes # (A) 2.7 k/uL (1.0-4.8); Lymphocytes % (A) 29 %; MCH 32.6 pg (25.0-35.0); MCHC 34.1 g/dL (31.0-37.0); MCV 95.6 fL (80.0-100.0); Mean Platelet Volume 8.3; Monocytes # (A) 0.4 k/uL (0-1.0); Monocytes % (A) 4 %; Neutrophils # (A) 5.9 k/uL (1.3-7.7); Neutrophils % (A) 63 %; Platelet Count 219 k/uL (150-450); RBC 3.91 m/uL (3.80-5.40); RDW 12.2 % (11.5-15.5); WBC 9.3 k/uL (3.8-10.6)
--- NOTE | 2021-10-19 18:56 | ED ---
General Adult HPI - General Chief complaint: Chest Pain Stated complaint: anxiety Time Seen by Provider: 10/19/21 17:51 Source: patient, RN notes reviewed, old records reviewed Mode of arrival: wheelchair Limitations: no limitations - History of Present Illness Initial comments: Patient is a 25-year-old female with past medical history remarkable for an xiety, marijuana use, asthma who presents emergency Department complaining of multiple complaints. She states she fell yesterday and struck the back of her head possibly on a door. She also fell onto her right shoulder. She is complaining of right shoulder pain and right elbow pain and is unwilling to move it. When she adjusts in bed she does move it. She states she did not lose consciousness when she fell. Endorses some cervical paraspinal muscle tenderness. This is in addition to the right shoulder pain, right elbow pain. She also is endorsing chronic palpitations and intermittent chest pain that she states is worse with deep inspiration. States this is been ongoing for the last day or more. Denies any fevers, chills, cough. Denies any nausea, vomiting, abdominal pain. Denies any shortness of breath. Denies any history of blood clots. His no other acute complaint at this time. I evaluated the patient when she was placed in a room. - Related Data Home Medications Medication Instructions Recorded Confirmed Escitalopram Oxalate [Lexapro] 20 mg PO HS 05/17/21 10/19/21 Metoprolol Succinate (ER) [Toprol 25 mg PO HS 05/17/21 10/19/21 XL] Cyanocobalamin (Vitamin B-12) 2,000 mcg PO DAILY 08/04/21 10/19/21 [Vitamin B-12] Multivitamins, Thera [Multivitamin 1 tab PO DAILY 08/04/21 10/19/21 (formulary)] Albuterol Sulfate [Proair Hfa] 2 puff INHALATION RT-Q4H PRN 08/14/21 10/19/21 Docusate [Colace] 100 mg PO DAILY 08/14/21 10/19/21 Hyoscyamine Sulfate [Levsin-Sl] 0.125 mg SL QID PRN 08/14/21 10/19/21 Pirmella 1 tab PO HS 09/09/21 10/19/21 Cetirizine HCl [Zyrtec] 10 mg PO DAILY 09/28/21 10/19/21 Acetaminophen Tab [Tylenol Tab] 1,000 mg PO Q6H PRN 10/19/21 10/19/21 Previous Rx's Medication Instructions Recorded Ibuprofen [Motrin] 600 mg PO Q8HR PRN #30 tab 10/01/21 Simethicone [Gas-X] 125 mg PO AC-TID PRN #20 capsule 10/01/21 Allergies Allergy/AdvReac Type Severity Reaction Status Date / Time No Known Allergies Allergy Verified 10/19/21 21:03 Review of Systems ROS Statement: Those systems with pertinent positive or pertinent negative responses have been documented in the HPI. Review of Systems: CONST: Denies fever EYES: Denies blurry vision ENT: Denies nasal congestion C/V: Endorses pleuritic chest pain RESP: Denies shortness of breath GI: Denies abdominal pain : Denies dysuria SKIN: Denies rash. MSK: Endorses joint pain NEURO: Denies headache ROS Other: All systems not noted in ROS Statement are negative. Past Medical History Past Medical History: Asthma, Osteoarthritis (OA) History of Any Multi-Drug Resistant Organisms: None Reported Past Surgical History: Appendectomy, Section, Cholecystectomy Additional Past Surgical History / Comment(s): Past Anesthesia/Blood Transfusion Reactions: No Reported Reaction Past Psychological History: ADD/ADHD, Anxiety, Depression Smoking Status: Vaper Past Alcohol Use History: None Reported Past Drug Use History: Marijuana - Past Family History Father Family Medical History: No Reported History Mother Family Medical History: No Reported History General Exam - General Exam Comments Initial Comments: General: Appears in no acute distress. HEAD: Normal with no signs of head trauma. EYES: PERRLA, EOMI, conjunctiva normal, no discharge. Pupils are equal to 3 mm and equal bilaterally. ENT: Hearing grossly intact, normal oropharynx. RESPIRATORY: Clear breath sounds bilaterally. No wheezes, rales, or rhonchi. C/V: Regular rate and rhythm. S1 and S2 auscultated, no edema, peripheral pulses 2+ and intact throughout ABD: Abd is soft, nontender, nondistended EXT: Normal range of motion, no obvious deformity. Patient is tender to palpation over the posterior aspect of the right elbow. Patient is also generally tender to the right shoulder, primarily over the AC joint. Cervical paraspinal muscle tenderness to palpation over the right side. Patient is unwilling to move her right arm, however does intermittently move it. She is neurovascularly intact throughout. SKIN: No rashes or lesions observed on exposed skin. NEURO: Alert and oriented 4. No focal sensory strength deficits. Limitations: no limitations Course Vital Signs 10/19/21 15:25 Temperature 98.8 F Pulse Rate 102 H Respiratory 20 Rate Blood Pressure 120/79 O2 Sat by Pulse 96 Oximetry Medical Decision Making - Medical Decision Making Based on the patient's presentation and physical exam, I'm concerned for possi ble cardiopulmonary etiology due to her pleuritic chest pain. She says complaining of right upper extremity pain and right shoulder pain. She is concerned regarding her head. We discussed and decided the patient will receive a CT brain, cervical spine as well as x-rays of the chest, elbow, as well as right shoulder. Pulmonary workup will be obtained including troponin, d-dimer. She was in agr eement this plan. She'll be given a 1 L fluid bolus in addition to IV morphine, Zofran, as well as by mouth aspirin. EKG showed no acute ischemic process. Chest x-ray revealed no acute process. Right shoulder x-ray as well as right elbow x-ray revealed no acute fracture or subluxation. No abnormality. CT brain and C-spine revealed no acute intracranial process, acute cervical spine process. Laboratory studies are remarkable for a elevated d-dimer 0.79. Troponin is negative. AST and ALT are minimally elevated to 87 and 94 respectively. Remaining laboratory studies are unremarkable. On reevaluation and patient is freely moving her right upper extremity. She is feeling improved. I did update her regarding her elevated d-dimer as well as the remaining of her negative workup. Would like to obtain a CT angiogram of the chest without possibly of pulmonary embolus and due to her pleuritic chest pain. She was in agreement this plan. CT angiogram of the chest revealed no pulmonary and wasn't. No acute process. On reevaluation, patient remains stable. I discussed the results for imaging. I believe it is safe for her to be discharged home per to is in agreement this plan. She likely has a muscle strain, and I recommended that she is rest, icing, as well as [id number] analgesic medications for. She is requesting a sling as well as an Javy bandage which will be provided to her. I instructed the patient to follow up with their PCP in the next 3 days. I explained that the patient should return to the emergency department if they experience any worsening symptoms. Strict return precautions were discussed with the patient. The patient expressed understanding of these instructions. I answered all questions that the patient had. The patient was discharged home in good condition with their prescriptions and follow up information. - Lab Data Result diagrams: 10/19/21 18:39 10/19/21 18:39 Lab Results 10/19/21 10/19/21 10/19/21 Range/Units 18:39 18:39 18:39 WBC 9.3 (3.8-10.6) k/uL RBC 3.91 (3.80-5.40) m/uL Hgb 12.7 (11.4-16.0) gm/dL Hct 37.4 (34.0-46.0) % MCV 95.6 (80.0-100.0) fL MCH 32.6 (25.0-35.0) pg MCHC 34.1 (31.0-37.0) g/dL RDW 12.2 (11.5-15.5) % Plt Count 219 (150-450) k/uL MPV 8.3 Neutrophils % 63 % Lymphocytes % 29 % Monocytes % 4 % Eosinophils % 2 % Basophils % 1 % Neutrophils # 5.9 (1.3-7.7) k/uL Lymphocytes # 2.7 (1.0-4.8) k/uL Monocytes # 0.4 (0-1.0) k/uL Eosinophils # 0.2 (0-0.7) k/uL Basophils # 0.1 (0-0.2) k/uL PT 9.6 (9.0-12.0) sec INR 0.9 (<1.2) APTT 21.6 L (22.0-30.0) sec D-Dimer 0.79 H (<0.60) mg/L FEU Sodium 138 (137-145) mmol/L Potassium 4.2 (3.5-5.1) mmol/L Chloride 107 (98-107) mmol/L Carbon Dioxide 19 L (22-30) mmol/L Anion Gap 12 mmol/L BUN 13 (7-17) mg/dL Creatinine 0.71 (0.52-1.04) mg/dL Est GFR (CKD-EPI)AfAm >90 (>60 ml/min/1.73 sqM) Est GFR (CKD-EPI)NonAf >90 (>60 ml/min/1.73 sqM) Glucose 138 H (74-99) mg/dL Calcium 9.7 (8.4-10.2) mg/dL Magnesium 2.0 (1.6-2.3) mg/dL Total Bilirubin 0.4 (0.2-1.3) mg/dL AST 87 H (14-36) U/L ALT 94 H (4-34) U/L Alkaline Phosphatase 87 (38-126) U/L Troponin I (0.000-0.034) ng/mL Total Protein 7.6 (6.3-8.2) g/dL Albumin 4.2 (3.5-5.0) g/dL 10/19/21 Range/Units 18:39 WBC (3.8-10.6) k/uL RBC (3.80-5.40) m/uL Hgb (11.4-16.0) gm/dL Hct (34.0-46.0) % MCV (80.0-100.0) fL MCH (25.0-35.0) pg MCHC (31.0-37.0) g/dL RDW (11.5-15.5) % Plt Count (150-450) k/uL MPV Neutrophils % % Lymphocytes % % Monocytes % % Eosinophils % % Basophils % % Neutrophils # (1.3-7.7) k/uL Lymphocytes # (1.0-4.8) k/uL Monocytes # (0-1.0) k/uL Eosinophils # (0-0.7) k/uL Basophils # (0-0.2) k/uL PT (9.0-12.0) sec INR (<1.2) APTT (22.0-30.0) sec D-Dimer (<0.60) mg/L FEU Sodium (137-145) mmol/L Potassium (3.5-5.1) mmol/L Chloride (98-107) mmol/L Carbon Dioxide (22-30) mmol/L Anion Gap mmol/L BUN (7-17) mg/dL Creatinine (0.52-1.04) mg/dL Est GFR (CKD-EPI)AfAm (>60 ml/min/1.73 sqM) Est GFR (CKD-EPI)NonAf (>60 ml/min/1.73 sqM) Glucose (74-99) mg/dL Calcium (8.4-10.2) mg/dL Magnesium (1.6-2.3) mg/dL Total Bilirubin (0.2-1.3) mg/dL AST (14-36) U/L ALT (4-34) U/L Alkaline Phosphatase (38-126) U/L Troponin I <0.012 (0.000-0.034) ng/mL Total Protein (6.3-8.2) g/dL Albumin (3.5-5.0) g/dL - EKG Data -: EKG Interpreted by Me EKG Comments: 12-lead Electrocardiogram Interpretation Note EKG was reviewed and interpreted by myself. 12-lead ECG performed at 1621 is interpreted by me as revealing normal sinus rhythm at a rate of 95 beats per minute. [place] is normal. [place] interval is 143 ms, QRS duration is 80 ms, QTc is 408 ms.. There were no ST or T wave abnormalities to suggest myocardial ischemia or injury. R wave progression across the precordium was satisfactory. By my interpretation this EKG is non-diagnostic for acute ischemia. There is a good deal of baseline artifact, particularly in V3 which suspect this EKG occasionally difficult to interpret. Disposition Clinical Impression: Fall, Muscle strain, Pleuritic chest pain Disposition: HOME SELF-CARE Condition: Good Instructions (If sedation given, give patient instructions): Muscle Strain (ED) Is patient prescribed a controlled substance at d/c from ED?: No Referrals: Osmar Lundberg MD [Primary Care Provider] - 1-2 days
[2021-10-19 18:59] LABS: ALT 94 U/L (4-34); AST 87 U/L (14-36); African American GFR (CKD) >90 (>60 ml/min/1.73 sqM); Albumin 4.2 g/dL (3.5-5.0); Alkaline Phosphatase 87 U/L (38-126); Anion Gap 12 mmol/L; Blood Urea Nitrogen 13 mg/dL (7-17); Calcium 9.7 mg/dL (8.4-10.2); Carbon Dioxide 19 mmol/L (22-30); Chloride 107 mmol/L (98-107); Glucose 138 mg/dL (74-99); Non-African American GFR(CKD) >90 (>60 ml/min/1.73 sqM); Potassium 4.2 mmol/L (3.5-5.1); Sodium 138 mmol/L (137-145); Total Bilirubin 0.4 mg/dL (0.2-1.3); Total Protein 7.6 g/dL (6.3-8.2)
--- NOTE | 2021-10-19 19:07 | CT ---
EXAMINATION TYPE: CT brain cspine wo con DATE OF EXAM: 10/19/2021 COMPARISON: 11/03/2015 HISTORY: Fall. CT DLP: 1538.3 mGycm Automated exposure control for dose reduction was used. Ventricles have normal size. There is no mass effect or midline shift. There is no sign of intracrani al hemorrhage. Calvarium is intact. Skull base is intact. There is normal aeration of the mastoid sin uses. There is some debris in the left external auditory canal. Cervical vertebra have normal alignment. Posterior elements are intact. Facet joints are intact. Skul l base is intact. Cervical disc spaces are well-maintained. IMPRESSION: Negative CT scan of the cervical spine. Negative CT scan of the brain. Brain unchanged compared to old exam.
--- NOTE | 2021-10-19 19:11 | XR ---
EXAMINATION TYPE: XR elbow complete RT DATE OF EXAM: 10/19/2021 COMPARISON: NONE HISTORY: Numbness TECHNIQUE: 3 views FINDINGS: There is no evidence of fracture nor dislocation. Joint spaces are normal. There are no pat hologic calcifications. There is no sign of elbow joint effusion. IMPRESSION: Negative right elbow exam.
--- NOTE | 2021-10-19 19:12 | XR ---
EXAMINATION TYPE: XR chest 2V DATE OF EXAM: 10/19/2021 COMPARISON: 11/13/2020 HISTORY: Chest pain TECHNIQUE: 2 view FINDINGS: Heart and mediastinum are normal. Lungs are clear. Diaphragm is normal. Bony thorax is inta ct. IMPRESSION: Normal chest. No change.
[2021-10-19 19:16] LABS: INR 0.9 (<1.2); Prothrombin Time 9.6 sec (9.0-12.0)
[2021-10-19 19:17] LABS: Partial Thromboplastin Time 21.6 sec (22.0-30.0)
--- NOTE | 2021-10-19 21:16 | CT ---
EXAMINATION TYPE: CT chest angio for PE DATE OF EXAM: 10/19/2021 COMPARISON: None HISTORY: elevated d-dimer, c/o anxiety CT DLP: 548.2 mGycm Automated exposure control for dose reduction was used. CONTRAST: Performed with IV Contrast, patient injected with 78cc mL of Isovue 300. There are Three-D postprocessed images. The lungs are clear of infiltrate. There is no evidence of a pulmonary mass. There is no pleural effu ralph. There is no pericardial effusion. There is fatty infiltration of the liver. Heart size is lucie l. There is no mediastinal adenopathy. There are no hilar masses. Thoracic aorta is intact. There is no evidence of aneurysm or dissection. There is normal contrast op acification of the pulmonary arteries. There are no filling defects. The thoracic spine is intact. Th ere is no compression fracture. Sternum is intact. IMPRESSION: Fatty infiltration of the liver. No evidence of pulmonary embolism. No evidence of cardiopulmonary disease.
== END 2021-10-19 21:48 | disposition home or self-care (01) ==
LOC: EC 15:08
DX: S46.811A Strain of other muscles, fascia and tendons at shoulder and upper arm level, right arm, initial encounter (principal); R07.81 Pleurodynia; J45.909 Unspecified asthma, uncomplicated; M19.90 Unspecified osteoarthritis, unspecified site; F90.9 Attention-deficit hyperactivity disorder, unspecified type; F41.9 Anxiety disorder, unspecified; F32.A Depression, unspecified; F17.290 Nicotine dependence, other tobacco product, uncomplicated; F12.90 Cannabis use, unspecified, uncomplicated; Z90.49 Acquired absence of other specified parts of digestive tract; W01.0XXA Fall on same level from slipping, tripping and stumbling without subsequent striking against object, initial encounter
CPT/HCPCS: 99285; 96374; 96375; 36415; 93005; 85379; 80053; 83735; 84484; 85025; 85610; 85730; 73030; 73080; 71046; 72125; 70450; 71275; J2270; J2405; Q9967

== ENCOUNTER 2021-11-28 15:33 | Emergency (ER) | payer OTHER ==
--- NOTE | 2021-11-28 16:51 | ED ---
General Adult HPI - General Chief complaint: Dizziness Stated complaint: Fall Time Seen by Provider: 11/28/21 16:24 Source: patient, RN notes reviewed Mode of arrival: ambulatory Limitations: no limitations - History of Present Illness Initial comments: 26-year-old female presents to the emergency department for evaluation status post syncopal episode. Patient states she recalls being dizzy and lightheaded while in the shower. States she must have passed out but is uncertain. States her boyfriend called EMS who transported her to the emergency department. She complains of right shoulder pain and headache. States she is very tired and feels weak. Denies any known sick contacts, fever, chills, chest pain, shortness of breath, cough, congestion, difficulty breathing, abdominal pain, nausea, vomiting, diarrhea, or dysuria. Reports possible . - Related Data Home Medications Medication Instructions Recorded Confirmed Escitalopram Oxalate [Lexapro] 20 mg PO HS 05/17/21 10/19/21 Metoprolol Succinate (ER) [Toprol 25 mg PO HS 05/17/21 10/19/21 XL] Cyanocobalamin (Vitamin B-12) 2,000 mcg PO DAILY 08/04/21 10/19/21 [Vitamin B-12] Multivitamins, Thera [Multivitamin 1 tab PO DAILY 08/04/21 10/19/21 (formulary)] Albuterol Sulfate [Proair Hfa] 2 puff INHALATION RT-Q4H PRN 08/14/21 10/19/21 Docusate [Colace] 100 mg PO DAILY 08/14/21 10/19/21 Hyoscyamine Sulfate [Levsin-Sl] 0.125 mg SL QID PRN 08/14/21 10/19/21 Pirmella 1 tab PO HS 09/09/21 10/19/21 Cetirizine HCl [Zyrtec] 10 mg PO DAILY 09/28/21 10/19/21 Acetaminophen Tab [Tylenol Tab] 1,000 mg PO Q6H PRN 10/19/21 10/19/21 Previous Rx's Medication Instructions Recorded Ibuprofen [Motrin] 600 mg PO Q8HR PRN #30 tab 10/01/21 Simethicone [Gas-X] 125 mg PO AC-TID PRN #20 capsule 10/01/21 Ibuprofen [Motrin] 600 mg PO Q8HR PRN #20 tab 11/28/21 Allergies Allergy/AdvReac Type Severity Reaction Status Date / Time No Known Allergies Allergy Verified 11/28/21 16:20 Review of Systems ROS Statement: Those systems with pertinent positive or pertinent negative responses have been documented in the HPI. ROS Other: All systems not noted in ROS Statement are negative. Past Medical History Past Medical History: Asthma, Osteoarthritis (OA) History of Any Multi-Drug Resistant Organisms: None Reported Past Surgical History: Appendectomy, Section, Cholecystectomy Additional Past Surgical History / Comment(s): Past Anesthesia/Blood Transfusion Reactions: No Reported Reaction Past Psychological History: ADD/ADHD, Anxiety, Depression Smoking Status: Vaper Past Alcohol Use History: None Reported Past Drug Use History: Marijuana - Past Family History Father Family Medical History: No Reported History Mother Family Medical History: No Reported History General Exam Limitations: no limitations (Well-developed, well-nourished female in no acute distress. Initial temperature 98.1, pulse 75, respirations 18, blood pressure 108/67, pulse ox 98% on room air.) General appearance: alert, in no apparent distress Head exam: Present: atraumatic, normocephalic, normal inspection Eye exam: Present: normal appearance, PERRL, EOMI. Absent: scleral icterus, conjunctival injection, nystagmus, periorbital swelling ENT exam: Present: normal exam, mucous membranes moist Neck exam: Present: normal inspection, full ROM. Absent: tenderness, meningismus, lymphadenopathy Respiratory exam: Present: normal lung sounds bilaterally. Absent: respiratory distress, wheezes, rales, rhonchi, stridor Cardiovascular Exam: Present: regular rate, normal rhythm, normal heart sounds. Absent: systolic murmur, diastolic murmur, rubs, gallop, clicks GI/Abdominal exam: Present: soft, normal bowel sounds. Absent: distended, tenderness, guarding, rebound, rigid Right General: Present: normal inspection Shoulder Exam: Present: normal inspection, full ROM, tenderness (Tenderness upon palpation of the entire shoulder joint). Absent: swelling, deformity, crepitus, tenderness over AC joint Neurological exam: Present: alert, oriented X3, CN II-XII intact Expanded Patient oriented to: Present: person, place, time Speech: Present: fluid speech Cranial nerves: EOM's Intact: Normal, Nystagmus: Normal Cerebellar function: Finger to Nose: Normal Motor strength exam: RUE: 5, LUE: 5, RLE: 5, LLE: 5 Eye Response: (4) open spontaneously Motor Response: (6) obeys commands Verbal Response: (5) oriented Christiano Total: 15 Psychiatric exam: Present: anxious Skin exam: Present: warm, dry, intact, normal color. Absent: rash Course Vital Signs 11/28/21 11/28/21 11/28/21 15:50 18:47 20:00 Temperature 98.1 F 98.0 F 98.1 F Pulse Rate 75 100 95 Respiratory 18 18 18 Rate Blood Pressure 108/67 118/75 116/78 O2 Sat by Pulse 98 98 99 Oximetry 11/28/21 20:33 Temperature 98.0 F Pulse Rate 92 Respiratory 16 Rate Blood Pressure 117/77 O2 Sat by Pulse 98 Oximetry - Reevaluation(s) Reevaluation #1: 11/28/21 18:32 Upon reevaluation, patient states her headache is worsened and she is now vomiting. Medications ordered. Patient is given an emesis basin and warm washcloth. Will re-evaluate after medications. 11/28/21 20:00 Upon reevaluation, patient is resting comfortably, moving all extremities freely, able to tolerate oral intake without difficulty, and verbalizing readiness for discharge. Family member present at bedside to accompany patient home. Medical Decision Making - Medical Decision Making 26-year-old female with a past medical history of anxiety, depression, ADHD, and asthma presents to the emergency department for evaluation status post syncopal episode. Upon exam, patient is well-appearing and in no acute distress. She is alert and oriented and able to follow commands appropriately. GCS 15. Patient does have complaints of headache and dizziness. She has neurologically intact. Complains of right shoulder pain that worsens with palpation and movement. CT brain and C-spine are negative. X-ray of the right shoulder is unremarkable. Laboratory studies are reviewed. Patient does have elevated liver enzymes, though this is not an unusual finding for her and patient reports history of fatty liver disease. EKG shows normal sinus rhythm with no ectopy. Patient did experience an episode of nausea and vomiting while present to the e mergency department she was given a liter of IV fluids and Zofran with improvement. Patient was treated with Toradol. Upon reassessment, patient reports significant improvement and readiness for discharge. She is instructed to follow-up with her PCP for recheck. Return parameters discussed. She verbalizes understanding and agrees with this plan. Attending: Nathan. - Lab Data Result diagrams: 11/28/21 16:23 11/28/21 16:23 Lab Results 11/28/21 11/28/21 11/28/21 Range/Units 16:23 16:23 16:23 WBC 9.1 (3.8-10.6) k/uL RBC 3.90 (3.80-5.40) m/uL Hgb 12.5 (11.4-16.0) gm/dL Hct 37.5 (34.0-46.0) % MCV 96.3 (80.0-100.0) fL MCH 32.0 (25.0-35.0) pg MCHC 33.2 (31.0-37.0) g/dL RDW 12.9 (11.5-15.5) % Plt Count 202 (150-450) k/uL MPV 8.1 Neutrophils % 71 % Lymphocytes % 22 % Monocytes % 3 % Eosinophils % 1 % Basophils % 0 % Neutrophils # 6.5 (1.3-7.7) k/uL Lymphocytes # 2.1 (1.0-4.8) k/uL Monocytes # 0.3 (0-1.0) k/uL Eosinophils # 0.1 (0-0.7) k/uL Basophils # 0.0 (0-0.2) k/uL Sodium 136 L (137-145) mmol/L Potassium 4.0 (3.5-5.1) mmol/L Chloride 105 (98-107) mmol/L Carbon Dioxide 20 L (22-30) mmol/L Anion Gap 11 mmol/L BUN 11 (7-17) mg/dL Creatinine 0.69 (0.52-1.04) mg/dL Est GFR (CKD-EPI)AfAm >90 (>60 ml/min/1.73 sqM) Est GFR (CKD-EPI)NonAf >90 (>60 ml/min/1.73 sqM) Glucose 92 (74-99) mg/dL Calcium 9.1 (8.4-10.2) mg/dL Total Bilirubin 0.5 (0.2-1.3) mg/dL AST 90 H (14-36) U/L ALT 87 H (4-34) U/L Alkaline Phosphatase 73 (38-126) U/L Troponin I <0.012 (0.000-0.034) ng/mL Total Protein 6.8 (6.3-8.2) g/dL Albumin 3.7 (3.5-5.0) g/dL Urine Color Urine Appearance (Clear) Urine pH (5.0-8.0) Ur Specific Sp[place] (1.001-1.035) Urine Protein (Negative) Urine Glucose (UA) (Negative) Urine Ketones (Negative) Urine Blood (Negative) Urine Nitrite (Negative) Urine Bilirubin (Negative) Urine Urobilinogen (<2.0) mg/dL Ur Leukocyte Esterase (Negative) Urine RBC (0-5) /hpf Urine WBC (0-5) /hpf Ur Squamous Epith Cells (0-4) /hpf Urine Mucus (None) /hpf Urine HCG, Qual (Not Detectd) Urine Opiates Screen (NotDetected) Ur Oxycodone Screen (NotDetected) Urine Methadone Screen (NotDetected) Ur Propoxyphene Screen (NotDetected) Ur Barbiturates Screen (NotDetected) U Tricyclic Antidepress (NotDetected) Ur Phencyclidine Scrn (NotDetected) Ur Amphetamines Screen (NotDetected) U Methamphetamines Scrn (NotDetected) U Benzodiazepines Scrn (NotDetected) Urine Cocaine Screen (NotDetected) U Marijuana (THC) Screen (NotDetected) 11/28/21 11/28/21 Range/Units 16:34 16:34 WBC (3.8-10.6) k/uL RBC (3.80-5.40) m/uL Hgb (11.4-16.0) gm/dL Hct (34.0-46.0) % MCV (80.0-100.0) fL MCH (25.0-35.0) pg MCHC (31.0-37.0) g/dL RDW (11.5-15.5) % Plt Count (150-450) k/uL MPV Neutrophils % % Lymphocytes % % Monocytes % % Eosinophils % % Basophils % % Neutrophils # (1.3-7.7) k/uL Lymphocytes # (1.0-4.8) k/uL Monocytes # (0-1.0) k/uL Eosinophils # (0-0.7) k/uL Basophils # (0-0.2) k/uL Sodium (137-145) mmol/L Potassium (3.5-5.1) mmol/L Chloride (98-107) mmol/L Carbon Dioxide (22-30) mmol/L Anion Gap mmol/L BUN (7-17) mg/dL Creatinine (0.52-1.04) mg/dL Est GFR (CKD-EPI)AfAm (>60 ml/min/1.73 sqM) Est GFR (CKD-EPI)NonAf (>60 ml/min/1.73 sqM) Glucose (74-99) mg/dL Calcium (8.4-10.2) mg/dL Total Bilirubin (0.2-1.3) mg/dL AST (14-36) U/L ALT (4-34) U/L Alkaline Phosphatase (38-126) U/L Troponin I (0.000-0.034) ng/mL Total Protein (6.3-8.2) g/dL Albumin (3.5-5.0) g/dL Urine Color Light Yellow Urine Appearance Clear (Clear) Urine pH 5.5 (5.0-8.0) Ur Specific Sp[place] 1.009 (1.001-1.035) Urine Protein Negative (Negative) Urine Glucose (UA) Negative (Negative) Urine Ketones Negative (Negative) Urine Blood Small H (Negative) Urine Nitrite Negative (Negative) Urine Bilirubin Negative (Negative) Urine Urobilinogen <2.0 (<2.0) mg/dL Ur Leukocyte Esterase Negative (Negative) Urine RBC <1 (0-5) /hpf Urine WBC 1 (0-5) /hpf Ur Squamous Epith Cells 1 (0-4) /hpf Urine Mucus Rare H (None) /hpf Urine HCG, Qual Not Detected (Not Detectd) Urine Opiates Screen Not Detected (NotDetected) Ur Oxycodone Screen Not Detected (NotDetected) Urine Methadone Screen Not Detected (NotDetected) Ur Propoxyphene Screen Not Detected (NotDetected) Ur Barbiturates Screen Not Detected (NotDetected) U Tricyclic Antidepress Not Detected (NotDetected) Ur Phencyclidine Scrn Not Detected (NotDetected) Ur Amphetamines Screen Not Detected (NotDetected) U Methamphetamines Scrn Not Detected (NotDetected) U Benzodiazepines Scrn Not Detected (NotDetected) Urine Cocaine Screen Not Detected (NotDetected) U Marijuana (THC) Screen Detected H (NotDetected) - EKG Data EKG shows normal: sinus rhythm Rate: normal EKG Comments: EKG obtained at 1711 shows sinus rhythm. Ventricular rate 82, AR interval 156, QRS duration 93, QT/QTC 392/431. Interpretation normal ECG. - Radiology Data Radiology results: report reviewed, image reviewed CT brain and C-spine was obtained. Report was reviewed in its entirety. Impression per Dr. Cardona as negative computed tomography scan of the brain. Negative computed tomography scan and cervical spine. No change. X-ray of the right shoulder was obtained. Report was reviewed in its entirety. Impression per Dr. Cardona is negative right shoulder exam. Disposition Clinical Impression: Syncope, Shoulder pain, right, Headache Disposition: HOME SELF-CARE Condition: Stable Instructions (If sedation given, give patient instructions): Syncope (ED), Shoulder Pain (ED) Additional Instructions: Take Motrin if needed for shoulder pain. You were given Toradol in the Emergency Department. Do not take Motrin before 10:00pm tonight. Gentle range of motion exercises for the shoulder. Make position changes slowly. Drink plenty of water.. Follow up with your PCP for a recheck. Return to the emergency department with any new, worsening, or concerning symptoms. Prescriptions: Ibuprofen [Motrin] 600 mg PO Q8HR PRN #20 tab PRN Reason: Pain Is patient prescribed a controlled substance at d/c from ED?: No Referrals: Osmar Lundberg MD [Primary Care Provider] - 1-2 days Time of Disposition: 20:16
[2021-11-28 17:01] LABS: Appearance,Urine Clear (Clear); Bilirubin,Urine Negative (Negative); Blood,Urine Small (Negative); Color,Urine Light Yellow; Glucose,Urine (UA) Negative (Negative); Ketones,Urine Negative (Negative); Leukocyte Esterase,Urine Negative (Negative); Mucus,Urine Rare /hpf; Nitrite,Urine Negative (Negative); PH, Urine 5.5 (5.0-8.0); Protein,Urine Negative (Negative); RBC,Urine <1 /hpf (0-5); Specific Gravity,Urine 1.009 (1.001-1.035); Squamous Epithelial Cell,Urine 1 /hpf (0-4); Urobilinogen,Urine <2.0 mg/dL (<2.0); WBC,Urine 1 /hpf (0-5)
[2021-11-28 17:03] LABS: ALT 87 U/L (4-34); AST 90 U/L (14-36); African American GFR (CKD) >90 (>60 ml/min/1.73 sqM); Albumin 3.7 g/dL (3.5-5.0); Alkaline Phosphatase 73 U/L (38-126); Anion Gap 11 mmol/L; Blood Urea Nitrogen 11 mg/dL (7-17); Calcium 9.1 mg/dL (8.4-10.2); Carbon Dioxide 20 mmol/L (22-30); Chloride 105 mmol/L (98-107); Glucose 92 mg/dL (74-99); Non-African American GFR(CKD) >90 (>60 ml/min/1.73 sqM); Sodium 136 mmol/L (137-145); Total Bilirubin 0.5 mg/dL (0.2-1.3); Total Protein 6.8 g/dL (6.3-8.2)
[2021-11-28 17:07] LABS: Basophils % (A) 0 %; Eosinophils # (A) 0.1 k/uL (0-0.7); Eosinophils % (A) 1 %; HCT 37.5 % (34.0-46.0); HGB 12.5 gm/dL (11.4-16.0); Lymphocytes # (A) 2.1 k/uL (1.0-4.8); Lymphocytes % (A) 22 %; MCHC 33.2 g/dL (31.0-37.0); MCV 96.3 fL (80.0-100.0); Mean Platelet Volume 8.1; Monocytes # (A) 0.3 k/uL (0-1.0); Monocytes % (A) 3 %; Neutrophils # (A) 6.5 k/uL (1.3-7.7); Neutrophils % (A) 71 %; Platelet Count 202 k/uL (150-450); RDW 12.9 % (11.5-15.5); WBC 9.1 k/uL (3.8-10.6)
[2021-11-28 17:14] LABS: Amphetamine Screen,Urine Not Detected (NotDetected); Barbiturate Screen,Urine Not Detected (NotDetected); Benzodiazepines Screen,Urine Not Detected (NotDetected); Cocaine Screen,Urine Not Detected (NotDetected); Methadone Screen, Urine Not Detected (NotDetected); Opiate Screen,Urine Not Detected (NotDetected); Oxycodone Screen, Urine Not Detected (NotDetected); Phencyclidine Screen,Urine Not Detected (NotDetected); Tricyclic Antidepressant,Urine Not Detected (NotDetected); Urn Cannabinoid Scrn Detected (NotDetected)
--- NOTE | 2021-11-28 17:53 | CT ---
EXAMINATION TYPE: CT brain cspine wo con DATE OF EXAM: 11/28/2021 COMPARISON: 10/19/2021 HISTORY: fall CT DLP: 1500.4 mGycm Automated exposure control for dose reduction was used. Ventricles and sulci appear normal. There is no mass effect or midline shift. There is no sign of int racranial hemorrhage. Calvarium is intact. Cervical vertebral have a normal alignment. Disc spaces are normal. Posterior elements are intact. Th ere is no compression fracture. Prevertebral soft tissues are intact. IMPRESSION: Negative CT scan of the brain. Negative CT scan cervical spine. No change.
--- NOTE | 2021-11-28 17:57 | XR ---
EXAMINATION TYPE: XR shoulder complete RT DATE OF EXAM: 11/28/2021 COMPARISON: NONE HISTORY: Pain TECHNIQUE: 3 views FINDINGS: There is no fracture nor dislocation. Glenohumeral joint is intact. There are no pathologic calcific ations. IMPRESSION: Negative right shoulder exam.
[2021-11-28] MEDS ORDERED: KETOROLAC 15 MG/ML 1 ML VIAL IVP STA (18:17)
[2021-11-28] MEDS ORDERED: diphenhydrAMINE 50 MG/ML 1 ML VIAL IVP STA (18:31)
[2021-11-28] MEDS ORDERED: ONDANSETRON 4 MG/2 ML VIAL IVP STA (18:31)
[2021-11-28] MEDS ORDERED: IBUPROFEN 600 MG STARTER PACK 4 TAB BTL PO STA (20:17)
[2021-11-28 20:41] VITALS: BP 117/77; PULSE 92; RESP 16; TEMP 98
== END 2021-11-28 20:33 | disposition home or self-care (01) ==
LOC: EC 15:33
DX: R55 Syncope and collapse (principal); M25.511 Pain in right shoulder; R51.9 Headache, unspecified; J45.909 Unspecified asthma, uncomplicated; M19.90 Unspecified osteoarthritis, unspecified site; F90.9 Attention-deficit hyperactivity disorder, unspecified type; F41.9 Anxiety disorder, unspecified; F32.A Depression, unspecified; F17.290 Nicotine dependence, other tobacco product, uncomplicated; F12.90 Cannabis use, unspecified, uncomplicated; Z90.49 Acquired absence of other specified parts of digestive tract
CPT/HCPCS: 99285; 96374; 96375 ×2; 36415; 93005; 80053; 84484; 85025; 81001; 81025; 80306; 73030; 72125; 70450; J1200; J2405; J1885

== ENCOUNTER 2021-12-09 17:55 | Emergency (ER) | payer OTHER ==
[2021-12-09] MEDS ORDERED: ONDANSETRON 4 MG/2 ML VIAL IVP STA (18:56)
[2021-12-09] MEDS ORDERED: SODIUM CHLORIDE 0.9% 1,000 ML IV ONE (18:56)
--- NOTE | 2021-12-09 19:00 | ED ---
General Adult HPI - General Chief complaint: Nausea/Vomiting/Diarrhea Stated complaint: Dizzy,N/V Time Seen by Provider: 12/09/21 18:25 Source: patient, RN notes reviewed, old records reviewed Mode of arrival: wheelchair Limitations: no limitations - History of Present Illness Initial comments: This is a 26 year old female who states she started vomiting yesterday and continues to have some vomiting episodes today. Patient denies any abdominal pain. Patient states she does have some diarrhea and had a temperature 100.0 home. Patient denies any chest pain difficulty breathing shortness of breath. Patient denies any dysuria hematuria urinary frequency. Patient states she's also here to see if she is she states she could be and her breasts are tender and a little bit larger than normal so she thinks she might be. Patient denies any back pain. - Related Data Home Medications Medication Instructions Recorded Confirmed Escitalopram Oxalate [Lexapro] 20 mg PO HS 05/17/21 10/19/21 Metoprolol Succinate (ER) [Toprol 25 mg PO HS 05/17/21 10/19/21 XL] Cyanocobalamin (Vitamin B-12) 2,000 mcg PO DAILY 08/04/21 10/19/21 [Vitamin B-12] Multivitamins, Thera [Multivitamin 1 tab PO DAILY 08/04/21 10/19/21 (formulary)] Albuterol Sulfate [Proair Hfa] 2 puff INHALATION RT-Q4H PRN 08/14/21 10/19/21 Docusate [Colace] 100 mg PO DAILY 08/14/21 10/19/21 Hyoscyamine Sulfate [Levsin-Sl] 0.125 mg SL QID PRN 08/14/21 10/19/21 Pirmella 1 tab PO HS 09/09/21 10/19/21 Cetirizine HCl [Zyrtec] 10 mg PO DAILY 09/28/21 10/19/21 Acetaminophen Tab [Tylenol Tab] 1,000 mg PO Q6H PRN 10/19/21 10/19/21 Previous Rx's Medication Instructions Recorded Ibuprofen [Motrin] 600 mg PO Q8HR PRN #30 tab 10/01/21 Simethicone [Gas-X] 125 mg PO AC-TID PRN #20 capsule 10/01/21 Ibuprofen [Motrin] 600 mg PO Q8HR PRN #20 tab 11/28/21 Allergies Allergy/AdvReac Type Severity Reaction Status Date / Time No Known Allergies Allergy Verified 12/09/21 18:24 Review of Systems ROS Statement: Those systems with pertinent positive or pertinent negative responses have been documented in the HPI. ROS Other: All systems not noted in ROS Statement are negative. Past Medical History Past Medical History: Asthma, Osteoarthritis (OA) History of Any Multi-Drug Resistant Organisms: None Reported Past Surgical History: Appendectomy, Section, Cholecystectomy Additional Past Surgical History / Comment(s): Past Anesthesia/Blood Transfusion Reactions: No Reported Reaction Past Psychological History: ADD/ADHD, Anxiety, Depression Smoking Status: Vaper Past Alcohol Use History: None Reported Past Drug Use History: Marijuana - Past Family History Father Family Medical History: No Reported History Mother Family Medical History: No Reported History General Exam - General Exam Comments Initial Comments: GENERAL: Patient is well-developed and well-nourished. Patient is nontoxic and well- hydrated and is in no acute distress. Patient is laughing and joking around but having another kid. ENT: Neck is soft and supple. No significant lymphadenopathy is noted. Oropharynx is clear. Moist mucous membranes. Neck has full range of motion without eliciting any pain. EYES: The sclera were anicteric and conjunctiva were pink and moist. Extraocular mo vements were intact and pupils were equal round and reactive to light. Eyelids were unremarkable. PULMONARY: Unlabored respirations. Good breath sounds bilaterally. No audible rales rhonchi or wheezing was noted. CARDIOVASCULAR: There is a regular rate and rhythm without any murmurs gallops or rubs. ABDOMEN: Soft and nontender with normal bowel sounds. SKIN: Skin is clear with no lesions or rashes and otherwise unremarkable. NEUROLOGIC: Patient is alert and oriented x3. Cranial nerves II through XII are grossly intact. Motor and sensory are also intact. Normal speech, volume and content. Symmetrical smile. MUSCULOSKELETAL: Normal extremities with adequate strength and full range of motion. No lower extremity swelling or edema. No calf tenderness. LYMPHATICS: No significant lymphadenopathy is noted PSYCHIATRIC: Normal psychiatric evaluation. Limitations: no limitations Course Vital Signs 12/09/21 18:24 Temperature 100.0 F H Pulse Rate 91 Respiratory 16 Rate Blood Pressure 125/85 O2 Sat by Pulse 98 Oximetry Medical Decision Making - Medical Decision Making Patient received Zofran and fluids in the emergency department. Patient never had any vomiting in the emergency department. I went back in and reevaluated the patient she stated she felt better she had no abdominal pain and she was no longer nauseated. - Lab Data Result diagrams: 12/09/21 19:02 12/09/21 19:02 Lab Results 12/09/21 12/09/21 12/09/21 Range/Units 19:02 19:02 19:02 WBC 7.5 (3.8-10.6) k/uL RBC 4.05 (3.80-5.40) m/uL Hgb 13.0 (11.4-16.0) gm/dL Hct 38.5 (34.0-46.0) % MCV 94.9 (80.0-100.0) fL MCH 32.0 (25.0-35.0) pg MCHC 33.7 (31.0-37.0) g/dL RDW 12.0 (11.5-15.5) % Plt Count 222 (150-450) k/uL MPV 7.9 Neutrophils % 62 % Lymphocytes % 28 % Monocytes % 6 % Eosinophils % 2 % Basophils % 1 % Neutrophils # 4.6 (1.3-7.7) k/uL Lymphocytes # 2.1 (1.0-4.8) k/uL Monocytes # 0.5 (0-1.0) k/uL Eosinophils # 0.1 (0-0.7) k/uL Basophils # 0.1 (0-0.2) k/uL Sodium 138 (137-145) mmol/L Potassium 4.5 (3.5-5.1) mmol/L Chloride 105 (98-107) mmol/L Carbon Dioxide 27 (22-30) mmol/L Anion Gap 6 mmol/L BUN 12 (7-17) mg/dL Creatinine 0.79 (0.52-1.04) mg/dL Est GFR (CKD-EPI)AfAm >90 (>60 ml/min/1.73 sqM) Est GFR (CKD-EPI)NonAf >90 (>60 ml/min/1.73 sqM) Glucose 96 (74-99) mg/dL Calcium 9.1 (8.4-10.2) mg/dL Total Bilirubin 0.6 (0.2-1.3) mg/dL AST 79 H (14-36) U/L ALT 105 H (4-34) U/L Alkaline Phosphatase 80 (38-126) U/L Total Protein 7.4 (6.3-8.2) g/dL Albumin 4.2 (3.5-5.0) g/dL Urine HCG, Qual Not Detected (Not Detectd) Disposition Clinical Impression: Gastroenteritis Disposition: HOME SELF-CARE Condition: Good Instructions (If sedation given, give patient instructions): Gastroenteritis (DC) Is patient prescribed a controlled substance at d/c from ED?: No Referrals: Osmar Lundberg MD [Primary Care Provider] - 1-2 days Time of Disposition: 19:47
[2021-12-09 19:25] LABS: Basophils # (A) 0.1 k/uL (0-0.2); Basophils % (A) 1 %; Eosinophils # (A) 0.1 k/uL (0-0.7); Eosinophils % (A) 2 %; HCT 38.5 % (34.0-46.0); Lymphocytes # (A) 2.1 k/uL (1.0-4.8); Lymphocytes % (A) 28 %; MCHC 33.7 g/dL (31.0-37.0); MCV 94.9 fL (80.0-100.0); Mean Platelet Volume 7.9; Monocytes # (A) 0.5 k/uL (0-1.0); Monocytes % (A) 6 %; Neutrophils # (A) 4.6 k/uL (1.3-7.7); Neutrophils % (A) 62 %; Platelet Count 222 k/uL (150-450); RBC 4.05 m/uL (3.80-5.40); WBC 7.5 k/uL (3.8-10.6)
[2021-12-09 19:34] LABS: ALT 105 U/L (4-34); AST 79 U/L (14-36); African American GFR (CKD) >90 (>60 ml/min/1.73 sqM); Albumin 4.2 g/dL (3.5-5.0); Alkaline Phosphatase 80 U/L (38-126); Anion Gap 6 mmol/L; Blood Urea Nitrogen 12 mg/dL (7-17); Calcium 9.1 mg/dL (8.4-10.2); Carbon Dioxide 27 mmol/L (22-30); Chloride 105 mmol/L (98-107); Glucose 96 mg/dL (74-99); Non-African American GFR(CKD) >90 (>60 ml/min/1.73 sqM); Potassium 4.5 mmol/L (3.5-5.1); Sodium 138 mmol/L (137-145); Total Bilirubin 0.6 mg/dL (0.2-1.3); Total Protein 7.4 g/dL (6.3-8.2)
[2021-12-09] MEDS ORDERED: ONDANSETRON 4 MG ODT STARTER PACK 2 TAB BTL PO STA (19:47)
[2021-12-09 20:17] VITALS: BP 132/81; PULSE 90; RESP 18; TEMP 99.4
== END 2021-12-09 20:24 | disposition home or self-care (01) ==
LOC: EC 17:55
DX: K52.9 Noninfective gastroenteritis and colitis, unspecified (principal); J45.909 Unspecified asthma, uncomplicated; M19.90 Unspecified osteoarthritis, unspecified site; F90.9 Attention-deficit hyperactivity disorder, unspecified type; F41.9 Anxiety disorder, unspecified; F32.A Depression, unspecified; F17.290 Nicotine dependence, other tobacco product, uncomplicated; F12.90 Cannabis use, unspecified, uncomplicated; Z90.49 Acquired absence of other specified parts of digestive tract
CPT/HCPCS: 99284; 96374; 96361; 36415; 80053; 85025; 81025; J2405; S0119

== ENCOUNTER 2022-02-04 02:52 | Emergency (ER) | payer OTHER ==
[2022-02-04] MEDS ORDERED: SODIUM CHLORIDE 0.9% 1,000 ML IV ONE (03:29)
[2022-02-04 03:31] LABS: Basophils # (A) 0.1 k/uL (0-0.2); Basophils % (A) 1 %; Eosinophils # (A) 0.1 k/uL (0-0.7); Eosinophils % (A) 2 %; HCT 38.8 % (34.0-46.0); HGB 12.5 gm/dL (11.4-16.0); Lymphocytes # (A) 2.9 k/uL (1.0-4.8); Lymphocytes % (A) 31 %; MCH 30.8 pg (25.0-35.0); MCHC 32.2 g/dL (31.0-37.0); MCV 95.5 fL (80.0-100.0); Mean Platelet Volume 8.4; Monocytes # (A) 0.5 k/uL (0-1.0); Monocytes % (A) 5 %; Neutrophils # (A) 5.5 k/uL (1.3-7.7); Neutrophils % (A) 60 %; Platelet Count 201 k/uL (150-450); RBC 4.06 m/uL (3.80-5.40); RDW 11.8 % (11.5-15.5); WBC 9.2 k/uL (3.8-10.6)
[2022-02-04 03:48] LABS: ALT 102 U/L (4-34); AST 87 U/L (14-36); African American GFR (CKD) >90 (>60 ml/min/1.73 sqM); Albumin 4.6 g/dL (3.5-5.0); Alkaline Phosphatase 62 U/L (38-126); Anion Gap 10 mmol/L; Blood Urea Nitrogen 9 mg/dL (7-17); Calcium 9.4 mg/dL (8.4-10.2); Carbon Dioxide 23 mmol/L (22-30); Chloride 105 mmol/L (98-107); Glucose 90 mg/dL (74-99); Non-African American GFR(CKD) >90 (>60 ml/min/1.73 sqM); Sodium 138 mmol/L (137-145); Total Bilirubin 0.7 mg/dL (0.2-1.3); Total Protein 7.9 g/dL (6.3-8.2)
[2022-02-04 03:49] LABS: Potassium 4.9 mmol/L (3.5-5.1)
[2022-02-04 06:14] LABS: Appearance,Urine Clear (Clear); Bilirubin,Urine Negative (Negative); Blood,Urine Negative (Negative); Color,Urine Yellow; Glucose,Urine (UA) Negative (Negative); Ketones,Urine Negative (Negative); Leukocyte Esterase,Urine Negative (Negative); Nitrite,Urine Negative (Negative); Protein,Urine Negative (Negative); Specific Gravity,Urine 1.013 (1.001-1.035)
--- NOTE | 2022-02-04 08:21 | ED ---
Abdominal Pain HPI - General Source: patient, EMS Mode of arrival: EMS Limitations: no limitations - History of Present Illness MD Complaint: abdominal pain -: hour(s) Location: RUQ, epigastric Radiation: back Migration to: no migration Severity: severe Quality: aching Consistency: constant Improves With: nothing Worsens With: nothing Associated Symptoms: nausea <Beltran Vieyra - Last Filed: 02/04/22 08:19> <Meet Galvan - Last Filed: 02/04/22 08:41> - General Chief Complaint: Abdominal Pain Stated Complaint: Dizziness, near syncope Time Seen by Provider: 02/04/22 03:12 - Related Data Home Medications Medication Instructions Recorded Confirmed Metoprolol Succinate (ER) [Toprol 25 mg PO HS 05/17/21 02/04/22 XL] Multivitamins, Thera [Multivitamin 1 tab PO HS 08/04/21 02/04/22 (formulary)] Pirmella 1 tab PO HS 09/09/21 02/04/22 Trintellix Unknown Dose 1 tab PO HS 02/04/22 02/04/22 Previous Rx's Medication Instructions Recorded Ondansetron Odt [Zofran Odt] 4 mg PO Q8HR PRN #10 tab 02/04/22 Allergies Allergy/AdvReac Type Severity Reaction Status Date / Time No Known Allergies Allergy Verified 02/04/22 08:31 Review of Systems ROS Other: All systems not noted in ROS Statement are negative. Constitutional: Denies: fever, chills Respiratory: Denies: cough, dyspnea Cardiovascular: Denies: chest pain, palpitations Gastrointestinal: Reports: abdominal pain, nausea. Denies: vomiting, diarrhea, constipation, melena, hematochezia Genitourinary: Denies: dysuria, hematuria Musculoskeletal: Denies: back pain Skin: Denies: rash Neurological: Denies: headache, weakness, numbness <Beltran Vieyra - Last Filed: 02/04/22 08:19> ROS Other: All systems not noted in ROS Statement are negative. <Meet Galvan - Last Filed: 02/04/22 08:41> ROS Statement: Those systems with pertinent positive or pertinent negative responses have been documented in the HPI. Past Medical History Past Medical History: Asthma, Osteoarthritis (OA) History of Any Multi-Drug Resistant Organisms: None Reported Past Surgical History: Appendectomy, Section, Cholecystectomy Additional Past Surgical History / Comment(s): Past Anesthesia/Blood Transfusion Reactions: No Reported Reaction Past Psychological History: ADD/ADHD, Anxiety, Depression Smoking Status: Vaper Past Alcohol Use History: None Reported Past Drug Use History: Marijuana - Past Family History Father Family Medical History: No Reported History Mother Family Medical History: No Reported History <Beltran Vieyra - Last Filed: 02/04/22 08:19> General Exam Limitations: no limitations General appearance: alert, in no apparent distress Head exam: Present: atraumatic, normocephalic Eye exam: Present: normal appearance. Absent: scleral icterus, conjunctival injection ENT exam: Present: normal oropharynx Neck exam: Present: normal inspection Respiratory exam: Present: normal lung sounds bilaterally. Absent: respiratory distress, wheezes, rales, rhonchi, stridor Cardiovascular Exam: Present: regular rate, normal rhythm, normal heart sounds. Absent: systolic murmur, diastolic murmur, rubs, gallop GI/Abdominal exam: Present: soft, tenderness. Absent: distended, guarding, rebound, rigid, mass, pulsatile mass, hernia Extremities exam: Present: normal inspection, normal capillary refill. Absent: pedal edema, calf tenderness Back exam: Present: normal inspection. Absent: CVA tenderness (R), CVA tenderness (L) Neurological exam: Present: alert Skin exam: Present: warm, dry, intact, normal color. Absent: rash <Beltran Vieyra - Last Filed: 02/04/22 08:19> Course Vital Signs 02/04/22 02:52 Temperature 97.9 F Pulse Rate 83 Respiratory 22 Rate Blood Pressure 111/79 O2 Sat by Pulse 98 Oximetry Medical Decision Making - Lab Data Result diagrams: 02/04/22 03:22 02/04/22 03:22 <Beltran Vieyra - Last Filed: 02/04/22 08:19> - Lab Data Result diagrams: 02/04/22 03:22 02/04/22 03:22 - Radiology Data Radiology results: report reviewed (Computed tomography scan of the abdomen pelvis shows bilateral nonobstructing nephrolithiasis. Hepatic steatosis.) <Meet Galvan - Last Filed: 02/04/22 08:41> - Medical Decision Making Case endorsed to me by Dr. Ray with probable discharge following computed tomography scan. Patient reevaluated. Patient states abdominal discomfort is chronic related to her fatty liver disease. Patient states nausea is new and she has vomited. Patient is requesting discharge however would like medication prior to this. Abdomen is soft with mild epigastric tenderness. Patient updated on results and need for follow-up. (Meet Galvan) - Lab Data Lab Results 02/04/22 02/04/22 02/04/22 Range/Units 03:22 03:22 03:22 WBC 9.2 (3.8-10.6) k/uL RBC 4.06 (3.80-5.40) m/uL Hgb 12.5 (11.4-16.0) gm/dL Hct 38.8 (34.0-46.0) % MCV 95.5 (80.0-100.0) fL MCH 30.8 (25.0-35.0) pg MCHC 32.2 (31.0-37.0) g/dL RDW 11.8 (11.5-15.5) % Plt Count 201 (150-450) k/uL MPV 8.4 Neutrophils % 60 % Lymphocytes % 31 % Monocytes % 5 % Eosinophils % 2 % Basophils % 1 % Neutrophils # 5.5 (1.3-7.7) k/uL Lymphocytes # 2.9 (1.0-4.8) k/uL Monocytes # 0.5 (0-1.0) k/uL Eosinophils # 0.1 (0-0.7) k/uL Basophils # 0.1 (0-0.2) k/uL Sodium 138 (137-145) mmol/L Potassium 4.9 (3.5-5.1) mmol/L Chloride 105 (98-107) mmol/L Carbon Dioxide 23 (22-30) mmol/L Anion Gap 10 mmol/L BUN 9 (7-17) mg/dL Creatinine 0.77 (0.52-1.04) mg/dL Est GFR (CKD-EPI)AfAm >90 (>60 ml/min/1.73 sqM) Est GFR (CKD-EPI)NonAf >90 (>60 ml/min/1.73 sqM) Glucose 90 (74-99) mg/dL Plasma Lactic Acid Jabari 1.1 (0.7-2.0) mmol/L Calcium 9.4 (8.4-10.2) mg/dL Total Bilirubin 0.7 (0.2-1.3) mg/dL AST 87 H (14-36) U/L ALT 102 H (4-34) U/L Alkaline Phosphatase 62 (38-126) U/L Total Protein 7.9 (6.3-8.2) g/dL Albumin 4.6 (3.5-5.0) g/dL Urine Color Urine Appearance (Clear) Urine pH (5.0-8.0) Ur Specific [place] (1.001-1.035) Urine Protein (Negative) Urine Glucose (UA) (Negative) Urine Ketones (Negative) Urine Blood (Negative) Urine Nitrite (Negative) Urine Bilirubin (Negative) Urine Urobilinogen (<2.0) mg/dL Ur Leukocyte Esterase (Negative) Urine HCG, Qual (Not Detectd) 02/04/22 02/04/22 Range/Units 05:46 05:46 WBC (3.8-10.6) k/uL RBC (3.80-5.40) m/uL Hgb (11.4-16.0) gm/dL Hct (34.0-46.0) % MCV (80.0-100.0) fL MCH (25.0-35.0) pg MCHC (31.0-37.0) g/dL RDW (11.5-15.5) % Plt Count (150-450) k/uL MPV Neutrophils % % Lymphocytes % % Monocytes % % Eosinophils % % Basophils % % Neutrophils # (1.3-7.7) k/uL Lymphocytes # (1.0-4.8) k/uL Monocytes # (0-1.0) k/uL Eosinophils # (0-0.7) k/uL Basophils # (0-0.2) k/uL Sodium (137-145) mmol/L Potassium (3.5-5.1) mmol/L Chloride (98-107) mmol/L Carbon Dioxide (22-30) mmol/L Anion Gap mmol/L BUN (7-17) mg/dL Creatinine (0.52-1.04) mg/dL Est GFR (CKD-EPI)AfAm (>60 ml/min/1.73 sqM) Est GFR (CKD-EPI)NonAf (>60 ml/min/1.73 sqM) Glucose (74-99) mg/dL Plasma Lactic Acid Jabari (0.7-2.0) mmol/L Calcium (8.4-10.2) mg/dL Total Bilirubin (0.2-1.3) mg/dL AST (14-36) U/L ALT (4-34) U/L Alkaline Phosphatase (38-126) U/L Total Protein (6.3-8.2) g/dL Albumin (3.5-5.0) g/dL Urine Color Yellow Urine Appearance Clear (Clear) Urine pH 6.0 (5.0-8.0) Ur Specific [place] 1.013 (1.001-1.035) Urine Protein Negative (Negative) Urine Glucose (UA) Negative (Negative) Urine Ketones Negative (Negative) Urine Blood Negative (Negative) Urine Nitrite Negative (Negative) Urine Bilirubin Negative (Negative) Urine Urobilinogen 3.0 (<2.0) mg/dL Ur Leukocyte Esterase Negative (Negative) Urine HCG, Qual Not Detected (Not Detectd) Disposition <Beltran Vieyra - Last Filed: 02/04/22 08:19> Is patient prescribed a controlled substance at d/c from ED?: No Time of Disposition: 08:40 <Meet Galvan - Last Filed: 02/04/22 08:41> Clinical Impression: Abdominal pain, Nausea and vomiting Disposition: HOME SELF-CARE Condition: Stable Instructions (If sedation given, give patient instructions): Abdominal Pain (ED) Additional Instructions: Please do follow-up to primary care physician in the next day or 2 for recheck. Return for increased pain, vomiting, fever, not tolerating fluids, worsening symptoms or other concerns. Prescription for nausea medicine has been sent to your pharmacy. Prescriptions: Ondansetron Odt [Zofran Odt] 4 mg PO Q8HR PRN #10 tab PRN Reason: Nausea Referrals: Osmar Lundberg MD [Primary Care Provider] - 1-2 days
--- NOTE | 2022-02-04 08:23 | CT ---
EXAMINATION TYPE: CT abdomen pelvis wo con DATE OF EXAM: 02/04/2022 COMPARISON: Prior CT 05/17/2021 HISTORY: LUQ ABDOMINAL PAIN FOR [address] DLP: 1162.4 mGycm Automated exposure control for dose reduction was used. TECHNIQUE: Helical acquisition of images from the lung bases through the pelvis. FINDINGS: There is elevation of left hemidiaphragm. Lack of contrast could compromise sensitivity of the exam. LUNG BASES: No significant abnormality is appreciated. AORTA: No significant abnormality is appreciataed. LIVER/GB: Liver shows low attenuation likely due to hepatic steatosis. At the level of the bri ther e is an area of higher attenuation which is somewhat spherical in appearance, likely focal fatty spar ing in similar to prior exam. Patient is post cholecystectomy. Liver is enlarged. PANCREAS: No significant abnormality is seen. SPLEEN: No significant abnormality is seen. ADRENALS: No significant abnormality is seen. KIDNEYS: Bilateral kidney stones are present which are nonobstructive, upper pole the right kidney sh ows a calculus measuring only 3 mm posteriorly, left kidney shows 3 calcifications probably, there is motion, largest calcification measures approximately 4 mm. There is no evident ureteral calcificatio n. REPRODUCTIVE ORGANS: No significant abnormality is seen. URINARY BLADDER: No significant abnormality is seen. BOWEL: No significant abnormality is seen. No evident appendicitis FREE AIR: No Free Air is visible. ASCITES: None visible. PELVIC ADENOPATHY: None visualized. RETROPERITONEAL ADENOPATHY: No Retroperitoneal Adenopathy visible. OSSEOUS STRUCTURES: No significant abnormality is seen. IMPRESSION: BILATERAL NONOBSTRUCTIVE NEPHROLITHIASIS. HEPATIC STEATOSIS AND HEPATOMEGALY. POSTOP CHANGE. LIVER MR I COULD BE PERFORMED FOR CONFIRMATION OF FOCAL FATTY SPARING WITHIN THE LIVER.
[2022-02-04] MEDS ORDERED: FAMOTIDINE 20 MG/2 ML VIAL IV STA (08:38)
[2022-02-04] MEDS ORDERED: ONDANSETRON 4 MG/2 ML VIAL IVP STA (08:38)
[2022-02-04] MEDS ORDERED: MORPHINE SULFATE 4 MG/ML SYRINGE IVP STA (08:38)
[2022-02-04 08:48] VITALS: BP 110/74; RESP 18; TEMP 97.5
[2022-02-04 09:11] VITALS: PULSE 68
== END 2022-02-04 09:11 | disposition home or self-care (01) ==
LOC: EC 02:52
DX: R10.13 Epigastric pain (principal); R11.2 Nausea with vomiting, unspecified; J45.909 Unspecified asthma, uncomplicated; M19.90 Unspecified osteoarthritis, unspecified site; F41.9 Anxiety disorder, unspecified; F32.A Depression, unspecified; F90.9 Attention-deficit hyperactivity disorder, unspecified type; F17.290 Nicotine dependence, other tobacco product, uncomplicated; F12.90 Cannabis use, unspecified, uncomplicated; Z79.899 Other long term (current) drug therapy
CPT/HCPCS: 36415; 93005; 80053; 83605; 85025; 81003; 81025; 74176; 99284; 96374; 96375 ×2; 96361 ×5; J2270; J2405

== ENCOUNTER → 2022-02-14 | Outpatient (CLI) | payer OTHER ==
--- NOTE | 2022-02-14 16:24 | XR ---
Right shoulder HISTORY: M21.511 3 views the right shoulder correlated prior exam 11/28/2021 There is no interval change. No fracture or dislocation. Right lung apex as visualized is normal. Bon e mineralization, joint spaces and alignment are maintained. IMPRESSION: No acute abnormality.
[2022-02-14 22:39] LABS: Immunoglobulin E 4.75 IU/mL (0.00-114.00)
[2022-02-15 11:31] LABS: Clam IgE <0.10 kU/L; Codfish IgE <0.10 kU/L; Egg White IgE <0.10 kU/L; Peanut IgE <0.10 kU/L; Scallop IgE <0.10 kU/L; Shrimp IgE <0.10 kU/L; Soybean IgE <0.10 kU/L; Walnut IgE (Food) <0.10 kU/L
== END | disposition home or self-care (01) ==
LOC: LABWHC1 13:46
PROVIDERS: ATTEND Nurse Practitioner Family
DX: M25.511 Pain in right shoulder (principal); R11.0 Nausea
CPT/HCPCS: 36415; 82785; 84702; 86003

== ENCOUNTER 2022-07-17 10:49 | Emergency (ER) | payer OTHER ==
[2022-07-17] MEDS ORDERED: SODIUM CHLORIDE 0.9% 1,000 ML IV STA ×2 (11:37→13:55)
[2022-07-17 11:49] LABS: Basophils # (A) 0.1 k/uL (0-0.2); Basophils % (A) 1 %; Eosinophils # (A) 0.3 k/uL (0-0.7); Eosinophils % (A) 4 %; HCT 40.6 % (34.0-46.0); HGB 13.9 gm/dL (11.4-16.0); Lymphocytes # (A) 2.3 k/uL (1.0-4.8); Lymphocytes % (A) 27 %; MCH 32.1 pg (25.0-35.0); MCHC 34.1 g/dL (31.0-37.0); Mean Platelet Volume 9.1; Monocytes # (A) 0.3 k/uL (0-1.0); Monocytes % (A) 4 %; Neutrophils # (A) 5.3 k/uL (1.3-7.7); Neutrophils % (A) 63 %; Platelet Count 191 k/uL (150-450); RBC 4.32 m/uL (3.80-5.40); RDW 11.8 % (11.5-15.5); WBC 8.4 k/uL (3.8-10.6)
[2022-07-17 12:00] LABS: ALT 87 U/L (4-34); AST 102 U/L (14-36); African American GFR (CKD) >90 (>60 ml/min/1.73 sqM); Albumin 4.2 g/dL (3.5-5.0); Alkaline Phosphatase 74 U/L (38-126); Amorphous Sediment,Urine Occasional /hpf; Amylase 64 U/L (30-110); Anion Gap 8 mmol/L; Appearance,Urine Cloudy (Clear); Bacteria,Urine Rare /hpf; Bilirubin,Urine Negative (Negative); Blood Urea Nitrogen 6 mg/dL (7-17); Blood,Urine Negative (Negative); Calcium 8.9 mg/dL (8.4-10.2); Carbon Dioxide 25 mmol/L (22-30); Chloride 106 mmol/L (98-107); Color,Urine Yellow; Glucose 176 mg/dL (74-99); Glucose,Urine (UA) Negative (Negative); Ketones,Urine Negative (Negative); Leukocyte Esterase,Urine Small (Negative); Lipase 109 U/L (23-300); Mucus,Urine Rare /hpf; Nitrite,Urine Negative (Negative); Non-African American GFR(CKD) >90 (>60 ml/min/1.73 sqM); PH, Urine 6.5 (5.0-8.0); Potassium 3.8 mmol/L (3.5-5.1); Protein,Urine Negative (Negative); RBC,Urine 3 /hpf (0-5); Sodium 139 mmol/L (137-145); Specific Gravity,Urine 1.009 (1.001-1.035); Squamous Epithelial Cell,Urine 5 /hpf (0-4); Total Bilirubin 0.4 mg/dL (0.2-1.3); WBC,Urine 7 /hpf (0-5)
[2022-07-17] MEDS ORDERED: KETOROLAC 15 MG/ML 1 ML VIAL IVP STA (12:00)
[2022-07-17] MEDS ORDERED: METOCLOPRAMIDE 5 MG/ML 2 ML VIAL IVP STA (12:01)
[2022-07-17] MEDS ORDERED: PANTOPRAZOLE 40 MG/10 ML VIAL IVP STA (12:02)
[2022-07-17] MEDS ORDERED: MAG HYDROX/AL HYDROX/SIMETH 30 ML, HYOSCYAMINE ELIXIR 10 ML PO STA ×2 (12:02)
--- NOTE | 2022-07-17 12:19 | XR ---
EXAMINATION TYPE: XR ankle complete LT DATE OF EXAM: 07/17/2022 COMPARISON: NONE HISTORY: Pain TECHNIQUE: 3 views of the left ankle are submitted for evaluation. FINDINGS: There is no evidence for fracture or dislocation. Ankle mortise is intact. Soft tissues are within normal limits. IMPRESSION: 1. No evidence for acute fracture.
--- NOTE | 2022-07-17 12:58 | ED ---
Nausea/Vomiting/Diarrhea HPI - General Chief complaint: Nausea/Vomiting/Diarrhea Stated complaint: ankle injury, vomiting Time Seen by Provider: 07/17/22 11:30 Source: patient, family, RN notes reviewed Mode of arrival: ambulatory Limitations: no limitations - History of Present Illness Initial comments: This is a 26-year-old female who presents to the emergency department for nausea, vomiting, and left ankle pain. States that for the last week, she has had multiple episodes of vomiting each day. She does not believe that this is related to any specific foods. She has been taking Zofran without any relief. Also reports mild associated left upper quadrant and epigastric pain. Additionally, she has had diarrhea for the last 2 days. Last week she also tripped on her brother's steps and has since had left ankle pain. She has been wearing a walking boot and applying ice with no relief. States that she is now unable to put pressure on it. She is taking ibuprofen 800 mg without any relief. Denies any fevers, chills, sore throat, cough, dyspnea, chest pain, palpitations, abdominal pain, back pain, or headaches. MD complaint: nausea, vomiting, diarrhea Onset/Timin -: week(s) Associated Abdominal Pain: No - Related Data Home Medications Medication Instructions Recorded Confirmed Metoprolol Succinate (ER) [Toprol 25 mg PO HS 05/17/21 02/04/22 XL] Multivitamins, Thera [Multivitamin 1 tab PO HS 08/04/21 02/04/22 (formulary)] Pirmella 1 tab PO HS 09/09/21 02/04/22 Trintellix Unknown Dose 1 tab PO HS 02/04/22 02/04/22 Previous Rx's Medication Instructions Recorded Ondansetron Odt [Zofran Odt] 4 mg PO Q8HR PRN #10 tab 02/04/22 HYDROcodone/APAP 5-325MG [[place] 1 tab PO Q6HR PRN 3 Days #12 tab 07/17/22 5-325] Metoclopramide [Reglan] 10 mg PO Q6H PRN #30 tab 07/17/22 Allergies Allergy/AdvReac Type Severity Reaction Status Date / Time No Known Allergies Allergy Verified 07/17/22 10:59 Review of Systems ROS Statement: Those systems with pertinent positive or pertinent negative responses have been documented in the HPI. ROS Other: All systems not noted in ROS Statement are negative. Past Medical History Past Medical History: Asthma, Osteoarthritis (OA) History of Any Multi-Drug Resistant Organisms: None Reported Past Surgical History: Appendectomy, Section, Cholecystectomy Additional Past Surgical History / Comment(s): Past Anesthesia/Blood Transfusion Reactions: No Reported Reaction Past Psychological History: ADD/ADHD, Anxiety, Depression Smoking Status: Vaper Past Alcohol Use History: None Reported Past Drug Use History: Marijuana - Past Family History Father Family Medical History: No Reported History Mother Family Medical History: No Reported History General Exam Limitations: no limitations General appearance: alert, in no apparent distress Head exam: Present: atraumatic, normocephalic, normal inspection Respiratory exam: Present: normal lung sounds bilaterally. Absent: respiratory distress, wheezes, rales, rhonchi, stridor Cardiovascular Exam: Present: regular rate, normal rhythm, normal heart sounds. Absent: systolic murmur, diastolic murmur, rubs, gallop, clicks GI/Abdominal exam: Present: soft, tenderness (Epigastric and left upper quadrant), normal bowel sounds. Absent: distended, guarding, rebound, rigid Neurological exam: Present: alert, oriented X3, CN II-XII intact Psychiatric exam: Present: normal affect, normal mood Skin exam: Present: warm (Tenderness to palpation over the left lateral malleolus and the dorsal aspect of the left midfoot. There is no overlying ecchymosis or swelling.), dry, intact, normal color. Absent: rash Course Vital Signs 07/17/22 07/17/22 07/17/22 10:56 12:25 13:47 Temperature 98.6 F 98.5 F 97.9 F Pulse Rate 51 L 53 L 65 Respiratory 20 18 16 Rate Blood Pressure 144/75 113/85 99/60 O2 Sat by Pulse 97 100 100 Oximetry 07/17/22 07/17/22 07/17/22 13:52 14:01 14:40 Temperature Pulse Rate 63 65 56 L Respiratory 16 16 18 Rate Blood Pressure 75/47 101/59 119/73 O2 Sat by Pulse 100 99 100 Oximetry 07/17/22 07/17/22 15:45 16:16 Temperature 98.1 F 98.0 F Pulse Rate 60 60 Respiratory 17 16 Rate Blood Pressure 130/82 118/82 O2 Sat by Pulse 100 100 Oximetry Medical Decision Making - Medical Decision Making This is a 26-year-old female who presents to the emergency department for nausea, vomiting, and left ankle pain. Lab work obtained and found to be nonactionable. Patient's elevated liver enzymes are consistent from prior values related to fatty infiltration of the liver. X-ray of the left ankle obtained, and on my interpretation I am unable to identify any acute fractures or dislocations. Patient suddenly started to become hypotensive for unclear reasons, and a computed tomography scan of the abdomen and pelvis was obtained due to the nausea, vomiting, and abdominal discomfort. My interpretation of this did not identify any signs of free air or hydronephrosis. The radiologist was also unable to identify any acute intra-abdominal process causing the patient's symptoms. She was given a liter bolus of IV fluids and her blood pressure subsequently improved. Her abdominal symptoms were treated with Pepcid, Reglan and a GI cocktail which she states improved her symptoms. Toradol and [place] provided for the ankle pain, which she states was also rajinder eficial. If she continues to have recurrent bouts of nausea and vomiting, this may be related to cannabinoid hyperemesis syndrome. She was given information to follow up with gastroenterology regarding these recurrent symptoms. Prescription for Reglan provided as well in the event the Zofran that she has is not effective. Crutches and a postoperative shoe were provided for the ankle pain. 3 day course of [place] provided due to the patient's level of pain and inability to bear weight. Advised she take this very sparingly when her pain is the most severe and to otherwise alternate with ibuprofen and Tylenol. Reminded her that the [place] is very sedating and she should avoid driving or ope rating machinery when taking this. She is also instructed to apply ice for 10- 15 minutes every 2-3 hours. Information for orthopedic follow-up provided, she is instructed to contact them for a follow-up appointment to reevaluate the status of her ankle and determine if any additional testing is indicated. Return precautions reviewed in depth, the patient is instructed to return to the emergency department with any new, worsening, or concerning symptoms. Patient verbalized understanding. This case was discussed in detail with the attending ED physician. Presentation, findings, and treatment plan discussed in detail as well. - Lab Data Result diagrams: 07/17/22 11:41 07/17/22 11:41 Lab Results 07/17/22 07/17/22 07/17/22 Range/Units 11:41 11:41 11:41 WBC 8.4 (3.8-10.6) k/uL RBC 4.32 (3.80-5.40) m/uL Hgb 13.9 (11.4-16.0) gm/dL Hct 40.6 (34.0-46.0) % MCV 94.0 (80.0-100.0) fL MCH 32.1 (25.0-35.0) pg MCHC 34.1 (31.0-37.0) g/dL RDW 11.8 (11.5-15.5) % Plt Count 191 (150-450) k/uL MPV 9.1 Neutrophils % 63 % Lymphocytes % 27 % Monocytes % 4 % Eosinophils % 4 % Basophils % 1 % Neutrophils # 5.3 (1.3-7.7) k/uL Lymphocytes # 2.3 (1.0-4.8) k/uL Monocytes # 0.3 (0-1.0) k/uL Eosinophils # 0.3 (0-0.7) k/uL Basophils # 0.1 (0-0.2) k/uL Sodium (137-145) mmol/L Potassium (3.5-5.1) mmol/L Chloride (98-107) mmol/L Carbon Dioxide (22-30) mmol/L Anion Gap mmol/L BUN (7-17) mg/dL Creatinine (0.52-1.04) mg/dL Est GFR (CKD-EPI)AfAm (>60 ml/min/1.73 sqM) Est GFR (CKD-EPI)NonAf (>60 ml/min/1.73 sqM) Glucose (74-99) mg/dL Calcium (8.4-10.2) mg/dL Total Bilirubin (0.2-1.3) mg/dL AST (14-36) U/L ALT (4-34) U/L Alkaline Phosphatase (38-126) U/L Total Protein (6.3-8.2) g/dL Albumin (3.5-5.0) g/dL Amylase (30-110) U/L Lipase (23-300) U/L Urine Color Yellow Urine Appearance Cloudy H (Clear) Urine pH 6.5 (5.0-8.0) Ur Specific [place] 1.009 (1.001-1.035) Urine Protein Negative (Negative) Urine Glucose (UA) Negative (Negative) Urine Ketones Negative (Negative) Urine Blood Negative (Negative) Urine Nitrite Negative (Negative) Urine Bilirubin Negative (Negative) Urine Urobilinogen 4.0 (<2.0) mg/dL Ur Leukocyte Esterase Small H (Negative) Urine RBC 3 (0-5) /hpf Urine WBC 7 H (0-5) /hpf Ur Squamous Epith Cells 5 H (0-4) /hpf Amorphous Sediment Occasional H (None) /hpf Urine Bacteria Rare H (None) /hpf Urine Mucus Rare H (None) /hpf Urine HCG, Qual Not Detected (Not Detectd) Urine Opiates Screen (NotDetected) Ur Oxycodone Screen (NotDetected) Urine Methadone Screen (NotDetected) Ur Propoxyphene Screen (NotDetected) Ur Barbiturates Screen (NotDetected) U Tricyclic Antidepress (NotDetected) Ur Phencyclidine Scrn (NotDetected) Ur Amphetamines Screen (NotDetected) U Methamphetamines Scrn (NotDetected) U Benzodiazepines Scrn (NotDetected) Urine Cocaine Screen (NotDetected) U Marijuana (THC) Screen (NotDetected) Coronavirus (PCR) (Not Detectd) Influenza Type A RNA (Not Detectd) Influenza Type B (PCR) (Not Detectd) 07/17/22 07/17/22 07/17/22 Range/Units 11:41 11:41 12:14 WBC (3.8-10.6) k/uL RBC (3.80-5.40) m/uL Hgb (11.4-16.0) gm/dL Hct (34.0-46.0) % MCV (80.0-100.0) fL MCH (25.0-35.0) pg MCHC (31.0-37.0) g/dL RDW (11.5-15.5) % Plt Count (150-450) k/uL MPV Neutrophils % % Lymphocytes % % Monocytes % % Eosinophils % % Basophils % % Neutrophils # (1.3-7.7) k/uL Lymphocytes # (1.0-4.8) k/uL Monocytes # (0-1.0) k/uL Eosinophils # (0-0.7) k/uL Basophils # (0-0.2) k/uL Sodium 139 (137-145) mmol/L Potassium 3.8 (3.5-5.1) mmol/L Chloride 106 (98-107) mmol/L Carbon Dioxide 25 (22-30) mmol/L Anion Gap 8 mmol/L BUN 6 L (7-17) mg/dL Creatinine 0.83 (0.52-1.04) mg/dL Est GFR (CKD-EPI)AfAm >90 (>60 ml/min/1.73 sqM) Est GFR (CKD-EPI)NonAf >90 (>60 ml/min/1.73 sqM) Glucose 176 H (74-99) mg/dL Calcium 8.9 (8.4-10.2) mg/dL Total Bilirubin 0.4 (0.2-1.3) mg/dL AST 102 H (14-36) U/L ALT 87 H (4-34) U/L Alkaline Phosphatase 74 (38-126) U/L Total Protein 7.0 (6.3-8.2) g/dL Albumin 4.2 (3.5-5.0) g/dL Amylase 64 (30-110) U/L Lipase 109 (23-300) U/L Urine Color Urine Appearance (Clear) Urine pH (5.0-8.0) Ur Specific [place] (1.001-1.035) Urine Protein (Negative) Urine Glucose (UA) (Negative) Urine Ketones (Negative) Urine Blood (Negative) Urine Nitrite (Negative) Urine Bilirubin (Negative) Urine Urobilinogen (<2.0) mg/dL Ur Leukocyte Esterase (Negative) Urine RBC (0-5) /hpf Urine WBC (0-5) /hpf Ur Squamous Epith Cells (0-4) /hpf Amorphous Sediment (None) /hpf Urine Bacteria (None) /hpf Urine Mucus (None) /hpf Urine HCG, Qual (Not Detectd) Urine Opiates Screen Not Detected (NotDetected) Ur Oxycodone Screen Not Detected (NotDetected) Urine Methadone Screen Not Detected (NotDetected) Ur Propoxyphene Screen Not Detected (NotDetected) Ur Barbiturates Screen Not Detected (NotDetected) U Tricyclic Antidepress Detected H (NotDetected) Ur Phencyclidine Scrn Not Detected (NotDetected) Ur Amphetamines Screen Not Detected (NotDetected) U Methamphetamines Scrn Not Detected (NotDetected) U Benzodiazepines Scrn Not Detected (NotDetected) Urine Cocaine Screen Not Detected (NotDetected) U Marijuana (THC) Screen Detected H (NotDetected) Coronavirus (PCR) (Not Detectd) Influenza Type A RNA Not Detected (Not Detectd) Influenza Type B (PCR) Not Detected (Not Detectd) 07/17/22 Range/Units 12:14 WBC (3.8-10.6) k/uL RBC (3.80-5.40) m/uL Hgb (11.4-16.0) gm/dL Hct (34.0-46.0) % MCV (80.0-100.0) fL MCH (25.0-35.0) pg MCHC (31.0-37.0) g/dL RDW (11.5-15.5) % Plt Count (150-450) k/uL MPV Neutrophils % % Lymphocytes % % Monocytes % % Eosinophils % % Basophils % % Neutrophils # (1.3-7.7) k/uL Lymphocytes # (1.0-4.8) k/uL Monocytes # (0-1.0) k/uL Eosinophils # (0-0.7) k/uL Basophils # (0-0.2) k/uL Sodium (137-145) mmol/L Potassium (3.5-5.1) mmol/L Chloride (98-107) mmol/L Carbon Dioxide (22-30) mmol/L Anion Gap mmol/L BUN (7-17) mg/dL Creatinine (0.52-1.04) mg/dL Est GFR (CKD-EPI)AfAm (>60 ml/min/1.73 sqM) Est GFR (CKD-EPI)NonAf (>60 ml/min/1.73 sqM) Glucose (74-99) mg/dL Calcium (8.4-10.2) mg/dL Total Bilirubin (0.2-1.3) mg/dL AST (14-36) U/L ALT (4-34) U/L Alkaline Phosphatase (38-126) U/L Total Protein (6.3-8.2) g/dL Albumin (3.5-5.0) g/dL Amylase (30-110) U/L Lipase (23-300) U/L Urine Color Urine Appearance (Clear) Urine pH (5.0-8.0) Ur Specific [place] (1.001-1.035) Urine Protein (Negative) Urine Glucose (UA) (Negative) Urine Ketones (Negative) Urine Blood (Negative) Urine Nitrite (Negative) Urine Bilirubin (Negative) Urine Urobilinogen (<2.0) mg/dL Ur Leukocyte Esterase (Negative) Urine RBC (0-5) /hpf Urine WBC (0-5) /hpf Ur Squamous Epith Cells (0-4) /hpf Amorphous Sediment (None) /hpf Urine Bacteria (None) /hpf Urine Mucus (None) /hpf Urine HCG, Qual (Not Detectd) Urine Opiates Screen (NotDetected) Ur Oxycodone Screen (NotDetected) Urine Methadone Screen (NotDetected) Ur Propoxyphene Screen (NotDetected) Ur Barbiturates Screen (NotDetected) U Tricyclic Antidepress (NotDetected) Ur Phencyclidine Scrn (NotDetected) Ur Amphetamines Screen (NotDetected) U Methamphetamines Scrn (NotDetected) U Benzodiazepines Scrn (NotDetected) Urine Cocaine Screen (NotDetected) U Marijuana (THC) Screen (NotDetected) Coronavirus (PCR) Not Detected (Not Detectd) Influenza Type A RNA (Not Detectd) Influenza Type B (PCR) (Not Detectd) - EKG Data EKG Comments: Sinus bradycardia with sinus arrhythmia. Normal axis. Ventricular rate 51 bpm, IA interval 126 ms, QRS duration 97 ms, QTC 441 ms. - Radiology Data Radiology results: report reviewed, image reviewed Disposition Clinical Impression: Left ankle sprain, Nausea and vomiting Disposition: HOME SELF-CARE Instructions (If sedation given, give patient instructions): Ankle Sprain (ED), Crutch Instructions (ED), Acute Nausea and Vomiting (ED), Post Surgical Shoe (ED) Additional Instructions: Return to the emergency department with any new, worsening, or concerning symptoms. Alternate with ibuprofen and Tylenol as needed for pain relief. Also apply ice for 10-15 minutes every 2-3 hours and keep the foot elevated. Take the [place] very sparingly when your pain is the most severe. You can use the crutches and hard sole shoe as needed. Contact Dr. Cartagena's office listed below for further evaluation of the ankle injury. The Reglan to be taken up to every 6 hours as needed for nausea and vomiting. Contact Dr. Torres's office as listed below to discuss your ongoing gastrointestinal symptoms. Follow up with your primary care provider in 1-2 days. Prescriptions: HYDROcodone/APAP 5-325MG [[place] 5-325] 1 tab PO Q6HR PRN 3 Days #12 tab PRN Reason: Pain Metoclopramide [Reglan] 10 mg PO Q6H PRN #30 tab PRN Reason: Nausea And Vomiting Is patient prescribed a controlled substance at d/c from ED?: Yes When asked, does pt state using other controlled substances?: Yes If prescribed controlled substance>3 days was MAPS reviewed?: Prescribed <3 Days Referrals: Osmar Lundberg MD [Primary Care Provider] - 1-2 days Angel Cartagena MD [Medical Doctor] - 1-2 days Yasemin Torres MD [STAFF PHYSICIAN] - 1-2 days
[2022-07-17] MEDS ORDERED: HYDROcodone/APAP 5-325MG 1 EACH TAB PO STA (13:16)
[2022-07-17 14:23] LABS: Amphetamine Screen,Urine Not Detected (NotDetected); Barbiturate Screen,Urine Not Detected (NotDetected); Benzodiazepines Screen,Urine Not Detected (NotDetected); Cocaine Screen,Urine Not Detected (NotDetected); Methadone Screen, Urine Not Detected (NotDetected); Opiate Screen,Urine Not Detected (NotDetected); Oxycodone Screen, Urine Not Detected (NotDetected); Phencyclidine Screen,Urine Not Detected (NotDetected); Tricyclic Antidepressant,Urine Detected (NotDetected); Urn Cannabinoid Scrn Detected (NotDetected)
--- NOTE | 2022-07-17 14:58 | CT ---
EXAMINATION TYPE: CT abdomen pelvis w con DATE OF EXAM: 07/17/2022 COMPARISON: 02/04/2022 HISTORY: pain CT DLP: 1365 mGycm Automated exposure control for dose reduction was used. CONTRAST: Performed with IV Contrast, patient injected with 100 mL of Isovue 300. Images obtained from the diaphragm to the floor the pelvis with the IV contrast. There is mild subsegmental atelectasis at the posterior lung bases. There is some fatty infiltration of the liver. Spleen is intact. No pancreatic mass. Gallbladder appears absent. The stomach is intact . The bile duct are not dilated. There is no adrenal mass. Kidneys show satisfactory contrast opacification. No hydronephrosis. There are multiple small bilateral renal calculi. There appears to be a 3 mm calculus at the left ureterope lvic junction but no significant hydronephrosis. The delayed images show normal renal excretion and n o sign of obstruction. There is no retroperitoneal adenopathy. There is no ascites. Bladder distends smoothly. No free fluid. No pelvic mass. Uterus is anteverted. The lumbar vertebra have normal alignment. No compression fracture. Disc spaces are normal. Posterior elements are intact. The bony pelvis is intact. There is no mesenteric edema. No ascites or free air. No sign of a bowel obstruction. Appendix not se en. IMPRESSION: Fatty infiltration of the liver. Multiple bilateral renal calculi with calculus at the left ureterope lvic junction but no sign of obstruction. Calculi increased compared to old exam. Appendix not seen.
[2022-07-17 16:16] VITALS: PULSE 60
[2022-07-17 16:17] VITALS: BP 118/82; RESP 16; TEMP 98
== END 2022-07-17 16:18 | disposition home or self-care (01) ==
LOC: EC 10:49
DX: S93.402A Sprain of unspecified ligament of left ankle, initial encounter (principal); R11.2 Nausea with vomiting, unspecified; J45.909 Unspecified asthma, uncomplicated; M19.90 Unspecified osteoarthritis, unspecified site; F90.9 Attention-deficit hyperactivity disorder, unspecified type; F41.9 Anxiety disorder, unspecified; F32.A Depression, unspecified; F17.290 Nicotine dependence, other tobacco product, uncomplicated; F12.90 Cannabis use, unspecified, uncomplicated; Z79.899 Other long term (current) drug therapy; X58.XXXA Exposure to other specified factors, initial encounter; Z03.818 Encounter for observation for suspected exposure to other biological agents ruled out
CPT/HCPCS: 36415; 93005; 80053; 82150; 83690; 85025; 81001; 81025; 80306; 87502; 87635; 73610; 74177; 96374; 96375 ×2; 96361 ×2; 99284; J2765; J1885; C9113; Q9967

== ENCOUNTER 2022-09-02 10:16 | Emergency (ER) | payer OTHER ==
[2022-09-02] MEDS ORDERED: ONDANSETRON 4 MG/2 ML VIAL IVP STA (10:40)
[2022-09-02] MEDS ORDERED: SODIUM CHLORIDE 0.9% 1,000 ML IV STA (10:40)
--- NOTE | 2022-09-02 12:00 | ED ---
General Adult HPI - General Chief complaint: Nausea/Vomiting/Diarrhea Stated complaint: Vomiting, cough, ANA LAURA Source: patient, RN notes reviewed Mode of arrival: ambulatory Limitations: no limitations - History of Present Illness Initial comments: Patient is a 26-year-old female presenting to the emergency room from home with a family member with complaints of cough, congestion, shortness of breath with her cough, nausea and vomiting all ongoing for approximately 3 days. She does occasionally have a sore throat swelling. She reports that her flu shot is up-to-date but she is not vaccinated for Covid. She denies any known exposure to COVID or influenza. She reports hot and cold flashes but has not checked her temperature to evaluate for fevers. She denies any chest pain or shortness of breath not directly related to cough and congestion. She has a past medical history significant for asthma without recent exacerbation. - Related Data Home Medications Medication Instructions Recorded Confirmed Metoprolol Succinate (ER) [Toprol 25 mg PO HS 05/17/21 02/04/22 XL] Multivitamins, Thera [Multivitamin 1 tab PO HS 08/04/21 02/04/22 (formulary)] Pirmella 1 tab PO HS 09/09/21 02/04/22 Trintellix Unknown Dose 1 tab PO HS 02/04/22 02/04/22 Previous Rx's Medication Instructions Recorded Ondansetron Odt [Zofran Odt] 4 mg PO Q8HR PRN #10 tab 02/04/22 HYDROcodone/APAP 5-325MG [[place] 1 tab PO Q6HR PRN 3 Days #12 tab 07/17/22 5-325] Metoclopramide [Reglan] 10 mg PO Q6H PRN #30 tab 07/17/22 Allergies Allergy/AdvReac Type Severity Reaction Status Date / Time No Known Allergies Allergy Verified 09/02/22 10:32 Review of Systems ROS Statement: Those systems with pertinent positive or pertinent negative responses have been documented in the HPI. ROS Other: All systems not noted in ROS Statement are negative. Past Medical History Past Medical History: Asthma, Osteoarthritis (OA) History of Any Multi-Drug Resistant Organisms: None Reported Past Surgical History: Appendectomy, Section, Cholecystectomy Additional Past Surgical History / Comment(s): Past Anesthesia/Blood Transfusion Reactions: No Reported Reaction Past Psychological History: ADD/ADHD, Anxiety, Depression Smoking Status: Vaper Past Alcohol Use History: None Reported Past Drug Use History: Marijuana - Past Family History Father Family Medical History: No Reported History Mother Family Medical History: No Reported History General Exam - General Exam Comments Initial Comments: GENERAL: No acute distress. Obese. Appears acutely with nausea without vomiting. HEENT: Normocephalic, atraumatic. Pupils equal, round, reactive to light. Moist mucous membranes. LUNGS: No respiratory distress. Clear to auscultation, no adventitious sounds, no use of accessory muscles. HEART: Regular rate and rhythm without murmur, rub, or gallop. ABDOMEN: Normal bowel sounds. Soft, non-tender, non-distended. No vomiting at the time of exam. BACK: Normal inspection. EXTREMITIES: No edema. No tenderness. Moves all extremities. NEUROLOGIC: Alert & oriented x 3. CN II-XII grossly intact. PSYCHIATRIC: Normal affect and behavior. DERMATOLOGIC: Skin intact, without rashes or lesions noted. Course Vital Signs 09/02/22 10:29 Temperature 97.9 F Pulse Rate 89 Respiratory 18 Rate Blood Pressure 107/72 O2 Sat by Pulse 97 Oximetry Medical Decision Making - Medical Decision Making Was pt. sent in by a medical professional or institution? @ -No Did you speak to anyone other than the patient for history? @ -No Did you review nursing and triage notes? @ -Yes and agree with nursing and triage notes Were old charts reviewed? @ -No Differential Diagnosis? @ -Differential diagnosis viral URI, sinusitis, colitis, UTI, PID, this is not meant to be an all-inclusive list. EKG interpreted by me (3pts min.)? @ -None X-rays interpreted by me (1pt min.)? @ -None CT interpreted by me (1pt min.)? @ -None U/S interpreted by me (1pt. min.)? @ -None What testing was considered but not performed? (CT, X-rays, U/S, labs)? Why? @Chest x-ray and abdominal x-ray considered deferred due to hemodynamically stable without any significant exam abnormalities. CBC and CMP considered and deferred due to normotensive non-tachycardic nonfebrile presentation. What meds were considered but not given? Why? @ -None Did you discuss the management of the patient with other professionals? @ -No Did you reconcile home meds? @ -None Was smoking cessation discussed for >3mins.? @ -No Was critical care preformed (if so, how long)? @ -None Were there social determinants of health that impacted care today? How? (Homelessness, low income, unemployed, alcoholism, drug addiction, transportation, low edu. Level, literacy, decrease access to med. care, custodial, rehab)? @ -No Was there de-escalation of care discussed even if they declined? (Discuss DNR or withdrawal of care, Hospice)? @ -No What co-morbidities impacted this encounter? (DM, HTN, Smoking, COPD, CAD, Cancer, CVA, Hep., AIDS, mental health diagnosis, sleep apnea, morbid obesity)? @ -None Was patient admitted / discharged? @ -Cephid swab obtained for Covid, influenza and RSV. IV fluid bolus along with Zofran IV given for symptoms of nausea with vomiting prior to arrival. Symptoms improved with IV fluids and Zofran. Influenza A positive. Discussion with patient regarding treatment for influenza including symptomatic management will give Zofran starter pack to utilize at home as needed for nausea. Encouraged good hydration and the use of Tylenol or ibuprofen [id number] as needed for pain. Return parameters to the emergency room reviewed. Due to onset of symptoms 3 days ago not a candidate for Tamiflu. No indication for further diagnostic imaging or laboratory studies. Will discharge home in stable condition. Undiagnosed new problem with uncertain prognosis? @ -None Drug Therapy requiring intensive monitoring for toxicity (Heparin, Nitro, Insulin, Cardizem)? @ -None Were any procedures done? @ -None Diagnosis/symptom? @ -Influenza A Acute, or Chronic, or Acute on Chronic? @ -Acute Uncomplicated (without systemic symptoms) or Complicated (systemic symptoms)? @ -Uncomplicated Side effects of treatment? @ -None Exacerbation, Progression, or Severe Exacerbation] @ -No Poses a threat to life or bodily function? @ -No Case discussed with Dr. Galvan. - Lab Data Lab Results 09/02/22 Range/Units 10:34 Influenza Type A (PCR) Detected A (Not Detectd) Influenza Type B (PCR) Not Detected (Not Detectd) RSV (PCR) Not Detected (Not Detectd) SARS-CoV-2 (PCR) Not Detected (Not Detectd) Disposition Clinical Impression: Influenza A Disposition: HOME SELF-CARE Condition: Stable Instructions (If sedation given, give patient instructions): Acute Nausea and Vomiting (ED) Additional Instructions: Please quarantine for 5 days after testing positive and restart quarantine if symptoms worsen. Please utilize Tylenol or ibuprofen as needed for fevers and pain. Stay well hydrated. Utilize Zofran starter pack as needed for nausea. Please return to the Emergency Department if symptoms worsen or any other concerns. Is patient prescribed a controlled substance at d/c from ED?: No Referrals: Osmar Lundberg MD [Primary Care Provider] - 1-2 days Time of Disposition: 12:05
[2022-09-02] MEDS ORDERED: ONDANSETRON 4 MG ODT STARTER PACK 2 TAB BTL PO STA (12:04)
[2022-09-02 12:45] VITALS: BP 131/88; PULSE 88; RESP 16; TEMP 97.8
== END 2022-09-02 12:42 | disposition home or self-care (01) ==
LOC: EC 10:16
DX: J10.1 Influenza due to other identified influenza virus with other respiratory manifestations (principal); J45.909 Unspecified asthma, uncomplicated; F12.90 Cannabis use, unspecified, uncomplicated; Z20.822 Contact with and (suspected) exposure to COVID-19
CPT/HCPCS: 87636; 99284; 96374; 96361; J2405

== ENCOUNTER 2022-09-22 13:39 | Emergency (ER) | payer OTHER ==
--- NOTE | 2022-09-22 14:09 | ED ---
General Adult HPI - General Stated complaint: Lower abd pain, early Time Seen by Provider: 09/22/22 14:07 Source: patient, RN notes reviewed Mode of arrival: ambulatory Limitations: no limitations - History of Present Illness Initial comments: 26-year-old female presents emergency Department with chief complaint of lower abdominal pain. Patient states that she's had prior appendectomy, cholecystectomy. Patient states she may be . Patient states she's been having increasing pain last couple weeks. She states all her lower abdomen states she's and control but states she was vomiting so did not complete the take over meds. Patient states she has current spotting. - Related Data Home Medications Medication Instructions Recorded Confirmed Metoprolol Succinate (ER) [Toprol 25 mg PO HS 05/17/21 02/04/22 XL] Multivitamins, Thera [Multivitamin 1 tab PO HS 08/04/21 02/04/22 (formulary)] Pirmella 1 tab PO HS 09/09/21 02/04/22 Trintellix Unknown Dose 1 tab PO HS 02/04/22 02/04/22 Previous Rx's Medication Instructions Recorded Ondansetron Odt [Zofran Odt] 4 mg PO Q8HR PRN #10 tab 02/04/22 HYDROcodone/APAP 5-325MG [[place] 1 tab PO Q6HR PRN 3 Days #12 tab 07/17/22 5-325] Metoclopramide [Reglan] 10 mg PO Q6H PRN #30 tab 07/17/22 Allergies Allergy/AdvReac Type Severity Reaction Status Date / Time No Known Allergies Allergy Verified 09/02/22 10:32 Review of Systems ROS Statement: Those systems with pertinent positive or pertinent negative responses have been documented in the HPI. ROS Other: All systems not noted in ROS Statement are negative. Past Medical History Past Medical History: Asthma, Osteoarthritis (OA) History of Any Multi-Drug Resistant Organisms: None Reported Past Surgical History: Appendectomy, Section, Cholecystectomy Additional Past Surgical History / Comment(s): Past Anesthesia/Blood Transfusion Reactions: No Reported Reaction Past Psychological History: ADD/ADHD, Anxiety, Depression Smoking Status: Vaper Past Alcohol Use History: None Reported Past Drug Use History: Marijuana - Past Family History Father Family Medical History: No Reported History Mother Family Medical History: No Reported History General Exam General appearance: alert, in no apparent distress Head exam: Present: atraumatic, normocephalic, normal inspection Eye exam: Present: normal appearance, PERRL, EOMI. Absent: scleral icterus, conjunctival injection, periorbital swelling ENT exam: Present: normal exam, mucous membranes moist Neck exam: Present: normal inspection. Absent: tenderness, meningismus, lymphadenopathy Respiratory exam: Present: normal lung sounds bilaterally. Absent: respiratory distress, wheezes, rales, rhonchi, stridor Cardiovascular Exam: Present: regular rate, normal rhythm, normal heart sounds. Absent: systolic murmur, diastolic murmur, rubs, gallop, clicks GI/Abdominal exam: Present: soft, tenderness (Lower abdominal), normal bowel sounds. Absent: distended, guarding, rebound, rigid Skin exam: Present: warm, dry, intact, normal color. Absent: rash Course Vital Signs 09/22/22 09/22/22 14:10 15:12 Temperature 98 F Pulse Rate 103 H 85 Respiratory 20 18 Rate Blood Pressure 130/70 116/69 O2 Sat by Pulse 98 97 Oximetry Medical Decision Making - Medical Decision Making Was pt. sent in by a medical professional or institution (, PA, PELLET MILL OPERATOR, urgent care, hospital, or [facility]...) When possible be specific @ -[No] Did you speak to anyone other than the patient for history (EMS, parent, family, police, friend...)? What history was obtained from this source @ -[No] Did you review nursing and triage notes (agree or disagree)? Why? @ -[I reviewed and agree with nursing and triage notes] Were old charts reviewed (outside hosp., previous admission, EMS record, old EKG, old radiological studies, urgent care reports/EKG's, [facility] records)? Report findings @ -[No old charts were reviewed] Differential Diagnosis (chest pain, altered mental status, abdominal pain women, abdominal pain men, vaginal bleeding, weakness, fever, dyspnea, syncope, headache, dizziness, GI bleed, back pain, seizure, CVA, palpatations, mental health)? @ -[UTI, , ovarian cyst, ovarian torsion, not all-inclusive] EKG interpreted by me (3pts min.). @ -[None] X-rays interpreted by me (1pt min.). @ -[None done] CT interpreted by me (1pt min.). @ -[None done] U/S interpreted by me (1pt. min.). @ -[Ultrasound visualizes right ovary unable to visualize left, obscuring nlely wel.] What testing was considered but not performed or refused? (CT, X-rays, U/S, labs)? Why? @ -[None] What meds were considered but not given or refused? Why? @ -[None] Did you discuss the management of the patient with other professionals (professionals i.e. , PA, PELLET MILL OPERATOR, lab, RT, psych nurse, neonatal social worker, angiographer, teacher, technology officer, window caser)? Give summary @ -[No] Was smoking cessation discussed for >3mins.? @ -[No] Was critical care preformed (if so, how long)? @ -[No] Were there social determinants of health that impacted care today? How? (Homelessness, low income, unemployed, alcoholism, drug addiction, transportation, low edu. Level, literacy, decrease access to med. care, half-way, rehab)? @ -[No] Was there de-escalation of care discussed even if they declined (Discuss DNR or withdrawal of care, Hospice)? DNR status @ -[No] What co-morbidities impacted this encounter? (DM, HTN, Smoking, COPD, CAD, Cancer, CVA, ARF, Chemo, Hep., AIDS, mental health diagnosis, sleep apnea, morbid obesity)? @ -[None] Was patient admitted / discharged? Hospital course, mention meds given and route, prescriptions, significant lab abnormalities, going to OR and other pertinent info. @ -[Discharged patient lab work essentially unremarkable. Patient has lower abdominal pain. Patient has chronic abdominal issues. Patient has no acute findings. Patient discharged in stable condition.] Undiagnosed new problem with uncertain prognosis? @ -[No] Drug Therapy requiring intensive monitoring for toxicity (Heparin, Nitro, Insulin, Cardizem)? @ -[No] Were any procedures done? @ -[No] Diagnosis/symptom? @ -[Abdominal pain Acute, or Chronic, or Acute on Chronic? @ -[Acute] Uncomplicated (without systemic symptoms) or Complicated (systemic symptoms)? @ -[Uncomplicated] Side effects of treatment? @ -[No] Exacerbation, Progression, or Severe Exacerbation? @ -[No] Poses a threat to life or bodily function? How? (Chest pain, [place], [place], pneumonia, PE, COPD, DKA, ARF, appy, cholecystitis, CVA, Diverticulitis, Homicidal, Suicidal, threat to staff... and all critical care pts) @ -[No] - Lab Data Result diagrams: 09/22/22 14:30 09/22/22 14:30 Lab Results 09/22/22 09/22/22 09/22/22 Range/Units 14:30 14:30 14:38 WBC 11.1 H (3.8-10.6) k/uL RBC 4.30 (3.80-5.40) m/uL Hgb 13.1 (11.4-16.0) gm/dL Hct 39.9 (34.0-46.0) % MCV 92.7 (80.0-100.0) fL MCH 30.4 (25.0-35.0) pg MCHC 32.8 (31.0-37.0) g/dL RDW 12.6 (11.5-15.5) % Plt Count 203 (150-450) k/uL MPV 8.3 Neutrophils % 66 % Lymphocytes % 22 % Monocytes % 4 % Eosinophils % 7 % Basophils % 1 % Neutrophils # 7.4 (1.3-7.7) k/uL Lymphocytes # 2.4 (1.0-4.8) k/uL Monocytes # 0.4 (0-1.0) k/uL Eosinophils # 0.8 H (0-0.7) k/uL Basophils # 0.1 (0-0.2) k/uL Sodium 139 (137-145) mmol/L Potassium 4.6 (3.5-5.1) mmol/L Chloride 111 H (98-107) mmol/L Carbon Dioxide 18 L (22-30) mmol/L Anion Gap 10 mmol/L BUN 24 H (7-17) mg/dL Creatinine 0.72 (0.52-1.04) mg/dL Est GFR (CKD-EPI)AfAm >90 (>60 ml/min/1.73 sqM) Est GFR (CKD-EPI)NonAf >90 (>60 ml/min/1.73 sqM) Glucose 115 H (74-99) mg/dL Calcium 9.1 (8.4-10.2) mg/dL Total Bilirubin 0.4 (0.2-1.3) mg/dL AST 37 H (14-36) U/L ALT 53 H (4-34) U/L Alkaline Phosphatase 59 (38-126) U/L Total Protein 7.3 (6.3-8.2) g/dL Albumin 4.2 (3.5-5.0) g/dL Lipase 287 (23-300) U/L Urine Color Light Yellow Urine Appearance Clear (Clear) Urine pH 6.0 (5.0-8.0) Ur Specific [place] 1.010 (1.001-1.035) Urine Protein Negative (Negative) Urine Glucose (UA) Negative (Negative) Urine Ketones Negative (Negative) Urine Blood Negative (Negative) Urine Nitrite Negative (Negative) Urine Bilirubin Negative (Negative) Urine Urobilinogen <2.0 (<2.0) mg/dL Ur Leukocyte Esterase Trace H (Negative) Urine RBC 1 (0-5) /hpf Urine WBC 4 (0-5) /hpf Ur Squamous Epith Cells 2 (0-4) /hpf Urine HCG, Qual (Not Detectd) 09/22/22 Range/Units 14:38 WBC (3.8-10.6) k/uL RBC (3.80-5.40) m/uL Hgb (11.4-16.0) gm/dL Hct (34.0-46.0) % MCV (80.0-100.0) fL MCH (25.0-35.0) pg MCHC (31.0-37.0) g/dL RDW (11.5-15.5) % Plt Count (150-450) k/uL MPV Neutrophils % % Lymphocytes % % Monocytes % % Eosinophils % % Basophils % % Neutrophils # (1.3-7.7) k/uL Lymphocytes # (1.0-4.8) k/uL Monocytes # (0-1.0) k/uL Eosinophils # (0-0.7) k/uL Basophils # (0-0.2) k/uL Sodium (137-145) mmol/L Potassium (3.5-5.1) mmol/L Chloride (98-107) mmol/L Carbon Dioxide (22-30) mmol/L Anion Gap mmol/L BUN (7-17) mg/dL Creatinine (0.52-1.04) mg/dL Est GFR (CKD-EPI)AfAm (>60 ml/min/1.73 sqM) Est GFR (CKD-EPI)NonAf (>60 ml/min/1.73 sqM) Glucose (74-99) mg/dL Calcium (8.4-10.2) mg/dL Total Bilirubin (0.2-1.3) mg/dL AST (14-36) U/L ALT (4-34) U/L Alkaline Phosphatase (38-126) U/L Total Protein (6.3-8.2) g/dL Albumin (3.5-5.0) g/dL Lipase (23-300) U/L Urine Color Urine Appearance (Clear) Urine pH (5.0-8.0) Ur Specific [place] (1.001-1.035) Urine Protein (Negative) Urine Glucose (UA) (Negative) Urine Ketones (Negative) Urine Blood (Negative) Urine Nitrite (Negative) Urine Bilirubin (Negative) Urine Urobilinogen (<2.0) mg/dL Ur Leukocyte Esterase (Negative) Urine RBC (0-5) /hpf Urine WBC (0-5) /hpf Ur Squamous Epith Cells (0-4) /hpf Urine HCG, Qual Not Detected (Not Detectd) Disposition Clinical Impression: Abdominal pain Disposition: HOME SELF-CARE Condition: Stable Instructions (If sedation given, give patient instructions): Abdominal Pain (ED) Additional Instructions: Please return to the Emergency Department if symptoms worsen or any other concerns. Is patient prescribed a controlled substance at d/c from ED?: No Referrals: Osmar Lundberg MD [Primary Care Provider] - 1-2 days Time of Disposition: 16:27
[2022-09-22 14:12] VITALS: TEMP 98
[2022-09-22 14:38] LABS: Basophils # (A) 0.1 k/uL (0-0.2); Basophils % (A) 1 %; Eosinophils # (A) 0.8 k/uL (0-0.7); Eosinophils % (A) 7 %; HCT 39.9 % (34.0-46.0); HGB 13.1 gm/dL (11.4-16.0); Lymphocytes # (A) 2.4 k/uL (1.0-4.8); Lymphocytes % (A) 22 %; MCH 30.4 pg (25.0-35.0); MCHC 32.8 g/dL (31.0-37.0); MCV 92.7 fL (80.0-100.0); Mean Platelet Volume 8.3; Monocytes # (A) 0.4 k/uL (0-1.0); Monocytes % (A) 4 %; Neutrophils # (A) 7.4 k/uL (1.3-7.7); Neutrophils % (A) 66 %; Platelet Count 203 k/uL (150-450); RDW 12.6 % (11.5-15.5); WBC 11.1 k/uL (3.8-10.6)
[2022-09-22 14:50] LABS: ALT 53 U/L (4-34); AST 37 U/L (14-36); African American GFR (CKD) >90 (>60 ml/min/1.73 sqM); Albumin 4.2 g/dL (3.5-5.0); Alkaline Phosphatase 59 U/L (38-126); Anion Gap 10 mmol/L; Blood Urea Nitrogen 24 mg/dL (7-17); Calcium 9.1 mg/dL (8.4-10.2); Carbon Dioxide 18 mmol/L (22-30); Chloride 111 mmol/L (98-107); Glucose 115 mg/dL (74-99); Lipase 287 U/L (23-300); Non-African American GFR(CKD) >90 (>60 ml/min/1.73 sqM); Potassium 4.6 mmol/L (3.5-5.1); Sodium 139 mmol/L (137-145); Total Bilirubin 0.4 mg/dL (0.2-1.3); Total Protein 7.3 g/dL (6.3-8.2)
[2022-09-22 14:55] LABS: Appearance,Urine Clear (Clear); Bilirubin,Urine Negative (Negative); Blood,Urine Negative (Negative); Color,Urine Light Yellow; Glucose,Urine (UA) Negative (Negative); Ketones,Urine Negative (Negative); Leukocyte Esterase,Urine Trace (Negative); Nitrite,Urine Negative (Negative); Protein,Urine Negative (Negative); RBC,Urine 1 /hpf (0-5); Squamous Epithelial Cell,Urine 2 /hpf (0-4); Urobilinogen,Urine <2.0 mg/dL (<2.0); WBC,Urine 4 /hpf (0-5)
[2022-09-22] MEDS ORDERED: KETOROLAC 15 MG/ML 1 ML VIAL IVP STA (15:00)
[2022-09-22] MEDS ORDERED: MORPHINE SULFATE 4 MG/ML SYRINGE IVP STA (15:00)
[2022-09-22] MEDS ORDERED: ONDANSETRON 4 MG/2 ML VIAL IVP STA (15:00)
[2022-09-22 15:18] VITALS: RESP 18
--- NOTE | 2022-09-22 16:20 | US ---
EXAMINATION TYPE: US transvaginal DATE OF EXAM: 09/22/2022 COMPARISON: CT 07/17/2022 CLINICAL HISTORY: pain. Pain TECHNIQUE: Transvaginal (TV EXAM MEASUREMENTS: Uterus: 6.7 x 2.4 x 3.2 cm Endometrial Stripe: .3 cm Right Ovary: 2.2 x 1.3 x 2.9 cm 1. Uterus: Anteverted wnl 2. Endometrium: wnl 3. Right Ovary: wnl 4. Left Ovary: Obscured by overlying bowel gas Spectral, color and waveform doppler imaging shows good arterial and venous flow within the right o vary; there is no evidence for ovarian torsion. 5. Bilateral Adnexa: wnl 6. Posterior cul-de-sac: no IMPRESSION: 1. No evidence for acute process. 2. Left ovary not visualized. 3. Right ovary appropriate arterial and venous spectral waveforms.
[2022-09-22 17:00] VITALS: BP 136/78; PULSE 90
== END 2022-09-22 16:59 | disposition home or self-care (01) ==
LOC: EC 13:39
DX: R10.30 Lower abdominal pain, unspecified (principal); J45.909 Unspecified asthma, uncomplicated; M19.90 Unspecified osteoarthritis, unspecified site; F41.9 Anxiety disorder, unspecified; F32.A Depression, unspecified; F17.290 Nicotine dependence, other tobacco product, uncomplicated; Z79.899 Other long term (current) drug therapy
CPT/HCPCS: 36415; 80053; 83690; 85025; 81001; 81025; 93976; 76830; 99284; 96374; 96375 ×2; J2270; J2405; J1885

== ENCOUNTER 2023-01-11 23:47 | Emergency (ER) | payer OTHER ==
[2023-01-11 23:58] VITALS: RESP 18; TEMP 98.2
[2023-01-12] MEDS ORDERED: SODIUM CHLORIDE 0.9% 1,000 ML IV STA (00:10)
[2023-01-12] MEDS ORDERED: ONDANSETRON 4 MG/2 ML VIAL IVP STA (00:10)
[2023-01-12 00:44] LABS: Basophils # (A) 0.1 k/uL (0-0.2); Basophils % (A) 1 %; Eosinophils # (A) 0.3 k/uL (0-0.7); Eosinophils % (A) 3 %; HCT 38.4 % (34.0-46.0); HGB 12.9 gm/dL (11.4-16.0); Lymphocytes # (A) 4.2 k/uL (1.0-4.8); Lymphocytes % (A) 40 %; MCHC 33.6 g/dL (31.0-37.0); MCV 89.3 fL (80.0-100.0); Mean Platelet Volume 8.4; Monocytes # (A) 0.5 k/uL (0-1.0); Monocytes % (A) 5 %; Neutrophils # (A) 5.3 k/uL (1.3-7.7); Neutrophils % (A) 50 %; Platelet Count 218 k/uL (150-450); RDW 12.3 % (11.5-15.5); WBC 10.7 k/uL (3.8-10.6)
[2023-01-12] MEDS ORDERED: KETOROLAC 15 MG/ML 1 ML VIAL IVP STA (00:51)
--- NOTE | 2023-01-12 00:54 | ED ---
Chest Pain HPI - General Chief Complaint: Chest Pain Stated Complaint: SOB Time Seen by Provider: 01/11/23 23:54 Source: patient, EMS, RN notes reviewed Mode of arrival: EMS Limitations: no limitations - History of Present Illness Initial Comments: 27-year-old female presents emergency Department chief complaint of a chest pain, abdominal pain. Patient states started around 9:45 PM while she was at work. It is worse with movement. Patient states she did not eat anything states she has right quadrant abdominal pain. Patient states nothing makes it feel better at this time. It is worse with movement. Patient states she has a history of asthma, high blood pressure. Patient denies history of PE or DVT. Patient denies any sick contacts no recent cold like symptoms - Related Data Home Medications Medication Instructions Recorded Confirmed Metoprolol Succinate (ER) [Toprol 25 mg PO HS 05/17/21 02/04/22 XL] Multivitamins, Thera [Multivitamin 1 tab PO HS 08/04/21 02/04/22 (formulary)] Pirmella 1 tab PO HS 09/09/21 02/04/22 Trintellix Unknown Dose 1 tab PO HS 02/04/22 02/04/22 Previous Rx's Medication Instructions Recorded Ondansetron Odt [Zofran Odt] 4 mg PO Q8HR PRN #10 tab 02/04/22 HYDROcodone/APAP 5-325MG [[place] 1 tab PO Q6HR PRN 3 Days #12 tab 07/17/22 5-325] Metoclopramide [Reglan] 10 mg PO Q6H PRN #30 tab 07/17/22 Amoxic-Pot Clav 875-125Mg 1 tab PO Q12HR #20 tab 11/04/22 [Augmentin 875-125] Amoxic-Pot Clav 875-125Mg 1 each PO Q12HR #20 tablet 11/06/22 [Augmentin Xr 875-125] Ibuprofen [Motrin] 600 mg PO Q8HR PRN #20 tab 01/12/23 Allergies Allergy/AdvReac Type Severity Reaction Status Date / Time No Known Allergies Allergy Verified 11/06/22 09:46 Review of Systems ROS Statement: Those systems with pertinent positive or pertinent negative responses have been documented in the HPI. ROS Other: All systems not noted in ROS Statement are negative. EKG Findings - EKG Comments: EKG Findings:: EKG performed at 00:04 sinus rhythm rate of 88 [place] 131/93 QT/QTC 371/417 - EKG Results: EKG: interpreted by ANTONIO Past Medical History Past Medical History: Asthma, Osteoarthritis (OA) History of Any Multi-Drug Resistant Organisms: None Reported Past Surgical History: Appendectomy, Section, Cholecystectomy Additional Past Surgical History / Comment(s): Past Anesthesia/Blood Transfusion Reactions: No Reported Reaction Past Psychological History: ADD/ADHD, Anxiety, Depression Smoking Status: Vaper Past Alcohol Use History: None Reported Past Drug Use History: Marijuana - Past Family History Father Family Medical History: No Reported History Mother Family Medical History: No Reported History General Exam Limitations: no limitations General appearance: alert, in no apparent distress Head exam: Present: atraumatic, normocephalic, normal inspection Eye exam: Present: normal appearance, PERRL, EOMI. Absent: scleral icterus, conjunctival injection, periorbital swelling ENT exam: Present: normal exam, normal oropharynx, mucous membranes moist Neck exam: Present: normal inspection, full ROM. Absent: tenderness, meningismus, lymphadenopathy Respiratory exam: Present: normal lung sounds bilaterally, chest wall tenderness. Absent: respiratory distress, wheezes, rales, rhonchi, stridor Cardiovascular Exam: Present: regular rate, normal rhythm, normal heart sounds. Absent: systolic murmur, diastolic murmur, rubs, gallop, clicks GI/Abdominal exam: Present: soft, tenderness (Right quadrant), normal bowel sounds. Absent: distended, guarding, rebound, rigid Course Vital Signs 01/11/23 01/11/23 01/12/23 23:55 23:58 02:04 Temperature 98.2 F Pulse Rate 71 74 Pulse Rate [ 75 Account Manager Relief ] Respiratory 18 18 Rate Blood Pressure 101/64 100/55 O2 Sat by Pulse 98 98 Oximetry Chest Pain MDM - MDM Was pt. sent in by a medical professional or institution (, SIS, HANDHOLE MACHINE OPERATOR, urgent care, hospital, or [facility]...) When possible be specific @ -No Did you speak to anyone other than the patient for history (EMS, parent, family, police, friend...)? What history was obtained from this source @ -No Did you review nursing and triage notes (agree or disagree)? Why? @ -I reviewed and agree with nursing and triage notes Were old charts reviewed (outside hosp., previous admission, EMS record, old EKG, old radiological studies, urgent care reports/EKG's, [facility] records)? Report findings @ -No old charts were reviewed Differential Diagnosis (chest pain, altered mental status, abdominal pain women, abdominal pain men, vaginal bleeding, weakness, fever, dyspnea, syncope, headache, dizziness, GI bleed, back pain, seizure, CVA, palpatations, mental health, musculoskeletal)? @ -Differential Chest Pain: Stable Angina, Unstable Angina, STEMI, NSTEMI Aortic Dissection, Pneumothorax, Musculoskeletal, Esophageal Spasm GERD, Cholecystitis, Pancreatitis, Zoster, this is not meant to be an all-inclusive list. e EKG interpreted by me (3pts min.). @ -As above X-rays interpreted by me (1pt min.). @ -Chest x-ray shows no acute process CT interpreted by me (1pt min.). @ -None done U/S interpreted by me (1pt. min.). @ -Ultrasound gallbladder unremarkable What testing was considered but not performed or refused? (CT, X-rays, U/S, labs)? Why? @ -None What meds were considered but not given or refused? Why? @ -None Did you discuss the management of the patient with other professionals (professionals i.e. , PA, HANDHOLE MACHINE OPERATOR, lab, RT, psych nurse, social organization professor, soiled linen distributor, teacher, aboriginal home school liaison officer, case picker)? Give summary @ -No Was smoking cessation discussed for >3mins.? @ -No Was critical care preformed (if so, how long)? @ -No Were there social determinants of health that impacted care today? How? (Homelessness, low income, unemployed, alcoholism, drug addiction, transportation, low edu. Level, literacy, decrease access to med. care, longterm, rehab)? @ -No Was there de-escalation of care discussed even if they declined (Discuss DNR or withdrawal of care, Hospice)? DNR status @ -No What co-morbidities impacted this encounter? (DM, HTN, Smoking, COPD, CAD, Cancer, CVA, ARF, Chemo, Hep., AIDS, mental health diagnosis, sleep apnea, morbid obesity)? @ -None Was patient admitted / discharged? Hospital course, mention meds given and route, prescriptions, significant lab abnormalities, going to OR and other pertinent info. @ -Discharge patient has reproducible chest wall pain and negative troponin, negative ultrasound x-ray patient is improved after Toradol. Patient's chest wall pain with discharged in stable condition. Undiagnosed new problem with uncertain prognosis? @ -No Drug Therapy requiring intensive monitoring for toxicity (Heparin, Nitro, Insulin, Cardizem)? @ -No Were any procedures done? @ -No Diagnosis/symptom? @ -Chest wall pain Acute, or Chronic, or Acute on Chronic? @ -Acute] Uncomplicated (without systemic symptoms) or Complicated (systemic symptoms)? @ -[Uncomplicated] Side effects of treatment? @ -[No] Exacerbation, Progression, or Severe Exacerbation? @ -[No] Poses a threat to life or bodily function? How? (Chest pain, [place], [place], pneumonia, PE, COPD, DKA, ARF, appy, cholecystitis, CVA, Diverticulitis, Homicidal, Suicidal, threat to staff... and all critical care pts) @ -[No] Disposition Clinical Impression: Abdominal pain, Chest wall pain Disposition: HOME SELF-CARE Condition: Stable Instructions (If sedation given, give patient instructions): Chest Wall Pain (ED) Additional Instructions: Please return to the Emergency Department if symptoms worsen or any other concerns. Prescriptions: Ibuprofen [Motrin] 600 mg PO Q8HR PRN #20 tab PRN Reason: Pain Is patient prescribed a controlled substance at d/c from ED?: No Referrals: Osmar Lundberg MD [Primary Care Provider] - 1-2 days Time of Disposition: 02:15
[2023-01-12 00:58] LABS: Prothrombin Time 10.3 sec (9.0-12.0)
--- NOTE | 2023-01-12 00:59 | US ---
EXAM: US Abdomen Limited, Gallbladder CLINICAL HISTORY: pain TECHNIQUE: Real-time ultrasound of the right upper quadrant with image documentation. 41 images COMPARISON: 08/04/21 FINDINGS: Liver: Liver measures about 17.1 cm longitudinally. Heterogeneous liver parenchyma, may suggest fatty infiltration Gallbladder: Cholecystectomy. Common bile duct: CBD measures about 0.27 cm in diameter. No stones. No dilation. Pancreas: Unremarkable as visualized. Right kidney: Right Kidney measures about 10.5 x 6.0 x 4.7 cm. IMPRESSION: No acute findings in the right upper quadrant.
[2023-01-12 01:00] LABS: Albumin 4.3 g/dL (3.5-5.0); Calcium 9.3 mg/dL (8.4-10.2); Total Bilirubin 0.7 mg/dL (0.2-1.3); Total Protein 7.4 g/dL (6.3-8.2)
--- NOTE | 2023-01-12 01:10 | XR ---
EXAM: XR Chest, 2 Views CLINICAL HISTORY: Chest Pain TECHNIQUE: Frontal and lateral views of the chest. COMPARISON: 10/19/21 FINDINGS: Lungs: Unremarkable. No consolidation. Pleural space: Unremarkable. No pneumothorax. Heart: Unremarkable. No cardiomegaly. Mediastinum: Unremarkable. Bones/joints: Unremarkable. IMPRESSION: Normal chest x-rays.
[2023-01-12 02:05] VITALS: BP 100/55; PULSE 74
[2023-01-12] MEDS ORDERED: ACET/COD 300 MG/30 MG STARTER PACK 6 TAB BTL PO STA (02:14)
== END 2023-01-12 02:27 | disposition home or self-care (01) ==
LOC: EC 23:47
DX: R07.89 Other chest pain (principal); R10.11 Right upper quadrant pain; J45.909 Unspecified asthma, uncomplicated; M19.90 Unspecified osteoarthritis, unspecified site; Z90.49 Acquired absence of other specified parts of digestive tract; F41.9 Anxiety disorder, unspecified; F32.A Depression, unspecified; F17.290 Nicotine dependence, other tobacco product, uncomplicated; F12.90 Cannabis use, unspecified, uncomplicated; Z79.899 Other long term (current) drug therapy
CPT/HCPCS: 36415; 93005; 85379; 80053; 83690; 83735; 84484; 85025; 85610; 85730; 71046; 76705; 99285; 96374; 96361; J1885

== ENCOUNTER 2023-01-23 10:48 | Emergency (ER) | payer OTHER ==
[2023-01-23 10:55] VITALS: TEMP 97.9
[2023-01-23] MEDS ORDERED: KETOROLAC 15 MG/ML 1 ML VIAL IVP STA (11:06)
[2023-01-23] MEDS ORDERED: ONDANSETRON 4 MG/2 ML VIAL IVP STA (11:08)
[2023-01-23] MEDS ORDERED: SODIUM CHLORIDE 0.9% 1,000 ML IV STA (11:08)
--- NOTE | 2023-01-23 11:16 | ED ---
Chest Pain HPI - General Chief Complaint: Chest Pain Stated Complaint: chest pain, vomiting Time Seen by Provider: 01/23/23 10:58 Source: patient, RN notes reviewed Mode of arrival: ambulatory Limitations: no limitations - History of Present Illness Initial Comments: This is a 27-year-old female who presents to the emergency department for chest pain. States that this has been on and off over the last 2 weeks. Describes this as both a pressure and sharp sensation that is worse with inspiration. She has minor associated shortness of breath and coughing. She does note that she has a history of asthma, however this does not usually cause problems like this for her. Denies any fevers or sick contacts. She has no known personal or cardiac history. Notes that she is also having ongoing vomiting, and is unable to keep anything down, causing her to feel fatigued. Denies any abdominal pain. Denies any fevers, chills, sore throat, palpitations, abdominal pain, diarrhea, back pain, or headaches. MD Complaint: chest pain Onset/Timin -: week(s) - Related Data Home Medications Medication Instructions Recorded Confirmed Metoprolol Succinate (ER) [Toprol 25 mg PO DAILY 05/17/21 01/23/23 XL] Pirmella 1 tab PO DAILY 09/09/21 01/23/23 Docusate [Colace] 100 mg PO DAILY 01/23/23 01/23/23 Ibuprofen [Motrin] 800 mg PO TID PRN 01/23/23 01/23/23 Omeprazole 20 mg PO DAILY PRN 01/23/23 01/23/23 Ondansetron Odt [Zofran Odt] 4 mg PO BID 01/23/23 01/23/23 QUEtiapine [SEROquel] 100 mg PO HS 01/23/23 01/23/23 Vilazodone HCl 20 mg PO DAILY 01/23/23 01/23/23 Previous Rx's Medication Instructions Recorded Baclofen [Lioresal] 10 mg PO TID PRN #15 tablet 01/23/23 Ondansetron Odt [Zofran Odt] 4 mg PO Q8HR PRN #15 tab 01/23/23 Allergies Allergy/AdvReac Type Severity Reaction Status Date / Time No Known Allergies Allergy Verified 01/23/23 14:04 Review of Systems ROS Statement: Those systems with pertinent positive or pertinent negative responses have been documented in the HPI. ROS Other: All systems not noted in ROS Statement are negative. Past Medical History Past Medical History: Asthma, Hypertension, Osteoarthritis (OA) History of Any Multi-Drug Resistant Organisms: None Reported Past Surgical History: Appendectomy, Section, Cholecystectomy Additional Past Surgical History / Comment(s): Past Anesthesia/Blood Transfusion Reactions: No Reported Reaction Past Psychological History: ADD/ADHD, Anxiety, Depression Smoking Status: Vaper Past Alcohol Use History: None Reported Past Drug Use History: Marijuana - Past Family History Father Family Medical History: No Reported History Mother Family Medical History: No Reported History General Exam Limitations: no limitations General appearance: alert, in no apparent distress Head exam: Present: atraumatic, normocephalic, normal inspection Respiratory exam: Present: normal lung sounds bilaterally. Absent: respiratory distress, wheezes, rales, rhonchi, stridor Cardiovascular Exam: Present: regular rate, normal rhythm, normal heart sounds. Absent: systolic murmur, diastolic murmur, rubs, gallop, clicks GI/Abdominal exam: Present: soft, normal bowel sounds. Absent: distended, t enderness, guarding, rebound, rigid Neurological exam: Present: alert, oriented X3, CN II-XII intact Psychiatric exam: Present: normal affect, normal mood Skin exam: Present: warm, dry, intact, normal color. Absent: rash Course Vital Signs 01/23/23 01/23/23 01/23/23 10:53 11:31 12:22 Temperature 97.9 F Pulse Rate 110 H 107 H 84 Respiratory 20 18 Rate Blood Pressure 132/88 104/79 O2 Sat by Pulse 98 98 Oximetry 01/23/23 01/23/23 12:31 14:37 Temperature Pulse Rate 83 94 Respiratory 18 Rate Blood Pressure 116/77 O2 Sat by Pulse 99 Oximetry Chest Pain MDM - MDM This is a 27-year-old female who presents to the emergency department for chest pain. Was pt. sent in by a medical professional or institution? @ -No Did you speak to anyone other than the patient for history? @ -No Did you review nursing and triage notes? @ -Yes, and I agree, it is accurate with regards to the patient's symptoms. Were old charts reviewed? @ -No Differential Diagnosis? @ -Differential Chest Pain: Stable Angina, Unstable Angina, STEMI, NSTEMI Aortic Dissection, Pneumothorax, Musculoskeletal, Esophageal Spasm GERD, Cholecystitis, Pancreatitis, Zoster, this is not meant to be an all-inclusive list. EKG interpreted by me (3pts min.)? @ -EKG interpreted by me demonstrating the following: Sinus rhythm. Ventricular rate 96 bpm, WA interval 147 ms, QRS duration 84 ms, QTC 408 ms. X-rays interpreted by me (1pt min.)? @ -Chest x-ray obtained, my interpretation identifies no localized consol idations or infiltrates. CT interpreted by me (1pt min.)? @ -Not obtained U/S interpreted by me (1pt. min.)? @ -Not obtained What testing was considered but not performed? (CT, X-rays, U/S, labs)? Why? @ -None What meds were considered but not given? Why? @ -None Did you discuss the management of the patient with other professionals? @ -No Did you reconcile home meds? @ -No Was smoking cessation discussed for >3mins.? @ -No Was critical care preformed (if so, how long)? @ -No Were there social determinants of health that impacted care today? How? (Homelessness, low income, unemployed, alcoholism, drug addiction, transportation, low edu. Level, literacy, decrease access to med. care, [facility], rehab)? @ -No Was there de-escalation of care discussed even if they declined? (Discuss DNR or withdrawal of care, Hospice)? @ -No What co-morbidities impacted this encounter? (DM, HTN, Smoking, COPD, CAD, Cancer, CVA, Hep., AIDS, mental health diagnosis, sleep apnea, morbid obesity)? @ -Asthma Was patient admitted / discharged? @ -Discharged. Lab work obtained and found to be nonactionable. Elevated liver enzymes consistent with prior values. Troponin and d-dimer are negative. She was given IV fluids, Zofran, and Toradol with minor improvement in symptoms. She continued to complain of chest pressure and was subsequently given a dose of Valium with improvement in symptoms. Prescription for baclofen and Zofran provided with dosing instructions reviewed. Advised that the baclofen can be sedating and she should avoid driving or operating machinery when taking this. Also advised she alternate with ibuprofen and Tylenol as needed and follow-up with her primary care provider. Undiagnosed new problem with uncertain prognosis? @ -None Drug Therapy requiring intensive monitoring for toxicity (Heparin, Nitro, Insulin, Cardizem)? @ -None Were any procedures done? @ -None Diagnosis/symptom? @ -Atypical chest pain, Nausea and vomiting Acute, or Chronic, or Acute on Chronic? @ -Acute Uncomplicated (without systemic symptoms) or Complicated (systemic symptoms)? @ -Uncomplicated Side effects of treatment? @ -None Exacerbation, Progression, or Severe Exacerbation] @ -Not applicable Poses a threat to life or bodily function? @ -No Return precautions reviewed in depth, the patient is instructed to return to the emergency department with any new, worsening, or concerning symptoms. Patient verbalized understanding. This case was discussed in detail with the attending ED physician, Dr. Self. Presentation, findings, and treatment plan discussed in detail as well. Disposition Clinical Impression: Atypical chest pain, Nausea and vomiting Disposition: HOME SELF-CARE Instructions (If sedation given, give patient instructions): Noncardiac Chest Pain (ED) Additional Instructions: Return to the emergency department with any new, worsening, or concerning symptoms. Alternate with ibuprofen and Tylenol as needed for pain relief. You can take the Baclofen up to every 3 hours, however be aware that this may be sedating and you should take it at night until you know how it affects you. Follow up with your primary care provider in 1-2 days. Prescriptions: Baclofen [Lioresal] 10 mg PO TID PRN #15 tablet PRN Reason: Pain Ondansetron Odt [Zofran Odt] 4 mg PO Q8HR PRN #15 tab PRN Reason: Nausea And Vomiting Is patient prescribed a controlled substance at d/c from ED?: No Referrals: Osmar Lundberg MD [Primary Care Provider] - 1-2 days
[2023-01-23 11:32] VITALS: RESP 18
[2023-01-23 11:59] LABS: Basophils % (A) 0 %; Eosinophils # (A) 0.3 k/uL (0-0.7); Eosinophils % (A) 4 %; HCT 38.1 % (34.0-46.0); Lymphocytes # (A) 2.2 k/uL (1.0-4.8); Lymphocytes % (A) 29 %; MCH 30.7 pg (25.0-35.0); MCHC 34.1 g/dL (31.0-37.0); Mean Platelet Volume 8.3; Monocytes # (A) 0.3 k/uL (0-1.0); Monocytes % (A) 4 %; Neutrophils # (A) 4.7 k/uL (1.3-7.7); Neutrophils % (A) 62 %; Platelet Count 190 k/uL (150-450); RBC 4.23 m/uL (3.80-5.40); RDW 12.6 % (11.5-15.5); WBC 7.5 k/uL (3.8-10.6)
[2023-01-23 12:13] LABS: ALT 71 U/L (4-34); AST 79 U/L (14-36); African American GFR (CKD) >90 (>60 ml/min/1.73 sqM); Albumin 4.1 g/dL (3.5-5.0); Alkaline Phosphatase 68 U/L (38-126); Anion Gap 11 mmol/L; Blood Urea Nitrogen 11 mg/dL (7-17); Calcium 9.2 mg/dL (8.4-10.2); Carbon Dioxide 24 mmol/L (22-30); Chloride 105 mmol/L (98-107); Glucose 92 mg/dL (74-99); Non-African American GFR(CKD) >90 (>60 ml/min/1.73 sqM); Potassium 4.3 mmol/L (3.5-5.1); Sodium 140 mmol/L (137-145); Total Bilirubin 0.4 mg/dL (0.2-1.3); Total Protein 7.2 g/dL (6.3-8.2)
[2023-01-23] MEDS ORDERED: IPRATROPIUM-ALBUTEROL 3 ML NEB INHALATION STA (12:16)
[2023-01-23 12:18] LABS: Amorphous Sediment,Urine Occasional /hpf; Appearance,Urine Cloudy (Clear); Bacteria,Urine Rare /hpf; Bilirubin,Urine Negative (Negative); Blood,Urine Negative (Negative); Color,Urine Light Yellow; Glucose,Urine (UA) Negative (Negative); Ketones,Urine Negative (Negative); Leukocyte Esterase,Urine Negative (Negative); Mucus,Urine Rare /hpf; Nitrite,Urine Negative (Negative); PH, Urine 7.5 (5.0-8.0); Protein,Urine Negative (Negative); Specific Gravity,Urine 1.007 (1.001-1.035); Squamous Epithelial Cell,Urine 2 /hpf (0-4); Urobilinogen,Urine <2.0 mg/dL (<2.0); WBC,Urine 4 /hpf (0-5)
--- NOTE | 2023-01-23 12:24 | XR ---
EXAMINATION TYPE: XR chest 2V DATE OF EXAM: 01/23/2023 COMPARISON: 01/12/2023 HISTORY: Chest pain TECHNIQUE: Frontal and lateral views of the chest are obtained. FINDINGS: There is no focal air space opacity. No evidence for pneumothorax. No pleural effusion. The cardiac silhouette size is within normal limits. The osseous structures are grossly intact. IMPRESSION: 1. No acute cardiopulmonary process.
[2023-01-23 12:56] LABS: INR 0.9 (<1.2); Prothrombin Time 9.6 sec (9.0-12.0)
[2023-01-23 13:05] LABS: Partial Thromboplastin Time 20.2 sec (22.0-30.0)
[2023-01-23] MEDS ORDERED: HYDROcodone/APAP 5-325MG 1 EACH TAB PO STA (13:10)
[2023-01-23] MEDS ORDERED: ONDANSETRON 4 MG ODT STARTER PACK 2 TAB BTL PO STA (13:16)
[2023-01-23] MEDS ORDERED: IBUPROFEN 600 MG STARTER PACK 4 TAB BTL PO STA (13:16)
[2023-01-23] MEDS ORDERED: ACET/COD 300 MG/30 MG STARTER PACK 6 TAB BTL PO STA (13:16)
[2023-01-23] MEDS ORDERED: CYCLOBENZAPRINE 10MG STARTER 3 TAB BTL PO STA (13:16)
[2023-01-23 14:37] VITALS: BP 116/77; PULSE 94
== END 2023-01-23 14:51 | disposition home or self-care (01) ==
LOC: EC 10:48
DX: R07.89 Other chest pain (principal); R11.2 Nausea with vomiting, unspecified; J45.909 Unspecified asthma, uncomplicated; I10 Essential (primary) hypertension; M19.90 Unspecified osteoarthritis, unspecified site; F41.9 Anxiety disorder, unspecified; F32.A Depression, unspecified; F17.290 Nicotine dependence, other tobacco product, uncomplicated; F12.90 Cannabis use, unspecified, uncomplicated; Z79.899 Other long term (current) drug therapy
CPT/HCPCS: 36415; 94640; 93005; 85379; 80053; 83735; 84484; 85025; 85610; 85730; 81001; 81025; 71046; 99285; 96374; 96375 ×2; 96361; J3360; J2405; J1885; S0119

== ENCOUNTER → 2023-02-07 | Outpatient (CLI) | payer OTHER ==
--- NOTE | 2023-02-07 13:03 | XR ---
EXAMINATION TYPE: XR shoulder complete RT DATE OF EXAM: 02/07/2023 COMPARISON: NONE HISTORY: Pain TECHNIQUE: Three views are submitted. FINDINGS: The osseous structures are intact. There is no acute fracture or dislocation. The AC joint is maint ained. IMPRESSION: 1. No acute process.
== END | disposition home or self-care (01) ==
LOC: RADXRMAIN 12:26
PROVIDERS: ATTEND Family Medicine
DX: M25.512 Pain in left shoulder (principal)

== ENCOUNTER 2023-06-12 07:35 | Emergency (ER) | payer OTHER ==
[2023-06-12] MEDS ORDERED: ONDANSETRON 4 MG/2 ML VIAL IVP STA (07:51)
[2023-06-12] MEDS ORDERED: DEXAMETHASONE SOD PHOSPHATE 10 MG/ML 1 ML VIAL IVP STA (07:51)
[2023-06-12] MEDS ORDERED: SODIUM CHLORIDE 0.9% 1,000 ML IV STA (07:51)
[2023-06-12] MEDS ORDERED: KETOROLAC 15 MG/ML 1 ML VIAL IVP STA (07:51)
--- NOTE | 2023-06-12 07:57 | ED ---
Nausea/Vomiting/Diarrhea HPI - General Chief complaint: Nausea/Vomiting/Diarrhea Stated complaint: abd pain/fever Time Seen by Provider: 06/12/23 07:38 Source: patient, RN notes reviewed Mode of arrival: ambulatory Limitations: no limitations - History of Present Illness Initial comments: This is a 27-year-old female who presents to the emergency department for nausea, vomiting, headaches, and abdominal pain. States that over the last 3 days she has had ongoing nausea and vomiting and has since been unable to keep anything down. Reports associated lower abdominal pain. Unable to localize this to any particular side. Additionally, states that she's had a headache over the last couple weeks. Reports associated photosensitivity. She's not taken anything to try to manage the pain. She would not describe this as the worse headache of her life. It is predominantly left-sided. Denies any fevers, chills, sore throat, cough, dyspnea, chest pain, palpitations, diarrhea, or back pain. MD complaint: nausea, vomiting, abdominal pain Onset/Timin -: days(s) - Related Data Home Medications Medication Instructions Recorded Confirmed Ondansetron Odt [Zofran Odt] 4 mg PO BID PRN 01/23/23 06/12/23 QUEtiapine [SEROquel] 100 mg PO HS 01/23/23 06/12/23 Vilazodone HCl 20 mg PO DAILY 01/23/23 06/12/23 Metoprolol Succinate (ER) [Toprol 50 mg PO DAILY 06/12/23 06/12/23 Xl] norethindrone ac-eth estradioL 1 tab PO DAILY 06/12/23 06/12/23 [Reyes 1.5 mg-30 Mcg Tablet] Previous Rx's Medication Instructions Recorded HYDROcodone/APAP 5-325MG [Merino 1 tab PO Q6HR PRN 3 Days #12 tab 06/12/23 5-325] Ketorolac [Toradol] 10 mg PO Q6HR PRN #15 tab 06/12/23 Metoclopramide [Reglan] 10 mg PO Q6H PRN #20 tab 06/12/23 Tamsulosin [Flomax] 0.4 mg PO DAILY 7 Days #7 cap 06/12/23 Allergies Allergy/AdvReac Type Severity Reaction Status Date / Time No Known Allergies Allergy Verified 06/12/23 10:18 Review of Systems ROS Statement: Those systems with pertinent positive or pertinent negative responses have been documented in the HPI. ROS Other: All systems not noted in ROS Statement are negative. Past Medical History Past Medical History: Asthma, Hypertension, Osteoarthritis (OA) History of Any Multi-Drug Resistant Organisms: None Reported Past Surgical History: Appendectomy, Section, Cholecystectomy Additional Past Surgical History / Comment(s): Past Anesthesia/Blood Transfusion Reactions: No Reported Reaction Past Psychological History: ADD/ADHD, Anxiety, Depression Smoking Status: Vaper Past Alcohol Use History: None Reported Past Drug Use History: Marijuana - Past Family History Father Family Medical History: No Reported History Mother Family Medical History: No Reported History General Exam Limitations: no limitations General appearance: alert, in no apparent distress Head exam: Present: atraumatic, normocephalic, normal inspection Eye exam: Present: normal appearance, PERRL, EOMI. Absent: scleral icterus, conjunctival injection, periorbital swelling ENT exam: Present: TM's normal bilaterally, normal external ear exam, other (Tenderness to palpation over the left frontal sinus. There is no tenderness over the left temporal region.) Respiratory exam: Present: normal lung sounds bilaterally. Absent: respiratory distress, wheezes, rales, rhonchi, stridor Cardiovascular Exam: Present: regular rate, normal rhythm, normal heart sounds. Absent: systolic murmur, diastolic murmur, rubs, gallop, clicks GI/Abdominal exam: Present: soft, tenderness (Lower abdomen), normal bowel sounds. Absent: distended Back exam: Present: CVA tenderness (L) Neurological exam: Present: alert, oriented X3, CN II-XII intact Psychiatric exam: Present: normal affect, normal mood Skin exam: Present: warm, dry, intact, normal color. Absent: rash Course Vital Signs 06/12/23 06/12/23 07:38 10:29 Temperature 98.0 F 98.9 F Pulse Rate 998 H 73 Respiratory 18 16 Rate Blood Pressure 104/71 101/72 O2 Sat by Pulse 99 99 Oximetry Medical Decision Making - Medical Decision Making This is a 27-year-old female who presents to the emergency department for nausea, vomiting, abdominal pain, and headaches. Was pt. sent in by a medical professional or institution? @ -No Did you speak to anyone other than the patient for history? @ -No Did you review nursing and triage notes? @ -Yes, and I agree, it is accurate with regards to the patient's symptoms. Were old charts reviewed? @ -No Differential Diagnosis? @ -Differential Nausea and Vomiting: Gastroenteritis, cholecystitis, appendicitis, pancreatitis, migraine, benign positional vertigo, food borne illness, pyelonephritis, irritable bowel syndrome, influenza, Covid, GERD, incarcerated hernia, intestinal obstruction, this is not meant to be an all-inclusive list. EKG interpreted by me (3pts min.)? @ -Not obtained X-rays interpreted by me (1pt min.)? @ -Not obtained CT interpreted by me (1pt min.)? @ -Computed tomography scan of the abdomen and pelvis obtained. My interpretation identifies a calculus at the left ureteropelvic junction. U/S interpreted by me (1pt. min.)? @ -Not obtained What testing was considered but not performed? (CT, X-rays, U/S, labs)? Why? @ -None What meds were considered but not given? Why? @ -None Did you discuss the management of the patient with other professionals? @ -No Did you reconcile home meds? @ -No Was smoking cessation discussed for >3mins.? @ -No Was critical care preformed (if so, how long)? @ -No Were there social determinants of health that impacted care today? How? (Homelessness, low income, unemployed, alcoholism, drug addiction, transportation, low edu. Level, literacy, decrease access to med. care, [facility], rehab)? @ -No Was there de-escalation of care discussed even if they declined? (Discuss DNR or withdrawal of care, Hospice)? @ -No What co-morbidities impacted this encounter? (DM, HTN, Smoking, COPD, CAD, Cancer, CVA, Hep., AIDS, mental health diagnosis, sleep apnea, morbid obesity)? @ -None Was patient admitted / discharged? @ -Discharged. Lab work obtained and found to be nonactionable. Urinalysis does have a moderate amount of blood in it and the patient is not currently on her menstrual cycle. She was also noted to have some left flank pain. Given the blood in her urine with flank pain and lower abdominal pain, we proceeded with a computed tomography scan of the abdomen and pelvis to evaluate for signs of a ureteral calculus. The CT scan demonstrated a 3 mm calculus at the left ureteropelvic junction without signs of hydronephrosis or surrounding fat stranding. It is not entirely clear whether or not this is obstructing. Discussed with the patient that this may be the cause of her symptoms with regards to the abdominal pain, nausea, and vomiting, but it is not entirely clear. Her headache was controlled with Toradol and Decadron, however she continued to have nausea and abdominal pain. She was subsequently given a dose of Dilaudid and Reglan with notable improvement in symptoms. She was given prescriptions for Toradol, Merino, Reglan, and Flomax with dosing instructions reviewed. Information for urology follow-up provided. Patient is instructed to contact them for a follow-up appointment regarding the calculus in the left ureteropelvic junction. Undiagnosed new problem with uncertain prognosis? @ -None Drug Therapy requiring intensive monitoring for toxicity (Heparin, Nitro, Insulin, Cardizem)? @ -None Were any procedures done? @ -None Diagnosis/symptom? @ -Ureteropelvic calculus, nausea/vomiting, abdominal pain Acute, or Chronic, or Acute on Chronic? @ -Acute Uncomplicated (without systemic symptoms) or Complicated (systemic symptoms)? @ -Complicated Side effects of treatment? @ -None Exacerbation, Progression, or Severe Exacerbation] @ -Not applicable Poses a threat to life or bodily function? @ -No Return precautions reviewed in depth, the patient is instructed to return to the emergency department with any new, worsening, or concerning symptoms. Patient verbalized understanding. This case was discussed in detail with the attending ED physician, Dr. Self. Presentation, findings, and treatment plan discussed in detail as well. - Lab Data Result diagrams: 06/12/23 08:01 06/12/23 08:01 Lab Results 06/12/23 06/12/23 06/12/23 Range/Units 08:01 08:01 08:01 WBC 8.5 (3.8-10.6) k/uL RBC 4.37 (3.80-5.40) m/uL Hgb 13.0 (11.4-16.0) gm/dL Hct 39.6 (34.0-46.0) % MCV 90.5 (80.0-100.0) fL MCH 29.7 (25.0-35.0) pg MCHC 32.9 (31.0-37.0) g/dL RDW 13.0 (11.5-15.5) % Plt Count 219 (150-450) k/uL MPV 8.1 Neutrophils % 72 % Lymphocytes % 20 % Monocytes % 3 % Eosinophils % 3 % Basophils % 0 % Neutrophils # 6.1 (1.3-7.7) k/uL Lymphocytes # 1.7 (1.0-4.8) k/uL Monocytes # 0.3 (0-1.0) k/uL Eosinophils # 0.3 (0-0.7) k/uL Basophils # 0.0 (0-0.2) k/uL Sodium 140 (137-145) mmol/L Potassium 3.9 (3.5-5.1) mmol/L Chloride 107 (98-107) mmol/L Carbon Dioxide 23 (22-30) mmol/L Anion Gap 10 mmol/L BUN 9 (7-17) mg/dL Creatinine 0.64 (0.52-1.04) mg/dL Est GFR (CKD-EPI)AfAm >90 (>60 ml/min/1.73 sqM) Est GFR (CKD-EPI)NonAf >90 (>60 ml/min/1.73 sqM) Glucose 108 H (74-99) mg/dL Calcium 9.2 (8.4-10.2) mg/dL Total Bilirubin 0.5 (0.2-1.3) mg/dL AST 65 H (14-36) U/L ALT 75 H (4-34) U/L Alkaline Phosphatase 90 (38-126) U/L Total Protein 7.8 (6.3-8.2) g/dL Albumin 4.2 (3.5-5.0) g/dL Amylase 64 (30-110) U/L Lipase 96 (23-300) U/L Urine Color Light Yellow Urine Appearance Clear (Clear) Urine pH 6.0 (5.0-8.0) Ur Specific [place] 1.012 (1.001-1.035) Urine Protein Negative (Negative) Urine Glucose (UA) Negative (Negative) Urine Ketones Negative (Negative) Urine Blood Moderate H (Negative) Urine Nitrite Negative (Negative) Urine Bilirubin Negative (Negative) Urine Urobilinogen <2.0 (<2.0) mg/dL Ur Leukocyte Esterase Negative (Negative) Urine RBC 116 H (0-5) /hpf Urine WBC 2 (0-5) /hpf Ur Squamous Epith Cells <1 (0-4) /hpf Urine Bacteria Rare H (None) /hpf Urine Mucus Rare H (None) /hpf Urine HCG, Qual (Not Detectd) Influenza Type A (PCR) (Not Detectd) Influenza Type B (PCR) (Not Detectd) RSV (PCR) (Not Detectd) SARS-CoV-2 (PCR) (Not Detectd) 06/12/23 06/12/23 Range/Units 08:01 08:01 WBC (3.8-10.6) k/uL RBC (3.80-5.40) m/uL Hgb (11.4-16.0) gm/dL Hct (34.0-46.0) % MCV (80.0-100.0) fL MCH (25.0-35.0) pg MCHC (31.0-37.0) g/dL RDW (11.5-15.5) % Plt Count (150-450) k/uL MPV Neutrophils % % Lymphocytes % % Monocytes % % Eosinophils % % Basophils % % Neutrophils # (1.3-7.7) k/uL Lymphocytes # (1.0-4.8) k/uL Monocytes # (0-1.0) k/uL Eosinophils # (0-0.7) k/uL Basophils # (0-0.2) k/uL Sodium (137-145) mmol/L Potassium (3.5-5.1) mmol/L Chloride (98-107) mmol/L Carbon Dioxide (22-30) mmol/L Anion Gap mmol/L BUN (7-17) mg/dL Creatinine (0.52-1.04) mg/dL Est GFR (CKD-EPI)AfAm (>60 ml/min/1.73 sqM) Est GFR (CKD-EPI)NonAf (>60 ml/min/1.73 sqM) Glucose (74-99) mg/dL Calcium (8.4-10.2) mg/dL Total Bilirubin (0.2-1.3) mg/dL AST (14-36) U/L ALT (4-34) U/L Alkaline Phosphatase (38-126) U/L Total Protein (6.3-8.2) g/dL Albumin (3.5-5.0) g/dL Amylase (30-110) U/L Lipase (23-300) U/L Urine Color Urine Appearance (Clear) Urine pH (5.0-8.0) Ur Specific [place] (1.001-1.035) Urine Protein (Negative) Urine Glucose (UA) (Negative) Urine Ketones (Negative) Urine Blood (Negative) Urine Nitrite (Negative) Urine Bilirubin (Negative) Urine Urobilinogen (<2.0) mg/dL Ur Leukocyte Esterase (Negative) Urine RBC (0-5) /hpf Urine WBC (0-5) /hpf Ur Squamous Epith Cells (0-4) /hpf Urine Bacteria (None) /hpf Urine Mucus (None) /hpf Urine HCG, Qual Not Detected (Not Detectd) Influenza Type A (PCR) Not Detected (Not Detectd) Influenza Type B (PCR) Not Detected (Not Detectd) RSV (PCR) Not Detected (Not Detectd) SARS-CoV-2 (PCR) Not Detected (Not Detectd) - Radiology Data Radiology results: report reviewed, image reviewed Disposition Clinical Impression: Ureteropelvic junction calculus, Left ureteral calculus, Nausea and vomiting, Headache Disposition: HOME SELF-CARE Instructions (If sedation given, give patient instructions): Acute Nausea and Vomiting (ED) Additional Instructions: Return to the emergency department with any new, worsening, or concerning symptoms. Take the Toradol with Tylenol as needed for pain relief. Take the Merino sparingly when your pain is the most severe. Take the Flomax daily for 7 days, or until you pass the kidney stone. You can take the Reglan up to every 6 hours as needed for nausea and vomiting. Contact urology as listed below and let them know that you were seen in the emergency department and found to have a kidney stone in the left ureter and they will schedule you for a follow-up appointment. Follow up with your primary care provider in 1-2 days. Prescriptions: Tamsulosin [Flomax] 0.4 mg PO DAILY 7 Days #7 cap HYDROcodone/APAP 5-325MG [Merino 5-325] 1 tab PO Q6HR PRN 3 Days #12 tab PRN Reason: Pain Metoclopramide [Reglan] 10 mg PO Q6H PRN #20 tab PRN Reason: Nausea And Vomiting Ketorolac [Toradol] 10 mg PO Q6HR PRN #15 tab PRN Reason: Pain Is patient prescribed a controlled substance at d/c from ED?: Yes Referrals: Osmar Lundberg MD [Primary Care Provider] - 1-2 days Bronson Reddy MD [STAFF PHYSICIAN] - 1-2 days
[2023-06-12 08:24] LABS: Basophils % (A) 0 %; Eosinophils # (A) 0.3 k/uL (0-0.7); Eosinophils % (A) 3 %; HCT 39.6 % (34.0-46.0); Lymphocytes # (A) 1.7 k/uL (1.0-4.8); Lymphocytes % (A) 20 %; MCH 29.7 pg (25.0-35.0); MCHC 32.9 g/dL (31.0-37.0); MCV 90.5 fL (80.0-100.0); Mean Platelet Volume 8.1; Monocytes # (A) 0.3 k/uL (0-1.0); Monocytes % (A) 3 %; Neutrophils # (A) 6.1 k/uL (1.3-7.7); Neutrophils % (A) 72 %; Platelet Count 219 k/uL (150-450); RBC 4.37 m/uL (3.80-5.40); WBC 8.5 k/uL (3.8-10.6)
[2023-06-12 08:28] LABS: Appearance,Urine Clear (Clear); Bacteria,Urine Rare /hpf; Bilirubin,Urine Negative (Negative); Blood,Urine Moderate (Negative); Color,Urine Light Yellow; Glucose,Urine (UA) Negative (Negative); Ketones,Urine Negative (Negative); Leukocyte Esterase,Urine Negative (Negative); Mucus,Urine Rare /hpf; Nitrite,Urine Negative (Negative); Protein,Urine Negative (Negative); RBC,Urine 116 /hpf (0-5); Specific Gravity,Urine 1.012 (1.001-1.035); Squamous Epithelial Cell,Urine <1 /hpf (0-4); Urobilinogen,Urine <2.0 mg/dL (<2.0); WBC,Urine 2 /hpf (0-5)
[2023-06-12 08:35] LABS: ALT 75 U/L (4-34); AST 65 U/L (14-36); African American GFR (CKD) >90 (>60 ml/min/1.73 sqM); Albumin 4.2 g/dL (3.5-5.0); Alkaline Phosphatase 90 U/L (38-126); Amylase 64 U/L (30-110); Anion Gap 10 mmol/L; Blood Urea Nitrogen 9 mg/dL (7-17); Calcium 9.2 mg/dL (8.4-10.2); Carbon Dioxide 23 mmol/L (22-30); Chloride 107 mmol/L (98-107); Glucose 108 mg/dL (74-99); Lipase 96 U/L (23-300); Non-African American GFR(CKD) >90 (>60 ml/min/1.73 sqM); Potassium 3.9 mmol/L (3.5-5.1); Sodium 140 mmol/L (137-145); Total Bilirubin 0.5 mg/dL (0.2-1.3); Total Protein 7.8 g/dL (6.3-8.2)
[2023-06-12] MEDS ORDERED: METOCLOPRAMIDE 5 MG/ML 2 ML VIAL IVP STA (08:45)
[2023-06-12] MEDS ORDERED: HYDROmorphone 1 MG/ML 1 ML SYRINGE IVP STA (08:45)
--- NOTE | 2023-06-12 09:31 | CT ---
EXAMINATION TYPE: CT abdomen pelvis w con CT DLP: 1439.8 mGycm, Automated exposure control for dose reduction was used. DATE OF EXAM: 06/12/2023 9:24 AM COMPARISON: CT abdomen pelvis most recent from 07/17/2022 . CLINICAL INDICATION:Female, 27 years old with history of Lower abdominal pain; Lower abdominal pain TECHNIQUE: Standard CT of the abdomen and pelvis following the administration of 100 cc of Isovue 3 00 IV contrast material. Coronal and sagittal reformats were performed. FINDINGS: LOWER CHEST: Unremarkable ABDOMEN LIVER: Diffusely hypoattenuating parenchyma. GALLBLADDER AND BILE DUCTS: Unremarkable. PANCREAS: Unremarkable. SPLEEN: Unremarkable. ADRENAL GLANDS: Unremarkable. KIDNEYS AND URETERS: No evidence of hydronephrosis. There is a 3 mm calculus identified within the le ft ureter pelvic junction. No perinephric or perirenal fat strain. The kidneys enhance symmetrically. Contrast is demonstrated within both collecting systems and passes the calculus on the delayed phase . PELVIS BLADDER: Incompletely distended but grossly unremarkable. REPRODUCTIVE: Unremarkable. ABDOMEN & PELVIS STOMACH AND BOWEL: Stomach and duodenum are unremarkable. Scattered colonic diverticulosis without ev idence for acute diverticulitis. The appendix is not definitively identified however there is no sign ificant inflammatory changes within the right lower quadrant. No evidence of bowel obstruction. PERITONEUM: No evidence of pneumoperitoneum or free fluid. VASCULATURE: No evidence of aortic aneurysm. MUSCULOSKELETAL: No acute osseous abnormalities LYMPH NODES: No gross evidence for lymphadenopathy. SOFT TISSUE/ABDOMINAL WALL: Tiny fat filled umbilical hernia. IMPRESSION: 1. There is a 3 mm calculus identified within the left ureteropelvic junction without evidence of hy dronephrosis. Contrast passes this into the mid to distal ureter on the delayed phase. 2. Hepatic steatosis. 3. Colonic diverticulosis without evidence for acute diverticulitis.
[2023-06-12 10:33] VITALS: BP 101/72; PULSE 73; RESP 16; TEMP 98.9
== END 2023-06-12 10:35 | disposition home or self-care (01) ==
LOC: EC 07:35
DX: K76.0 Fatty (change of) liver, not elsewhere classified (principal); K57.30 Diverticulosis of large intestine without perforation or abscess without bleeding; R51.9 Headache, unspecified; J45.909 Unspecified asthma, uncomplicated; I10 Essential (primary) hypertension; F17.290 Nicotine dependence, other tobacco product, uncomplicated; F12.90 Cannabis use, unspecified, uncomplicated; Z79.899 Other long term (current) drug therapy; Z86.59 Personal history of other mental and behavioral disorders; Z20.822 Contact with and (suspected) exposure to COVID-19
CPT/HCPCS: 36415; 80053; 82150; 83690; 85025; 81001; 81025; 87636; 74177; 99284; 96374; 96375 ×4; 96361 ×2; J1100; J2765; J2405; J1170; J1885; Q9967

== ENCOUNTER 2023-06-16 07:32 | Emergency (ER) | payer OTHER ==
[2023-06-16] MEDS ORDERED: MORPHINE SULFATE 4 MG/ML SYRINGE IV STA (07:50)
[2023-06-16] MEDS ORDERED: SODIUM CHLORIDE 0.9% 1,000 ML IV STA (07:50)
--- NOTE | 2023-06-16 08:08 | ED ---
General Adult HPI - General Chief complaint: Upper Respiratory Infection Stated complaint: Abd pain Time Seen by Provider: 06/16/23 07:37 Source: patient Mode of arrival: ambulatory Limitations: no limitations - History of Present Illness Initial comments: Dictation was produced using [employer] dictation software. please excuse any grammatical, word or spelling errors. Chief Complaint: 27-year-old female presents emergency department for abdominal pain, cough congestion History of Present Illness: Is 27-year-old female she was seen in the emergency department 4 days ago for abdominal pain. She had a CT abdomen and pelvis at that time showed kidney stone. Patient is here today because over the last one today she's developed cough, congestion, sore throat. Denies any sick contacts. Denies any fever or constitutional symptoms. She still continues to have abdominal pain. Patient localizes the abdominal pain to the lower abdomen. It's been persistent since the last 4 days and is unchanged. No diarrhea. Denies any chest pain. No shortness of breath. The ROS documented in this emergency department record has been reviewed and confirmed by me. Those systems with pertinent positive or negative responses have been documented in the HPI. All other systems are other negative and/or noncontributory. - Related Data Home Medications Medication Instructions Recorded Confirmed Ondansetron Odt [Zofran Odt] 4 mg PO BID PRN 01/23/23 06/12/23 QUEtiapine [SEROquel] 100 mg PO HS 01/23/23 06/12/23 Vilazodone HCl 20 mg PO DAILY 01/23/23 06/12/23 Metoprolol Succinate (ER) [Toprol 50 mg PO DAILY 06/12/23 06/12/23 Xl] norethindrone ac-eth estradioL 1 tab PO DAILY 06/12/23 06/12/23 [Reyes 1.5 mg-30 Mcg Tablet] Previous Rx's Medication Instructions Recorded HYDROcodone/APAP 5-325MG [[place] 1 tab PO Q6HR PRN 3 Days #12 tab 06/12/23 5-325] HYDROcodone/APAP 5-325MG [[place] 5] 1 each PO Q6HR PRN #12 tab 06/12/23 Ketorolac [Toradol] 10 mg PO Q6HR PRN #15 tab 06/12/23 Metoclopramide [Reglan] 10 mg PO Q6H PRN #20 tab 06/12/23 Tamsulosin [Flomax] 0.4 mg PO DAILY 7 Days #7 cap 06/12/23 Penicillin V Potassium [Pen Vee K] 500 mg PO BID 10 Days #20 tablet 06/16/23 Allergies Allergy/AdvReac Type Severity Reaction Status Date / Time No Known Allergies Allergy Verified 06/12/23 10:18 Review of Systems ROS Statement: Those systems with pertinent positive or pertinent negative responses have been documented in the HPI. ROS Other: All systems not noted in ROS Statement are negative. Past Medical History Past Medical History: Asthma, Hypertension, Osteoarthritis (OA) History of Any Multi-Drug Resistant Organisms: None Reported Past Surgical History: Appendectomy, Section, Cholecystectomy Additional Past Surgical History / Comment(s): Past Anesthesia/Blood Transfusion Reactions: No Reported Reaction Past Psychological History: ADD/ADHD, Anxiety, Depression Smoking Status: Vaper Past Alcohol Use History: None Reported Past Drug Use History: Marijuana - Past Family History Father Family Medical History: No Reported History Mother Family Medical History: No Reported History General Exam - General Exam Comments Initial Comments: PHYSICAL EXAM: General Impression: Alert and oriented x3, not in acute distress HEENT: Normocephalic atraumatic, extra-ocular movements intact, pupils equal and reactive to light bilaterally, mucous membranes moist, mild posterior pharynx erythema Cardiovascular: Heart regular rate and rhythm Chest: Able to complete full sentences, no retractions, no tachypnea Abdomen: abdomen soft, non-tender, non-distended, no organomegaly Musculoskeletal: Pulses present and equal in all extremities, no peripheral edema Motor: no focal deficits noted Neurological: CN II-XII grossly intact, no focal motor or sensory deficits noted Skin: Intact with no visualized rashes Psych: Normal affect and mood Limitations: no limitations Course Vital Signs 06/16/23 06/16/23 07:34 08:17 Temperature 98.9 F Pulse Rate 89 Respiratory 22 18 Rate Blood Pressure 119/83 O2 Sat by Pulse 99 Oximetry Medical Decision Making - Medical Decision Making Was pt. sent in by a medical professional or institution (, PA, AUTO PARTS MANAGER, urgent care, hospital, or correction...) When possible be specific @ -No Did you speak to anyone other than the patient for history (EMS, parent, family, police, friend...)? What history was obtained from this source @ -No Did you review nursing and triage notes (agree or disagree)? Why? @ -I reviewed and agree with nursing and triage notes Were old charts reviewed (outside hosp., previous admission, EMS record, old EKG, old radiological studies, urgent care reports/EKG's, correction records)? Report findings @ -No old charts were reviewed Differential Diagnosis (chest pain, altered mental status, abdominal pain women, abdominal pain men, vaginal bleeding, musculoskeletal, weakness, fever, dyspnea, syncope, headache, dizziness, GI bleed, back pain, seizure, CVA, palpatations, mental health)? @ -Differential Dyspnea: Coronary syndrome, arrhythmia, tamponade, asthma, COPD, pulmonary embolism, pneumonia, pneumothorax, pulmonary effusion, anaphylaxis, diabetic ketoacidosis, flailed chest, pulmonary contusion, diaphragmatic rupture, anemia, neuromuscular, this is not meant to be an all-inclusive list. EKG interpreted by me (3pts min.). @ -None done X-rays interpreted by me (1pt min.). @ -Abdominal x-rays no acute CT interpreted by me (1pt min.). @ -None done U/S interpreted by me (1pt. min.). @ -None done What testing was considered but not performed or refused? (CT, X-rays, U/S, labs)? Why? @ -None What meds were considered but not given or refused? Why? @ -None Did you discuss the management of the patient with other professionals (professionals i.e. , PA, AUTO PARTS MANAGER, lab, RT, psych nurse, public health social worker, government relations manager, teacher, ship officer, special events manager)? Give summary @ -No Was smoking cessation discussed for >3mins.? @ -No Was critical care preformed (if so, how long)? @ -No Were there social determinants of health that impacted care today? How? (Homelessness, low income, unemployed, alcoholism, drug addiction, transportation, low edu. Level, literacy, decrease access to med. care, prison, rehab)? @ -No Was there de-escalation of care discussed even if they declined (Discuss DNR or withdrawal of care, Hospice)? DNR status @ -No What co-morbidities impacted this encounter? (DM, HTN, Smoking, COPD, CAD, Cancer, CVA, ARF, Chemo, Hep., AIDS, mental health diagnosis, sleep apnea, morbid obesity)? @ -None Was patient admitted / discharged? Hospital course, mention meds given and route, prescriptions, significant lab abnormalities, going to OR and other pertinent info. @ -27-year-old female presents to the emergency Department with URI type symptoms. Vital signs are stable. Labs obtained. CBC metabolic panel is negative. Urinalysis negative. Viral test negative. Patient positive for group A strep. Patient given prescription for antibiotics discharge. Undiagnosed new problem with uncertain prognosis? @ -No Drug Therapy requiring intensive monitoring for toxicity (Heparin, Nitro, Insulin, Cardizem)? @ -No Were any procedures done? @ -No Diagnosis/symptom? Acute, or Chronic, or Acute on Chronic? Uncomplicated (without systemic symptoms) or Complicated (systemic symptoms)? @ -Strep pharyngitis Side effects of treatment? @ -No Exacerbation, Progression, or Severe Exacerbation? @ -No Poses a threat to life or bodily function? How? (Chest pain, [place], [place], pneumonia, PE, COPD, DKA, ARF, appy, cholecystitis, CVA, Diverticulitis, Homicidal, Suicidal, threat to staff... and all critical care pts) @ -yes - Lab Data Result diagrams: 06/16/23 08:05 06/16/23 08:05 Lab Results 06/16/23 06/16/23 06/16/23 Range/Units 07:42 08:05 08:05 WBC 8.1 (3.8-10.6) k/uL RBC 4.17 (3.80-5.40) m/uL Hgb 12.7 (11.4-16.0) gm/dL Hct 37.5 (34.0-46.0) % MCV 89.9 (80.0-100.0) fL MCH 30.5 (25.0-35.0) pg MCHC 34.0 (31.0-37.0) g/dL RDW 13.1 (11.5-15.5) % Plt Count 207 (150-450) k/uL MPV 8.2 Neutrophils % 57 % Lymphocytes % 30 % Monocytes % 3 % Eosinophils % 8 % Basophils % 1 % Neutrophils # 4.6 (1.3-7.7) k/uL Lymphocytes # 2.4 (1.0-4.8) k/uL Monocytes # 0.3 (0-1.0) k/uL Eosinophils # 0.6 (0-0.7) k/uL Basophils # 0.0 (0-0.2) k/uL Sodium (137-145) mmol/L Potassium (3.5-5.1) mmol/L Chloride (98-107) mmol/L Carbon Dioxide (22-30) mmol/L Anion Gap mmol/L BUN (7-17) mg/dL Creatinine (0.52-1.04) mg/dL Est GFR (CKD-EPI)AfAm (>60 ml/min/1.73 sqM) Est GFR (CKD-EPI)NonAf (>60 ml/min/1.73 sqM) Glucose (74-99) mg/dL Calcium (8.4-10.2) mg/dL Total Bilirubin (0.2-1.3) mg/dL AST (14-36) U/L ALT (4-34) U/L Alkaline Phosphatase (38-126) U/L Total Protein (6.3-8.2) g/dL Albumin (3.5-5.0) g/dL Urine Color Urine Appearance (Clear) Urine pH (5.0-8.0) Ur Specific [place] (1.001-1.035) Urine Protein (Negative) Urine Glucose (UA) (Negative) Urine Ketones (Negative) Urine Blood (Negative) Urine Nitrite (Negative) Urine Bilirubin (Negative) Urine Urobilinogen (<2.0) mg/dL Ur Leukocyte Esterase (Negative) Urine HCG, Qual Not Detected (Not Detectd) Influenza Type A (PCR) Not Detected (Not Detectd) Influenza Type B (PCR) Not Detected (Not Detectd) RSV (PCR) Not Detected (Not Detectd) SARS-CoV-2 (PCR) Not Detected (Not Detectd) Group A Strep (PCR) (Not Detectd) 06/16/23 06/16/23 06/16/23 Range/Units 08:05 08:05 08:05 WBC (3.8-10.6) k/uL RBC (3.80-5.40) m/uL Hgb (11.4-16.0) gm/dL Hct (34.0-46.0) % MCV (80.0-100.0) fL MCH (25.0-35.0) pg MCHC (31.0-37.0) g/dL RDW (11.5-15.5) % Plt Count (150-450) k/uL MPV Neutrophils % % Lymphocytes % % Monocytes % % Eosinophils % % Basophils % % Neutrophils # (1.3-7.7) k/uL Lymphocytes # (1.0-4.8) k/uL Monocytes # (0-1.0) k/uL Eosinophils # (0-0.7) k/uL Basophils # (0-0.2) k/uL Sodium 141 (137-145) mmol/L Potassium 4.2 (3.5-5.1) mmol/L Chloride 108 H (98-107) mmol/L Carbon Dioxide 24 (22-30) mmol/L Anion Gap 9 mmol/L BUN 9 (7-17) mg/dL Creatinine 0.66 (0.52-1.04) mg/dL Est GFR (CKD-EPI)AfAm >90 (>60 ml/min/1.73 sqM) Est GFR (CKD-EPI)NonAf >90 (>60 ml/min/1.73 sqM) Glucose 96 (74-99) mg/dL Calcium 8.8 (8.4-10.2) mg/dL Total Bilirubin 0.4 (0.2-1.3) mg/dL AST 38 H (14-36) U/L ALT 42 H (4-34) U/L Alkaline Phosphatase 65 (38-126) U/L Total Protein 6.7 (6.3-8.2) g/dL Albumin 3.6 (3.5-5.0) g/dL Urine Color Yellow Urine Appearance Clear (Clear) Urine pH 6.0 (5.0-8.0) Ur Specific [place] 1.013 (1.001-1.035) Urine Protein Negative (Negative) Urine Glucose (UA) Negative (Negative) Urine Ketones Negative (Negative) Urine Blood Negative (Negative) Urine Nitrite Negative (Negative) Urine Bilirubin Negative (Negative) Urine Urobilinogen <2.0 (<2.0) mg/dL Ur Leukocyte Esterase Negative (Negative) Urine HCG, Qual (Not Detectd) Influenza Type A (PCR) (Not Detectd) Influenza Type B (PCR) (Not Detectd) RSV (PCR) (Not Detectd) SARS-CoV-2 (PCR) (Not Detectd) Group A Strep (PCR) DETECTED A (Not Detectd) Disposition Clinical Impression: Strep pharyngitis Disposition: HOME SELF-CARE Condition: Good Instructions (If sedation given, give patient instructions): Strep Throat (ED) Prescriptions: Penicillin V Potassium [Pen Vee K] 500 mg PO BID 10 Days #20 tablet Is patient prescribed a controlled substance at d/c from ED?: No Referrals: Osmar Lundberg MD [Primary Care Provider] - 1-2 days Time of Disposition: 09:36
[2023-06-16 08:25] LABS: Basophils % (A) 1 %; Eosinophils # (A) 0.6 k/uL (0-0.7); Eosinophils % (A) 8 %; HCT 37.5 % (34.0-46.0); HGB 12.7 gm/dL (11.4-16.0); Lymphocytes # (A) 2.4 k/uL (1.0-4.8); Lymphocytes % (A) 30 %; MCH 30.5 pg (25.0-35.0); MCV 89.9 fL (80.0-100.0); Mean Platelet Volume 8.2; Monocytes # (A) 0.3 k/uL (0-1.0); Monocytes % (A) 3 %; Neutrophils # (A) 4.6 k/uL (1.3-7.7); Neutrophils % (A) 57 %; Platelet Count 207 k/uL (150-450); RBC 4.17 m/uL (3.80-5.40); RDW 13.1 % (11.5-15.5); WBC 8.1 k/uL (3.8-10.6)
[2023-06-16 08:26] LABS: Appearance,Urine Clear (Clear); Bilirubin,Urine Negative (Negative); Blood,Urine Negative (Negative); Color,Urine Yellow; Glucose,Urine (UA) Negative (Negative); Ketones,Urine Negative (Negative); Leukocyte Esterase,Urine Negative (Negative); Nitrite,Urine Negative (Negative); Protein,Urine Negative (Negative); Specific Gravity,Urine 1.013 (1.001-1.035); Urobilinogen,Urine <2.0 mg/dL (<2.0)
[2023-06-16 08:36] VITALS: RESP 18
[2023-06-16 08:40] LABS: ALT 42 U/L (4-34); AST 38 U/L (14-36); African American GFR (CKD) >90 (>60 ml/min/1.73 sqM); Albumin 3.6 g/dL (3.5-5.0); Alkaline Phosphatase 65 U/L (38-126); Anion Gap 9 mmol/L; Blood Urea Nitrogen 9 mg/dL (7-17); Calcium 8.8 mg/dL (8.4-10.2); Carbon Dioxide 24 mmol/L (22-30); Chloride 108 mmol/L (98-107); Glucose 96 mg/dL (74-99); Non-African American GFR(CKD) >90 (>60 ml/min/1.73 sqM); Potassium 4.2 mmol/L (3.5-5.1); Sodium 141 mmol/L (137-145); Total Bilirubin 0.4 mg/dL (0.2-1.3); Total Protein 6.7 g/dL (6.3-8.2)
--- NOTE | 2023-06-16 08:41 | XR ---
EXAMINATION TYPE: XR abdomen 1V DATE OF EXAM: 06/16/2023 COMPARISON: NONE HISTORY: Pain TECHNIQUE: One view abdominal series FINDINGS: The osseous structures are intact. The bowel gas pattern is nonspecific. Lung bases are clear. IMPRESSION: 1. Nonspecific abdomen.
[2023-06-16] MEDS ORDERED: ONDANSETRON 4 MG/2 ML VIAL IVP STA (08:50)
[2023-06-16 10:06] VITALS: BP 129/84; PULSE 77; TEMP 98.3
== END 2023-06-16 10:06 | disposition home or self-care (01) ==
LOC: EC 07:32
DX: J02.0 Streptococcal pharyngitis (principal); B95.0 Streptococcus, group A, as the cause of diseases classified elsewhere; I10 Essential (primary) hypertension; J45.909 Unspecified asthma, uncomplicated; F32.A Depression, unspecified; F41.9 Anxiety disorder, unspecified; F17.290 Nicotine dependence, other tobacco product, uncomplicated; F12.90 Cannabis use, unspecified, uncomplicated; Z20.822 Contact with and (suspected) exposure to COVID-19; Z79.899 Other long term (current) drug therapy; Z90.49 Acquired absence of other specified parts of digestive tract
CPT/HCPCS: 36415; 87651; 80053; 85025; 81003; 81025; 87636; 74018; 99284; 96374; 96375; 96361 ×2; J2270; J2405

== ENCOUNTER 2023-07-01 13:46 | Emergency (ER) | payer OTHER ==
[2023-07-01 14:08] VITALS: RESP 16
--- NOTE | 2023-07-01 14:10 | XR ---
EXAMINATION TYPE: XR wrist complete LT DATE OF EXAM: 07/01/2023 COMPARISON: None HISTORY: Pain with range of motion x5 days TECHNIQUE: 4 view left wrist FINDINGS: No acute fracture or dislocation is evident. Joint spaces are preserved. Soft tissues appea r normal. If there is pain at the anatomic snuff box, nuclear medicine bone scan could be performed. Follow up exams can be performed 7-10 days from acute trauma for continued pain IMPRESSION: 1. No acute osseous abnormality left wrist
[2023-07-01] MEDS ORDERED: ACETAMINOPHEN TAB 500 MG TAB PO STA (14:44)
--- NOTE | 2023-07-01 15:23 | XR ---
EXAMINATION TYPE: XR forearm LT DATE OF EXAM: 07/01/2023 COMPARISON: None HISTORY: Elbow pain TECHNIQUE: 2 view left forearm FINDINGS: No acute fracture or dislocation is evident. Soft tissues are normal. IMPRESSION: 1. No acute osseous abnormalities left forearm
--- NOTE | 2023-07-01 15:29 | ED ---
General Adult HPI - General Chief complaint: Extremity Injury, Upper Stated complaint: Lt arm pain Time Seen by Provider: 07/01/23 14:01 Source: patient, RN notes reviewed, old records reviewed Mode of arrival: ambulatory Limitations: no limitations - History of Present Illness Initial comments: Patient is a 27-year-old female presents emergency Department with multiple days of left arm pain. Pain is primarily over the lateral aspect of the left wrist along the ulnar with radiation towards the elbow along the ulna. Pain with some movement of the fingers on that side. Unknown what she did to it. No obvious trauma. No numbness. Reduced range of motion of the wrist and hand secondary to pain. Presents for further evaluation at this time. I evaluated patient when she was placed in a room. No obvious trauma. - Related Data Home Medications Medication Instructions Recorded Confirmed Ondansetron Odt [Zofran Odt] 4 mg PO BID PRN 01/23/23 06/12/23 QUEtiapine [SEROquel] 100 mg PO HS 01/23/23 06/12/23 Vilazodone HCl 20 mg PO DAILY 01/23/23 06/12/23 Metoprolol Succinate (ER) [Toprol 50 mg PO DAILY 06/12/23 06/12/23 Xl] norethindrone ac-eth estradioL 1 tab PO DAILY 06/12/23 06/12/23 [Reyes 1.5 mg-30 Mcg Tablet] Previous Rx's Medication Instructions Recorded HYDROcodone/APAP 5-325MG [[place] 1 tab PO Q6HR PRN 3 Days #12 tab 06/12/23 5-325] HYDROcodone/APAP 5-325MG [[place] 5] 1 each PO Q6HR PRN #12 tab 06/12/23 Ketorolac [Toradol] 10 mg PO Q6HR PRN #15 tab 06/12/23 Metoclopramide [Reglan] 10 mg PO Q6H PRN #20 tab 06/12/23 Tamsulosin [Flomax] 0.4 mg PO DAILY 7 Days #7 cap 06/12/23 Penicillin V Potassium [Pen Vee K] 500 mg PO BID 10 Days #20 tablet 06/16/23 Cyclobenzaprine [Flexeril] 5 mg PO BID PRN 5 Days #10 tablet 07/01/23 Allergies Allergy/AdvReac Type Severity Reaction Status Date / Time No Known Allergies Allergy Verified 06/12/23 10:18 Review of Systems ROS Statement: Those systems with pertinent positive or pertinent negative responses have been documented in the HPI. Review of Systems: CONST: Denies fever EYES: Denies blurry vision ENT: Denies nasal congestion C/V: Denies Chest pain RESP: Denies shortness of breath GI: Denies abdominal pain : Denies dysuria SKIN: Denies rash. MSK: Endorses left wrist and forearm pain NEURO: Denies headache ROS Other: All systems not noted in ROS Statement are negative. Past Medical History Past Medical History: Asthma, Hypertension, Osteoarthritis (OA) History of Any Multi-Drug Resistant Organisms: None Reported Past Surgical History: Appendectomy, Section, Cholecystectomy Additional Past Surgical History / Comment(s): Past Anesthesia/Blood Transfusion Reactions: No Reported Reaction Past Psychological History: ADD/ADHD, Anxiety, Depression Smoking Status: Vaper Past Alcohol Use History: None Reported Past Drug Use History: Marijuana - Past Family History Father Family Medical History: No Reported History Mother Family Medical History: No Reported History General Exam - General Exam Comments Initial Comments: General: Appears in mild distress. HEAD: Normal with no signs of head trauma. EYES: EOMI. ENT: Hearing grossly intact. RESPIRATORY: No respiratory distress. C/V: Regular rate and rhythm. ABD: Abdomen is nondistended. EXT: No obvious deformity. Tetanus palpation over the ulna of the left wrist as well as along the ulna. No snuffbox tenderness. Decreased range of motion secondary to pain. Labs are normal range of motion left elbow. Decreased range of motion of the left fourth and fifth digits secondary to pain in the forearm. Neurovascular intact throughout. SKIN: No rashes or lesions observed on exposed skin. NEURO: Alert and oriented. Limitations: no limitations Course Vital Signs 07/01/23 13:48 Temperature 98 F Pulse Rate 89 Respiratory 16 Rate Blood Pressure 126/84 O2 Sat by Pulse 98 Oximetry Medical Decision Making - Medical Decision Making Was pt. sent in by a medical professional or institution (, PA, DOCUMENT IMAGING SPECIALIST, urgent care, hospital, or intermediate...) When possible be specific @ -No Did you speak to anyone other than the patient for history (EMS, parent, family, police, friend...)? What history was obtained from this source @ -No Did you review nursing and triage notes (agree or disagree)? Why? @ -I reviewed and agree with nursing and triage notes Were old charts reviewed (outside hosp., previous admission, EMS record, old EKG, old radiological studies, urgent care reports/EKG's, intermediate records)? Report findings @ -No old charts were reviewed Differential Diagnosis (chest pain, altered mental status, abdominal pain women, abdominal pain men, vaginal bleeding, weakness, fever, dyspnea, syncope, headache, dizziness, GI bleed, back pain, seizure, CVA, palpatations, mental health, musculoskeletal)? @ -Differential Musculoskeletal Muscular strain, contusion, ligament sprain, fracture, arthritis, septic arthritis, bursitis, cellulitis, muscle spasm, nerve compression, DVT, arterial occlusion, herpes zoster, electrolyte abnormality, tumor.... This is not meant to be in all inclusive list EKG interpreted by me (3pts min.). @ -None done X-rays interpreted by me (1pt min.). @ -X-rays of the left wrist and left forearm negative for any obvious injury. CT interpreted by me (1pt min.). @ -None done U/S interpreted by me (1pt. min.). @ -None done What testing was considered but not performed or refused? (CT, X-rays, U/S, labs)? Why? @ -None What meds were considered but not given or refused? Why? @ -None Did you discuss the management of the patient with other professionals (professionals i.e. , PA, DOCUMENT IMAGING SPECIALIST, lab, RT, psych nurse, social service manager, propagator, teacher, cra officer, case hardener)? Give summary @ -No Was smoking cessation discussed for >3mins.? @ -No Was critical care preformed (if so, how long)? @ -No Were there social determinants of health that impacted care today? How? (Homelessness, low income, unemployed, alcoholism, drug addiction, transportation, low edu. Level, literacy, decrease access to med. care, [place] [facility], rehab)? @ -No Was there de-escalation of care discussed even if they declined (Discuss DNR or withdrawal of care, Hospice)? DNR status @ -No What co-morbidities impacted this encounter? (DM, HTN, Smoking, COPD, CAD, Cancer, CVA, ARF, Chemo, Hep., AIDS, mental health diagnosis, sleep apnea, morbid obesity)? @ -None Was patient admitted / discharged? Hospital course, mention meds given and route, prescriptions, significant lab abnormalities, going to OR and other pertinent info. @ -Based on the patient's presentation and physical exam, I'm concerned for possible bony tract injury the patient's left arm. He can also be a sprain or strain of the muscles. X-rays unremarkable. Vital signs within acceptable limits. Discussed results with the patient. No snuffbox tenderness. Do not believe she requires splinting. She will be given an Javy bandage for pain supporting continues with, and use medications as needed. Recommended icing. Likely has a muscle strain. Patient was in agreement this plan. Discharged home at this time. I instructed the patient to follow up with their PCP in the next 1-3 days. I provided contact information for follow up with orthopedics. I explained that the patient should return to the emergency department if they experience any worsening symptoms. Strict return precautions were discussed with the patient. The patient expressed understanding of these instructions. I answered all questions that the patient had. The patient was discharged home in good condition with their prescriptions and follow up information. Undiagnosed new problem with uncertain prognosis? @ -No Drug Therapy requiring intensive monitoring for toxicity (Heparin, Nitro, Insulin, Cardizem)? @ -No Were any procedures done? @ -No Diagnosis/symptom? @ -Left arm pain, left forearm strain Acute, or Chronic, or Acute on Chronic? @ -Acute Uncomplicated (without systemic symptoms) or Complicated (systemic symptoms)? @ -Uncomplicated Side effects of treatment? @ -No Exacerbation, Progression, or Severe Exacerbation? @ -No Poses a threat to life or bodily function? How? (Chest pain, [place], [place], pneumonia, PE, COPD, DKA, ARF, appy, cholecystitis, CVA, Diverticulitis, Homicidal, Suicidal, threat to staff... and all critical care pts) @ -No Disposition Clinical Impression: Left arm pain, Strain of left forearm Disposition: HOME SELF-CARE Condition: Good Instructions (If sedation given, give patient instructions): Wrist Injury (ED) Prescriptions: Cyclobenzaprine [Flexeril] 5 mg PO BID PRN 5 Days #10 tablet PRN Reason: Pain Is patient prescribed a controlled substance at d/c from ED?: No Referrals: Osmar Lundberg MD [Primary Care Provider] - 1-2 days Kyle Nguyen DO [Doctor of Osteopathic Medicine] - 1-2 days Time of Disposition: 15:25
[2023-07-01 16:56] VITALS: BP 133/68; PULSE 79; TEMP 97.9
== END 2023-07-01 16:52 | disposition home or self-care (01) ==
LOC: EC 13:46
DX: S56.912A Strain of unspecified muscles, fascia and tendons at forearm level, left arm, initial encounter (principal); J45.909 Unspecified asthma, uncomplicated; I10 Essential (primary) hypertension; F90.9 Attention-deficit hyperactivity disorder, unspecified type; F41.9 Anxiety disorder, unspecified; F32.A Depression, unspecified; F17.290 Nicotine dependence, other tobacco product, uncomplicated; F12.90 Cannabis use, unspecified, uncomplicated; Z79.899 Other long term (current) drug therapy; Z90.49 Acquired absence of other specified parts of digestive tract
CPT/HCPCS: 99283

== ENCOUNTER 2023-07-14 07:36 | Emergency (ER) | payer OTHER ==
[2023-07-14] MEDS ORDERED: KETOROLAC 15 MG/ML 1 ML VIAL IVP STA (07:58)
[2023-07-14] MEDS ORDERED: SODIUM CHLORIDE 0.9% 1,000 ML IV STA (07:58)
[2023-07-14] MEDS ORDERED: ONDANSETRON 4 MG/2 ML VIAL IVP STA (07:58)
[2023-07-14 07:59] VITALS: TEMP 98.2
--- NOTE | 2023-07-14 08:15 | ED ---
Abdominal Pain HPI - General Chief Complaint: Nausea/Vomiting/Diarrhea Stated Complaint: Vomiting Time Seen by Provider: 07/14/23 07:41 Source: patient, RN notes reviewed Mode of arrival: ambulatory Limitations: no limitations - History of Present Illness Initial Comments: This is a 27-year-old female who presents to the emergency department for abdominal pain, nausea, and vomiting. Reports pain in the lower abdomen with ongoing nausea and vomiting over the last 4-5 days. Unsure which started first. Believes that she may have had fevers on and off. Denies any changes in bowel or bladder habits. Unsure if there is anything that makes the symptoms better or worse. MD Complaint: abdominal pain - Related Data Home Medications Medication Instructions Recorded Confirmed Ondansetron Odt [Zofran Odt] 4 mg PO BID PRN 01/23/23 07/14/23 Vilazodone HCl 20 mg PO DAILY 01/23/23 07/14/23 Metoprolol Succinate (ER) [Toprol 50 mg PO DAILY 06/12/23 07/14/23 Xl] Nortrel 1-35 Mg-Mcg Tablet 1 tab PO DAILY 07/14/23 07/14/23 QUEtiapine XR [SEROquel XR] 150 mg PO HS 07/14/23 07/14/23 buPROPion SR [Wellbutrin SR] 150 mg PO BID 07/14/23 07/14/23 Previous Rx's Medication Instructions Recorded Cyclobenzaprine [Flexeril] 5 mg PO BID PRN 5 Days #10 tablet 07/01/23 Ketorolac [Toradol] 10 mg PO Q6HR PRN #15 tab 07/14/23 Metoclopramide [Reglan] 10 mg PO Q6H PRN #20 tab 07/14/23 Allergies Allergy/AdvReac Type Severity Reaction Status Date / Time No Known Allergies Allergy Verified 07/14/23 08:52 Review of Systems ROS Statement: Those systems with pertinent positive or pertinent negative responses have been documented in the HPI. ROS Other: All systems not noted in ROS Statement are negative. Past Medical History Past Medical History: Asthma, Hypertension, Osteoarthritis (OA) History of Any Multi-Drug Resistant Organisms: None Reported Past Surgical History: Appendectomy, Section, Cholecystectomy Additional Past Surgical History / Comment(s): Past Anesthesia/Blood Transfusion Reactions: No Reported Reaction Past Psychological History: ADD/ADHD, Anxiety, Depression Smoking Status: Vaper Past Alcohol Use History: None Reported Past Drug Use History: Marijuana - Past Family History Father Family Medical History: No Reported History Mother Family Medical History: No Reported History General Exam Limitations: no limitations General appearance: alert, in no apparent distress Head exam: Present: atraumatic, normocephalic, normal inspection Respiratory exam: Present: normal lung sounds bilaterally. Absent: respiratory distress, wheezes, rales, rhonchi, stridor Cardiovascular Exam: Present: regular rate, normal rhythm, normal heart sounds. Absent: systolic murmur, diastolic murmur, rubs, gallop, clicks GI/Abdominal exam: Present: soft, tenderness (suprapubic), normal bowel sounds. Absent: distended, guarding, rebound, rigid Neurological exam: Present: alert, oriented X3, CN II-XII intact Psychiatric exam: Present: normal affect, normal mood Skin exam: Present: warm, dry, intact, normal color. Absent: rash Course Vital Signs 07/14/23 07/14/23 07/14/23 07:38 08:40 11:11 Temperature 98.2 F Pulse Rate 124 H 99 100 Respiratory 22 18 18 Rate Blood Pressure 131/87 104/72 126/91 O2 Sat by Pulse 99 99 98 Oximetry Medical Decision Making - Medical Decision Making This is a 27-year-old female who presents to the emergency department for abdominal pain, nausea, and vomiting. Was pt. sent in by a medical professional or institution? @ -No Did you speak to anyone other than the patient for history? @ -No Did you review nursing and triage notes? @ -Yes, and I agree, it is accurate with regards to the patient's symptoms. Were old charts reviewed? @ -No Differential Diagnosis? @ -Differential Abdominal Pain Women: Appendicitis, Cholecystitis, diverticulosis, ischemic bowel, pancreatitis, hepatitis, UTI, gastroenteritis, AAA, incarcerated hernia, bowel obstruction, constipation, inflammatory bowel, hepatitis, peptic ulcer disease, splenic infarction, perforated viscus, vulvitis, ovarian torsion, PID, kidney stone, placenta abruption, this is not meant to be an all-inclusive list EKG interpreted by me (3pts min.)? @ -Not obtained X-rays interpreted by me (1pt min.)? @ -Not obtained CT interpreted by me (1pt min.)? @ -Not obtained U/S interpreted by me (1pt. min.)? @ -Not interpreted by me What testing was considered but not performed? (CT, X-rays, U/S, labs)? Why? @ -None What meds were considered but not given? Why? @ -None Did you discuss the management of the patient with other professionals? @ -No Did you reconcile home meds? @ -No Was smoking cessation discussed for >3mins.? @ -No Was critical care preformed (if so, how long)? @ -No Were there social determinants of health that impacted care today? How? (Homelessness, low income, unemployed, alcoholism, drug addiction, transportation, low edu. Level, literacy, decrease access to med. care, halfway, rehab)? @ -No Was there de-escalation of care discussed even if they declined? (Discuss DNR or withdrawal of care, Hospice)? @ -No What co-morbidities impacted this encounter? (DM, HTN, Smoking, COPD, CAD, Cancer, CVA, Hep., AIDS, mental health diagnosis, sleep apnea, morbid obesity)? @ -None Was patient admitted / discharged? @ -Discharged. Lab work obtained and found to be nonactionable. Urinalysis negative for signs of infection. Pelvic ultrasound obtained also revealing no acute process. Advised the patient that the cause of her symptoms is not entirely clear. Her symptoms were well controlled in the emergency department. Prescription for Toradol and Reglan provided with dosing instructions reviewed. Advised close follow with her primary care provider for reevaluation of ongoing symptoms. Undiagnosed new problem with uncertain prognosis? @ -None Drug Therapy requiring intensive monitoring for toxicity (Heparin, Nitro, Insulin, Cardizem)? @ -None Were any procedures done? @ -None Diagnosis/symptom? @ -Abdominal pain, nausea and vomiting Acute, or Chronic, or Acute on Chronic? @ -Acute Uncomplicated (without systemic symptoms) or Complicated (systemic symptoms)? @ -Uncomplicated Side effects of treatment? @ -None Exacerbation, Progression, or Severe Exacerbation] @ -Not applicable Poses a threat to life or bodily function? @ -No Return precautions reviewed in depth, the patient is instructed to return to the emergency department with any new, worsening, or concerning symptoms. Patient verbalized understanding. This case was discussed in detail with the attending ED physician, Dr. Brian. Presentation, findings, and treatment plan discussed in detail as well. - Lab Data Result diagrams: 07/14/23 08:17 07/14/23 08:17 Lab Results 07/14/23 07/14/23 07/14/23 Range/Units 08:17 08:17 08:17 WBC 8.0 (3.8-10.6) k/uL RBC 4.44 (3.80-5.40) m/uL Hgb 13.2 (11.4-16.0) gm/dL Hct 39.9 (34.0-46.0) % MCV 89.9 (80.0-100.0) fL MCH 29.8 (25.0-35.0) pg MCHC 33.1 (31.0-37.0) g/dL RDW 13.2 (11.5-15.5) % Plt Count 179 (150-450) k/uL MPV 8.6 Neutrophils % 63 % Lymphocytes % 28 % Monocytes % 4 % Eosinophils % 4 % Basophils % 0 % Neutrophils # 5.0 (1.3-7.7) k/uL Lymphocytes # 2.3 (1.0-4.8) k/uL Monocytes # 0.3 (0-1.0) k/uL Eosinophils # 0.3 (0-0.7) k/uL Basophils # 0.0 (0-0.2) k/uL Sodium (137-145) mmol/L Potassium (3.5-5.1) mmol/L Chloride (98-107) mmol/L Carbon Dioxide (22-30) mmol/L Anion Gap mmol/L BUN (7-17) mg/dL Creatinine (0.52-1.04) mg/dL Est GFR (CKD-EPI)AfAm (>60 ml/min/1.73 sqM) Est GFR (CKD-EPI)NonAf (>60 ml/min/1.73 sqM) Glucose (74-99) mg/dL Plasma Lactic Acid Jabari (0.7-2.0) mmol/L Calcium (8.4-10.2) mg/dL Total Bilirubin (0.2-1.3) mg/dL AST (14-36) U/L ALT (4-34) U/L Alkaline Phosphatase (38-126) U/L Total Protein (6.3-8.2) g/dL Albumin (3.5-5.0) g/dL Urine Color Colorless Urine Appearance Clear (Clear) Urine pH 6.0 (5.0-8.0) Ur Specific [place] 1.008 (1.001-1.035) Urine Protein Negative (Negative) Urine Glucose (UA) Negative (Negative) Urine Ketones Negative (Negative) Urine Blood Negative (Negative) Urine Nitrite Negative (Negative) Urine Bilirubin Negative (Negative) Urine Urobilinogen <2.0 (<2.0) mg/dL Ur Leukocyte Esterase Negative (Negative) Urine HCG, Qual Not Detected (Not Detectd) 07/14/23 07/14/23 Range/Units 08:17 08:17 WBC (3.8-10.6) k/uL RBC (3.80-5.40) m/uL Hgb (11.4-16.0) gm/dL Hct (34.0-46.0) % MCV (80.0-100.0) fL MCH (25.0-35.0) pg MCHC (31.0-37.0) g/dL RDW (11.5-15.5) % Plt Count (150-450) k/uL MPV Neutrophils % % Lymphocytes % % Monocytes % % Eosinophils % % Basophils % % Neutrophils # (1.3-7.7) k/uL Lymphocytes # (1.0-4.8) k/uL Monocytes # (0-1.0) k/uL Eosinophils # (0-0.7) k/uL Basophils # (0-0.2) k/uL Sodium 141 (137-145) mmol/L Potassium 4.3 (3.5-5.1) mmol/L Chloride 106 (98-107) mmol/L Carbon Dioxide 23 (22-30) mmol/L Anion Gap 12 mmol/L BUN 9 (7-17) mg/dL Creatinine 0.87 (0.52-1.04) mg/dL Est GFR (CKD-EPI)AfAm >90 (>60 ml/min/1.73 sqM) Est GFR (CKD-EPI)NonAf >90 (>60 ml/min/1.73 sqM) Glucose 83 (74-99) mg/dL Plasma Lactic Acid Jabari 1.6 (0.7-2.0) mmol/L Calcium 9.4 (8.4-10.2) mg/dL Total Bilirubin 0.3 (0.2-1.3) mg/dL AST 36 (14-36) U/L ALT 44 H (4-34) U/L Alkaline Phosphatase 76 (38-126) U/L Total Protein 7.4 (6.3-8.2) g/dL Albumin 4.1 (3.5-5.0) g/dL Urine Color Urine Appearance (Clear) Urine pH (5.0-8.0) Ur Specific [place] (1.001-1.035) Urine Protein (Negative) Urine Glucose (UA) (Negative) Urine Ketones (Negative) Urine Blood (Negative) Urine Nitrite (Negative) Urine Bilirubin (Negative) Urine Urobilinogen (<2.0) mg/dL Ur Leukocyte Esterase (Negative) Urine HCG, Qual (Not Detectd) - Radiology Data Radiology results: report reviewed, image reviewed Disposition Clinical Impression: Abdominal pain, Nausea and vomiting Disposition: HOME SELF-CARE Instructions (If sedation given, give patient instructions): Acute Nausea and V omiting (ED), Abdominal Pain (ED) Additional Instructions: Return to the emergency department with any new, worsening, or concerning symptoms. Take the Toradol with Tylenol as needed for pain relief. If you choose to take the Toradol, do not take any other anti-inflammatories such as ibuprofen, take one or the other. You can take the Reglan up to every 6 hours as needed for nausea and vomiting. Follow up with your primary care provider in 1-2 days. Prescriptions: Metoclopramide [Reglan] 10 mg PO Q6H PRN #20 tab PRN Reason: Nausea And Vomiting Ketorolac [Toradol] 10 mg PO Q6HR PRN #15 tab PRN Reason: Pain Is patient prescribed a controlled substance at d/c from ED?: No Referrals: Osmar Lundberg MD [Primary Care Provider] - 1-2 days
[2023-07-14 08:36] LABS: Basophils % (A) 0 %; Eosinophils # (A) 0.3 k/uL (0-0.7); Eosinophils % (A) 4 %; HCT 39.9 % (34.0-46.0); HGB 13.2 gm/dL (11.4-16.0); Lymphocytes # (A) 2.3 k/uL (1.0-4.8); Lymphocytes % (A) 28 %; MCH 29.8 pg (25.0-35.0); MCHC 33.1 g/dL (31.0-37.0); MCV 89.9 fL (80.0-100.0); Mean Platelet Volume 8.6; Monocytes # (A) 0.3 k/uL (0-1.0); Monocytes % (A) 4 %; Neutrophils % (A) 63 %; Platelet Count 179 k/uL (150-450); RBC 4.44 m/uL (3.80-5.40); RDW 13.2 % (11.5-15.5)
[2023-07-14 08:45] LABS: ALT 44 U/L (4-34); AST 36 U/L (14-36); African American GFR (CKD) >90 (>60 ml/min/1.73 sqM); Albumin 4.1 g/dL (3.5-5.0); Alkaline Phosphatase 76 U/L (38-126); Anion Gap 12 mmol/L; Blood Urea Nitrogen 9 mg/dL (7-17); Calcium 9.4 mg/dL (8.4-10.2); Carbon Dioxide 23 mmol/L (22-30); Chloride 106 mmol/L (98-107); Glucose 83 mg/dL (74-99); Non-African American GFR(CKD) >90 (>60 ml/min/1.73 sqM); Potassium 4.3 mmol/L (3.5-5.1); Sodium 141 mmol/L (137-145); Total Bilirubin 0.3 mg/dL (0.2-1.3); Total Protein 7.4 g/dL (6.3-8.2)
[2023-07-14] MEDS ORDERED: MORPHINE SULFATE 4 MG/ML SYRINGE IVP STA (09:04)
[2023-07-14 09:14] VITALS: RESP 18
[2023-07-14 09:18] LABS: Appearance,Urine Clear (Clear); Bilirubin,Urine Negative (Negative); Blood,Urine Negative (Negative); Color,Urine Colorless; Glucose,Urine (UA) Negative (Negative); Ketones,Urine Negative (Negative); Leukocyte Esterase,Urine Negative (Negative); Nitrite,Urine Negative (Negative); Protein,Urine Negative (Negative); Specific Gravity,Urine 1.008 (1.001-1.035); Urobilinogen,Urine <2.0 mg/dL (<2.0)
--- NOTE | 2023-07-14 09:41 | US ---
EXAMINATION TYPE: US transvaginal DATE OF EXAM: 07/14/2023 COMPARISON: NONE CLINICAL INDICATION: Female, 27 years old with history of Pelvic pain; Pelvic pain for 1 week. C-sect ion TECHNIQUE: Transvaginal (TV). Date of LMP: Beginning june EXAM MEASUREMENTS: Uterus: 8.0 x 4.0 x 5.3cm Endometrial Stripe: 0.8cm Right Ovary: 3.0 x 2.1 x 2.1cm Left Ovary: 2.3 x 1.6 x 1.3 cm technical limitations, patient unable to keep adequate position, kept clenching and lowering legs s traight 1. Uterus: Anteverted Nabothian cyst 2. Endometrium: appears wnl 3. Right Ovary: wnl 4. Left Ovary: wnl Spectral, color and waveform doppler imaging shows good arterial and venous flow within the ovaries ; there is no evidence for ovarian torsion. 5. Bilateral Adnexa: wnl 6. Posterior cul-de-sac: wnl IMPRESSION: No acute process
[2023-07-14] MEDS ORDERED: METOCLOPRAMIDE 5 MG/ML 2 ML VIAL IVP STA (09:50)
[2023-07-14] MEDS ORDERED: ONDANSETRON 4 MG ODT STARTER PACK 2 TAB BTL PO STA (10:55)
[2023-07-14 11:17] VITALS: BP 126/91; PULSE 100
== END 2023-07-14 11:30 | disposition home or self-care (01) ==
LOC: EC 07:36
DX: R10.9 Unspecified abdominal pain (principal); R11.2 Nausea with vomiting, unspecified; I10 Essential (primary) hypertension; J45.909 Unspecified asthma, uncomplicated; F41.9 Anxiety disorder, unspecified; F32.A Depression, unspecified; F90.9 Attention-deficit hyperactivity disorder, unspecified type; Z79.899 Other long term (current) drug therapy
CPT/HCPCS: 36415; 80053; 83605; 85025; 81003; 81025; 93975; 76830; 99284; 96374; 96375 ×3; 96361 ×3; J2270; J2765; J2405; J1885; S0119

== ENCOUNTER 2023-08-07 07:29 | Emergency (ER) | payer OTHER ==
[2023-08-07 07:41] VITALS: BP 120/67; PULSE 110; RESP 18; TEMP 98.2
--- NOTE | 2023-08-07 07:41 | ED ---
URI HPI - General Chief Complaint: Upper Respiratory Infection Stated Complaint: Covid symtoms Time Seen by Provider: 08/07/23 07:39 Source: patient, RN notes reviewed Mode of arrival: ambulatory Limitations: no limitations - History of Present Illness Initial Comments: 27-year-old female presents emergency Department with chief complaint of cold like symptoms. Patient states is worse last few days should she's been sick for last 1 week. Patient his nasal congestion, cough, body aches. Denies any chest pain or significant shortness breath - Related Data Home Medications Medication Instructions Recorded Confirmed Ondansetron Odt [Zofran Odt] 4 mg PO BID PRN 01/23/23 07/14/23 Vilazodone HCl 20 mg PO DAILY 01/23/23 07/14/23 Metoprolol Succinate (ER) [Toprol 50 mg PO DAILY 06/12/23 07/14/23 Xl] Nortrel 1-35 Mg-Mcg Tablet 1 tab PO DAILY 07/14/23 07/14/23 QUEtiapine XR [SEROquel XR] 150 mg PO HS 07/14/23 07/14/23 buPROPion SR [Wellbutrin SR] 150 mg PO BID 07/14/23 07/14/23 Previous Rx's Medication Instructions Recorded Cyclobenzaprine [Flexeril] 5 mg PO BID PRN 5 Days #10 tablet 07/01/23 Ketorolac [Toradol] 10 mg PO Q6HR PRN #15 tab 07/14/23 Metoclopramide [Reglan] 10 mg PO Q6H PRN #20 tab 07/14/23 Benzonatate [Tessalon Perles] 100 mg PO TID PRN #15 capsule 08/07/23 Pseudoephedrine 12Hr [Sudafed 12 120 mg PO Q12HR #14 tab 08/07/23 Hour] Allergies Allergy/AdvReac Type Severity Reaction Status Date / Time No Known Allergies Allergy Verified 07/14/23 08:52 Review of Systems ROS Statement: Those systems with pertinent positive or pertinent negative responses have been documented in the HPI. ROS Other: All systems not noted in ROS Statement are negative. Past Medical History Past Medical History: Asthma, Hypertension, Osteoarthritis (OA) History of Any Multi-Drug Resistant Organisms: None Reported Past Surgical History: Appendectomy, Section, Cholecystectomy Additional Past Surgical History / Comment(s): Past Anesthesia/Blood Transfusion Reactions: No Reported Reaction Past Psychological History: ADD/ADHD, Anxiety, Depression Smoking Status: Vaper Past Alcohol Use History: None Reported Past Drug Use History: Marijuana - Past Family History Father Family Medical History: No Reported History Mother Family Medical History: No Reported History General Exam - General Exam Comments Initial Comments: Visual Physical Exam Vital signs reviewed General: Well-appearing, nontoxic, no acute distress. Head: Normocephalic, atraumatic Eyes: PERRLA, EOMI ENT: Airway patent Chest: Nonlabored breathing Skin: No visual rash, normal skin tone Neuro: Alert and oriented 3 Musculoskeletal: No gross abnormalities General appearance: alert, in no apparent distress Head exam: Present: atraumatic, normocephalic, normal inspection Eye exam: Present: normal appearance, PERRL, EOMI. Absent: scleral icterus, conjunctival injection, periorbital swelling ENT exam: Present: normal exam, normal oropharynx, mucous membranes moist Neck exam: Present: normal inspection, full ROM. Absent: tenderness, meningismus, lymphadenopathy Respiratory exam: Present: normal lung sounds bilaterally. Absent: respiratory distress, wheezes, rales, rhonchi, stridor Cardiovascular Exam: Present: regular rate, normal rhythm, normal heart sounds. Absent: systolic murmur, diastolic murmur, rubs, gallop, clicks Course Vital Signs 08/07/23 07:33 Temperature 98.2 F Pulse Rate 110 H Respiratory 18 Rate Blood Pressure 120/67 O2 Sat by Pulse 98 Oximetry Medical Decision Making - Medical Decision Making I completed the quick note portion of this chart signed Kyle Garcia PA-C Was pt. sent in by a medical professional or institution ([facility], [employer], urgent care, hospital, or detention...) When possible be specific @ -No Did you speak to anyone other than the patient for history (EMS, parent, family, police, friend...)? What history was obtained from this source @ -No Did you review nursing and triage notes (agree or disagree)? Why? @ -I reviewed and agree with nursing and triage notes Were old charts reviewed (outside hosp., previous admission, EMS record, old E KG, old radiological studies, urgent care reports/EKG's, detention records)? Report findings @ -No old charts were reviewed Differential Diagnosis (chest pain, altered mental status, abdominal pain women, abdominal pain men, vaginal bleeding, weakness, fever, dyspnea, syncope, headache, dizziness, GI bleed, back pain, seizure, CVA, palpatations, mental hea lth, musculoskeletal)? @ -[COVID 19, RSV, influenza, pneumonia, acute bronchitis, URI, this list is not all inclusive EKG interpreted by me (3pts min.). @ -[None X-rays interpreted by me (1pt min.). @ -None done CT interpreted by me (1pt min.). @ -None done U/S interpreted by me (1pt. min.). @ -None done What testing was considered but not performed or refused? (CT, X-rays, U/S, labs)? Why? @ -None What meds were considered but not given or refused? Why? @ -None Did you discuss the management of the patient with other professionals (professionals i.e. , PA, [employer], lab, RT, psych nurse, director of social media marketing, gallery assistant, teacher, custom protection officer, piano case maker)? Give summary @ -No Was smoking cessation discussed for >3mins.? @ -No Was critical care preformed (if so, how long)? @ -No Were there social determinants of health that impacted care today? How? (Homelessness, low income, unemployed, alcoholism, drug addiction, transportation, low edu. Level, literacy, decrease access to med. care, residential, rehab)? @ -No Was there de-escalation of care discussed even if they declined (Discuss DNR or withdrawal of care, Hospice)? DNR status @ -No What co-morbidities impacted this encounter? (DM, HTN, Smoking, COPD, CAD, Cancer, CVA, ARF, Chemo, Hep., AIDS, mental health diagnosis, sleep apnea, morbid obesity)? @ -None Was patient admitted / discharged? Hospital course, mention meds given and route, prescriptions, significant lab abnormalities, going to OR and other pertinent info. @ -Discharge patient's viral swab was negative. Patient will be discharged in stable condition return parameters discussed. Undiagnosed new problem with uncertain prognosis? @ -No Drug Therapy requiring intensive monitoring for toxicity (Heparin, Nitro, Insulin, Cardizem)? @ -No Were any procedures done? @ -No Diagnosis/symptom? @ -URI Acute, or Chronic, or Acute on Chronic? @ -[Acute Uncomplicated (without systemic symptoms) or Complicated (systemic symptoms)? @ -Uncomplicated Side effects of treatment? @ -No Exacerbation, Progression, or Severe Exacerbation? @ -No Poses a threat to life or bodily function? How? (Chest pain, [place], OR, pneumonia, PE, COPD, DKA, ARF, appy, cholecystitis, CVA, Diverticulitis, Homicidal, Suicidal, threat to staff... and all critical care pts) @ -No - Lab Data Lab Results 08/07/23 Range/Units 07:39 Influenza Type A (PCR) Not Detected (Not Detectd) Influenza Type B (PCR) Not Detected (Not Detectd) RSV (PCR) Not Detected (Not Detectd) SARS-CoV-2 (PCR) Not Detected (Not Detectd) Disposition Clinical Impression: Acute upper respiratory infection Disposition: HOME SELF-CARE Condition: Stable Additional Instructions: Please return to the Emergency Department if symptoms worsen or any other concerns. Prescriptions: Pseudoephedrine 12Hr [Sudafed 12 Hour] 120 mg PO Q12HR #14 tab Benzonatate [Tessalon Perles] 100 mg PO TID PRN #15 capsule PRN Reason: Cough Is patient prescribed a controlled substance at d/c from ED?: No Referrals: Osmar Lundberg MD [Primary Care Provider] - 1-2 days Time of Disposition: 08:29
== END 2023-08-07 08:41 | disposition home or self-care (01) ==
LOC: EC 07:29
DX: J06.9 Acute upper respiratory infection, unspecified (principal); I10 Essential (primary) hypertension; J45.909 Unspecified asthma, uncomplicated; F41.9 Anxiety disorder, unspecified; F32.A Depression, unspecified; F90.9 Attention-deficit hyperactivity disorder, unspecified type; F17.290 Nicotine dependence, other tobacco product, uncomplicated; F12.90 Cannabis use, unspecified, uncomplicated; Z20.822 Contact with and (suspected) exposure to COVID-19; Z79.899 Other long term (current) drug therapy
CPT/HCPCS: 87636; 99283

== ENCOUNTER 2023-08-21 15:34 | Emergency (ER) | payer OTHER ==
[2023-08-21 16:04] VITALS: PULSE 101
[2023-08-21] MEDS ORDERED: KETOROLAC 15 MG/ML 1 ML VIAL IM STA ×2 (16:45→18:02)
--- NOTE | 2023-08-21 16:45 | ED ---
General Adult HPI - General Chief complaint: Abdominal Pain Stated complaint: cough throat pain vomiting fever Time Seen by Provider: 08/21/23 16:31 Source: patient, RN notes reviewed Mode of arrival: ambulatory Limitations: no limitations - History of Present Illness Initial comments: 27-year-old female presents to the emergency department chief complaint of sore throat, cough, congestion 4-5 days. Patient states that she has a 3-year-old child at home with similar symptoms. She admits to some lower abdominal discomfort which is not abnormal for her and nausea with vomiting. She denies any chest pain, shortness of breath. - Related Data Home Medications Medication Instructions Recorded Confirmed Ondansetron Odt [Zofran Odt] 4 mg PO BID PRN 01/23/23 07/14/23 Vilazodone HCl 20 mg PO DAILY 01/23/23 07/14/23 Metoprolol Succinate (ER) [Toprol 50 mg PO DAILY 06/12/23 07/14/23 Xl] Nortrel 1-35 Mg-Mcg Tablet 1 tab PO DAILY 07/14/23 07/14/23 QUEtiapine XR [SEROquel XR] 150 mg PO HS 07/14/23 07/14/23 buPROPion SR [Wellbutrin SR] 150 mg PO BID 07/14/23 07/14/23 Previous Rx's Medication Instructions Recorded Cyclobenzaprine [Flexeril] 5 mg PO BID PRN 5 Days #10 tablet 07/01/23 Ketorolac [Toradol] 10 mg PO Q6HR PRN #15 tab 07/14/23 Metoclopramide [Reglan] 10 mg PO Q6H PRN #20 tab 07/14/23 Benzonatate [Tessalon Perles] 100 mg PO TID PRN #15 capsule 08/07/23 Pseudoephedrine 12Hr [Sudafed 12 120 mg PO Q12HR #14 tab 08/07/23 Hour] Amoxicillin 500 mg PO Q8H #30 capsule 08/21/23 Allergies Allergy/AdvReac Type Severity Reaction Status Date / Time No Known Allergies Allergy Verified 07/14/23 08:52 Review of Systems ROS Statement: Those systems with pertinent positive or pertinent negative responses have been documented in the HPI. ROS Other: All systems not noted in ROS Statement are negative. Past Medical History Past Medical History: Asthma, Hypertension, Osteoarthritis (OA) History of Any Multi-Drug Resistant Organisms: None Reported Past Surgical History: Appendectomy, Section, Cholecystectomy Additional Past Surgical History / Comment(s): Past Anesthesia/Blood Transfusion Reactions: No Reported Reaction Past Psychological History: ADD/ADHD, Anxiety, Depression Smoking Status: Vaper Past Alcohol Use History: None Reported Past Drug Use History: Marijuana - Past Family History Father Family Medical History: No Reported History Mother Family Medical History: No Reported History General Exam Limitations: no limitations General appearance: alert, in no apparent distress Head exam: Present: atraumatic, normocephalic, normal inspection Eye exam: Present: normal appearance, PERRL, EOMI. Absent: scleral icterus, conjunctival injection, periorbital swelling ENT exam: Absent: normal oropharynx (Erythematous) Neck exam: Present: normal inspection, full ROM, lymphadenopathy. Absent: tenderness, meningismus Respiratory exam: Present: normal lung sounds bilaterally. Absent: respiratory distress, wheezes, rales, rhonchi, stridor Cardiovascular Exam: Present: regular rate, normal rhythm, normal heart sounds. Absent: systolic murmur, diastolic murmur, rubs, gallop, clicks GI/Abdominal exam: Present: soft, normal bowel sounds. Absent: distended, tenderness, guarding, rebound, rigid Extremities exam: Present: normal inspection, full ROM, normal capillary refill. Absent: tenderness, pedal edema, joint swelling, calf tenderness Course Vital Signs 08/21/23 08/21/23 08/21/23 15:43 17:23 18:56 Temperature 97.4 F L 97.9 F 98.4 F Pulse Rate 101 H 101 H 101 H Respiratory 18 18 16 Rate Blood Pressure 92/68 97/76 96/68 O2 Sat by Pulse 96 97 97 Oximetry Medical Decision Making - Medical Decision Making Was pt. sent in by a medical professional or institution (, PA, SKOOG MACHINE OPERATOR, urgent care, hospital, or group home...) When possible be specific @ -No Did you speak to anyone other than the patient for history (EMS, parent, family, police, friend...)? What history was obtained from this source @ -No Did you review nursing and triage notes (agree or disagree)? Why? @ -I reviewed and agree with nursing and triage notes Were old charts reviewed (outside hosp., previous admission, EMS record, old EKG, old radiological studies, urgent care reports/EKG's, group home records)? Report findings @ -No old charts were reviewed Differential Diagnosis (chest pain, altered mental status, abdominal pain women, abdominal pain men, vaginal bleeding, weakness, fever, dyspnea, syncope, headache, dizziness, GI bleed, back pain, seizure, CVA, palpatations, mental health, musculoskeletal)? @ -Covid, influenza, RSV, strep, viral pharyngitis, mononucleosis, this list is not all considered EKG interpreted by me (3pts min.). @ -None X-rays interpreted by me (1pt min.). @ -X-ray shows no acute infiltrate CT interpreted by me (1pt min.). @ -None done U/S interpreted by me (1pt. min.). @ -None done What testing was considered but not performed or refused? (CT, X-rays, U/S, labs)? Why? @ -None What meds were considered but not given or refused? Why? @ -None Did you discuss the management of the patient with other professionals (professionals i.e. , PA, SKOOG MACHINE OPERATOR, lab, RT, psych nurse, home health care social worker, management lecturer, teacher, combat information center officer, heel caser)? Give summary @ -No Was smoking cessation discussed for >3mins.? @ -No Was critical care preformed (if so, how long)? @ -No Were there social determinants of health that impacted care today? How? (Homelessness, low income, unemployed, alcoholism, drug addiction, transportation, low edu. Level, literacy, decrease access to med. care, [place] [facility], rehab)? @ -No Was there de-escalation of care discussed even if they declined (Discuss DNR or withdrawal of care, Hospice)? DNR status @ -No What co-morbidities impacted this encounter? (DM, HTN, Smoking, COPD, CAD, Cancer, CVA, ARF, Chemo, Hep., AIDS, mental health diagnosis, sleep apnea, morbid obesity)? @ -None Was patient admitted / discharged? Hospital course, mention meds given and route, prescriptions, significant lab abnormalities, going to OR and other pertinent info. @ -Discharged. Patient presented to the emergency department with chief complaint of sore throat 4 days. On examination, oropharynx is erythematous. Patient tolerating oral intake. Patient given viscous lidocaine and Toradol for discomfort. Covid, influenza, RSV negative. Patient has a positive for strep pharyngitis. Discussed findings with patient. She will be started on amoxicillin. Patient given a dose before discharge. Advised to pecan picker antibiotics and take to completion. return precautions discussed. Patient stable at time of discharge. Case discussed with Dr. Menezes Undiagnosed new problem with uncertain prognosis? @ -No Drug Therapy requiring intensive monitoring for toxicity (Heparin, Nitro, Insulin, Cardizem)? @ -No Were any procedures done? @ -No Diagnosis/symptom? @ -Strep pharyngitis Acute, or Chronic, or Acute on Chronic? @ -Acute Uncomplicated (without systemic symptoms) or Complicated (systemic symptoms)? @ -Uncomplicated Side effects of treatment? @ -No Exacerbation, Progression, or Severe Exacerbation? @ -No Poses a threat to life or bodily function? How? (Chest pain, [place], [place], pneumonia, PE, COPD, DKA, ARF, appy, cholecystitis, CVA, Diverticulitis, Homicidal, Suicidal, threat to staff... and all critical care pts) @ -No - Lab Data Lab Results 08/21/23 08/21/23 Range/Units 16:53 16:53 Influenza Type A (PCR) Not Detected (Not Detectd) Influenza Type B (PCR) Not Detected (Not Detectd) RSV (PCR) Not Detected (Not Detectd) SARS-CoV-2 (PCR) Not Detected (Not Detectd) Group A Strep (PCR) DETECTED A (Not Detectd) Disposition Clinical Impression: Strep pharyngitis Disposition: HOME SELF-CARE Condition: Stable Additional Instructions: Please pecan picker antibiotics and take to completion. Follow up with your primary care provider. Return to the emergency department for new or worsening symptoms. Prescriptions: Amoxicillin 500 mg PO Q8H #30 capsule Is patient prescribed a controlled substance at d/c from ED?: No Referrals: Osmar Lundberg MD [Primary Care Provider] - 1-2 days
--- NOTE | 2023-08-21 17:16 | XR ---
EXAMINATION TYPE: XR chest 2V DATE OF EXAM: 08/21/2023 COMPARISON: 01/23/2023 INDICATION: Cough congestion sore throat TECHNIQUE: Frontal and lateral views of the chest are obtained. FINDINGS: The heart size is normal. The pulmonary vasculature is normal. The lungs are clear. IMPRESSION: 1. No acute pulmonary process.
[2023-08-21] MEDS ORDERED: LIDOCAINE 2% GLYDO JELLY 11 ML APPL MUCOUS MEM ONE (17:23)
[2023-08-21] MEDS ORDERED: AMOXICILLIN 500 MG CAP PO STA (17:59)
[2023-08-21 19:08] VITALS: BP 96/68; RESP 16; TEMP 98.4
== END 2023-08-21 18:58 | disposition home or self-care (01) ==
LOC: EC 15:34
DX: J02.0 Streptococcal pharyngitis (principal); B95.0 Streptococcus, group A, as the cause of diseases classified elsewhere; I10 Essential (primary) hypertension; J45.909 Unspecified asthma, uncomplicated; F41.9 Anxiety disorder, unspecified; F32.A Depression, unspecified; F90.9 Attention-deficit hyperactivity disorder, unspecified type; F17.290 Nicotine dependence, other tobacco product, uncomplicated; F12.90 Cannabis use, unspecified, uncomplicated; Z79.899 Other long term (current) drug therapy; Z20.822 Contact with and (suspected) exposure to COVID-19
CPT/HCPCS: 87651; 87636; 71046; 99284; 96372 ×2; J1885

== ENCOUNTER 2023-10-27 18:31 | Emergency (ER) | payer SELFPAY ==
--- NOTE | 2023-10-27 19:00 | ED ---
Lower Extremity Injury HPI - General Source: patient, RN notes reviewed <Naomi Li - Last Filed: 10/27/23 18:59> <Jessica Ballard - Last Filed: 10/27/23 23:26> - General Stated Complaint: Dog Bite Time Seen by Provider: 10/27/23 18:59 - History of Present Illness Initial Comments: Patient is a 27-year-old female presented to ER with chief complaint of dog bite. Patient states she was walking home and was bit by an unknown dog. Patient's tetanus is up-to-date. (Naomi Li) 27-year-old female presents to the emergency department for evaluation of dog bite to her right lateral leg. Patient states that she was walking home from work when a dog ran up to her and bit her in the leg. She does not know where the dog came from. She is unsure if the dog is up-to-date on its vaccinations. Patient has never received a rabies series. (Jessica Ballard) - Related Data Home Medications Medication Instructions Recorded Confirmed Ondansetron Odt [Zofran Odt] 4 mg PO BID PRN 01/23/23 07/14/23 Vilazodone HCl 20 mg PO DAILY 01/23/23 07/14/23 Metoprolol Succinate (ER) [Toprol 50 mg PO DAILY 06/12/23 07/14/23 Xl] Nortrel 1-35 Mg-Mcg Tablet 1 tab PO DAILY 07/14/23 07/14/23 QUEtiapine XR [SEROquel XR] 150 mg PO HS 07/14/23 07/14/23 buPROPion SR [Wellbutrin SR] 150 mg PO BID 07/14/23 07/14/23 Previous Rx's Medication Instructions Recorded Cyclobenzaprine [Flexeril] 5 mg PO BID PRN 5 Days #10 tablet 07/01/23 Ketorolac [Toradol] 10 mg PO Q6HR PRN #15 tab 07/14/23 Metoclopramide [Reglan] 10 mg PO Q6H PRN #20 tab 07/14/23 Benzonatate [Tessalon Perles] 100 mg PO TID PRN #15 capsule 08/07/23 Pseudoephedrine 12Hr [Sudafed 12 120 mg PO Q12HR #14 tab 08/07/23 Hour] Amoxicillin 500 mg PO Q8H #30 capsule 08/21/23 Amoxic-Pot Clav 875-125Mg 1 tab PO Q12HR #20 tab 10/27/23 [Augmentin 875-125] Ibuprofen [Motrin] 600 mg PO Q8HR PRN #20 tab 10/27/23 Allergies Allergy/AdvReac Type Severity Reaction Status Date / Time No Known Allergies Allergy Verified 07/14/23 08:52 Review of Systems ROS Other: All systems not noted in ROS Statement are negative. <Naomi Li - Last Filed: 10/27/23 18:59> ROS Other: All systems not noted in ROS Statement are negative. <Jessica Ballard - Last Filed: 10/27/23 23:26> ROS Statement: Those systems with pertinent positive or pertinent negative responses have been documented in the HPI. Past Medical History Past Medical History: Asthma, Hypertension, Osteoarthritis (OA) History of Any Multi-Drug Resistant Organisms: None Reported Past Surgical History: Appendectomy, Section, Cholecystectomy Additional Past Surgical History / Comment(s): Past Anesthesia/Blood Transfusion Reactions: No Reported Reaction Past Psychological History: ADD/ADHD, Anxiety, Depression Smoking Status: Vaper Past Alcohol Use History: None Reported Past Drug Use History: Marijuana - Past Family History Father Family Medical History: No Reported History Mother Family Medical History: No Reported History <Naomi Li - Last Filed: 10/27/23 18:59> General Exam <Naomi Li - Last Filed: 10/27/23 18:59> Limitations: no limitations General appearance: alert, in no apparent distress Head exam: Present: atraumatic, normocephalic, normal inspection Eye exam: Present: normal appearance, PERRL, EOMI. Absent: scleral icterus, conjunctival injection, periorbital swelling ENT exam: Present: normal exam, mucous membranes moist Respiratory exam: Present: normal lung sounds bilaterally. Absent: respiratory distress, wheezes, rales, rhonchi, stridor Cardiovascular Exam: Present: regular rate, normal rhythm, normal heart sounds. Absent: systolic murmur, diastolic murmur, rubs, gallop, clicks Extremities exam: Present: full ROM, tenderness, normal capillary refill, other (DP and PT pulses 2+, 2 puncture wounds to the lateral right distal leg with surrounding ecchymosis) Neurological exam: Present: alert, oriented X3 Psychiatric exam: Present: normal affect, normal mood Skin exam: Present: warm, dry, other (2 puncture wounds to the lateral right distal leg with surrounding ecchymosis). Absent: intact, normal color <Jessica Ballard - Last Filed: 10/27/23 23:26> - General Exam Comments Initial Comments: Visual Physical Exam Vital signs reviewed General: Well-appearing, nontoxic, no acute distress. Head: Normocephalic, atraumatic Eyes: PERRLA, EOMI ENT: Airway patent Chest: Nonlabored breathing Skin: No visual rash, normal skin tone Neuro: Alert and oriented 3 Musculoskeletal: No gross abnormalities (Naomi Li) Course Vital Signs 10/27/23 10/27/23 19:12 22:08 Temperature 97.8 F 97.0 F L Pulse Rate 107 H 77 Respiratory 18 16 Rate Blood Pressure 129/86 122/61 O2 Sat by Pulse 99 Oximetry Medical Decision Making <Naomi Li - Last Filed: 10/27/23 18:59> <Jessica Ballard - Last Filed: 10/27/23 23:26> - Medical Decision Making I performed the quick note portion of this chart. Electronically signed by Naomi Li PA-C (Naomi Li) Was pt. sent in by a medical professional or institution ([facility] [place], NATIONAL VAN OWNER OPERATOR, urgent care, hospital, or long term...) When possible be specific @ -No Did you speak to anyone other than the patient for history (EMS, parent, family, police, friend...)? What history was obtained from this source @ -No Did you review nursing and triage notes (agree or disagree)? Why? @ -I reviewed and agree with nursing and triage notes Were old charts reviewed (outside hosp., previous admission, EMS record, old EKG, old radiological studies, urgent care reports/EKG's, long term records)? Report findings @ -No old charts were reviewed Differential Diagnosis (chest pain, altered mental status, abdominal pain women, abdominal pain men, vaginal bleeding, weakness, fever, dyspnea, syncope, headache, dizziness, GI bleed, back pain, seizure, CVA, palpatations, mental health, musculoskeletal)? @ -Dog bite, fracture, this was all inclusive EKG interpreted by me (3pts min.). @ -None X-rays interpreted by me (1pt min.). @ -Right tib-fib x-ray shows no acute fracture or radioopaque foreign body CT interpreted by me (1pt min.). @ -None done U/S interpreted by me (1pt. min.). @ -None done What testing was considered but not performed or refused? (CT, X-rays, U/S, labs)? Why? @ -None What meds were considered but not given or refused? Why? @ -Rabies series was discussed with patient. Patient refused. Discussed the risk of [place] rabies including . Did you discuss the management of the patient with other professionals (professionals i.e. , PA, NATIONAL VAN OWNER OPERATOR, lab, RT, psych nurse, social services assistant, logistics supervisor, teacher, community services officer, director of casework department)? Give summary @ -No Was smoking cessation discussed for >3mins.? @ -No Was critical care preformed (if so, how long)? @ -No Were there social determinants of health that impacted care today? How? (Homelessness, low income, unemployed, alcoholism, drug addiction, transportation, low edu. Level, literacy, decrease access to med. care, custodial, rehab)? @ -No Was there de-escalation of care discussed even if they declined (Discuss DNR or withdrawal of care, Hospice)? DNR status @ -No What co-morbidities impacted this encounter? (DM, HTN, Smoking, COPD, CAD, Cancer, CVA, ARF, Chemo, Hep., AIDS, mental health diagnosis, sleep apnea, morbid obesity)? @ -None Was patient admitted / discharged? Hospital course, mention meds given and route, prescriptions, significant lab abnormalities, going to OR and other pertinent info. @ -Discharged. Patient presented to the emergency department for evaluation of a dog bite. She states that she was walking home when she got bit by a random dog on the street. She did not know who the dog belongs to. Wound was irrigated and cleaned. Patient given a dose of Augmentin, tetanus vaccination in the emergency department. She was also provided medication for pain control. X-rays obtained which show no acute fracture or radiopaque foreign body. Discussed rabies vaccination. Patient refused. Discussed the risks of [place] rabies including . Patient expresses understanding and does not want the series. Patient was asked multiple times about this and declined. Prescription sent to patient's pharmacy for Augmentin. Advised her to pick this up and take to completion. Patient understanding agreeable with plan. Patient stable at time of discharge. Case discussed with Dr. Michelle Undiagnosed new problem with uncertain prognosis? @ -No Drug Therapy requiring intensive monitoring for toxicity (Heparin, Nitro, Insulin, Cardizem)? @ -No Were any procedures done? @ -No Diagnosis/symptom? @ -Dog bite Acute, or Chronic, or Acute on Chronic? @ -acute Uncomplicated (without systemic symptoms) or Complicated (systemic symptoms)? @ -uncomplicated Side effects of treatment? @ -No Exacerbation, Progression, or Severe Exacerbation? @ -No Poses a threat to life or bodily function? How? (Chest pain, [place], [place], pneumonia, PE, COPD, DKA, ARF, appy, cholecystitis, CVA, Diverticulitis, Homicidal, Suicidal, threat to staff... and all critical care pts) @ -No (Jessica Ballard) Disposition <Naomi Li - Last Filed: 10/27/23 18:59> Is patient prescribed a controlled substance at d/c from ED?: No <Jessica Ballard - Last Filed: 10/27/23 23:26> Clinical Impression: Dog bite Disposition: HOME SELF-CARE Condition: Stable Instructions (If sedation given, give patient instructions): Animal Bite (ED) Additional Instructions: Please picker tender antibiotics and take to completion. Be on the look out for signs of infection including worsening redness, swelling, warmth. Return to the emergency department for new or worsening symptoms. Prescriptions: Amoxic-Pot Clav 875-125Mg [Augmentin 875-125] 1 tab PO Q12HR #20 tab Ibuprofen [Motrin] 600 mg PO Q8HR PRN #20 tab PRN Reason: Pain Referrals: Osmar Lundberg MD [Primary Care Provider] - 1-2 days
--- NOTE | 2023-10-27 20:04 | XR ---
EXAMINATION TYPE: XR tibia fibula RT DATE OF EXAM: 10/27/2023 7:40 PM CLINICAL INDICATION:Female, 27 years old with history of dog bite; COMPARISON: 02/07/2017 TECHNIQUE: XR tibia fibula RT; tibia/fibula was examined in AP and lateral projections. FINDINGS: No evidence of any acute osseous pathology, joint dislocation, or soft tissue swelling is n oted. No radiopaque foreign body. IMPRESSION: 1. No evidence of acute fracture. 2. No radiopaque foreign body.
[2023-10-27] MEDS: AMOXIC-POT CLAV 875-125MG 1 EACH TAB PO STA (20:46)
[2023-10-27] MEDS: KETOROLAC 15 MG/ML 1 ML VIAL IM STA (20:46)
[2023-10-27] MEDS: DIPH,PERTUS(ACELL)TETVAC-LF 0.5 ML VIAL IM ONE (20:56)
[2023-10-27] MEDS: MORPHINE SULFATE 4 MG/ML SYRINGE IM STA (22:04)
[2023-10-27] MEDS: ACET/COD 300 MG/30 MG STARTER PACK 6 TAB BTL PO STA (22:05)
[2023-10-27 22:28] VITALS: BP 122/61; PULSE 77; RESP 16; TEMP 97
== END 2023-10-27 22:08 | disposition home or self-care (01) ==
LOC: EC 18:31
DX: S81.851A Open bite, right lower leg, initial encounter (principal); J45.909 Unspecified asthma, uncomplicated; I10 Essential (primary) hypertension; M19.90 Unspecified osteoarthritis, unspecified site; F41.9 Anxiety disorder, unspecified; F32.A Depression, unspecified; F12.90 Cannabis use, unspecified, uncomplicated; F17.290 Nicotine dependence, other tobacco product, uncomplicated; Z79.899 Other long term (current) drug therapy; Z23 Encounter for immunization; W54.0XXA Bitten by dog, initial encounter
CPT/HCPCS: 73590; 90715; 99283; 90471; 96372 ×2; J2270; J1885

== ENCOUNTER 2023-11-20 10:58 | Emergency (ER) | payer OTHER ==
[2023-11-20] MEDS: SODIUM CHLORIDE 0.9% 1,000 ML IV ONE (11:24)
[2023-11-20 11:33] LABS: Basophils % (A) 1 %; Eosinophils # (A) 0.1 k/uL (0-0.7); Eosinophils % (A) 1 %; HGB 13.2 gm/dL (11.4-16.0); Lymphocytes # (A) 2.4 k/uL (1.0-4.8); Lymphocytes % (A) 27 %; MCH 29.3 pg (25.0-35.0); MCHC 32.9 g/dL (31.0-37.0); MCV 88.9 fL (80.0-100.0); Monocytes # (A) 0.4 k/uL (0-1.0); Monocytes % (A) 5 %; Neutrophils # (A) 5.6 k/uL (1.3-7.7); Neutrophils % (A) 64 %; Platelet Count 206 k/uL (150-450); RBC 4.49 m/uL (3.80-5.40); RDW 13.3 % (11.5-15.5); WBC 8.7 k/uL (3.8-10.6)
[2023-11-20 11:34] LABS: Appearance,Urine Clear (Clear); Bilirubin,Urine Negative (Negative); Blood,Urine Negative (Negative); Color,Urine Colorless; Glucose,Urine (UA) Negative (Negative); Ketones,Urine Negative (Negative); Leukocyte Esterase,Urine Negative (Negative); Nitrite,Urine Negative (Negative); Protein,Urine Negative (Negative); Specific Gravity,Urine 1.006 (1.001-1.035); Urobilinogen,Urine <2.0 mg/dL (<2.0)
[2023-11-20 11:46] LABS: ALT 20 U/L (4-34); AST 24 U/L (14-36); African American GFR (CKD) >90 (>60 ml/min/1.73 sqM); Albumin 3.8 g/dL (3.5-5.0); Alkaline Phosphatase 67 U/L (38-126); Anion Gap 10 mmol/L; Blood Urea Nitrogen 7 mg/dL (7-17); Calcium 8.9 mg/dL (8.4-10.2); Carbon Dioxide 21 mmol/L (22-30); Chloride 107 mmol/L (98-107); Glucose 76 mg/dL (74-99); Non-African American GFR(CKD) >90 (>60 ml/min/1.73 sqM); Potassium 3.6 mmol/L (3.5-5.1); Sodium 138 mmol/L (137-145); Total Bilirubin 0.3 mg/dL (0.2-1.3); Total Protein 6.9 g/dL (6.3-8.2)
--- NOTE | 2023-11-20 12:43 | US ---
EXAMINATION TYPE: Transabdominal DATE OF EXAM: 11/20/2023 12:31 PM COMPARISON: NONE CLINICAL INDICATION: Female, 28 years old with history of pain; Patient states no pain or bleeding EXAM PERFORMED: Transvaginal (TV) and Transabdominal (TA) EXAM MEASUREMENTS: GESTATIONAL AGE / DATING Physician Established: Not yet established Dates by LMP: LMP unknown Dates by First Scan: No previous this is first scan Dates by Current Scan for: By gestational sac (5 weeks/1 days) EDC: 07/21/2024 MATERNAL ANATOMY Uterus: 7.2 x 4.1 x 5.7cm Right Ovary: 2.4 x 1.7 x 1.5cm Left Ovary: 3.1 x 2.1 x 1.9cm Post CDS / Adnexa: wnl Presence of free fluid: no Presence of corpus luteal cyst: left ovary - 1.6 x 1.8 x 1.3cm Presence of subchorionic bleed: no GESTATION / SURVEY MSD: 1.1cm (5 weeks/1 days) Yolk Sac (normal less than 6mm): 3.1mm No pole seen at this time Date of LMP: Patient unsure Beta HcG (if available): Not available at time of exam IMPRESSION: Small anechoic intrauterine cystic structure without evidence for pole at this time. This is th ought to represent an early gestational sac in the setting of a positive beta hCG of mIU/mL, however ectopic and abnormal intrauterine cannot be ruled out based on this exam alone. F ollow-up with pelvic ultrasound in 7-10 days and serial beta-hCG studies are recommended to en sure f urther development of the fetus.
--- NOTE | 2023-11-20 14:06 | ED ---
General Adult HPI - General Chief complaint: Shortness of Breath Stated complaint: Flu like symtoms-6 weeks preg Time Seen by Provider: 11/20/23 10:58 Source: patient, RN notes reviewed Mode of arrival: EMS Limitations: no limitations - History of Present Illness Initial comments: 28-year-old female presents emergency department with chief complaint of sore throat, congestion, . Patient states she feels lightheaded she has not felt well the last few days. She states she is thirsty throat that is constant possible fever. Denies any vaginal bleeding or vaginal discharge. She states she had a positive test at home. Patient states it was confirmed at [facility]. She states she has had no prior ultrasound. - Related Data Home Medications Medication Instructions Recorded Confirmed Ondansetron Odt [Zofran Odt] 4 mg PO BID PRN 01/23/23 07/14/23 Vilazodone HCl 20 mg PO DAILY 01/23/23 07/14/23 Metoprolol Succinate (ER) [Toprol 50 mg PO DAILY 06/12/23 07/14/23 Xl] Nortrel 1-35 Mg-Mcg Tablet 1 tab PO DAILY 07/14/23 07/14/23 QUEtiapine XR [SEROquel XR] 150 mg PO HS 07/14/23 07/14/23 buPROPion SR [Wellbutrin SR] 150 mg PO BID 07/14/23 07/14/23 Previous Rx's Medication Instructions Recorded Cyclobenzaprine [Flexeril] 5 mg PO BID PRN 5 Days #10 tablet 07/01/23 Ketorolac [Toradol] 10 mg PO Q6HR PRN #15 tab 07/14/23 Metoclopramide [Reglan] 10 mg PO Q6H PRN #20 tab 07/14/23 Benzonatate [Tessalon Perles] 100 mg PO TID PRN #15 capsule 08/07/23 Pseudoephedrine 12Hr [Sudafed 12 120 mg PO Q12HR #14 tab 08/07/23 Hour] Amoxicillin 500 mg PO Q8H #30 capsule 08/21/23 Amoxic-Pot Clav 875-125Mg 1 tab PO Q12HR #20 tab 10/27/23 [Augmentin 875-125] Ibuprofen [Motrin] 600 mg PO Q8HR PRN #20 tab 10/27/23 Amoxicillin 500 mg PO Q8H #30 capsule 11/20/23 Allergies Allergy/AdvReac Type Severity Reaction Status Date / Time No Known Allergies Allergy Verified 11/20/23 11:08 Review of Systems ROS Statement: Those systems with pertinent positive or pertinent negative responses have been documented in the HPI. ROS Other: All systems not noted in ROS Statement are negative. Past Medical History Past Medical History: Asthma, Hypertension, Osteoarthritis (OA) History of Any Multi-Drug Resistant Organisms: None Reported Past Surgical History: Appendectomy, Section, Cholecystectomy Additional Past Surgical History / Comment(s): Past Anesthesia/Blood Transfusion Reactions: No Reported Reaction Past Psychological History: ADD/ADHD, Anxiety, Depression Smoking Status: Vaper Past Alcohol Use History: None Reported Past Drug Use History: Marijuana - Past Family History Father Family Medical History: No Reported History Mother Family Medical History: No Reported History General Exam Limitations: no limitations General appearance: alert, in no apparent distress Head exam: Present: atraumatic, normocephalic, normal inspection Eye exam: Present: normal appearance, PERRL, EOMI. Absent: scleral icterus, conjunctival injection, periorbital swelling ENT exam: Present: mucous membranes moist. Absent: normal oropharynx Neck exam: Present: normal inspection, full ROM. Absent: tenderness, meningismus, lymphadenopathy Respiratory exam: Present: normal lung sounds bilaterally. Absent: respiratory distress, wheezes, rales, rhonchi, stridor Cardiovascular Exam: Present: regular rate, normal rhythm, normal heart sounds. Absent: systolic murmur, diastolic murmur, rubs, gallop, clicks GI/Abdominal exam: Present: soft, normal bowel sounds. Absent: distended, tenderness, guarding, rebound, rigid Course Vital Signs 11/20/23 11:04 Temperature 98.3 F Pulse Rate 99 Respiratory 18 Rate Blood Pressure 102/87 O2 Sat by Pulse 98 Oximetry Medical Decision Making - Medical Decision Making Was pt. sent in by a medical professional or institution (, PA, DOG AND CAT FOOD COOK, urgent care, hospital, or long-term...) When possible be specific @ -No Did you speak to anyone other than the patient for history (EMS, parent, family, police, friend...)? What history was obtained from this source @ -No Did you review nursing and triage notes (agree or disagree)? Why? @ -I reviewed and agree with nursing and triage notes Were old charts reviewed (outside hosp., previous admission, EMS record, old EKG, old radiological studies, urgent care reports/EKG's, long-term records)? Report findings @ -No old charts were reviewed Differential Diagnosis (chest pain, altered mental status, abdominal pain women, abdominal pain men, vaginal bleeding, weakness, fever, dyspnea, syncope, headache, dizziness, GI bleed, back pain, seizure, CVA, palpatations, mental health, musculoskeletal)? @ -COVID 19, RSV, influenza, pneumonia, acute bronchitis, URI, this list is not all inclusive EKG interpreted by me (3pts min.). @ -None X-rays interpreted by me (1pt min.). @ -None done CT interpreted by me (1pt min.). @ -None done U/S interpreted by me (1pt. min.). @ -[Ultrasound OB transvaginal showing early gestational sac no other acute process. What testing was considered but not performed or refused? (CT, X-rays, U/S, labs)? Why? @ -None What meds were considered but not given or refused? Why? @ -None Did you discuss the management of the patient with other professionals (professionals i.e. , PA, DOG AND CAT FOOD COOK, lab, RT, psych nurse, social services designee, road repairer, teacher, radiological defense officer, sample case porter)? Give summary @ -No Was smoking cessation discussed for >3mins.? @ -No Was critical care preformed (if so, how long)? @ -No Were there social determinants of health that impacted care today? How? (Homelessness, low income, unemployed, alcoholism, drug addiction, transportation, low edu. Level, literacy, decrease access to med. care, half-way, rehab)? @ -No Was there de-escalation of care discussed even if they declined (Discuss DNR or withdrawal of care, Hospice)? DNR status @ -No What co-morbidities impacted this encounter? (DM, HTN, Smoking, COPD, CAD, Cancer, CVA, ARF, Chemo, Hep., AIDS, mental health diagnosis, sleep apnea, morbid obesity)? @ -None Was patient admitted / discharged? Hospital course, mention meds given and route, prescriptions, significant lab abnormalities, going to OR and other pertinent info. @ -Discharge patient laboratory studies unremarkable. Patient will have repeat hCG in 2 days hCG was added on. Patient is group A strep positive will be discharged with amoxicillin. Undiagnosed new problem with uncertain prognosis? @ -No Drug Therapy requiring intensive monitoring for toxicity (Heparin, Nitro, Insulin, Cardizem)? @ -No Were any procedures done? @ -No Diagnosis/symptom? @ -Strep A, Acute, or Chronic, or Acute on Chronic? @ -Acute Uncomplicated (without systemic symptoms) or Complicated (systemic symptoms)? @ -Uncomplicated Side effects of treatment? @ -No Exacerbation, Progression, or Severe Exacerbation? @ -No Poses a threat to life or bodily function? How? (Chest pain, USA, [place], pneumonia, PE, COPD, DKA, ARF, appy, cholecystitis, CVA, Diverticulitis, Homicidal, Suicidal, threat to staff... and all critical care pts) @ -No - Lab Data Result diagrams: 11/20/23 11:19 11/20/23 11:19 Lab Results 11/20/23 11/20/23 11/20/23 Range/Units 11:19 11:19 11:19 WBC 8.7 (3.8-10.6) k/uL RBC 4.49 (3.80-5.40) m/uL Hgb 13.2 (11.4-16.0) gm/dL Hct 40.0 (34.0-46.0) % MCV 88.9 (80.0-100.0) fL MCH 29.3 (25.0-35.0) pg MCHC 32.9 (31.0-37.0) g/dL RDW 13.3 (11.5-15.5) % Plt Count 206 (150-450) k/uL MPV 8.0 Neutrophils % 64 % Lymphocytes % 27 % Monocytes % 5 % Eosinophils % 1 % Basophils % 1 % Neutrophils # 5.6 (1.3-7.7) k/uL Lymphocytes # 2.4 (1.0-4.8) k/uL Monocytes # 0.4 (0-1.0) k/uL Eosinophils # 0.1 (0-0.7) k/uL Basophils # 0.0 (0-0.2) k/uL Sodium 138 (137-145) mmol/L Potassium 3.6 (3.5-5.1) mmol/L Chloride 107 (98-107) mmol/L Carbon Dioxide 21 L (22-30) mmol/L Anion Gap 10 mmol/L BUN 7 (7-17) mg/dL Creatinine 0.67 (0.52-1.04) mg/dL Est GFR (CKD-EPI)AfAm >90 (>60 ml/min/1.73 sqM) Est GFR (CKD-EPI)NonAf >90 (>60 ml/min/1.73 sqM) Glucose 76 (74-99) mg/dL Calcium 8.9 (8.4-10.2) mg/dL Total Bilirubin 0.3 (0.2-1.3) mg/dL AST 24 (14-36) U/L ALT 20 (4-34) U/L Alkaline Phosphatase 67 (38-126) U/L Total Protein 6.9 (6.3-8.2) g/dL Albumin 3.8 (3.5-5.0) g/dL Urine Color Colorless Urine Appearance Clear (Clear) Urine pH 7.0 (5.0-8.0) Ur Specific [place] 1.006 (1.001-1.035) Urine Protein Negative (Negative) Urine Glucose (UA) Negative (Negative) Urine Ketones Negative (Negative) Urine Blood Negative (Negative) Urine Nitrite Negative (Negative) Urine Bilirubin Negative (Negative) Urine Urobilinogen <2.0 (<2.0) mg/dL Ur Leukocyte Esterase Negative (Negative) Influenza Type A (PCR) (Not Detectd) Influenza Type B (PCR) (Not Detectd) RSV (PCR) (Not Detectd) SARS-CoV-2 (PCR) (Not Detectd) Group A Strep (PCR) (Not Detectd) 11/20/23 11/20/23 Range/Units 11:19 11:19 WBC (3.8-10.6) k/uL RBC (3.80-5.40) m/uL Hgb (11.4-16.0) gm/dL Hct (34.0-46.0) % MCV (80.0-100.0) fL MCH (25.0-35.0) pg MCHC (31.0-37.0) g/dL RDW (11.5-15.5) % Plt Count (150-450) k/uL MPV Neutrophils % % Lymphocytes % % Monocytes % % Eosinophils % % Basophils % % Neutrophils # (1.3-7.7) k/uL Lymphocytes # (1.0-4.8) k/uL Monocytes # (0-1.0) k/uL Eosinophils # (0-0.7) k/uL Basophils # (0-0.2) k/uL Sodium (137-145) mmol/L Potassium (3.5-5.1) mmol/L Chloride (98-107) mmol/L Carbon Dioxide (22-30) mmol/L Anion Gap mmol/L BUN (7-17) mg/dL Creatinine (0.52-1.04) mg/dL Est GFR (CKD-EPI)AfAm (>60 ml/min/1.73 sqM) Est GFR (CKD-EPI)NonAf (>60 ml/min/1.73 sqM) Glucose (74-99) mg/dL Calcium (8.4-10.2) mg/dL Total Bilirubin (0.2-1.3) mg/dL AST (14-36) U/L ALT (4-34) U/L Alkaline Phosphatase (38-126) U/L Total Protein (6.3-8.2) g/dL Albumin (3.5-5.0) g/dL Urine Color Urine Appearance (Clear) Urine pH (5.0-8.0) Ur Specific [place] (1.001-1.035) Urine Protein (Negative) Urine Glucose (UA) (Negative) Urine Ketones (Negative) Urine Blood (Negative) Urine Nitrite (Negative) Urine Bilirubin (Negative) Urine Urobilinogen (<2.0) mg/dL Ur Leukocyte Esterase (Negative) Influenza Type A (PCR) Not Detected (Not Detectd) Influenza Type B (PCR) Not Detected (Not Detectd) RSV (PCR) Not Detected (Not Detectd) SARS-CoV-2 (PCR) Not Detected (Not Detectd) Group A Strep (PCR) DETECTED A (Not Detectd) Disposition Clinical Impression: Strep pharyngitis, Disposition: HOME SELF-CARE Condition: Stable Instructions (If sedation given, give patient instructions): Strep Throat (ED) Additional Instructions: Please return to the Emergency Department if symptoms worsen or any other concerns. Prescriptions: Amoxicillin 500 mg PO Q8H #30 capsule Is patient prescribed a controlled substance at d/c from ED?: No Referrals: Osmar Lundberg MD [Primary Care Provider] - 1-2 days Time of Disposition: 14:05
[2023-11-20 14:37] VITALS: BP 110/78; PULSE 87; RESP 20; TEMP 98.6
== END 2023-11-20 14:15 | disposition home or self-care (01) ==
LOC: EC 10:58
DX: O99.511 Diseases of the respiratory system complicating pregnancy, first trimester (principal); J02.0 Streptococcal pharyngitis; B95.0 Streptococcus, group A, as the cause of diseases classified elsewhere; J45.909 Unspecified asthma, uncomplicated; O99.331 Smoking (tobacco) complicating pregnancy, first trimester; F17.290 Nicotine dependence, other tobacco product, uncomplicated; O99.321 Drug use complicating pregnancy, first trimester; F12.90 Cannabis use, unspecified, uncomplicated; Z3A.01 Less than 8 weeks gestation of pregnancy
CPT/HCPCS: 36415; 76801; 76817; 80053; 81003; 84702; 85025; 87636; 87651; 96360; 96361; 99285

== ENCOUNTER → 2023-11-22 | Outpatient (CLI) | payer OTHER | END | disposition home or self-care (01) | LOC: LABWHC1 12:45 | PROVIDERS: ATTEND Physician Assistant | DX: O20.0 Threatened abortion (principal); Z3A.00 Weeks of gestation of pregnancy not specified | CPT/HCPCS: 36415; 84702 ==

== ENCOUNTER 2023-12-09 11:48 | Emergency (ER) | payer OTHER ==
--- NOTE | 2023-12-09 12:00 | ED ---
Back Pain HPI - General Chief Complaint: Back Pain/Injury Stated Complaint: back pain Time Seen by Provider: 12/09/23 11:58 Source: patient, RN notes reviewed Limitations: no limitations - History of Present Illness Initial Comments: This is a 28-year-old female at 8 weeks gestation who presents emergency department with chief complaint of right flank and back pain. Patient states that this pain started with no acute trauma or injury 4 days ago and has been worsening since, she endorses increase in frequency and urgency to use the restroom. Patient denies numbness or tingling to bilateral legs, no saddle anesthesias, no urinary retention. Patient also experiencing symptoms of upper respiratory infection such as sore throat, runny nose, nonproductive cough over the last 4 days, no fevers noted. Patient states that she has been experiencing morning sickness over the last week with nausea and vomiting in the morning, but symptoms subside by late afternoon to evening, states she has been able to keep down food and water yesterday. She denies dysuria, hematuria, vaginal bleeding or discharge, fevers, headaches, abdominal cramping or pain. Patient has a history of nephrolithiasis. She endorses nicotine use via vaping and marijuana use, states that she is attempting to "cut down" and quit. - Related Data Previous Rx's Medication Instructions Recorded Acetaminophen [Acetaminophen 8 hr] 650 mg PO Q8H #15 tab 12/09/23 Amoxicillin 875 mg PO Q12HR #20 tablet 12/09/23 Ondansetron Odt [Zofran Odt] 4 mg PO Q8HR PRN #10 tab 12/09/23 Allergies Allergy/AdvReac Type Severity Reaction Status Date / Time No Known Allergies Allergy Verified 12/09/23 14:20 Review of Systems ROS Statement: Those systems with pertinent positive or pertinent negative responses have been documented in the HPI. ROS Other: All systems not noted in ROS Statement are negative. Past Medical History Past Medical History: Asthma, Hypertension, Osteoarthritis (OA) History of Any Multi-Drug Resistant Organisms: None Reported Past Surgical History: Appendectomy, Section, Cholecystectomy Additional Past Surgical History / Comment(s): Past Anesthesia/Blood Transfusion Reactions: No Reported Reaction Past Psychological History: ADD/ADHD, Anxiety, Depression Smoking Status: Vaper Past Alcohol Use History: None Reported Past Drug Use History: Marijuana - Past Family History Father Family Medical History: No Reported History Mother Family Medical History: No Reported History General Exam Limitations: no limitations General appearance: alert, in no apparent distress Head exam: Present: atraumatic, normocephalic, normal inspection Eye exam: Present: normal appearance, PERRL, EOMI. Absent: scleral icterus, conjunctival injection, periorbital swelling ENT exam: Present: normal exam, mucous membranes moist. Absent: normal oropharynx (erythematous with petechia noted) Neck exam: Present: normal inspection, lymphadenopathy (tonsillar). Absent: tenderness, meningismus Respiratory exam: Present: normal lung sounds bilaterally. Absent: respiratory distress, wheezes, rales, rhonchi, stridor Cardiovascular Exam: Present: regular rate, normal rhythm (sinus arrythmia), tachycardia GI/Abdominal exam: Present: soft, normal bowel sounds. Absent: distended, tenderness, guarding, rebound, rigid Extremities exam: Present: normal inspection, full ROM, normal capillary refill. Absent: tenderness, pedal edema, joint swelling, calf tenderness Back exam: Present: full ROM, CVA tenderness (R), paraspinal tenderness (bilateral lumbar back pain with movement and palpation). Absent: CVA tendernes s (L) Neurological exam: Present: alert, oriented X3, CN II-XII intact Psychiatric exam: Present: normal affect, normal mood Skin exam: Present: warm, dry, intact, normal color. Absent: rash Course Vital Signs 12/09/23 12/09/23 12/09/23 11:53 13:51 14:41 Temperature 98.5 F 98.2 F 98.2 F Pulse Rate 112 H 73 85 Respiratory 18 16 18 Rate Blood Pressure 137/99 100/61 106/79 O2 Sat by Pulse 98 100 99 Oximetry Medical Decision Making - Medical Decision Making Was pt. sent in by a medical professional or institution (, PA, COTTON INSPECTOR, urgent care, hospital, or correction...) When possible be specific @ -No Did you speak to anyone other than the patient for history (EMS, parent, family, police, friend...)? What history was obtained from this source @ -No Did you review nursing and triage notes (agree or disagree)? Why? @ -I reviewed and agree with nursing and triage notes Were old charts reviewed (outside hosp., previous admission, EMS record, old EKG, old radiological studies, urgent care reports/EKG's, correction records)? Report findings @ -No old charts were reviewed Differential Diagnosis (chest pain, altered mental status, abdominal pain women, abdominal pain men, vaginal bleeding, weakness, fever, dyspnea, syncope, headache, dizziness, GI bleed, back pain, seizure, CVA, palpatations, mental health, musculoskeletal)? @ -Differential Abdominal Pain Women: Appendicitis, Cholecystitis, diverticulosis, ischemic bowel, pancreatitis, hepatitis, UTI, gastroenteritis, AAA, incarcerated hernia, bowel obstruction, constipation, inflammatory bowel, hepatitis, peptic ulcer disease, splenic infarction, perforated viscus, vulvitis, ovarian torsion, PID, kidney stone, placenta abruption, this is not meant to be an all-inclusive list Differential Musculoskeletal Muscular strain, contusion, ligament sprain, fracture, arthritis, septic arthritis, bursitis, cellulitis, muscle spasm, nerve compression, DVT, arterial occlusion, herpes zoster, electrolyte abnormality, tumor.... This is not meant to be in all inclusive list EKG interpreted by me (3pts min.). @ -None X-rays interpreted by me (1pt min.). @ -None done CT interpreted by me (1pt min.). @ -None done U/S interpreted by me (1pt. min.). @ -Transvaginal ultrasound reveals a single viable intrauterine with a heart rate of 165. There is also noted a left ovarian corpus luteal cyst. US of kidneys renal and bladder no evidence of hydronephrosis at this time and no nephrolithiasis seen and no masses identified. What testing was considered but not performed or refused? (CT, X-rays, U/S, labs)? Why? @ -None What meds were considered but not given or refused? Why? @ -None Did you discuss the management of the patient with other professionals (professionals i.e. Dr., PA, COTTON INSPECTOR, lab, RT, psych nurse, social service technician, pulmonary nurse practitioner, teacher, chief data officer, onsite case manager)? Give summary @ -No Was smoking cessation discussed for >3mins.? @ -No Was critical care preformed (if so, how long)? @ -No Were there social determinants of health that impacted care today? How? (Homelessness, low income, unemployed, alcoholism, drug addiction, transportation, low edu. Level, literacy, decrease access to med. care, skilled nursing, rehab)? @ -No Was there de-escalation of care discussed even if they declined (Discuss DNR or withdrawal of care, Hospice)? DNR status @ -No What co-morbidities impacted this encounter? (DM, HTN, Smoking, COPD, CAD, Cancer, CVA, ARF, Chemo, Hep., AIDS, mental health diagnosis, sleep apnea, morbid obesity)? @ -None Was patient admitted / discharged? Hospital course, mention meds given and route, prescriptions, significant lab abnormalities, going to OR and other pertinent info. @ -28-year-old female with complaint of right-sided flank and bilateral lumbar back pain. On examination patient was found to have no abdominal tenderness, no right upper quadrant tenderness noted or suprapubic tenderness to examination. Patient endorses bilateral back pain with palpation that is worse with flexion extension and rotation. Patient was ordered a liter fluid bolus and basic labs were sent in addition to bladder kidney ultrasound and ultrasound. Patient's laboratory results remarkable for slight leukocytosis level of 11.6 and left shift of 9.1, CMP results low BUN of 4. Alysis unremarkable for signs of infection. At this time patient will be treated with amoxicillin for strep positive culture. Instructed patient to complete full course of antibiotics. In addition patient was recommended to use lidocaine patches in addition to Tylenol and rest for back pain most likely musculoskeletal in nature secondary to . I discussed this case with Dr. Brian is agreeable with plan for discharge. Patient also requesting antinausea medication which is sent to as needed to her pharmacy. Undiagnosed new problem with uncertain prognosis? @ -No Drug Therapy requiring intensive monitoring for toxicity (Heparin, Nitro, Insulin, Cardizem)? @ -No Were any procedures done? @ -No Diagnosis/symptom? @ -Acute back pain during , strep pharyngitis Acute, or Chronic, or Acute on Chronic? @ -Acute Uncomplicated (without systemic symptoms) or Complicated (systemic symptoms)? @ -uncomplicated Side effects of treatment? @ -No Exacerbation, Progression, or Severe Exacerbation? @ -No Poses a threat to life or bodily function? How? (Chest pain, USA, [place], pneumonia, PE, COPD, DKA, ARF, appy, cholecystitis, CVA, Diverticulitis, Homicidal, Suicidal, threat to staff... and all critical care pts) @ -No - Lab Data Result diagrams: 12/09/23 12:21 12/09/23 12:21 Lab Results 12/09/23 12/09/23 12/09/23 Range/Units 12:21 12:21 12:21 WBC 11.6 H (3.8-10.6) k/uL RBC 4.31 (3.80-5.40) m/uL Hgb 12.8 (11.4-16.0) gm/dL Hct 37.9 (34.0-46.0) % MCV 87.9 (80.0-100.0) fL MCH 29.6 (25.0-35.0) pg MCHC 33.7 (31.0-37.0) g/dL RDW 13.8 (11.5-15.5) % Plt Count 237 (150-450) k/uL MPV 8.2 Neutrophils % 79 % Lymphocytes % 16 % Monocytes % 3 % Eosinophils % 1 % Basophils % 0 % Neutrophils # 9.1 H (1.3-7.7) k/uL Lymphocytes # 1.9 (1.0-4.8) k/uL Monocytes # 0.3 (0-1.0) k/uL Eosinophils # 0.1 (0-0.7) k/uL Basophils # 0.0 (0-0.2) k/uL Sodium 137 (137-145) mmol/L Potassium 3.6 (3.5-5.1) mmol/L Chloride 109 H (98-107) mmol/L Carbon Dioxide 17 L (22-30) mmol/L Anion Gap 11 mmol/L BUN 4 L (7-17) mg/dL Creatinine 0.51 L (0.52-1.04) mg/dL Est GFR (CKD-EPI)AfAm >90 (>60 ml/min/1.73 sqM) Est GFR (CKD-EPI)NonAf >90 (>60 ml/min/1.73 sqM) Glucose 96 (74-99) mg/dL Calcium 9.2 (8.4-10.2) mg/dL Total Bilirubin 0.5 (0.2-1.3) mg/dL AST 23 (14-36) U/L ALT 17 (4-34) U/L Alkaline Phosphatase 75 (38-126) U/L Total Protein 7.2 (6.3-8.2) g/dL Albumin 4.0 (3.5-5.0) g/dL Urine Color Yellow Urine Appearance Cloudy H (Clear) Urine pH 6.0 (5.0-8.0) Ur Specific [place] 1.020 (1.001-1.035) Urine Protein Trace H (Negative) Urine Glucose (UA) Negative (Negative) Urine Ketones Negative (Negative) Urine Blood Negative (Negative) Urine Nitrite Negative (Negative) Urine Bilirubin Negative (Negative) Urine Urobilinogen 6.0 (<2.0) mg/dL Ur Leukocyte Esterase Negative (Negative) Urine RBC 2 (0-5) /hpf Urine WBC 4 (0-5) /hpf Ur Squamous Epith Cells 2 (0-4) /hpf Urine Mucus Occasional H (None) /hpf Influenza Type A (PCR) (Not Detectd) Influenza Type B (PCR) (Not Detectd) RSV (PCR) (Not Detectd) SARS-CoV-2 (PCR) (Not Detectd) Group A Strep (PCR) (Not Detectd) 12/09/23 12/09/23 Range/Units 12:21 12:21 WBC (3.8-10.6) k/uL RBC (3.80-5.40) m/uL Hgb (11.4-16.0) gm/dL Hct (34.0-46.0) % MCV (80.0-100.0) fL MCH (25.0-35.0) pg MCHC (31.0-37.0) g/dL RDW (11.5-15.5) % Plt Count (150-450) k/uL MPV Neutrophils % % Lymphocytes % % Monocytes % % Eosinophils % % Basophils % % Neutrophils # (1.3-7.7) k/uL Lymphocytes # (1.0-4.8) k/uL Monocytes # (0-1.0) k/uL Eosinophils # (0-0.7) k/uL Basophils # (0-0.2) k/uL Sodium (137-145) mmol/L Potassium (3.5-5.1) mmol/L Chloride (98-107) mmol/L Carbon Dioxide (22-30) mmol/L Anion Gap mmol/L BUN (7-17) mg/dL Creatinine (0.52-1.04) mg/dL Est GFR (CKD-EPI)AfAm (>60 ml/min/1.73 sqM) Est GFR (CKD-EPI)NonAf (>60 ml/min/1.73 sqM) Glucose (74-99) mg/dL Calcium (8.4-10.2) mg/dL Total Bilirubin (0.2-1.3) mg/dL AST (14-36) U/L ALT (4-34) U/L Alkaline Phosphatase (38-126) U/L Total Protein (6.3-8.2) g/dL Albumin (3.5-5.0) g/dL Urine Color Urine Appearance (Clear) Urine pH (5.0-8.0) Ur Specific [place] (1.001-1.035) Urine Protein (Negative) Urine Glucose (UA) (Negative) Urine Ketones (Negative) Urine Blood (Negative) Urine Nitrite (Negative) Urine Bilirubin (Negative) Urine Urobilinogen (<2.0) mg/dL Ur Leukocyte Esterase (Negative) Urine RBC (0-5) /hpf Urine WBC (0-5) /hpf Ur Squamous Epith Cells (0-4) /hpf Urine Mucus (None) /hpf Influenza Type A (PCR) Not Detected (Not Detectd) Influenza Type B (PCR) Not Detected (Not Detectd) RSV (PCR) Not Detected (Not Detectd) SARS-CoV-2 (PCR) Not Detected (Not Detectd) Group A Strep (PCR) DETECTED A (Not Detectd) Disposition Clinical Impression: Group A streptococcal infection, Back pain during Narrative: Please return to the Emergency Department if symptoms worsen or any other concerns. Complete full course of antibiotics as prescribed. Follow-up with OB at next scheduled appointment. Continue use of Tylenol and lidocaine patch for back pain during , heating pads. Disposition: HOME SELF-CARE Condition: Good Prescriptions: Acetaminophen [Acetaminophen 8 hr] 650 mg PO Q8H #15 tab Amoxicillin 875 mg PO Q12HR #20 tablet Ondansetron Odt [Zofran Odt] 4 mg PO Q8HR PRN #10 tab PRN Reason: Nausea Is patient prescribed a controlled substance at d/c from ED?: No Referrals: None,Stated [Primary Care Provider] - 1-2 days Time of Disposition: 14:36
[2023-12-09] MEDS: SODIUM CHLORIDE 0.9% 1,000 ML IV STA (12:21)
[2023-12-09] MEDS: ACETAMINOPHEN TAB 500 MG TAB PO STA (12:24)
[2023-12-09 12:41] LABS: Basophils % (A) 0 %; Eosinophils # (A) 0.1 k/uL (0-0.7); Eosinophils % (A) 1 %; HCT 37.9 % (34.0-46.0); HGB 12.8 gm/dL (11.4-16.0); Lymphocytes # (A) 1.9 k/uL (1.0-4.8); Lymphocytes % (A) 16 %; MCH 29.6 pg (25.0-35.0); MCHC 33.7 g/dL (31.0-37.0); MCV 87.9 fL (80.0-100.0); Mean Platelet Volume 8.2; Monocytes # (A) 0.3 k/uL (0-1.0); Monocytes % (A) 3 %; Neutrophils # (A) 9.1 k/uL (1.3-7.7); Neutrophils % (A) 79 %; Platelet Count 237 k/uL (150-450); RBC 4.31 m/uL (3.80-5.40); RDW 13.8 % (11.5-15.5); WBC 11.6 k/uL (3.8-10.6)
[2023-12-09 12:53] LABS: ALT 17 U/L (4-34); AST 23 U/L (14-36); African American GFR (CKD) >90 (>60 ml/min/1.73 sqM); Alkaline Phosphatase 75 U/L (38-126); Anion Gap 11 mmol/L; Blood Urea Nitrogen 4 mg/dL (7-17); Calcium 9.2 mg/dL (8.4-10.2); Carbon Dioxide 17 mmol/L (22-30); Chloride 109 mmol/L (98-107); Glucose 96 mg/dL (74-99); Non-African American GFR(CKD) >90 (>60 ml/min/1.73 sqM); Potassium 3.6 mmol/L (3.5-5.1); Sodium 137 mmol/L (137-145); Total Bilirubin 0.5 mg/dL (0.2-1.3); Total Protein 7.2 g/dL (6.3-8.2)
--- NOTE | 2023-12-09 13:07 | US ---
EXAMINATION TYPE: US kidneys/renal and bladder DATE OF EXAM: 12/09/2023 COMPARISON: CT CLINICAL INDICATION: Female, 28 years old with history of right flank pain, 8 weeks ; Pt sta wilmer low back pain EXAM MEASUREMENTS: Right Kidney: 10.4 x 5.1 x 5.1 cm Left Kidney: 9.8 x 5.2 x 5.2 cm Right Kidney: No evidence of hydro Left Kidney: No evidence of hydro, lower pole gassed out Bladder: EC pt, not prepped, bladder empty There is no evidence for hydronephrosis at this point in time. No nephrolithiasis is seen. No ally s are identified. IMPRESSION: No discrete abnormality appreciated.
--- NOTE | 2023-12-09 13:09 | US ---
EXAMINATION TYPE: Transabdominal DATE OF EXAM: 12/09/2023 12:55 PM COMPARISON: US CLINICAL INDICATION: Female, 28 years old with history of back and flank pain, 8 weeks ; Cece k pain EXAM PERFORMED: Transabdominal (TA) EXAM MEASUREMENTS: GESTATIONAL AGE / DATING Physician Established: Not yet established Dates by LMP: LMP unknown Dates by First Scan: (7 weeks/5 days) EDC: 07/21/2024 Dates by Current Scan for: (8 weeks/3 days) EDC: 07/17/2024 MATERNAL ANATOMY Uterus: 9.8 x 5.4 x 7.0 cm Right Ovary: 2.1 x 1.9 x 1.4 cm Left Ovary: 3.4 x 2.7 x 2.1 cm Post CDS / Adnexa: wnl Presence of free fluid: No Presence of corpus luteal cyst: Left Ovary= 1.8 x 1.4 x 1.8 cm Presence of subchorionic bleed: No GESTATION / SURVEY CRL: 1.9 cm (8 weeks/3 days) MSD: wnl Yolk Sac (normal less than 6mm): 4mm Heart Rate: 165 bpm Rhythm: Normal IUP: Viable IUP *Single, viable IUP/ No abnormality to account for pt's pain IMPRESSION: 1. Single viable intrauterine . Left ovarian corpus luteal cyst.
[2023-12-09] MEDS: ONDANSETRON 4 MG/2 ML VIAL IVP STA (13:50)
[2023-12-09 14:01] VITALS: TEMP 98.2
[2023-12-09 14:27] LABS: Appearance,Urine Cloudy (Clear); Bilirubin,Urine Negative (Negative); Blood,Urine Negative (Negative); Color,Urine Yellow; Glucose,Urine (UA) Negative (Negative); Ketones,Urine Negative (Negative); Leukocyte Esterase,Urine Negative (Negative); Mucus,Urine Occasional /hpf; Nitrite,Urine Negative (Negative); Protein,Urine Trace (Negative); RBC,Urine 2 /hpf (0-5); Squamous Epithelial Cell,Urine 2 /hpf (0-4); WBC,Urine 4 /hpf (0-5)
[2023-12-09 15:15] VITALS: BP 106/79; PULSE 85; RESP 18
[2023-12-09 16:34] LABS: HCG,Quantitative Serum 98939.8 mIU/mL
== END 2023-12-09 14:43 | disposition home or self-care (01) ==
LOC: EC 11:48
DX: O26.891 Other specified pregnancy related conditions, first trimester (principal); O98.511 Other viral diseases complicating pregnancy, first trimester; M54.50 Low back pain, unspecified; B95.0 Streptococcus, group A, as the cause of diseases classified elsewhere; O99.321 Drug use complicating pregnancy, first trimester; F17.290 Nicotine dependence, other tobacco product, uncomplicated; Z90.49 Acquired absence of other specified parts of digestive tract; Z3A.08 8 weeks gestation of pregnancy
CPT/HCPCS: 36415; 87651; 80053; 85025; 81001; 84702; 87636; 76801; 76770; 99284; 96374; 96361; J2405

== ENCOUNTER → 2023-12-19 | Outpatient (CLI) | payer OTHER ==
--- NOTE | 2023-12-19 23:16 | US ---
EXAMINATION TYPE: Transabdominal DATE OF EXAM: 12/19/2023 2:21 PM COMPARISON: NONE CLINICAL INDICATION: Female, 28 years old with history of Z34.90 ENCOUNTER FOR SUPERVISION OF NORMAL PREGNAN; Dates. No symptoms. Hx of . EXAM PERFORMED: Transvaginal (TV) and Transabdominal (TA) EXAM MEASUREMENTS: GESTATIONAL AGE / DATING Physician Established: (10 weeks/1 days) EDC: 07/15/2024 Dates by LMP: LMP unknown Dates by First Scan: (9 weeks/2 days) EDC: 07/21/2024 Dates by Current Scan for: (10 weeks/1 days) EDC: 07/15/2024 MATERNAL ANATOMY Uterus: 9.7 x 6.3 x 6.1 cm Right Ovary: 2.5 x 1.2 x 1.4 cm Left Ovary: 3.2 x 1.5 x 1.9 cm Post CDS / Adnexa: No free fluid Presence of free fluid: No Presence of corpus luteal cyst: Left ovary = 1.5 x 1.3 x 1.1 cm Presence of subchorionic bleed: No GESTATION / SURVEY CRL: 3.2 cm (10 weeks/1 days) MSD: Visualized, not measured Yolk Sac (normal less than 6mm): 4.0 mm Heart Rate: 170 bpm Rhythm: Normal IUP: Viable IUP Date of LMP: Unknown LMP, Beta HcG (if available): Not available at this time Single IUP measuring 10 weeks 1 day. IMPRESSION: 1. Single intrauterine gestation estimated at 10 weeks 1 day gestation based on the current ultrasoun d measurements. Cardiac activity measures 170 bpm.
== END | disposition home or self-care (01) ==
LOC: RADUSWWP 13:10
PROVIDERS: ATTEND Obstetrics & Gynecology
DX: Z34.90 Encounter for supervision of normal pregnancy, unspecified, unspecified trimester (principal); Z3A.10 10 weeks gestation of pregnancy
CPT/HCPCS: 76801; 76817

== ENCOUNTER 2023-12-29 07:31 | Emergency (ER) | payer OTHER ==
--- NOTE | 2023-12-29 07:44 | ED ---
URI HPI - General Chief Complaint: Upper Respiratory Infection Stated Complaint: ANA LAURA,12wks preg Time Seen by Provider: 12/29/23 07:41 Source: patient, RN notes reviewed Mode of arrival: ambulatory Limitations: no limitations - History of Present Illness Initial Comments: This is a 28-year-old female who presents to the emergency department for shortness of breath, nausea, and vomiting. Patient states that the shortness of breath started a couple of days ago. Her daughter has influenza and wonders if she may have caught it from her. She does also have asthma. She is 12 weeks and and is unsure if she can use her inhaler, and has thus not been using it. She has also been vomiting essentially since this began. She is taking Reglan without any relief in symptoms. She was on Zofran in her previous , which she states was effective. Denies any abdominal pain or vaginal bleeding. - Related Data Home Medications Medication Instructions Recorded Confirmed Acetaminophen [Acetaminophen 8 hr] 650 mg PO Q8H PRN 12/29/23 12/29/23 Metoclopramide [Reglan] 5 mg PO AC-BID 12/29/23 12/29/23 Noo-Eiel-Pkkob Acid 1 cap PO DAILY 12/29/23 12/29/23 [-U Capsule (formulary)] Previous Rx's Medication Instructions Recorded Ondansetron Odt [Zofran Odt] 4 mg PO Q8HR PRN #30 tab 12/29/23 clindamycin HCL 300 mg PO QID 10 Days #40 capsule 12/29/23 Allergies Allergy/AdvReac Type Severity Reaction Status Date / Time No Known Allergies Allergy Verified 12/29/23 11:23 Review of Systems ROS Statement: Those systems with pertinent positive or pertinent negative responses have been documented in the HPI. ROS Other: All systems not noted in ROS Statement are negative. Past Medical History Past Medical History: Asthma, Hypertension, Osteoarthritis (OA) History of Any Multi-Drug Resistant Organisms: None Reported Past Surgical History: Appendectomy, Section, Cholecystectomy Additional Past Surgical History / Comment(s): Past Anesthesia/Blood Transfusion Reactions: No Reported Reaction Past Psychological History: ADD/ADHD, Anxiety, Depression Smoking Status: Vaper Past Alcohol Use History: None Reported Past Drug Use History: Marijuana - Past Family History Father Family Medical History: No Reported History Mother Family Medical History: No Reported History General Exam Limitations: no limitations General appearance: alert, in no apparent distress Head exam: Present: atraumatic, normocephalic, normal inspection ENT exam: Present: other (Posterior pharyngeal erythema and tonsillar hypertrophy) Respiratory exam: Present: normal lung sounds bilaterally. Absent: respiratory distress, wheezes, rales, rhonchi, stridor Cardiovascular Exam: Present: regular rate, normal rhythm, normal heart sounds. Absent: systolic murmur, diastolic murmur, rubs, gallop, clicks Neurological exam: Present: alert, oriented X3, CN II-XII intact Psychiatric exam: Present: normal affect, normal mood Skin exam: Present: warm, dry, intact, normal color. Absent: rash Course Vital Signs 12/29/23 12/29/23 12/29/23 07:32 10:29 11:18 Temperature 97.9 F 98.4 F 98.2 F Pulse Rate 78 82 84 Respiratory 18 18 16 Rate Blood Pressure 114/76 106/74 103/67 O2 Sat by Pulse 100 100 100 Oximetry 12/29/23 12:29 Temperature 98.1 F Pulse Rate 81 Respiratory 16 Rate Blood Pressure 102/64 O2 Sat by Pulse 100 Oximetry Medical Decision Making - Medical Decision Making This is a 28 year old female who presents to the emergency department for coughing, nausea, and vomiting. Was pt. sent in by a medical professional or institution? @ -No Did you speak to anyone other than the patient for history? @ -No Did you review nursing and triage notes? @ -Yes, and I agree, it is accurate with regards to the patient's symptoms. Were old charts reviewed? @ -No Differential Diagnosis? @ -Differential Nausea and Vomiting: Gastroenteritis, cholecystitis, appendicitis, pancreatitis, migraine, benign positional vertigo, food borne illness, pyelonephritis, irritable bowel syndrome, influenza, Covid, GERD, incarcerated hernia, intestinal obstruction, this is not meant to be an all-inclusive list. EKG interpreted by me (3pts min.)? @ -Not obtained X-rays interpreted by me (1pt min.)? @ -Not obtained CT interpreted by me (1pt min.)? @ -Not obtained U/S interpreted by me (1pt. min.)? @ -Not obtained What testing was considered but not performed? (CT, X-rays, U/S, labs)? Why? @ -None What meds were considered but not given? Why? @ -None Did you discuss the management of the patient with other professionals? @ -No Did you reconcile home meds? @ -No Was smoking cessation discussed for >3mins.? @ -No Was critical care preformed (if so, how long)? @ -No Were there social determinants of health that impacted care today? How? (Homelessness, low income, unemployed, alcoholism, drug addiction, transportation, low edu. Level, literacy, decrease access to med. care, long-term, rehab)? @ -No Was there de-escalation of care discussed even if they declined? (Discuss DNR or withdrawal of care, Hospice)? @ -No What co-morbidities impacted this encounter? (DM, HTN, Smoking, COPD, CAD, Cancer, CVA, Hep., AIDS, mental health diagnosis, sleep apnea, morbid obesity)? @ -, asthma Was patient admitted / discharged? @ -Discharged. Lab work unremarkable. COVID, influenza, and RSV testing were negative. Patient positive for strep throat. Urinalysis negative for signs of infection. Patient initially treated with IV fluids, Benadryl, vitamin B6, and Zofran, with moderate improvement in symptoms. She did have some residual nausea and was subsequently given Compazine. The Compazine made her fairly shaky and she did not like how it made her feel. Patient reports multiple strep throat infections recently treated with amoxicillin. States that whenever she takes this she has some improvement in her sore throat, but feels like it never completely goes away. Given that this has not been necessarily effective, advised that we can try something else. Prescription for clindamycin provided, which is shown to be safe in . Initial dose administered in the emergency department. Given that she does not have improvement in nausea with Reglan, Benadryl, or Compazine, she was given a prescription for Zofran. Advised also trying [id number] vitamin B6 and Unisom. Patient discharged home in stable condition and advised to slowly advance her diet as tolerated and remain well-hydrated. Undiagnosed new problem with uncertain prognosis? @ -None Drug Therapy requiring intensive monitoring for toxicity (Heparin, Nitro, Insulin, Cardizem)? @ -None Were any procedures done? @ -None Diagnosis/symptom? @ -URI, nausea and vomiting in Acute, or Chronic, or Acute on Chronic? @ -Acute Uncomplicated (without systemic symptoms) or Complicated (systemic symptoms)? @ -Uncomplicated Side effects of treatment? @ -None Exacerbation, Progression, or Severe Exacerbation] @ -Not applicable Poses a threat to life or bodily function? @ -No Return precautions reviewed in depth, the patient is instructed to return to the emergency department with any new, worsening, or concerning symptoms. Patient verbalized understanding. This case was discussed in detail with the attending ED physician, Dr. Dao. Presentation, findings, and treatment plan discussed in detail as well. - Lab Data Result diagrams: 12/29/23 07:59 12/29/23 07:59 Lab Results 12/29/23 12/29/23 12/29/23 Range/Units 07:36 07:59 07:59 WBC 9.4 (3.8-10.6) k/uL RBC 4.44 (3.80-5.40) m/uL Hgb 13.0 (11.4-16.0) gm/dL Hct 40.1 (34.0-46.0) % MCV 90.4 (80.0-100.0) fL MCH 29.2 (25.0-35.0) pg MCHC 32.3 (31.0-37.0) g/dL RDW 13.3 (11.5-15.5) % Plt Count 226 (150-450) k/uL MPV 8.2 Neutrophils % 69 % Lymphocytes % 23 % Monocytes % 4 % Eosinophils % 2 % Basophils % 0 % Neutrophils # 6.5 (1.3-7.7) k/uL Lymphocytes # 2.2 (1.0-4.8) k/uL Monocytes # 0.4 (0-1.0) k/uL Eosinophils # 0.2 (0-0.7) k/uL Basophils # 0.0 (0-0.2) k/uL Sodium (137-145) mmol/L Potassium (3.5-5.1) mmol/L Chloride (98-107) mmol/L Carbon Dioxide (22-30) mmol/L Anion Gap mmol/L BUN (7-17) mg/dL Creatinine (0.52-1.04) mg/dL Est GFR (CKD-EPI)AfAm (>60 ml/min/1.73 sqM) Est GFR (CKD-EPI)NonAf (>60 ml/min/1.73 sqM) Glucose (74-99) mg/dL POC Glucose (mg/dL) (70-110) mg/dL POC Glu Fish Icer ID Calcium (8.4-10.2) mg/dL Total Bilirubin (0.2-1.3) mg/dL AST (14-36) U/L ALT (4-34) U/L Alkaline Phosphatase (38-126) U/L Total Protein (6.3-8.2) g/dL Albumin (3.5-5.0) g/dL HCG, Quant mIU/mL Urine Color Colorless Urine Appearance Clear (Clear) Urine pH 7.0 (5.0-8.0) Ur Specific [place] 1.008 (1.001-1.035) Urine Protein Negative (Negative) Urine Glucose (UA) Negative (Negative) Urine Ketones Negative (Negative) Urine Blood Negative (Negative) Urine Nitrite Negative (Negative) Urine Bilirubin Negative (Negative) Urine Urobilinogen <2.0 (<2.0) mg/dL Ur Leukocyte Esterase Negative (Negative) Influenza Type A (PCR) Not Detected (Not Detectd) Influenza Type B (PCR) Not Detected (Not Detectd) RSV (PCR) Not Detected (Not Detectd) SARS-CoV-2 (PCR) Not Detected (Not Detectd) Group A Strep (PCR) (Not Detectd) 12/29/23 12/29/23 12/29/23 Range/Units 07:59 09:15 12:22 WBC (3.8-10.6) k/uL RBC (3.80-5.40) m/uL Hgb (11.4-16.0) gm/dL Hct (34.0-46.0) % MCV (80.0-100.0) fL MCH (25.0-35.0) pg MCHC (31.0-37.0) g/dL RDW (11.5-15.5) % Plt Count (150-450) k/uL MPV Neutrophils % % Lymphocytes % % Monocytes % % Eosinophils % % Basophils % % Neutrophils # (1.3-7.7) k/uL Lymphocytes # (1.0-4.8) k/uL Monocytes # (0-1.0) k/uL Eosinophils # (0-0.7) k/uL Basophils # (0-0.2) k/uL Sodium 139 (137-145) mmol/L Potassium 3.8 (3.5-5.1) mmol/L Chloride 106 (98-107) mmol/L Carbon Dioxide 24 (22-30) mmol/L Anion Gap 9 mmol/L BUN 4 L (7-17) mg/dL Creatinine 0.62 (0.52-1.04) mg/dL Est GFR (CKD-EPI)AfAm >90 (>60 ml/min/1.73 sqM) Est GFR (CKD-EPI)NonAf >90 (>60 ml/min/1.73 sqM) Glucose 89 (74-99) mg/dL POC Glucose (mg/dL) 80 (70-110) mg/dL POC Glu Fish Icer ID [place] Calcium 9.4 (8.4-10.2) mg/dL Total Bilirubin 0.4 (0.2-1.3) mg/dL AST 22 (14-36) U/L ALT 17 (4-34) U/L Alkaline Phosphatase 71 (38-126) U/L Total Protein 7.3 (6.3-8.2) g/dL Albumin 4.0 (3.5-5.0) g/dL HCG, Quant 39696.7 mIU/mL Urine Color Urine Appearance (Clear) Urine pH (5.0-8.0) Ur Specific [place] (1.001-1.035) Urine Protein (Negative) Urine Glucose (UA) (Negative) Urine Ketones (Negative) Urine Blood (Negative) Urine Nitrite (Negative) Urine Bilirubin (Negative) Urine Urobilinogen (<2.0) mg/dL Ur Leukocyte Esterase (Negative) Influenza Type A (PCR) (Not Detectd) Influenza Type B (PCR) (Not Detectd) RSV (PCR) (Not Detectd) SARS-CoV-2 (PCR) (Not Detectd) Group A Strep (PCR) DETECTED A (Not Detectd) Disposition Clinical Impression: Nausea & vomiting, Strep pharyngitis Disposition: HOME SELF-CARE Instructions (If sedation given, give patient instructions): Nausea and Vomi ting in (ED), Strep Throat (ED) Additional Instructions: Return to the emergency department with any new, worsening, or concerning symptoms. Take the antibiotic as prescribed for 10 days. You can take the Zofran up to every 8 hours as needed for nausea and vomiting. You can also take [id number] vitamin B6 and Unisom. Slowly advance your diet as tolerated and remain well-hydrated. You can use your albuterol inhaler if needed. You can also take [id number]-ntt-[id number] cough medication as long as it does not contain aspirin, other anti-inflammatories, or alcohol. 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 Prescriptions: clindamycin HCL 300 mg PO QID 10 Days #40 capsule Ondansetron Odt [Zofran Odt] 4 mg PO Q8HR PRN #30 tab PRN Reason: Nausea And Vomiting Is patient prescribed a controlled substance at d/c from ED?: No Referrals: None,Stated [Primary Care Provider] - 1-2 days
[2023-12-29 08:29] LABS: Appearance,Urine Clear (Clear); Bilirubin,Urine Negative (Negative); Blood,Urine Negative (Negative); Color,Urine Colorless; Glucose,Urine (UA) Negative (Negative); Ketones,Urine Negative (Negative); Leukocyte Esterase,Urine Negative (Negative); Nitrite,Urine Negative (Negative); Protein,Urine Negative (Negative); Specific Gravity,Urine 1.008 (1.001-1.035); Urobilinogen,Urine <2.0 mg/dL (<2.0)
[2023-12-29] MEDS: SODIUM CHLORIDE 0.9% 1,000 ML IV STA (09:13)
[2023-12-29] MEDS: SODIUM CHLORIDE 0.9% 500 ML 500 ML IV STA (09:13)
[2023-12-29] MEDS: ONDANSETRON 4 MG/2 ML VIAL IVP STA (09:26)
[2023-12-29] MEDS: diphenhydrAMINE 50 MG/ML 1 ML VIAL IVP STA ×2 (09:26→11:22)
[2023-12-29] MEDS: guaiFENesin-DM 600/30MG 1 EACH TAB.ER.12H PO STA (09:42)
[2023-12-29 09:43] LABS: Basophils % (A) 0 %; Eosinophils # (A) 0.2 k/uL (0-0.7); Eosinophils % (A) 2 %; HCT 40.1 % (34.0-46.0); Lymphocytes # (A) 2.2 k/uL (1.0-4.8); Lymphocytes % (A) 23 %; MCH 29.2 pg (25.0-35.0); MCHC 32.3 g/dL (31.0-37.0); MCV 90.4 fL (80.0-100.0); Mean Platelet Volume 8.2; Monocytes # (A) 0.4 k/uL (0-1.0); Monocytes % (A) 4 %; Neutrophils # (A) 6.5 k/uL (1.3-7.7); Neutrophils % (A) 69 %; Platelet Count 226 k/uL (150-450); RBC 4.44 m/uL (3.80-5.40); RDW 13.3 % (11.5-15.5); WBC 9.4 k/uL (3.8-10.6)
[2023-12-29] MEDS: PYRIDOXINE 100 MG/ML 1 ML VIAL IVP STA (09:43)
[2023-12-29 09:56] LABS: ALT 17 U/L (4-34); AST 22 U/L (14-36); African American GFR (CKD) >90 (>60 ml/min/1.73 sqM); Alkaline Phosphatase 71 U/L (38-126); Anion Gap 9 mmol/L; Blood Urea Nitrogen 4 mg/dL (7-17); Calcium 9.4 mg/dL (8.4-10.2); Carbon Dioxide 24 mmol/L (22-30); Chloride 106 mmol/L (98-107); Glucose 89 mg/dL (74-99); Non-African American GFR(CKD) >90 (>60 ml/min/1.73 sqM); Potassium 3.8 mmol/L (3.5-5.1); Sodium 139 mmol/L (137-145); Total Bilirubin 0.4 mg/dL (0.2-1.3); Total Protein 7.3 g/dL (6.3-8.2)
[2023-12-29] MEDS: PROCHLORPERAZINE INJ 10 MG/2 ML VIAL IVP STA (10:34)
[2023-12-29] MEDS: CLINDAMYCIN 150 MG CAP PO STA (10:34)
[2023-12-29] MEDS: METOCLOPRAMIDE 5 MG/ML 2 ML VIAL IVP STA (10:34)
[2023-12-29 11:07] LABS: HCG,Quantitative Serum 71916.7 mIU/mL
[2023-12-29 11:59] VITALS: RESP 16
[2023-12-29 12:24] LABS: Glucose,Whole Blood 80 mg/dL (70-110)
[2023-12-29 12:45] VITALS: BP 102/64; PULSE 81; TEMP 98.1
== END 2023-12-29 12:30 | disposition home or self-care (01) ==
LOC: EC 07:31
DX: O99.511 Diseases of the respiratory system complicating pregnancy, first trimester (principal); J02.0 Streptococcal pharyngitis; O21.9 Vomiting of pregnancy, unspecified; O99.321 Drug use complicating pregnancy, first trimester; O99.331 Smoking (tobacco) complicating pregnancy, first trimester; Z3A.12 12 weeks gestation of pregnancy
CPT/HCPCS: 36415; 87651; 80053; 85025; 81003; 84702; 87636; 99285; 96374; 96375 ×3; 96376; 96361 ×3; J1200; J0780; J3415; J2405

== ENCOUNTER 2024-01-26 07:08 | Emergency (ER) | payer OTHER ==
--- NOTE | 2024-01-26 07:58 | ED ---
General Adult HPI - General Chief complaint: Abdominal Pain Stated complaint: Cramping 15 wks preg Time Seen by Provider: 01/26/24 07:35 Source: patient, RN notes reviewed, old records reviewed Mode of arrival: ambulatory Limitations: no limitations - History of Present Illness Initial comments: Patient is a 28-year-old female G2, P1 currently 15 weeks with past medical history remarkable for hypertension, asthma who presents emergency department complaining of abdominal cramping. Has been ongoing for 1 to 2 days. Across the lower abdomen. States it feels like period cramps. Denies any vaginal discharge or bleeding. Denies any urinary complaints. Endorses some mild diarrhea over the last few days. No nausea or vomiting. No chest pain or shortness of breath. No fevers. Has been following up with [facility] and has a confirmed IUP on outpatient ultrasound. No complications so far this or previous . Patient presents for further evaluation at this time.Is primarily concerned regarding the fetus and presents for evaluation at this time. - Related Data Home Medications Medication Instructions Recorded Confirmed Acetaminophen [Acetaminophen 8 hr] 650 mg PO Q8H PRN 12/29/23 12/29/23 Metoclopramide [Reglan] 5 mg PO AC-BID 12/29/23 12/29/23 [id number] Acid 1 cap PO DAILY 12/29/23 12/29/23 [-U Capsule (formulary)] Previous Rx's Medication Instructions Recorded Ondansetron Odt [Zofran Odt] 4 mg PO Q8HR PRN #30 tab 12/29/23 clindamycin HCL 300 mg PO QID 10 Days #40 capsule 12/29/23 Allergies Allergy/AdvReac Type Severity Reaction Status Date / Time No Known Allergies Allergy Verified 01/26/24 07:28 Review of Systems ROS Statement: Those systems with pertinent positive or pertinent negative responses have been documented in the HPI. Review of Systems: CONST: Denies fever EYES: Denies blurry vision ENT: Denies nasal congestion C/V: Denies Chest pain RESP: Denies shortness of breath GI: Endorses abdominal cramping : Denies dysuria SKIN: Denies rash. MSK: Denies joint pain. NEURO: Denies headache ROS Other: All systems not noted in ROS Statement are negative. Past Medical History Past Medical History: Asthma, Hypertension, Osteoarthritis (OA) History of Any Multi-Drug Resistant Organisms: None Reported Past Surgical History: Appendectomy, Section, Cholecystectomy Additional Past Surgical History / Comment(s): Past Anesthesia/Blood Transfusion Reactions: No Reported Reaction Past Psychological History: ADD/ADHD, Anxiety, Depression Smoking Status: Vaper Past Alcohol Use History: None Reported Past Drug Use History: Marijuana - Past Family History Father Family Medical History: No Reported History Mother Family Medical History: No Reported History General Exam - General Exam Comments Initial Comments: General: Appears in no acute distress. HEAD: Normal with no signs of head trauma. EYES: PERRLA, EOMI ENT: Hearing grossly intact, normal oropharynx. RESPIRATORY: Clear breath sounds bilaterally. No wheezes, rales, or rhonchi. C/V: Regular rate and rhythm. S1 and S2 auscultated, no edema, peripheral pulses 2+ and intact throughout ABD: Abd is soft, nontender, nondistended. No guarding. No rebound tenderness. No peritoneal signs. EXT:no obvious deformity SKIN: No rashes or lesions observed on exposed skin. NEURO: Alert and oriented x 4. Limitations: no limitations Course Vital Signs 01/26/24 01/26/24 01/26/24 07:26 09:33 10:44 Temperature 98.1 F 98.9 F 98.7 F Pulse Rate 99 86 81 Respiratory 20 18 18 Rate Blood Pressure 106/88 117/78 112/72 O2 Sat by Pulse 99 100 100 Oximetry Medical Decision Making - Medical Decision Making Was pt. sent in by a medical professional or institution (, PA, CYBERATHLETE, urgent care, hospital, or jail...) When possible be specific @ -No Did you speak to anyone other than the patient for history (EMS, parent, family, police, friend...)? What history was obtained from this source @ -No Did you review nursing and triage notes (agree or disagree)? Why? @ -I reviewed and agree with nursing and triage notes Were old charts reviewed (outside hosp., previous admission, EMS record, old EKG, old radiological studies, urgent care reports/EKG's, jail records)? Report findings @ -No old charts were reviewed Differential Diagnosis (chest pain, altered mental status, abdominal pain women, abdominal pain men, vaginal bleeding, weakness, fever, dyspnea, syncope, headache, dizziness, GI bleed, back pain, seizure, CVA, palpatations, mental health, musculoskeletal)? @ -UTI, threatened miscarriage, miscarriage, abdominal cramping of unknown etiology, enteritis. This list is not all inclusive. EKG interpreted by me (3pts min.). @ -None done X-rays interpreted by me (1pt min.). @ -None done CT interpreted by me (1pt min.). @ -None done U/S interpreted by me (1pt. min.). @ -Ultrasound reveals a definitive IUP with an adequate heart rate as well as dating at 15 weeks and 4 days. What testing was considered but not performed or refused? (CT, X-rays, U/S, labs)? Why? @ -Discussed obtaining x-rays however I did recommend that they are low yield at this point and I have low suspicion of showing any obvious etiology and due to the patient being recommended against it which she was in agreement with. Would like to avoid excess radiation of the baby. She was in agreement with ultrasound. What meds were considered but not given or refused? Why? @ -None Did you discuss the management of the patient with other professionals (professionals i.e. , PA, CYBERATHLETE, lab, RT, psych nurse, manager social services, director business development, teacher, chief sustainability officer, case management social worker)? Give summary @ -No Was smoking cessation discussed for >3mins.? @ -No Was critical care preformed (if so, how long)? @ -No Were there social determinants of health that impacted care today? How? (Homelessness, low income, unemployed, alcoholism, drug addiction, transportation, low edu. Level, literacy, decrease access to med. care, detention, rehab)? @ -No Was there de-escalation of care discussed even if they declined (Discuss DNR or withdrawal of care, Hospice)? DNR status @ -No What co-morbidities impacted this encounter? (DM, HTN, Smoking, COPD, CAD, Cancer, CVA, ARF, Chemo, Hep., AIDS, mental health diagnosis, sleep apnea, morbid obesity)? @ -None Was patient admitted / discharged? Hospital course, mention meds given and route, prescriptions, significant lab abnormalities, going to OR and other pertinent info. @ -Patient presents with abdominal cramping at 15 weeks . Will obtain OB ultrasound as well as basic abdominal laboratory studies. Patient be symptomatically treat with IV fluids and Tylenol. Patient was in agreement this plan. Vital signs within acceptable limits. Exam relatively unremarkable. Ultrasound revealed a definitive IUP with adequate heart rate as well as acute aging. Laboratory studies are unremarkable. heart tones obtained and were within acceptable limits as well. I discussed results with the patient. She will be discharged home at this time with strict return precautions and instructions to follow-up with her [facility]. She was in agreement this plan. Can use Tylenol at home for pain as needed. Requested ODT Zofran at home which was provided. I instructed the patient to follow up with their PCP in the next 1-3 days. I explained that the patient should return to the emergency department if they experience any worsening symptoms. Strict return precautions were discussed with the patient. The patient expressed understanding of these instructions. I answered all questions that the patient had. The patient was discharged home in good condition with their prescriptions and follow up information. Undiagnosed new problem with uncertain prognosis? @ -No Drug Therapy requiring intensive monitoring for toxicity (Heparin, Nitro, In sulin, Cardizem)? @ -No Were any procedures done? @ -No Diagnosis/symptom? @ -Abdominal cramping, Acute, or Chronic, or Acute on Chronic? @ -Acute Uncomplicated (without systemic symptoms) or Complicated (systemic symptoms)? @ -Uncomplicated Side effects of treatment? @ -None Exacerbation, Progression, or Severe Exacerbation] @ -No Poses a threat to life or bodily function? @ -Unlikely - Lab Data Result diagrams: 01/26/24 08:00 01/26/24 08:00 Lab Results 01/26/24 01/26/24 01/26/24 Range/Units 08:00 08:00 08:00 WBC 9.8 (3.8-10.6) k/uL RBC 3.75 L (3.80-5.40) m/uL Hgb 11.4 (11.4-16.0) gm/dL Hct 34.0 (34.0-46.0) % MCV 90.8 (80.0-100.0) fL MCH 30.4 (25.0-35.0) pg MCHC 33.5 (31.0-37.0) g/dL RDW 13.8 (11.5-15.5) % Plt Count 190 (150-450) k/uL MPV 8.4 Neutrophils % 78 % Lymphocytes % 17 % Monocytes % 4 % Eosinophils % 1 % Basophils % 0 % Neutrophils # 7.6 (1.3-7.7) k/uL Lymphocytes # 1.6 (1.0-4.8) k/uL Monocytes # 0.4 (0-1.0) k/uL Eosinophils # 0.1 (0-0.7) k/uL Basophils # 0.0 (0-0.2) k/uL PT 9.5 L (10.0-12.5) sec INR 0.8 (<1.2) APTT 23.1 (22.0-30.0) sec Sodium (137-145) mmol/L Potassium (3.5-5.1) mmol/L Chloride (98-107) mmol/L Carbon Dioxide (22-30) mmol/L Anion Gap mmol/L BUN (7-17) mg/dL Creatinine (0.52-1.04) mg/dL Est GFR (CKD-EPI)AfAm (>60 ml/min/1.73 sqM) Est GFR (CKD-EPI)NonAf (>60 ml/min/1.73 sqM) Glucose (74-99) mg/dL Calcium (8.4-10.2) mg/dL Total Bilirubin (0.2-1.3) mg/dL AST (14-36) U/L ALT (4-34) U/L Alkaline Phosphatase (38-126) U/L Total Protein (6.3-8.2) g/dL Albumin (3.5-5.0) g/dL Lipase (23-300) U/L HCG, Quant mIU/mL Urine Color Colorless Urine Appearance Clear (Clear) Urine pH 6.5 (5.0-8.0) Ur Specific [place] 1.005 (1.001-1.035) Urine Protein Negative (Negative) Urine Glucose (UA) Negative (Negative) Urine Ketones Negative (Negative) Urine Blood Negative (Negative) Urine Nitrite Negative (Negative) Urine Bilirubin Negative (Negative) Urine Urobilinogen <2.0 (<2.0) mg/dL Ur Leukocyte Esterase Negative (Negative) 01/26/24 Range/Units 08:00 WBC (3.8-10.6) k/uL RBC (3.80-5.40) m/uL Hgb (11.4-16.0) gm/dL Hct (34.0-46.0) % MCV (80.0-100.0) fL MCH (25.0-35.0) pg MCHC (31.0-37.0) g/dL RDW (11.5-15.5) % Plt Count (150-450) k/uL MPV Neutrophils % % Lymphocytes % % Monocytes % % Eosinophils % % Basophils % % Neutrophils # (1.3-7.7) k/uL Lymphocytes # (1.0-4.8) k/uL Monocytes # (0-1.0) k/uL Eosinophils # (0-0.7) k/uL Basophils # (0-0.2) k/uL PT (10.0-12.5) sec INR (<1.2) APTT (22.0-30.0) sec Sodium 136 L (137-145) mmol/L Potassium 3.9 (3.5-5.1) mmol/L Chloride 109 H (98-107) mmol/L Carbon Dioxide 23 (22-30) mmol/L Anion Gap 4 mmol/L BUN 5 L (7-17) mg/dL Creatinine 0.54 (0.52-1.04) mg/dL Est GFR (CKD-EPI)AfAm >90 (>60 ml/min/1.73 sqM) Est GFR (CKD-EPI)NonAf >90 (>60 ml/min/1.73 sqM) Glucose 90 (74-99) mg/dL Calcium 9.0 (8.4-10.2) mg/dL Total Bilirubin 0.2 (0.2-1.3) mg/dL AST 15 (14-36) U/L ALT 13 (4-34) U/L Alkaline Phosphatase 61 (38-126) U/L Total Protein 6.1 L (6.3-8.2) g/dL Albumin 3.2 L (3.5-5.0) g/dL Lipase 89 (23-300) U/L HCG, Quant 13791.8 mIU/mL Urine Color Urine Appearance (Clear) Urine pH (5.0-8.0) Ur Specific [place] (1.001-1.035) Urine Protein (Negative) Urine Glucose (UA) (Negative) Urine Ketones (Negative) Urine Blood (Negative) Urine Nitrite (Negative) Urine Bilirubin (Negative) Urine Urobilinogen (<2.0) mg/dL Ur Leukocyte Esterase (Negative) Disposition Clinical Impression: Abdominal cramping, Disposition: HOME SELF-CARE Condition: Good Instructions (If sedation given, give patient instructions): Abdominal Pain in (ED) Is patient prescribed a controlled substance at d/c from ED?: No Referrals: None,Stated [Primary Care Provider] - 1-2 days Time of Disposition: 10:10
[2024-01-26] MEDS: SODIUM CHLORIDE 0.9% 1,000 ML IV STA (08:05)
[2024-01-26] MEDS: ACETAMINOPHEN TAB 325 MG TAB PO STA (08:05)
[2024-01-26 08:26] LABS: ALT 13 U/L (4-34); AST 15 U/L (14-36); African American GFR (CKD) >90 (>60 ml/min/1.73 sqM); Albumin 3.2 g/dL (3.5-5.0); Alkaline Phosphatase 61 U/L (38-126); Anion Gap 4 mmol/L; Blood Urea Nitrogen 5 mg/dL (7-17); Carbon Dioxide 23 mmol/L (22-30); Chloride 109 mmol/L (98-107); Glucose 90 mg/dL (74-99); Lipase 89 U/L (23-300); Non-African American GFR(CKD) >90 (>60 ml/min/1.73 sqM); Potassium 3.9 mmol/L (3.5-5.1); Sodium 136 mmol/L (137-145); Total Bilirubin 0.2 mg/dL (0.2-1.3); Total Protein 6.1 g/dL (6.3-8.2)
[2024-01-26] MEDS: ONDANSETRON 4 MG/2 ML VIAL IVP STA (08:35)
[2024-01-26 08:36] LABS: INR 0.8 (<1.2); Partial Thromboplastin Time 23.1 sec (22.0-30.0); Prothrombin Time 9.5 sec (10.0-12.5)
[2024-01-26 08:50] LABS: Appearance,Urine Clear (Clear); Bilirubin,Urine Negative (Negative); Blood,Urine Negative (Negative); Color,Urine Colorless; Glucose,Urine (UA) Negative (Negative); Ketones,Urine Negative (Negative); Leukocyte Esterase,Urine Negative (Negative); Nitrite,Urine Negative (Negative); PH, Urine 6.5 (5.0-8.0); Protein,Urine Negative (Negative); Specific Gravity,Urine 1.005 (1.001-1.035); Urobilinogen,Urine <2.0 mg/dL (<2.0)
[2024-01-26 08:57] LABS: Basophils % (A) 0 %; Eosinophils # (A) 0.1 k/uL (0-0.7); Eosinophils % (A) 1 %; HGB 11.4 gm/dL (11.4-16.0); Lymphocytes # (A) 1.6 k/uL (1.0-4.8); Lymphocytes % (A) 17 %; MCH 30.4 pg (25.0-35.0); MCHC 33.5 g/dL (31.0-37.0); MCV 90.8 fL (80.0-100.0); Mean Platelet Volume 8.4; Monocytes # (A) 0.4 k/uL (0-1.0); Monocytes % (A) 4 %; Neutrophils # (A) 7.6 k/uL (1.3-7.7); Neutrophils % (A) 78 %; Platelet Count 190 k/uL (150-450); RBC 3.75 m/uL (3.80-5.40); RDW 13.8 % (11.5-15.5); WBC 9.8 k/uL (3.8-10.6)
--- NOTE | 2024-01-26 09:40 | US ---
EXAMINATION TYPE: US OB >= 14 wk fetus DATE OF EXAM: 01/26/2024 COMPARISON: US CLINICAL INDICATION: Female, 28 years old with history of abdominal cramping. 15 w preg; Pt states cr amping, denies bleeding TECHNIQUE: Transabdominal (TA) GESTATIONAL AGE / DATING Physician Established: (15 weeks/4 days) EDC: 07/15/2024 Dates by LMP: LMP unknown Dates by First Scan: (14 weeks/5 days) EDC: 07/21/2024 Dates by Current Scan: (15 weeks/5 days) EDC: 07/14/2024 SURVEY IUP: Single PLACENTA: Anterior PREVIA: No Previa SHERRIE: 8.6 cm Normal for early gestational age CERVICAL LENGTH (transabdominal: norm > 3.0cm): 3.3 cm BIOMETRY PRESENTATION: Variable LIE: Transverse with head maternal Right BPD: 3.08 cm 15 weeks / 5 days HC: 11.4 cm 15 weeks / 5 days AC: 9.6 cm 15 weeks / 6 days FL: 1.7 cm 15 weeks / 5 days ESTIMATED WEIGHT IN GRAMS: 125 grams ESTIMATED WEIGHT IN LBS/OZ: 0 lbs. 4 oz. WEIGHT PERCENTAGE BASED ON ESTABLISHED DATES: 31% HC/AC: 1.19 Normal FL/AC: 18 Normal HEART RATE: 139 bpm RHYTHM: Normal IMPRESSION: Single intrauterine gestation with ultrasound age 15 weeks 5 days.
[2024-01-26 09:49] LABS: HCG,Quantitative Serum 22527.8 mIU/mL
[2024-01-26 10:03] VITALS: RESP 18
[2024-01-26] MEDS: METOCLOPRAMIDE 5 MG/ML 2 ML VIAL IVP STA (10:34)
[2024-01-26] MEDS: ONDANSETRON 4 MG ODT STARTER PACK 2 TAB BTL PO STA (10:41)
[2024-01-26 11:02] VITALS: BP 112/72; PULSE 81; TEMP 98.7
== END 2024-01-26 10:46 | disposition home or self-care (01) ==
LOC: EC 07:08
DX: O26.892 Other specified pregnancy related conditions, second trimester (principal); R10.9 Unspecified abdominal pain; O99.332 Smoking (tobacco) complicating pregnancy, second trimester; F17.290 Nicotine dependence, other tobacco product, uncomplicated; O99.322 Drug use complicating pregnancy, second trimester; F12.90 Cannabis use, unspecified, uncomplicated; Z3A.15 15 weeks gestation of pregnancy
CPT/HCPCS: 36415; 80053; 83690; 85025; 85610; 85730; 81003; 84702; 76805; 99284; 96374; 96375; 96361 ×3; J2765; J2405; S0119

== ENCOUNTER → 2024-02-23 | Outpatient (CLI) | payer OTHER ==
--- NOTE | 2024-02-23 13:04 | US ---
EXAMINATION TYPE: US OB anatomy transabd DATE OF EXAM: 02/23/2024 COMPARISON: US 2023 CLINICAL INDICATION: Female, 28 years old with history of Z34.90 ENCNTR FOR SUPRVSN OF NORMAL PREGNAN CY, UNS; TECHNIQUE: Transabdominal (TA) EXAM MEASUREMENTS: GESTATIONAL AGE / DATING Physician Established: (19 weeks/4 days) EDC: 07/15/2024 Dates by LMP: Unknown Dates by First Scan: (19 weeks/2 days) EDC: 07/17/2024 Dates by Current Scan for: (19 weeks/5 days) EDC: 07/14/2024 SURVEY IUP: Single PLACENTA: Anterior PREVIA: No previa SHERRIE: 11.0 cm Normal CERVICAL LENGTH (transabdominal: norm > 3.0cm): 3.3 cm BIOMETRY PRESENTATION: Vertex LIE: Longitudinal BPD: 4.5 cm 19 weeks / 4 days HC: 16.4 cm 19 weeks / 2 days AC: 14.6 cm 20 weeks / 0 days FL: 3.1 cm 19 weeks / 4 days ESTIMATED WEIGHT IN GRAMS: 306 grams ESTIMATED WEIGHT IN LBS/OZ: 0 lbs. 11 oz. WEIGHT PERCENTAGE BASED ON ESTABLISHED DATE: 51 % HC/AC: 1.12 Normal FL/AC: 21% HEART RATE: 150 bpm RHYTHM: Normal ANATOMY SEEN (within normal limits): * Lateral Vent (< 1 cm) 0.8 cm * Cisterna Magna (< 1.1 cm) 0.6 cm * Nuchal Fold (< 0.6 cm) 0.3 cm * Cerebellum (varies with age) 1.8 cm Choroid Plexus (bilateral) Midline Falx Cavus Septi Pellucidi Four Chamber Heart Outflow tracts: LVOT/RVOT Stomach Situs Nose / Lips Diaphragm Kidneys (bilateral) Bladder Cord Insert Three Vessel Cord Longitudinal Spine Transverse Spine Arms (bilateral) Legs (bilateral) MATERNAL WALL MEASUREMENT: 3.6 cm from skin to anterior uterine wall (if exam limited due to body preston bitus). IMPRESSION: Single live intrauterine gestation ultrasound age 19 weeks 5 days.
== END | disposition home or self-care (01) ==
LOC: RADUSWWP 10:53
PROVIDERS: ATTEND Obstetrics & Gynecology
DX: Z34.90 Encounter for supervision of normal pregnancy, unspecified, unspecified trimester (principal); Z36.82 Encounter for antenatal screening for nuchal translucency; Z3A.19 19 weeks gestation of pregnancy
CPT/HCPCS: 76811

== ENCOUNTER 2024-02-27 11:43 | Outpatient (CLI) | payer OTHER ==
[2024-02-27 12:45] VITALS: BP 108/53; PULSE 97; RESP 16; TEMP 96.8
--- NOTE | 2024-03-29 09:25 | P.MSEPDOC ---
Presenting Problems - Arrival Data Date of Arrival on Unit: 02/27/24 Time of Arrival on Unit: 11:43 Mode of Transport: Ambulatory - Complaint OB-Reason for Admission/Chief Complaint: Other Comment: Cramping Medical History - Information : 2 Para: 1 Term: 1 : 0 Abortions: Spontaneous or Elective: 0 Number of Living Children: 1 - Gestational Age Gestational Age by LEONEL (wks/days): 20 Weeks and 1 Days Review of Systems - Review of Systems Constitutional: No problems Breast: No problems ENT: No problems Cardiovascular: No problems Respiratory: No problems Gastrointestinal: No problems Genitourinary: No problems Musculoskeletal: No problems Neurological: No problems Skin: No problems Vital Signs - Temperature Temperature: 96.8 F Temperature Source: Temporal Artery Scan - Pulse Pulse Oximetery Pulse Rate: 97 Pulse Assessment Method: Pulse Oximetry - Respirations Respiratory Rate: 16 Oxygen Delivery Method: Room Air O2 Sat by Pulse Oximetry: 99 - Blood Pressure Right Arm Blood Pressure: 108/53 Blood Pressure Mean: 71 Blood Pressure Source: Automatic Cuff Physician Notification - Physician Notified Physician Notified Date: 02/27/24 Physician Notified Time: 12:02 Physician: Kaye Stanton New Order Received: Yes - Notification Comment Comment: RN spoke with Dr. Stanton regarding DOM pt c/o cramping, FHT, no contx palpated or traced, abdomen soft to palpation, maternal VS WNL, and urine collected is lulu. Orders to check cervix - if closed, RN can discharge home with education to orally hydrate. Pt refusing cervical exam. Pt educated on discharge instrutions, including increasing oral hydration. Pt states Dr. Corona told pt to come to our hospital when she is in labor. RN educated pt if she does not think she can make it to [facility] where Dr. Corona practices, she can come here, but pt should always go to [facility] to receive care. Pt verbalized understanding. Maternal Triage Index - Maternal Triage Index Presenting for scheduled procedure w/no complaint: No - Stat/Priority 1 Stat Priority 1: No - Urgent/Priority 2 Urgent Priority 2: No - Prompt/Priority 3 Prompt Priority 3: No - Non-Urgent/Priority 4 Non-Urgent Priority 4: Yes Criteria Met for Priority 4: Common discomforts of Disposition - Disposition OB Disposition: Discharge to home, Written follow up instructions reviewed Discharge Date: 02/27/24 Discharge Time: 12:10 I agree with the RN Medical Screening Exam: Yes Case reviewed; plan agreed upon as documented in EMR&OBIX.: Yes Diagnosis: RELATED CONDITIONS, UNSPECIFIED, SECOND TRIMESTER
== END 2024-02-27 12:10 | disposition home or self-care (01) ==
LOC: FBPOP 11:43
PROVIDERS: ATTEND Obstetrics & Gynecology Obstetrics
DX: O26.892 Other specified pregnancy related conditions, second trimester (principal); R10.30 Lower abdominal pain, unspecified; Z3A.20 20 weeks gestation of pregnancy; Z87.891 Personal history of nicotine dependence
CPT/HCPCS: 99213

== ENCOUNTER 2024-04-18 10:50 | Outpatient (CLI) | payer OTHER | END 2024-04-18 13:41 | LOC: FBPOP 10:50 | PROVIDERS: ATTEND Obstetrics & Gynecology | CPT/HCPCS: 99213 ==

== ENCOUNTER 2024-04-20 13:35 | Outpatient (CLI) | payer OTHER | END 2024-04-20 14:30 | LOC: FBPOP 13:35 | PROVIDERS: ATTEND Obstetrics & Gynecology | CPT/HCPCS: 59025; 99213 ==

== ENCOUNTER 2024-05-21 09:20 | Outpatient (CLI) | payer OTHER ==
[2024-05-21 12:02] VITALS: BP 120/68; PULSE 97; RESP 16; TEMP 96.7
--- NOTE | 2024-06-20 09:34 | P.MSEPDOC ---
Presenting Problems - Arrival Data Date of Arrival on Unit: 05/21/24 Time of Arrival on Unit: 09:20 Mode of Transport: Wheelchair - Complaint OB-Reason for Admission/Chief Complaint: Possible Onset of Labor Comment: Patient presents to triage with complaints of cramping that started 10 p.m. 05/21/24. Medical History - Information : 2 Para: 1 Term: 1 : 0 Abortions: Spontaneous or Elective: 0 Number of Living Children: 1 - Gestational Age Gestational Age by LEONEL (wks/days): 32 Weeks and 1 Days - History Complications: Smoker Comment: limitted care Review of Systems - Review of Systems Constitutional: No problems Breast: No problems ENT: No problems Cardiovascular: No problems Respiratory: No problems Gastrointestinal: No problems Genitourinary: No problems Musculoskeletal: No problems Neurological: No problems Skin: No problems Vital Signs - Temperature Temperature: 96.7 F Temperature Source: Axillary - Pulse Pulse Oximetery Pulse Rate: 97 Pulse Assessment Method: Pulse Oximetry - Respirations Respiratory Rate: 16 Oxygen Delivery Method: Room Air O2 Sat by Pulse Oximetry: 98 - Blood Pressure Right Arm Blood Pressure: 120/68 Blood Pressure Mean: 85 Blood Pressure Source: Automatic Cuff Physician Notification - Physician Notified Physician Notified Date: 05/21/24 Physician Notified Time: 10:16 Physician: Kaye Stanton New Order Received: Yes (discharge home) Maternal Triage Index - Maternal Triage Index Presenting for scheduled procedure w/no complaint: No - Stat/Priority 1 Stat Priority 1: No - Urgent/Priority 2 Urgent Priority 2: Yes Provider Notified: Kaye Stanton Provider Notified Time: 10:16 Criteria Met for Priority 2: Patient presents to triage with complaints of cramping that started 10 p.m. 05/21/24. Disposition - Disposition OB Disposition: Discharge to home I agree with the RN Medical Screening Exam: Yes Case reviewed; plan agreed upon as documented in EMR&OBIX.: Yes Diagnosis: FALSE LABOR BEFORE 37 COMPLETED WEEKS OF GEST, THIRD TRI
== END 2024-05-21 12:03 ==
LOC: FBPOP 09:20
PROVIDERS: ATTEND Obstetrics & Gynecology Obstetrics
CPT/HCPCS: 59025; 99213

== ENCOUNTER 2024-06-08 10:57 | Emergency (ER) | payer OTHER ==
--- NOTE | 2024-06-08 11:15 | ED ---
URI HPI - General Chief Complaint: Upper Respiratory Infection Stated Complaint: cough,congestion Time Seen by Provider: 06/08/24 11:07 Source: patient, RN notes reviewed Mode of arrival: ambulatory Limitations: no limitations - History of Present Illness Initial Comments: 28-year-old female resents emergency room complaining cough congestion. She states she been sick for 1 week. She has increasing nasal congestion, sinus pressure and headaches. She does admit to some bodyaches and possible fever denies any sick contacts denies any abdominal pain she states she is currently 35 weeks no urinary symptoms. Patient denies any flank pain no other complaints. - Related Data Home Medications Medication Instructions Recorded Confirmed Acetaminophen [Acetaminophen 8 hr] 650 mg PO Q8H PRN 12/29/23 05/21/24 diphenhydrAMINE HCL [Benadryl] 1 tablet PO HS 02/27/24 05/21/24 Allergies Allergy/AdvReac Type Severity Reaction Status Date / Time No Known Allergies Allergy Verified 06/08/24 11:05 Review of Systems ROS Statement: Those systems with pertinent positive or pertinent negative responses have been documented in the HPI. ROS Other: All systems not noted in ROS Statement are negative. Past Medical History Past Medical History: Asthma, Hypertension, Osteoarthritis (OA) History of Any Multi-Drug Resistant Organisms: None Reported Past Surgical History: Appendectomy, Section, Cholecystectomy Additional Past Surgical History / Comment(s): Past Anesthesia/Blood Transfusion Reactions: No Reported Reaction Past Psychological History: ADD/ADHD, Anxiety, Depression Smoking Status: Vaper Past Alcohol Use History: None Reported Past Drug Use History: Marijuana - Past Family History Father Family Medical History: No Reported History Mother Family Medical History: No Reported History General Exam Limitations: no limitations General appearance: alert, in no apparent distress Head exam: Present: atraumatic, normocephalic, normal inspection Eye exam: Present: normal appearance, PERRL, EOMI. Absent: scleral icterus, conjunctival injection, periorbital swelling ENT exam: Present: normal exam, normal oropharynx, mucous membranes moist Neck exam: Present: normal inspection. Absent: tenderness, meningismus, lymphadenopathy Respiratory exam: Present: normal lung sounds bilaterally. Absent: respiratory distress, wheezes, rales, rhonchi, stridor Cardiovascular Exam: Present: regular rate, normal rhythm, normal heart sounds. Absent: systolic murmur, diastolic murmur, rubs, gallop, clicks GI/Abdominal exam: Present: soft, normal bowel sounds. Absent: distended, tenderness, guarding, rebound, rigid Course Vital Signs 06/08/24 06/08/24 11:01 11:19 Temperature 98.2 F Pulse Rate 101 H Respiratory 18 18 Rate Blood Pressure 103/73 O2 Sat by Pulse 97 Oximetry Medical Decision Making - Medical Decision Making Was pt. sent in by a medical professional or institution ([facility], SUPERVISOR SEWING DEPARTMENT, urgent care, hospital, or alf...) When possible be specific @ -No Did you speak to anyone other than the patient for history (EMS, parent, family, police, friend...)? What history was obtained from this source @ -No Did you review nursing and triage notes (agree or disagree)? Why? @ -I reviewed and agree with nursing and triage notes Were old charts reviewed (outside hosp., previous admission, EMS record, old EKG, old radiological studies, urgent care reports/EKG's, alf records)? Report findings @ -No old charts were reviewed Differential Diagnosis (chest pain, altered mental status, abdominal pain women, abdominal pain men, vaginal bleeding, weakness, fever, dyspnea, syncope, headache, dizziness, GI bleed, back pain, seizure, CVA, palpatations, mental health, musculoskeletal)? @ -COVID 19, RSV, influenza, pneumonia, acute bronchitis, URI, this list is not all inclusive EKG interpreted by me (3pts min.). @ -None X-rays interpreted by me (1pt min.). @ -None done CT interpreted by me (1pt min.). @ -None done U/S interpreted by me (1pt. min.). @ -None done What testing was considered but not performed or refused? (CT, X-rays, U/S, labs)? Why? @Considered x-ray but felt unnecessary in current What meds were considered but not given or refused? Why? @ -None Did you discuss the management of the patient with other professionals (professionals i.e. [facility], SU[employer]PARTMENT, lab, RT, psych nurse, certified social workers in health care, meter tester primary, teacher, correctional officer lieutenant, watch caser)? Give summary @ -No Was smoking cessation discussed for >3mins.? @ -No Was critical care preformed (if so, how long)? @ -No Were there social determinants of health that impacted care today? How? (Homelessness, low income, unemployed, alcoholism, drug addiction, transportation, low edu. Level, literacy, decrease access to med. care, nursing home, rehab)? @ -No Was there de-escalation of care discussed even if they declined (Discuss DNR or withdrawal of care, Hospice)? DNR status @ -No What co-morbidities impacted this encounter? (DM, HTN, Smoking, COPD, CAD, Cancer, CVA, ARF, Chemo, Hep., AIDS, mental health diagnosis, sleep apnea, morbid obesity)? @ -None Was patient admitted / discharged? Hospital course, mention meds given and route, prescriptions, significant lab abnormalities, going to OR and other pertinent info. @ -Discharge patient has viral sinusitis negative Cepheid swab. Patient discharged with supportive treatment Undiagnosed new problem with uncertain prognosis? @ -No Drug Therapy requiring intensive monitoring for toxicity (Heparin, Nitro, Insulin, Cardizem)? @ -No Were any procedures done? @ -No Diagnosis/symptom? @ -viral sinusitis Acute, or Chronic, or Acute on Chronic? @ -Acute Uncomplicated (without systemic symptoms) or Complicated (systemic symptoms)? @ -Uncomplicated Side effects of treatment? @ -No Exacerbation, Progression, or Severe Exacerbation? @ -No Poses a threat to life or bodily function? How? (Chest pain, [place], [place], pneumonia, PE, COPD, DKA, ARF, appy, cholecystitis, CVA, Diverticulitis, Homicidal, Suicidal, threat to staff... and all critical care pts) @ -No - Lab Data Lab Results 06/08/24 Range/Units 11:19 Influenza Type A (PCR) Not Detected (Not Detectd) Influenza Type B (PCR) Not Detected (Not Detectd) RSV (PCR) Not Detected (Not Detectd) SARS-CoV-2 (PCR) Not Detected (Not Detectd) Disposition Clinical Impression: Acute viral sinusitis Disposition: TRANSFER TO PSYCH HOSP/UNIT Condition: Stable Instructions (If sedation given, give patient instructions): Upper Respiratory Infection (ED) Additional Instructions: Please return to the Emergency Department if symptoms worsen or any other concerns. Take [id number] approved safe medications in Is patient prescribed a controlled substance at d/c from ED?: No Referrals: None,Stated [Primary Care Provider] - 1-2 days Time of Disposition: 12:21
[2024-06-08 12:52] VITALS: BP 117/78; PULSE 95; RESP 16; TEMP 98
== END 2024-06-08 12:52 | disposition home or self-care (01) ==
LOC: EC 10:57
CPT/HCPCS: 87636; 99283; 99284

== ENCOUNTER 2024-06-11 08:28 | Outpatient (CLI) | payer OTHER ==
[2024-06-11 09:37] LABS: Appearance,Urine Cloudy (Clear); Bacteria,Urine Occasional /hpf; Bilirubin,Urine Negative (Negative); Blood,Urine Negative (Negative); Color,Urine Yellow; Glucose,Urine (UA) Negative (Negative); Hyaline Casts,Urine 1 /lpf (0-2); Ketones,Urine Negative (Negative); Leukocyte Esterase,Urine Negative (Negative); Mucus,Urine Rare /hpf; Nitrite,Urine Negative (Negative); Protein,Urine Trace (Negative); RBC,Urine 1 /hpf (0-5); Specific Gravity,Urine 1.015 (1.001-1.035); Squamous Epithelial Cell,Urine 4 /hpf (0-4); WBC,Urine 4 /hpf (0-5)
[2024-06-11 10:12] VITALS: BP 112/57; PULSE 101; RESP 16; TEMP 96.5
[2024-06-11 10:40] LABS: Amphetamine Screen,Urine Not Detected (NotDetected); Barbiturate Screen,Urine Not Detected (NotDetected); Benzodiazepines Screen,Urine Not Detected (NotDetected); Cocaine Screen,Urine Not Detected (NotDetected); Methadone Screen, Urine Not Detected (NotDetected); Opiate Screen,Urine Not Detected (NotDetected); Oxycodone Screen, Urine Not Detected (NotDetected); Phencyclidine Screen,Urine Not Detected (NotDetected); Tricyclic Antidepressant,Urine Not Detected (NotDetected); Urn Cannabinoid Scrn Detected (NotDetected)
--- NOTE | 2024-06-20 10:01 | P.MSEPDOC ---
Presenting Problems - Arrival Data Date of Arrival on Unit: 06/11/24 Time of Arrival on Unit: 08:28 Mode of Transport: Ambulatory - Complaint OB-Reason for Admission/Chief Complaint: Pain Comment: cramping since 299 Medical History - Information : 2 Para: 1 Term: 1 : 0 Abortions: Spontaneous or Elective: 0 Number of Living Children: 1 - Gestational Age Gestational Age by LEONEL (wks/days): 35 Weeks and 1 Days - History Complications: Prior Review of Systems - Review of Systems Constitutional: No problems Breast: No problems ENT: No problems Cardiovascular: No problems Respiratory: No problems Gastrointestinal: No problems Genitourinary: No problems Musculoskeletal: No problems Neurological: No problems Skin: No problems Vital Signs - Temperature Temperature: 96.5 F Temperature Source: Temporal Artery Scan - Pulse Right Sitting Pulse Rate: 101 Pulse Assessment Method: Automatic Cuff - Respirations Respiratory Rate: 16 Oxygen Delivery Method: Room Air - Blood Pressure Right Arm Blood Pressure: 112/57 Blood Pressure Mean: 75 Blood Pressure Source: Automatic Cuff Medical Screen Scoring - Cervical Exam Dilation (cm): 0 Membranes: Intact - Uterine Contractions Intensity: Mild Resting: Soft to palpation - Assessment - Baby A Baseline FHR: 140 Heart Rate - NICHD Category: Category I (Normal) NST: Reactive Physician Notification - Physician Notified Physician Notified Date: 06/11/24 Physician Notified Time: 09:58 Physician: Kaye Stanton New Order Received: Yes (dc) Maternal Triage Index - Non-Urgent/Priority 4 Non-Urgent Priority 4: Yes Criteria Met for Priority 4: reactive nst, occasional contraction, not correlating with pts pain, urinalysis wnl, vitals wnl, vag exam closed/thick/high Disposition - Disposition OB Disposition: Discharge to home, Written follow up instructions reviewed Discharge Date: 06/11/24 Discharge Time: 10:04 I agree with the RN Medical Screening Exam: Yes Case reviewed; plan agreed upon as documented in EMR&OBIX.: Yes Diagnosis: FALSE LABOR AT OR AFTER 37 COMPLETED WEEKS OF GESTATION
== END 2024-06-11 10:04 | disposition home or self-care (01) ==
LOC: FBPOP 08:28
PROVIDERS: ATTEND Obstetrics & Gynecology
CPT/HCPCS: 59025; 80306; 81001; 99213

== ENCOUNTER 2024-06-21 10:57 | Outpatient (CLI) | payer OTHER ==
[2024-06-21 11:54] LABS: Appearance,Urine Clear (Clear); Bilirubin,Urine Negative (Negative); Blood,Urine Negative (Negative); Color,Urine Colorless; Glucose,Urine (UA) Negative (Negative); Ketones,Urine Negative (Negative); Leukocyte Esterase,Urine Negative (Negative); Nitrite,Urine Negative (Negative); PH, Urine 6.5 (5.0-8.0); Protein,Urine Negative (Negative); Specific Gravity,Urine 1.008 (1.001-1.035); Urobilinogen,Urine <2.0 mg/dL (<2.0)
[2024-06-21 12:26] VITALS: BP 130/81; PULSE 90; RESP 16; TEMP 97.2
--- NOTE | 2024-07-07 11:39 | P.MSEPDOC ---
Presenting Problems - Arrival Data Date of Arrival on Unit: 06/21/24 Time of Arrival on Unit: 10:57 Mode of Transport: Wheelchair - Complaint OB-Reason for Admission/Chief Complaint: Pain Comment: pt c/o abdominal pain intermittently, rating it 9/10. Medical History - Information : 2 Para: 1 Term: 1 : 0 Abortions: Spontaneous or Elective: 0 Number of Living Children: 1 - Gestational Age Gestational Age by LEONEL (wks/days): 36 Weeks and 4 Days - History Complications: Smoker, Hx. Substance Abuse Comment: Marijuana use reported. Review of Systems - Review of Systems Constitutional: No problems Breast: No problems ENT: No problems Cardiovascular: No problems Respiratory: No problems Gastrointestinal: No problems Genitourinary: Urgency Musculoskeletal: No problems Neurological: No problems Skin: No problems Comment: Pt reported occasional urgency, U/A WNL. Vital Signs - Temperature Temperature: 97.2 F Temperature Source: Temporal Artery Scan - Pulse Pulse Oximetery Pulse Rate: 90 - Respirations Respiratory Rate: 16 O2 Sat by Pulse Oximetry: 98 - Blood Pressure Right Arm Blood Pressure: 130/81 Blood Pressure Mean: 97 Blood Pressure Source: Automatic Cuff Medical Screen Scoring - Cervical Exam Dilation (cm): 0 Effacement (%): 0 Membranes: Intact - Uterine Contractions Frequency From (mins): 2 Frequency To (mins): 10 Duration From (seconds): 60 Duration To (seconds): 90 Intensity: Mild - Assessment - Baby A Baseline FHR: 140 Heart Rate - NICHD Category: Category II (Indeterminate) NST: Reactive Physician Notification - Physician Notified Physician Notified Date: 06/21/24 Physician Notified Time: 12:04 Physician: Dr Stanton New Order Received: Yes (discharge home) Maternal Triage Index - Maternal Triage Index Presenting for scheduled procedure w/no complaint: No - Stat/Priority 1 Stat Priority 1: No - Urgent/Priority 2 Urgent Priority 2: No - Prompt/Priority 3 Prompt Priority 3: Yes Criteria Met for Priority 3: 36.4 weeks gestation , c/o abdominal pain, occasional contractions. Disposition - Disposition OB Disposition: Physician follow up in office, Triage, Discharge to home, Written follow up instructions reviewed Discharge Date: 06/21/24 Discharge Time: 12:13 I agree with the RN Medical Screening Exam: Yes Case reviewed; plan agreed upon as documented in EMR&OBIX.: Yes Diagnosis: FALSE LABOR BEFORE 37 COMPLETED WEEKS OF GEST, THIRD TRI
== END 2024-06-21 12:13 | disposition home or self-care (01) ==
LOC: FBPOP 10:57
PROVIDERS: ATTEND Obstetrics & Gynecology Obstetrics
DX: O26.893 Other specified pregnancy related conditions, third trimester (principal); O47.03 False labor before 37 completed weeks of gestation, third trimester; R10.9 Unspecified abdominal pain; Z3A.36 36 weeks gestation of pregnancy; Z87.891 Personal history of nicotine dependence
CPT/HCPCS: 59025; 81003; G0463; 99213

== ENCOUNTER 2024-06-25 17:06 | Inpatient (IN) | payer OTHER ==
[2024-06-25] MEDS: LACTATED RINGERS 1,000 ML IV ONE (18:38)
[2024-06-25] MEDS ORDERED: TRANEXAMIC 1,000 MG/100ML-NACL 1,000 MG in EMPTY BAG 1 BAG IV PRN (19:40)
[2024-06-25] MEDS ORDERED: METHYLERGONOVINE 0.2 MG/ML 1 ML AMP IM PRN (19:40)
[2024-06-25] MEDS ORDERED: OXYTOCIN 10 UNIT/ML 1 ML VIAL IM PRN (19:40)
[2024-06-25] MEDS ORDERED: CARBOPROST TROMETHAMINE 250 MCG/ML 1 ML AMP IM PRN (19:40)
[2024-06-25] MEDS ORDERED: miSOPROStoL 200 MCG TAB PO PRN (19:40)
[2024-06-25 19:54] LABS: Basophils % (A) 0 %; Eosinophils % (A) 0 %; HCT 31.7 % (34.0-46.0); HGB 10.4 gm/dL (11.4-16.0); Lymphocytes # (A) 2.7 k/uL (1.0-4.8); Lymphocytes % (A) 18 %; MCH 29.4 pg (25.0-35.0); MCHC 32.9 g/dL (31.0-37.0); MCV 89.4 fL (80.0-100.0); Mean Platelet Volume 9.4; Monocytes # (A) 0.5 k/uL (0-1.0); Monocytes % (A) 4 %; Neutrophils % (A) 76 %; Platelet Count 234 k/uL (150-450); RBC 3.55 m/uL (3.80-5.40); RDW 15.2 % (11.5-15.5); WBC 14.4 k/uL (3.8-10.6)
[2024-06-25 20:14] LABS: Amphetamine Screen,Urine Not Detected (NotDetected); Barbiturate Screen,Urine Not Detected (NotDetected); Benzodiazepines Screen,Urine Not Detected (NotDetected); Cocaine Screen,Urine Not Detected (NotDetected); Methadone Screen, Urine Not Detected (NotDetected); Opiate Screen,Urine Not Detected (NotDetected); Oxycodone Screen, Urine Not Detected (NotDetected); Phencyclidine Screen,Urine Not Detected (NotDetected); Tricyclic Antidepressant,Urine Not Detected (NotDetected); Urn Cannabinoid Scrn Detected (NotDetected)
[2024-06-25] MEDS: CITRIC ACID-SODIUM CITRATE 15 ML CUP PO ONE (21:30)
[2024-06-25] MEDS ORDERED: ONDANSETRON 4 MG/2 ML VIAL ONE (22:14)
[2024-06-25] MEDS ORDERED: OXYTOCIN 30 UNITS/500 ML NS BAG IV ONE (22:14)
[2024-06-25] MEDS ORDERED: MORPHINE SULFATE (PF) 0.3 MG/0.3 ML SYR ONE (22:14)
--- NOTE | 2024-06-25 23:06 | P.OP ---
Date of Procedure: 06/25/24 Preoperative Diagnosis: IUP at 37-3/7 weeks, labor, history of section x 1 desires repeat Postoperative Diagnosis: Same Procedure(s) Performed: Repeat section Anesthesia: spinal Surgeon: Kaye Stanton Advertising Representative #1: Sandip Quintana Estimated Blood Loss (ml): 480 IV fluids (ml): 1,000 Urine output (ml): 550 Pathology: none sent Condition: stable Disposition: observation Indications for Procedure: History of section x 1, desires repeat, active labor Operative Findings: Viable male infant delivered at 2233, weight of 6 pounds 2 ounces Description of Procedure: The patient was prepped and draped in the usual fashion after spinal anesthesia was administered by anesthesia department. A Pfannenstiel incision was made and extended of the abdominal cavity without difficulty. The bladder peritoneum was elevated and incised and reflected distally. A 2 cm incision was made in the transverse plane of the lower uterine segment to enter the uterus at which time clear fluid was noted. The incision was extended in both directions using the bandage scissors. The head was encountered within the field and delivered up and through the incision where the nose and mouth were thoroughly suctioned. Remainder of the infant was delivered onto the surgical field where the cord was doubly clamped, cut, and the was passed for resuscitative measures with weight and Apgars as noted above. A segment of cord was then doubly clamped, cut, and set aside should cord gases become necessary. The placenta was delivered manually, intact, and was grossly normal with a grossly normal three- vessel cord. The uterus was exteriorized and the interior cavity of the uterus swept of any remaining placental and membranous fragments with a laparotomy sponge. The margins of the incision were grasped with Apple clamps and the incision closed in 2 layers. First layer was a running locking layer of 0 Vicryl from margin to margin followed by a second layer of imbricating 0 Vicryl from margin to margin. Bleeding was noted on the midportion of the uterine incision therefore 2 [id number] sutures were used to obtain hemostasis. Once hemostasis was achieved, the posterior cul-de-sac was suctioned with a guard and the uterine and ovarian findings are as noted above. The uterus was replaced within the abdominal cavity and the gutters swept of any remaining blood fluid or clot. The incision was again reexamined and hemostasis was noted to be excellent. Any small point of bleeding were made hemostatic with the Bovie. Once hemostasis was achieved the parietal peritoneum was loosely reapproximated. The layer of muscles were examined and made hemostatic with the Bovie. Attention was then turned to the fascia which was closed with 2 running stitches of 0 Vicryl proceeding from the lateral margins to the midpoint. The subcutaneous tissues were irrigated, made hemostatic with the Bovie, and reapproximated with a running stitch of 30 Vicryl. The skin was reapproximated with 4-0 Vicryl. Estimated blood loss for the case was approximately 483 mL. All sponge instrument and needle counts are correct. There were no complications. The patient tolerated the procedure well and proceeded to the recovery room in stable condition. Both mother and infant are resting comfortably in recovery.
[2024-06-26] MEDS ORDERED: ONDANSETRON 4 MG/2 ML VIAL IVP PRN (00:42)
[2024-06-26] MEDS ORDERED: METOCLOPRAMIDE 5 MG/ML 2 ML VIAL IVP PRN (00:42)
[2024-06-26] MEDS ORDERED: diphenhydrAMINE 50 MG/ML 1 ML VIAL IVP PRN (00:42)
[2024-06-26] MEDS ORDERED: OXYTOCIN 30 UNITS/500 ML NS 30 UNIT in SALINE 1 500ML.BAG IV SCH (00:42)
[2024-06-26] MEDS ORDERED: ZOLPIDEM 5 MG TAB PO PRN (00:42)
[2024-06-26] MEDS ORDERED: NALOXONE 0.4 MG/ML 1 ML VIAL IV PRN (00:42)
[2024-06-26] MEDS: KETOROLAC 15 MG/ML 1 ML VIAL IVP SCH (01:03)
[2024-06-26] MEDS: diphenhydrAMINE 50 MG/ML 1 ML VIAL IVP PRN (01:04)
[2024-06-26] MEDS: LACTATED RINGERS 1,000 ML IV SCH (03:19)
[2024-06-26] MEDS: ACETAMINOPHEN TAB 500 MG TAB PO SCH (04:32)
[2024-06-26 06:21] LABS: Basophils % (A) 0 %; Eosinophils # (A) 0.1 k/uL (0-0.7); Eosinophils % (A) 0 %; HCT 28.1 % (34.0-46.0); HGB 9.4 gm/dL (11.4-16.0); Lymphocytes # (A) 2.1 k/uL (1.0-4.8); Lymphocytes % (A) 20 %; MCH 29.3 pg (25.0-35.0); MCHC 33.5 g/dL (31.0-37.0); MCV 87.5 fL (80.0-100.0); Mean Platelet Volume 9.2; Monocytes # (A) 0.4 k/uL (0-1.0); Monocytes % (A) 4 %; Neutrophils % (A) 75 %; Platelet Count 178 k/uL (150-450); RBC 3.22 m/uL (3.80-5.40); RDW 15.2 % (11.5-15.5); WBC 10.7 k/uL (3.8-10.6)
[2024-06-26] MEDS: IBUPROFEN 800 MG TAB PO SCH (09:23)
--- NOTE | 2024-06-26 11:14 | P.PNOBGPC ---
Subjective - Subjective Principal diagnosis: POD 1 RCS Interval history: patient is doing well, pain is well controlled, lochia is moderate. she is tired this am as she didnt sleep last night. baby is in the nursery on oxygen. Patient reports: Reports appetite normal, Reports pain well controlled, Reports ambulating normally : doing well (in SCN) Objective - Vital Signs Latest vital signs: Vital Signs Temp Pulse Resp BP Pulse Ox 06/26/24 08:00 98.2 F 77 16 129/79 97 06/26/24 03:00 97.9 F 94 15 108/63 97 06/26/24 01:00 97.1 F L 90 16 136/76 99 06/26/24 00:45 97.9 F 97 16 131/70 98 06/26/24 00:30 106 H 15 130/81 99 06/26/24 00:15 85 16 131/84 99 06/26/24 00:00 88 16 99 06/25/24 23:45 96.8 F L 82 15 111/63 98 06/25/24 23:30 96.2 F L 82 15 112/57 98 06/25/24 23:15 78 16 110/53 99 06/25/24 23:00 96.2 F L 97 16 113/62 98 06/25/24 19:55 97.2 F L 94 16 116/69 06/25/24 19:50 97.2 F L 94 16 116/69 97 Intake and Output 06/25/24 06/26/24 06/26/24 22:59 06:59 14:59 Intake Total 480 Output Total 561 550 Balance -81 -550 Intake: Oral 480 Output: Urine 500 550 Output, Quantitative 61 Blood Loss Other: Voiding Method Indwelling Catheter Weight 104.78 kg - Exam Extremities: Present: normal, edema Abdomen: Present: normal appearance, soft Incision: Present: normal, dry, intact Uterus: Present: normal, firm - Labs Labs: Abnormal Lab Results - Last 24 Hours (Table) 06/25/24 06/25/24 06/26/24 Range/Units 18:41 19:06 05:56 WBC 14.4 H 10.7 H (3.8-10.6) k/uL RBC 3.55 L 3.22 L (3.80-5.40) m/uL Hgb 10.4 L 9.4 L (11.4-16.0) gm/dL Hct 31.7 L 28.1 L (34.0-46.0) % Neutrophils # 11.0 H 8.0 H (1.3-7.7) k/uL U Marijuana (THC) Screen Detected H (NotDetected) Assessment and Plan (1) Term Current Visit: Yes Status: Acute Code(s): Z34.90 - ENCNTR FOR SUPRVSN OF NORMAL , UNSP, UNSP TRIMESTER SNOMED Code(s): 23068974 (2) History of section Current Visit: Yes Status: Acute Code(s): Z98.891 - HISTORY OF UTERINE SCAR FROM PREVIOUS SURGERY SNOMED Code(s): 288465194 (3) Active labor Current Visit: Yes Status: Acute Code(s): NGH1039 - SNOMED Code(s): 074864582 (4) S/P section Current Visit: No Status: Acute Code(s): Z98.891 - HISTORY OF UTERINE SCAR FROM PREVIOUS SURGERY SNOMED Code(s): 059027160 Plan: patient is doing well overall, continue routine post operative care.
[2024-06-26] MEDS: SENNOSIDES-DOCUSATE SODIUM 1 EACH TAB PO SCH (11:42)
[2024-06-26] MEDS: diphenhydrAMINE 25 MG CAP PO PRN (11:44)
--- NOTE | 2024-06-26 14:16 | P.PN ---
Progress Note - Text 06/26/24 639am 28-year-old female status post spinal Duramorph. Patient seen and evaluated for postop pain control, patient has a VAS of 1 with no complaints of nausea vomiting or pruritus. Patient doing well
[2024-06-26] MEDS: diphenhydrAMINE 50 MG CAP PO PRN (22:55)
[2024-06-27] MEDS ORDERED: IBUPROFEN 800 MG TAB PO SCH
--- NOTE | 2024-06-27 10:46 | P.PNOBGPC ---
Subjective - Subjective Principal diagnosis: Postop day #2, repeat section, labor Interval history: Patient is doing well postoperatively. She is ambulating and voiding without difficulty. Awaiting flatus. She is tolerating a regular diet without nausea or vomiting. Her pain is moderately well-controlled. Baby remains in the nursery on high flow oxygen Patient reports: Reports appetite normal, Reports voiding normally, Reports pain well controlled, Reports ambulating normally : doing well (Special care nursery, on high flow oxygen) Objective - Vital Signs Latest vital signs: Vital Signs Temp Pulse Resp BP Pulse Ox 06/27/24 07:34 98.0 F 75 16 115/70 98 06/27/24 02:45 98.5 F 75 16 111/69 06/26/24 20:00 98.7 F 81 16 115/76 06/26/24 16:00 98.3 F 81 16 128/81 98 06/26/24 12:00 98.4 F 86 16 98 Intake and Output 06/26/24 06/27/24 06/27/24 22:59 06:59 14:59 Output Total 600 Balance -600 Output: Urine 600 Other: # Voids 1 2 1 - Exam Extremities: Present: normal, edema Abdomen: Present: normal appearance, soft Incision: Present: normal, dry Uterus: Present: normal, firm Assessment and Plan (1) Term Current Visit: Yes Status: Acute Code(s): Z34.90 - ENCNTR FOR SUPRVSN OF NORMAL , UNSP, UNSP TRIMESTER SNOMED Code(s): 95586645 (2) History of section Current Visit: Yes Status: Acute Code(s): Z98.891 - HISTORY OF UTERINE SCAR FROM PREVIOUS SURGERY SNOMED Code(s): 160131373 (3) Active labor Current Visit: Yes Status: Acute Code(s): VEU5694 - SNOMED Code(s): 515015859 (4) S/P section Current Visit: No Status: Acute Code(s): Z98.891 - HISTORY OF UTERINE SCAR FROM PREVIOUS SURGERY SNOMED Code(s): 630615064 Plan: Patient is doing well postoperatively. Encourage increase ambulation. Encourage stool softeners. Continue routine postoperative care.
[2024-06-27] MEDS: SIMETHICONE 80 MG CHEWABLE PO PRN (10:49)
[2024-06-29 00:04] VITALS: RESP 16
[2024-06-29 07:32] VITALS: BP 130/90; PULSE 85; TEMP 98.1
--- NOTE | 2024-06-29 10:06 | P.DS ---
Providers Date of admission: 06/25/24 19:15 Expected date of discharge: 06/29/24 Attending physician: Kaye Stanton Primary care physician: Stated None Hospital Course: The patient is a 28-year-old 2 para 1-0-0-1 admitted at 37-3/7 weeks as established by last menstrual period and confirmed by second trimester ultrasound. She is admitted in active labor with a history of a previous section. Her cervix has been entirely unchanged in triage. After discussion with the patient, the decision was made to proceed with repeat low- transverse section. Her was essentially uncomplicated though she did have limited care and has a known history of polycystic kidney disease. On labor and delivery, all signs were reassuring with a category 1 heart rate tracing. She was taken to the operating room where she was delivered by repeat low-transverse section of a viable 6 pound 2 ounce baby boy with Apgars of 8 at 1 minute and 9 at 5 minutes. Her course was unremarkable with vital signs remaining stable and her temperature was afebrile throughout. Her baby was taken to the special care nursery for several days and she remained in the hospital as result. She was deemed stable for discharge on and postoperative day #4. She was discharged home to follow-up in the office in 2 weeks for an incision check in 6 weeks routinely. Discharge instructions included calling for any significantly increased bleeding or foul-smelling lochia, significantly increased fever abdominal pain, perineal complaints, breast complaints, incisional complaints, or anything else that concerned her. She was additionally instructed to have nothing in the vagina for at least 6 weeks time to include intercourse and to abstain from any heavy lifting over the same period of time. She was lastly instructed to do no driving until off of all pain medications or 2 weeks time, whichever came first. She understood her instructions and agrees to follow-up as noted above. D ischarge medications included [id number] analgesic pain medications as well as a prescription for oxycodone 5 mg, 1-2 p.o. every 6 hours as needed pain, #20 dispensed with no refills. Maternal blood type is a positive and rubella status is nonimmune. She was therefore to have the MMR vaccination prior to discharge. Maternal hemoglobin and hematocrit at discharge were 9.4 and 28.1 respectively. Procedures: #1. Repeat low-transverse section Patient Condition at Discharge: Stable Plan - Discharge Summary New Discharge Prescriptions: No Action diphenhydrAMINE HCL [Benadryl] 1 tablet PO HS PRN PRN Reason: Insomnia Discharge Medication List diphenhydrAMINE HCL [Benadryl] 1 tablet PO HS PRN 02/27/24 [History] Follow up Appointment(s)/Referral(s): Kaye Stanton DO [Doctor of Osteopathic Medicine] - 07/09/24 2:00 pm (Post Appointment 08-07-2024 at 10:15am) Discharge Disposition: HOME SELF-CARE
[2024-06-29] MEDS: medroxyPROGESTERone 150 MG/ML 1ML VIAL IM ONE (11:04)
[2024-06-29] MEDS: MEASLES-MUMPS-RUBELLA VACC/PF 12,500 UNIT/0.5 ML VIAL SQ ONE (13:25)
--- NOTE | 2024-07-07 12:04 | P.HPOB ---
History of Present Illness H&P Date: 06/25/24 Chief Complaint: IUP at 37 and 1 sevenths weeks, contractions, history of C- section x 1 28-year-old G2, P1 at 37 and 1 sevenths weeks presents to labor and delivery with complaints of regular painful contractions. Patient states she began devon yesterday and they became uncomfortable this afternoon. Patient denies vaginal bleeding or loss of fluid. Patient has had 1 visit with myself. Patient has a prior history of section secondary to arrest of descent and dilation. Patient is requesting repeat section with this . Patient is uncomfortable and breathing through contractions. Review of Systems Constitutional: Denies chills, Denies fatigue, Denies fever Ears, nose, mouth and throat: Denies headache Cardiovascular: Reports leg edema Respiratory: Denies dyspnea Gastrointestinal: Denies constipation, Denies diarrhea, Denies nausea, Denies vomiting Genitourinary: Reports Past Medical History Past Medical History: Asthma, Hypertension, Osteoarthritis (OA) History of Any Multi-Drug Resistant Organisms: None Reported Past Surgical History: Appendectomy, Section, Cholecystectomy Additional Past Surgical History / Comment(s): Past Anesthesia/Blood Transfusion Reactions: No Reported Reaction Past Psychological History: ADD/ADHD, Anxiety, Depression Smoking Status: Vaper Past Alcohol Use History: None Reported Past Drug Use History: Marijuana Additional Drug Use History / Comment(s): Marijuana use everyday - Past Family History Father Family Medical History: No Reported History Mother Family Medical History: No Reported History Medications and Allergies Home Medications Medication Instructions Recorded Confirmed Type diphenhydrAMINE HCL [Benadryl] 1 tablet PO HS PRN 02/27/24 06/25/24 History Allergies Allergy/AdvReac Type Severity Reaction Status Date / Time No Known Allergies Allergy Verified 06/25/24 17:17 Exam Osteopathic Statement: *. No significant issues noted on an osteopathic structural exam other than those noted in the History and Physical/Consult. Vital Signs Temp Pulse Resp BP Pulse Ox 06/25/24 19:55 97.2 F L 94 16 116/69 06/25/24 19:50 97.2 F L 94 16 116/69 97 Intake and Output 06/25/24 06/25/24 06/25/24 06:59 14:59 22:59 Other: Weight 104.78 kg Targeted physical exam is performed this send in general this a well-nourished well-developed female in labor, patient is breathing through contractions. Breathing appears nonlabored, abdomen is noted to be gravid, cervical exam is noted to be closed, soft patient does not tolerate cervical exams well and is difficult to get a good evaluation of the cervix. C ontractions are noted to be moderately strong. heart tones are noted to be category 1 and she is devon every 2 to 3 minutes. Results Result Diagrams: 06/25/24 18:41 Abnormal Lab Results - Last 24 Hours (Table) 06/25/24 06/25/24 Range/Units 18:41 19:06 WBC 14.4 H (3.8-10.6) k/uL RBC 3.55 L (3.80-5.40) m/uL Hgb 10.4 L (11.4-16.0) gm/dL Hct 31.7 L (34.0-46.0) % Neutrophils # 11.0 H (1.3-7.7) k/uL U Marijuana (THC) Screen Detected H (NotDetected) Assessment and Plan (1) Term Current Visit: Yes Status: Acute Code(s): Z34.90 - ENCNTR FOR SUPRVSN OF [place] , UNSP, UNSP TRIMESTER SNOMED Code(s): 55370141 (2) History of section Current Visit: Yes Status: Acute Code(s): Z98.891 - HISTORY OF UTERINE SCAR FROM PREVIOUS SURGERY SNOMED Code(s): 301440567 (3) Active labor Current Visit: Yes Status: Acute Code(s): AEI7935 - SNOMED Code(s): 750540459 Plan: 28-year-old G2, P1 at 37 and 1 sevenths weeks that presents in labor. Patient has a prior history of a section and desires repeat. Patient is counseled on repeat section and risks are reviewed. Patient states understanding. Anesthesia is in to see the patient. Will proceed with repeat section.
== END 2024-06-29 14:00 | disposition home or self-care (01) | DRG 540 ==
LOC: FBPOP 17:06 → 4FBP 19:15
PROVIDERS: ADMIT Obstetrics & Gynecology Obstetrics; ATTEND Obstetrics & Gynecology Obstetrics
PROC: 10D00Z1 Extraction of Products of Conception, Low, Open Approach (ICD-10-PCS; principal; 2024-06-25 21:00)
PROC: 3E0134Z Introduction of Serum, Toxoid and Vaccine into Subcutaneous Tissue, Percutaneous Approach (ICD-10-PCS; 2024-06-29)
DX: O34.211 Maternal care for low transverse scar from previous cesarean delivery (principal); Q61.3 Polycystic kidney, unspecified; G47.00 Insomnia, unspecified; Z37.0 Single live birth; Z3A.37 37 weeks gestation of pregnancy; Z23 Encounter for immunization
CPT/HCPCS: 36415; 59025; 80306; 85025; 86850; 86900; 86901; 90707; 96360; 96361; 99214

== ENCOUNTER 2025-01-01 15:42 | Emergency (ER) | payer OTHER ==
--- NOTE | 2025-01-01 16:17 | ED ---
Abdominal Pain HPI - General Source: patient, RN notes reviewed Mode of arrival: ambulatory Limitations: no limitations - History of Present Illness MD Complaint: abdominal pain Onset/Timin -: week(s) Location: LLQ, RLQ Severity scale (1-10): 9 Quality: cramping, sharp Consistency: constant Improves With: nothing Worsens With: nothing Associated Symptoms: nausea, vomiting <Martinez Singh - Last Filed: 01/01/25 18:45> <Sosa Dao - Last Filed: 01/01/25 20:47> - General Chief Complaint: Abdominal Pain Stated Complaint: Stomach/Back Pain Time Seen by Provider: 01/01/25 15:57 - History of Present Illness Initial Comments: This is a 29-year-old female presenting for lower abdominal pain (05/14) x 3 weeks. Patient endorses associated morning nausea/vomiting, describing pain as cramping/sharp. Patient states pain has been more constant for the past 10 days. Patient also mentions dry cough x 3 days. Denies fever, chills, dizziness, dyspnea, chest pain, hemoptysis, hematemesis, diarrhea, constipation, hematochezia, melena, urinary symptoms, vaginal bleeding/discharge. (Martinez Singh) - Related Data Home Medications Medication Instructions Recorded Confirmed diphenhydrAMINE HCL [Benadryl] 1 tablet PO HS PRN 02/27/24 06/25/24 Allergies Allergy/AdvReac Type Severity Reaction Status Date / Time No Known Allergies Allergy Verified 01/01/25 15:45 Review of Systems ROS Other: All systems not noted in ROS Statement are negative. <Martinez Singh - Last Filed: 01/01/25 18:45> ROS Other: All systems not noted in ROS Statement are negative. <Sosa Dao - Last Filed: 01/01/25 20:47> ROS Statement: Those systems with pertinent positive or pertinent negative responses have been documented in the HPI. Past Medical History Past Medical History: Asthma, Hypertension, Osteoarthritis (OA) History of Any Multi-Drug Resistant Organisms: None Reported Past Surgical History: Appendectomy, Section, Cholecystectomy Additional Past Surgical History / Comment(s): Past Anesthesia/Blood Transfusion Reactions: No Reported Reaction Past Psychological History: ADD/ADHD, Anxiety, Depression Smoking Status: Vaper Past Alcohol Use History: None Reported Past Drug Use History: Marijuana - Past Family History Father Family Medical History: No Reported History Mother Family Medical History: No Reported History <Martinez Singh - Last Filed: 01/01/25 18:45> General Exam Limitations: no limitations General appearance: alert, in no apparent distress Head exam: Present: atraumatic, normocephalic, normal inspection Eye exam: Present: normal appearance, PERRL, EOMI. Absent: scleral icterus, conjunctival injection, periorbital swelling ENT exam: Present: normal exam, mucous membranes moist Neck exam: Present: normal inspection. Absent: tenderness, meningismus, lymphadenopathy Respiratory exam: Present: decreased breath sounds. Absent: respiratory distress, wheezes, rales, rhonchi, stridor, accessory muscle use, prolonged expiratory Cardiovascular Exam: Present: regular rate, normal rhythm, normal heart sounds. Absent: systolic murmur, diastolic murmur, rubs, gallop, clicks GI/Abdominal exam: Present: soft, tenderness (Diffuse abdominal tenderness, especially in the lower quadrants. Negative guarding or rebound tenderness), normal bowel sounds. Absent: distended, guarding, rebound, rigid Extremities exam: Present: normal inspection, full ROM, normal capillary refill. Absent: tenderness, pedal edema, joint swelling, calf tenderness Back exam: Present: CVA tenderness (L). Absent: CVA tenderness (R) Neurological exam: Present: alert, oriented X3, CN II-XII intact Psychiatric exam: Present: normal affect, normal mood Skin exam: Present: warm, dry, intact, normal color. Absent: rash <Martinez Singh - Last Filed: 01/01/25 18:45> Course Vital Signs 01/01/25 01/01/25 15:43 17:28 Temperature 97.9 F 98.1 F Pulse Rate 98 79 Respiratory 16 20 Rate Blood Pressure 125/83 108/78 O2 Sat by Pulse 99 99 Oximetry Medical Decision Making - Lab Data Result diagrams: 01/01/25 17:15 01/01/25 17:15 <Martinez Singh - Last Filed: 01/01/25 18:45> - Lab Data Result diagrams: 01/01/25 17:15 01/01/25 17:15 <Sosa Dao - Last Filed: 01/01/25 20:47> - Medical Decision Making Was pt. sent in by a medical professional or institution ([facility], [employer], urgent care, hospital, or residential...) When possible be specific @ -[No] Did you speak to anyone other than the patient for history (EMS, parent, family, police, friend...)? What history was obtained from this source @ -[No] Did you review nursing and triage notes (agree or disagree)? Why? @ -[I reviewed and agree with nursing and triage notes] Were old charts reviewed (outside hosp., previous admission, EMS record, old EKG, old radiological studies, urgent care reports/EKG's, residential records)? Report findings @ -[No old charts were reviewed] Differential Diagnosis (chest pain, altered mental status, abdominal pain women, abdominal pain men, vaginal bleeding, weakness, fever, dyspnea, syncope, headache, dizziness, GI bleed, back pain, seizure, CVA, palpatations, mental health, musculoskeletal)? @ -Differential Abdominal Pain Women: Appendicitis, Cholecystitis, diverticulosis, ischemic bowel, pancreatitis, hepatitis, UTI, gastroenteritis, AAA, incarcerated hernia, bowel obstruction, constipation, inflammatory bowel, hepatitis, peptic ulcer disease, splenic infarction, perforated viscus, vulvitis, ovarian torsion, PID, kidney stone, placenta abruption, this is not meant to be an all-inclusive list EKG interpreted by me (3pts min.). @ -Not done X-rays interpreted by me (1pt min.). @ - KUB shows possible 7 mm left renal calculus with no other acute process. CT interpreted by me (1pt min.). @ - Abdomen/pelvic CT shows no acute abdominal process with 3 cm right ovarian cyst and multiple bilateral nonobstructing calculi. U/S interpreted by me (1pt. min.). @ -[None done] What testing was considered but not performed or refused? (CT, X-rays, U/S, la bs)? Why? @ -[None] What meds were considered but not given or refused? Why? @ -[None] Did you discuss the management of the patient with other professionals (professionals i.e. [facility], [employer], lab, RT, psych nurse, sr. social media & mobile manager, orientation and mobility specialist, teacher, fare enforcement officer, pillowcase cutter)? Give summary @ -[No] Was smoking cessation discussed for >3mins.? @ -[No] Was critical care preformed (if so, how long)? @ -[No] Were there social determinants of health that impacted care today? How? (Homelessness, low income, unemployed, alcoholism, drug addiction, transportation, low edu. Level, literacy, decrease access to med. care, usp, rehab)? @ -[No] Was there de-escalation of care discussed even if they declined (Discuss DNR or withdrawal of care, Hospice)? DNR status @ -[No] What co-morbidities impacted this encounter? (DM, HTN, Smoking, COPD, CAD, Cancer, CVA, ARF, Chemo, Hep., AIDS, mental health diagnosis, sleep apnea, morbid obesity)? @ -[None] Was patient admitted / discharged? Hospital course, mention meds given and route, prescriptions, significant lab abnormalities, going to OR and other pertinent info. @ -Lab work is generally unremarkable with BUN 18 and negative lipase, UA, urine hCG and Cepheid test. KUB shows possible 7 mm left renal calculus with no other acute process. Abdomen/pelvic CT shows no acute abdominal process with 3 cm right ovarian cyst and multiple bilateral nonobstructing calculi. Patient initially provided p.o. Tylenol for pain. Then provided IV normal saline, Toradol, morphine and Zofran. Doppler ultrasound performed to rule out ovarian torsion due to presence of cyst. Advised follow-up with PCP/TRANSITION SPECIALIST for any ongoing or worsening pain/symptoms. Discussed patient with Dr. Dao. Undiagnosed new problem with uncertain prognosis? @ -[No] Drug Therapy requiring intensive monitoring for toxicity (Heparin, Nitro, Insulin, Cardizem)? @ -[No] Were any procedures done? @ -[No] Diagnosis/symptom? @ -Ovarian cyst, nonobstructing nephrolithiasis Acute, or Chronic, or Acute on Chronic? @ -Acute Uncomplicated (without systemic symptoms) or Complicated (systemic symptoms)? @ -Complicated Side effects of treatment? @ -[No] Exacerbation, Progression, or Severe Exacerbation? @ -Exacerbation Poses a threat to life or bodily function? How? (Chest pain, [place], [place], pneumonia, PE, COPD, DKA, ARF, appy, cholecystitis, CVA, Diverticulitis, Homicidal, Suicidal, threat to staff... and all critical care pts) @ -[No] (Martinez Singh) - Lab Data Lab Results 01/01/25 01/01/25 01/01/25 Range/Units 16:14 16:14 16:14 WBC (4.50-10.00) 10*3/uL RBC (4.10-5.20) 10*6/uL Hgb (12.0-15.0) g/dL Hct (37.2-46.3) % MCV (80.0-97.0) fL MCH (27.0-32.0) pg MCHC (32.0-37.0) g/dL Plt Count (140-440) 10*3/uL MPV (9.5-12.2) fL Immature Gran % (Auto) % Neutrophils % % Lymphocytes % % Monocytes % % Eosinophils % % Basophils % % Immature Gran # (0.00-0.04) 10*3/uL Neutrophils # (1.80-7.70) 10*3/uL Lymphocytes # (0.90-5.00) 10*3/uL Monocytes # (0.20-1.00) 10*3/uL Eosinophils # (0.04-0.35) 10*3/uL Basophils # (0.00-0.10) 10*3/uL Sodium (137-145) mmol/L Potassium (3.5-5.1) mmol/L Chloride (98-107) mmol/L Carbon Dioxide (22-30) mmol/L Anion Gap mmol/L BUN (7-17) mg/dL Creatinine (0.52-1.04) mg/dL Est GFR (CKD-EPI)AfAm (>60 ml/min/1.73 sqM) Est GFR (CKD-EPI)NonAf (>60 ml/min/1.73 sqM) Glucose (74-99) mg/dL Calcium (8.4-10.2) mg/dL Total Bilirubin (0.2-1.3) mg/dL AST (14-36) U/L ALT (4-34) U/L Alkaline Phosphatase (38-126) U/L Total Protein (6.3-8.2) g/dL Albumin (3.5-5.0) g/dL Lipase (23-300) U/L Urine Color Colorless Urine Appearance Clear (Clear) Urine pH 6.0 (5.0-8.0) Ur Specific [place] 1.011 (1.001-1.035) Urine Protein Negative (Negative) Urine Glucose (UA) Negative (Negative) Urine Ketones Negative (Negative) Urine Blood Negative (Negative) Urine Nitrite Negative (Negative) Urine Bilirubin Negative (Negative) Urine Urobilinogen <2.0 (<2.0) mg/dL Ur Leukocyte Esterase Negative (Negative) Urine HCG, Qual Not Detected (Not Detectd) Influenza Type A (PCR) Not Detected (Not Detectd) Influenza Type B (PCR) Not Detected (Not Detectd) RSV (PCR) Not Detected (Not Detectd) SARS-CoV-2 (PCR) Not Detected (Not Detectd) 01/01/25 01/01/25 Range/Units 17:15 17:15 WBC 10.40 H (4.50-10.00) 10*3/uL RBC 4.43 (4.10-5.20) 10*6/uL Hgb 12.4 (12.0-15.0) g/dL Hct 37.7 (37.2-46.3) % MCV 85.1 (80.0-97.0) fL MCH 28.0 (27.0-32.0) pg MCHC 32.9 (32.0-37.0) g/dL Plt Count 233 (140-440) 10*3/uL MPV 10.1 (9.5-12.2) fL Immature Gran % (Auto) 0.2 % Neutrophils % 64.9 % Lymphocytes % 29.2 % Monocytes % 4.7 % Eosinophils % 0.6 % Basophils % 0.4 % Immature Gran # 0.02 (0.00-0.04) 10*3/uL Neutrophils # 6.75 (1.80-7.70) 10*3/uL Lymphocytes # 3.04 (0.90-5.00) 10*3/uL Monocytes # 0.49 (0.20-1.00) 10*3/uL Eosinophils # 0.06 (0.04-0.35) 10*3/uL Basophils # 0.04 (0.00-0.10) 10*3/uL Sodium 136 L (137-145) mmol/L Potassium 4.2 (3.5-5.1) mmol/L Chloride 100 (98-107) mmol/L Carbon Dioxide 26 (22-30) mmol/L Anion Gap 10 mmol/L BUN 18 H (7-17) mg/dL Creatinine 0.71 (0.52-1.04) mg/dL Est GFR (CKD-EPI)AfAm >90 (>60 ml/min/1.73 sqM) Est GFR (CKD-EPI)NonAf >90 (>60 ml/min/1.73 sqM) Glucose 87 (74-99) mg/dL Calcium 9.8 (8.4-10.2) mg/dL Total Bilirubin 0.5 (0.2-1.3) mg/dL AST 18 (14-36) U/L ALT 17 (4-34) U/L Alkaline Phosphatase 71 (38-126) U/L Total Protein 7.4 (6.3-8.2) g/dL Albumin 4.2 (3.5-5.0) g/dL Lipase 109 (23-300) U/L Urine Color Urine Appearance (Clear) Urine pH (5.0-8.0) Ur Specific [place] (1.001-1.035) Urine Protein (Negative) Urine Glucose (UA) (Negative) Urine Ketones (Negative) Urine Blood (Negative) Urine Nitrite (Negative) Urine Bilirubin (Negative) Urine Urobilinogen (<2.0) mg/dL Ur Leukocyte Esterase (Negative) Urine HCG, Qual (Not Detectd) Influenza Type A (PCR) (Not Detectd) Influenza Type B (PCR) (Not Detectd) RSV (PCR) (Not Detectd) SARS-CoV-2 (PCR) (Not Detectd) Disposition Is patient prescribed a controlled substance at d/c from ED?: No Time of Disposition: 18:18 <Martinez Singh - Last Filed: 01/01/25 18:45> <Sosa Dao - Last Filed: 01/01/25 20:47> Clinical Impression: Ovarian cyst Disposition: HOME SELF-CARE Condition: Good Instructions (If sedation given, give patient instructions): Ovarian Cyst (ED) Additional Instructions: Alternate Tylenol/Motrin every 4 hours for pain. Warm compress to abdomen for 10 minutes up to 4 times daily. Follow-up with PCP/gastroenterology for any ongoing or worsening symptoms. May be of benefit to also see OBGYN for your symptoms. Referrals: Yasemin Torres MD [STAFF PHYSICIAN] - 1-2 days None,Stated [Primary Care Provider] - 1-2 days Paty Michelle DO [REFERRING] - 1-2 days Fanny Sampson MD [STAFF PHYSICIAN] - 1-2 days
[2025-01-01 16:28] LABS: Appearance,Urine Clear (Clear); Bilirubin,Urine Negative (Negative); Blood,Urine Negative (Negative); Color,Urine Colorless; Glucose,Urine (UA) Negative (Negative); Ketones,Urine Negative (Negative); Leukocyte Esterase,Urine Negative (Negative); Nitrite,Urine Negative (Negative); Protein,Urine Negative (Negative); Specific Gravity,Urine 1.011 (1.001-1.035); Urobilinogen,Urine <2.0 mg/dL (<2.0)
[2025-01-01] MEDS: ACETAMINOPHEN TAB 500 MG TAB PO STA (16:28)
[2025-01-01 17:01] LABS: Influenza A Not Detected (Not Detectd); Influenza B Not Detected (Not Detectd); RSV Not Detected (Not Detectd)
[2025-01-01] MEDS: SODIUM CHLORIDE 0.9% 1,000 ML IV STA (17:19)
[2025-01-01] MEDS: KETOROLAC 15 MG/ML 1 ML VIAL IVP STA ×2 (17:27→20:46)
[2025-01-01] MEDS: ONDANSETRON 4 MG/2 ML VIAL IVP STA (17:28)
[2025-01-01] MEDS: MORPHINE SULFATE 4 MG/ML SYRINGE IVP STA (17:28)
[2025-01-01 17:32] LABS: Basophils # (A) 0.04 10*3/uL (0.00-0.10); Basophils % (A) 0.4 %; Eosinophils # (A) 0.06 10*3/uL (0.04-0.35); Eosinophils % (A) 0.6 %; HCT 37.7 % (37.2-46.3); HGB 12.4 g/dL (12.0-15.0); Lymphocytes # (A) 3.04 10*3/uL (0.90-5.00); Lymphocytes % (A) 29.2 %; MCHC 32.9 g/dL (32.0-37.0); MCV 85.1 fL (80.0-97.0); Mean Platelet Volume 10.1 fL (9.5-12.2); Monocytes # (A) 0.49 10*3/uL (0.20-1.00); Monocytes % (A) 4.7 %; Neutrophils # (A) 6.75 10*3/uL (1.80-7.70); Neutrophils % (A) 64.9 %; Platelet Count 233 10*3/uL (140-440); RBC 4.43 10*6/uL (4.10-5.20); RDW 13.5 % (11.5-14.5)
--- NOTE | 2025-01-01 17:36 | XR ---
EXAMINATION TYPE: XR KUB DATE OF EXAM: 01/01/2025 5:04 PM COMPARISON: 10/02/2017 CLINICAL INDICATION: Female, 29 years old with history of Lower abdominal pain, diffuse tenderness, N /V; [facility] TECHNIQUE: One radiographic view of the abdomen was obtained. FINDINGS: The bowel gas pattern is nonspecific without dilated loops of small or large bowel. . Fecal material and gas are demonstrated throughout the colon and rectum. There is no evidence for organome demarco or pneumoperitoneum. No acute osseous process. Left renal calculi measuring up to 7 mm. IMPRESSION: Possible left renal submillimeter calculus. Nonspecific bowel gas pattern without radiographic evidence for acute process. [facility], , 01/01/2025 5:34 PM
[2025-01-01 17:43] LABS: ALT 17 U/L (4-34); AST 18 U/L (14-36); African American GFR (CKD) >90 (>60 ml/min/1.73 sqM); Albumin 4.2 g/dL (3.5-5.0); Alkaline Phosphatase 71 U/L (38-126); Anion Gap 10 mmol/L; Blood Urea Nitrogen 18 mg/dL (7-17); Calcium 9.8 mg/dL (8.4-10.2); Carbon Dioxide 26 mmol/L (22-30); Chloride 100 mmol/L (98-107); Glucose 87 mg/dL (74-99); Lipase 109 U/L (23-300); Non-African American GFR(CKD) >90 (>60 ml/min/1.73 sqM); Potassium 4.2 mmol/L (3.5-5.1); Sodium 136 mmol/L (137-145); Total Bilirubin 0.5 mg/dL (0.2-1.3); Total Protein 7.4 g/dL (6.3-8.2)
--- NOTE | 2025-01-01 17:55 | CT ---
EXAMINATION TYPE: CT abdomen pelvis w con DATE OF EXAM: 01/01/2025 5:47 PM COMPARISON: 08/12/2023 CLINICAL INDICATION: Female, 29 years old with history of Lower abdominal pain; pt arrives with c/o c ough and lower abdominal pain that started a couple of days ago. TECHNIQUE: Axial CT abdomen pelvis w con;Sagittal and coronal reformats were created on a separate w orkstation. Contrast used:100 ml mL of Isovue 300 with IV Contrast, (none if empty) Oral contrast used: without Oral Contrast (none if empty) CT DLP: 1494.4 mGycm, Automated exposure control for dose reduction was used. FINDINGS: LOWER CHEST: Unremarkable ABDOMEN LIVER: Unremarkable GALLBLADDER AND BILE DUCTS: The gallbladder is surgically absent. PANCREAS: Unremarkable. SPLEEN: Unremarkable. ADRENAL GLANDS: Unremarkable. KIDNEYS AND URETERS: No evidence of hydronephrosis or obstructing renal calculus. The ureters are unr emarkable. No obstructing bilateral cardiac imaging to 4 mm PELVIS BLADDER: No evidence for wall thickening or mass given limitations of exam. REPRODUCTIVE: Right ovarian cyst measuring 3.0 cm. ABDOMEN & PELVIS STOMACH AND BOWEL: No evidence of bowel obstruction. PERITONEUM/RETROPERITONEUM: No evidence of pneumoperitoneum or free fluid. VASCULATURE: No evidence of aortic aneurysm. MUSCULOSKELETAL: No acute osseous abnormalities LYMPH NODES: No gross evidence for lymphadenopathy. SOFT TISSUE/ABDOMINAL WALL: Fat-containing umbilical hernia.r IMPRESSION: 1. No evidence for acute abdominal process. 2. Surgically absent gallbladder. 3. Appendix is not definitively visualized and may be surgically absent. 4. Right ovarian cyst measuring 3.0 cm. 5. Multiple bilateral nonobstructing calculi. No obstructive uropathy identified. [facility], , 01/01/2025 5:52 PM
--- NOTE | 2025-01-01 20:14 | US ---
EXAMINATION TYPE: US transvaginal DATE OF EXAM: 01/01/2025 COMPARISON: CT 01/01/25 CLINICAL INDICATION: Female, 29 years old with history of Lower abdominal pain, right ovarian cyst; l ower abd pain, right ov cyst seen on CT. 6 months PP TECHNIQUE: Transvaginal (TV). Transvaginal sonographic images were medically necessary to better assess the following anatomy: Ovar ies Doppler imaging: Color Doppler Images were obtained. Spectral doppler images were obtained. FINDINGS: Date of LMP: unknown LMP, 6 months PP EXAM MEASUREMENTS: Uterus: 8.0 x 4.6 x 5.6 cm Endometrial Stripe: 0.4 cm Right Ovary: 3.6 x 2.9 x 3.1 cm Left Ovary: 3.3 x 1.3 x 1.9 cm 1. Uterus: Anteverted wnl 2. Endometrium: wnl 3. Right Ovary: there is a 2.8 x 2.9 x 2.7cm anechoic area seen 4. Left Ovary: wnl Spectral, color and waveform doppler imaging shows good arterial and venous flow within the ovaries ; there is no evidence for ovarian torsion. 5. Bilateral Adnexa: wnl 6. Posterior cul-de-sac: wnl IMPRESSION: 1. No evidence for acute process. 2. Appropriate arterial and venous spectral waveforms to the ovaries. 3. Right ovarian cyst measuring up to 2.9 cm. [facility], , 01/01/2025 8:12 PM
[2025-01-01] MEDS: METOCLOPRAMIDE 5 MG/ML 2 ML VIAL IVP STA (20:46)
[2025-01-01 20:47] VITALS: BP 122/81; PULSE 91; RESP 18; TEMP 98.3
== END 2025-01-01 20:50 | disposition home or self-care (01) ==
LOC: EC 15:42
DX: N83.201 Unspecified ovarian cyst, right side (principal); N20.0 Calculus of kidney; F17.290 Nicotine dependence, other tobacco product, uncomplicated
CPT/HCPCS: 36415; 80053; 83690; 85025; 81003; 81025; 87636; 74018; 93975; 76830; 74177; 99285; 96374; 96375 ×2; 96361 ×3; J2270; J2405; J1885; Q9967

== ENCOUNTER 2025-01-07 15:36 | Emergency (ER) | payer OTHER ==
[2025-01-07 15:39] VITALS: RESP 18
--- NOTE | 2025-01-07 16:00 | ED ---
Abdominal Pain HPI - General Chief Complaint: Abdominal Pain Stated Complaint: abd pain Time Seen by Provider: 01/07/25 15:41 Source: patient, RN notes reviewed Mode of arrival: ambulatory Limitations: no limitations - History of Present Illness Initial Comments: This is a 29-year-old female with no reported medical conditions presenting to emergency department with complaints of left-sided abdominal pain over the past few days. Patient states that she was evaluated on 01 January where she was diagnosed with an ovarian cyst. She denies diarrhea, constipation, urinary complaints. States that she started her menstrual cycle yesterday. She endorses nausea and vomiting. Denies hematochezia, melena, fevers, chills. - Related Data Home Medications Medication Instructions Recorded Confirmed diphenhydrAMINE HCL [Benadryl] 1 tablet PO HS PRN 02/27/24 06/25/24 Previous Rx's Medication Instructions Recorded Ketorolac [Toradol] 10 mg PO Q8HR #15 tab 01/07/25 Ondansetron Odt [Zofran Odt] 4 mg PO Q8HR PRN #10 tab 01/07/25 Allergies Allergy/AdvReac Type Severity Reaction Status Date / Time No Known Allergies Allergy Verified 01/07/25 15:39 Review of Systems ROS Statement: Those systems with pertinent positive or pertinent negative responses have been documented in the HPI. ROS Other: All systems not noted in ROS Statement are negative. Past Medical History Past Medical History: Asthma, Hypertension, Osteoarthritis (OA) History of Any Multi-Drug Resistant Organisms: None Reported Past Surgical History: Appendectomy, Section, Cholecystectomy Additional Past Surgical History / Comment(s): Past Anesthesia/Blood Transfusion Reactions: No Reported Reaction Past Psychological History: ADD/ADHD, Anxiety, Depression Smoking Status: Vaper Past Alcohol Use History: None Reported Past Drug Use History: Marijuana - Past Family History Father Family Medical History: No Reported History Mother Family Medical History: No Reported History General Exam Limitations: no limitations General appearance: alert, in no apparent distress Neck exam: Present: normal inspection. Absent: tenderness, meningismus, lymphad enopathy Respiratory exam: Present: normal lung sounds bilaterally. Absent: respiratory distress, wheezes, rales, rhonchi, stridor Cardiovascular Exam: Present: regular rate, normal rhythm, normal heart sounds. Absent: systolic murmur, diastolic murmur, rubs, gallop, clicks GI/Abdominal exam: Present: soft, normal bowel sounds. Absent: distended, tenderness, guarding, rebound, rigid Extremities exam: Present: normal inspection, full ROM, normal capillary refill. Absent: tenderness, pedal edema, joint swelling, calf tenderness Back exam: Present: normal inspection. Absent: CVA tenderness (R), CVA tenderness (L) Skin exam: Present: warm, dry, intact, normal color. Absent: rash Course Vital Signs 01/07/25 01/07/25 15:37 17:03 Temperature 97.6 F 97.9 F Pulse Rate 100 90 Respiratory 18 18 Rate Blood Pressure 120/59 121/69 O2 Sat by Pulse 98 98 Oximetry Medical Decision Making - Medical Decision Making Was pt. sent in by a medical professional or institution ([facility], [facility], urgent care, hospital, or long-term...) When possible be specific @ -No Did you speak to anyone other than the patient for history (EMS, parent, family, police, friend...)? What history was obtained from this source @ -No Did you review nursing and triage notes (agree or disagree)? Why? @ -I reviewed and agree with nursing and triage notes Were old charts reviewed (outside hosp., previous admission, EMS record, old EKG, old radiological studies, urgent care reports/EKG's, long-term records)? Report findings @ -Reviewed CT imaging of the abdomen pelvis with IV contrast was completed on which revealed a right-sided ovarian cyst Ultrasound transvaginal completed revealed a right ovarian cyst measuring 2.9 cm Differential Diagnosis (chest pain, altered mental status, abdominal pain women, abdominal pain men, vaginal bleeding, weakness, fever, dyspnea, syncope, headache, dizziness, GI bleed, back pain, seizure, CVA, palpatations, mental health, musculoskeletal)? @Differential Abdominal Pain Women: Appendicitis, Cholecystitis, diverticulosis, ischemic bowel, pancreatitis, hepatitis, UTI, gastroenteritis, AAA, incarcerated hernia, bowel obstruction, constipation, inflammatory bowel, hepatitis, peptic ulcer disease, splenic infarction, perforated viscus, vulvitis, ovarian torsion, PID, kidney stone, placenta abruption, this is not meant to be an all-inclusive list EKG interpreted by me (3pts min.). @ -None X-rays interpreted by me (1pt min.). @ -None done CT interpreted by me (1pt min.). @ -None done U/S interpreted by me (1pt. min.). @ -None done What testing was considered but not performed or refused? (CT, X-rays, U/S, labs)? Why? @ -None What meds were considered but not given or refused? Why? @ -None Did you discuss the management of the patient with other professionals (professionals i.e. , PA, [facility], lab, RT, psych nurse, social worker clinical, wardrobe supervisor, teacher, district resource officer, behavioral health case manager)? Give summary @ -No Was smoking cessation discussed for >3mins.? @ -No Was critical care preformed (if so, how long)? @ -No Were there social determinants of health that impacted care today? How? (Homelessness, low income, unemployed, alcoholism, drug addiction, transportation, low edu. Level, literacy, decrease access to med. care, group home, rehab)? @ -No Was there de-escalation of care discussed even if they declined (Discuss DNR or withdrawal of care, Hospice)? DNR status @ -No What co-morbidities impacted this encounter? (DM, HTN, Smoking, COPD, CAD, Cancer, CVA, ARF, Chemo, Hep., AIDS, mental health diagnosis, sleep apnea, morbid obesity)? @ -None Was patient admitted / discharged? Hospital course, mention meds given and route, prescriptions, significant lab abnormalities, going to OR and other pertinent info. @ -Discharge. 29-year-old female presents emergency department with abdominal pain. Mild left upper abdominal pain with no signs of rebound tenderness or rigidity. There is no lower abdominal pain. Patient provided with dose of Toradol and Zofran for pain control and nausea control. Laboratory testing unremarkable including CBC, CMP. Urinalysis remarkable with blood consistent with menstrual cycle. hCG is negative. Reviewed patient's visit from 01/01/2025 where she underwent extensive testing including CT and ultrasound revealing a r ight-sided ovarian cyst. Patient has appointment scheduled with OB in the upcoming week. She has been without prescription for Toradol and Zofran. Patient is stable for discharge with unspecified abdominal pain. Case discussed with Dr. Richter Undiagnosed new problem with uncertain prognosis? @ -No Drug Therapy requiring intensive monitoring for toxicity (Heparin, Nitro, Insulin, Cardizem)? @ -No Were any procedures done? @ -No Diagnosis/symptom? @ -Abdominal pain, nausea vomiting Acute, or Chronic, or Acute on Chronic? @ -Acute Uncomplicated (without systemic symptoms) or Complicated (systemic symptoms)? @ -Uncomplicated Side effects of treatment? @ -No Exacerbation, Progression, or Severe Exacerbation? @ -No Poses a threat to life or bodily function? How? (Chest pain, [place], [place], pneumonia, PE, COPD, DKA, ARF, appy, cholecystitis, CVA, Diverticulitis, Homicidal, Suicidal, threat to staff... and all critical care pts) @ -No - Lab Data Result diagrams: 01/07/25 16:07 01/07/25 16:07 Lab Results 01/07/25 01/07/25 01/07/25 Range/Units 16:07 16:07 16:07 WBC 9.83 (4.50-10.00) 10*3/uL RBC 4.37 (4.10-5.20) 10*6/uL Hgb 12.2 (12.0-15.0) g/dL Hct 37.5 (37.2-46.3) % MCV 85.8 (80.0-97.0) fL MCH 27.9 (27.0-32.0) pg MCHC 32.5 (32.0-37.0) g/dL Plt Count 229 (140-440) 10*3/uL MPV 10.0 (9.5-12.2) fL Immature Gran % (Auto) 0.4 % Neutrophils % 58.8 % Lymphocytes % 35.0 % Monocytes % 4.6 % Eosinophils % 0.8 % Basophils % 0.4 % Immature Gran # 0.04 (0.00-0.04) 10*3/uL Neutrophils # 5.78 (1.80-7.70) 10*3/uL Lymphocytes # 3.44 (0.90-5.00) 10*3/uL Monocytes # 0.45 (0.20-1.00) 10*3/uL Eosinophils # 0.08 (0.04-0.35) 10*3/uL Basophils # 0.04 (0.00-0.10) 10*3/uL Sodium (137-145) mmol/L Potassium (3.5-5.1) mmol/L Chloride (98-107) mmol/L Carbon Dioxide (22-30) mmol/L Anion Gap mmol/L BUN (7-17) mg/dL Creatinine (0.52-1.04) mg/dL Est GFR (CKD-EPI)AfAm (>60 ml/min/1.73 sqM) Est GFR (CKD-EPI)NonAf (>60 ml/min/1.73 sqM) Glucose (74-99) mg/dL Calcium (8.4-10.2) mg/dL Total Bilirubin (0.2-1.3) mg/dL AST (14-36) U/L ALT (4-34) U/L Alkaline Phosphatase (38-126) U/L Total Protein (6.3-8.2) g/dL Albumin (3.5-5.0) g/dL Lipase (23-300) U/L Urine Color Light Red Urine Appearance Cloudy H (Clear) Urine pH 5.5 (5.0-8.0) Ur Specific [place] 1.028 (1.001-1.035) Urine Protein Trace H (Negative) Urine Glucose (UA) Negative (Negative) Urine Ketones Negative (Negative) Urine Blood Large H (Negative) Urine Nitrite Negative (Negative) Urine Bilirubin Negative (Negative) Urine Urobilinogen <2.0 (<2.0) mg/dL Ur Leukocyte Esterase Negative (Negative) Urine RBC >182 H (0-5) /hpf Urine WBC 32 H (0-5) /hpf Ur Squamous Epith Cells 1 (0-4) /hpf Urine Bacteria Rare H (None) /hpf Urine Mucus Rare H (None) /hpf Urine HCG, Qual Not Detected (Not Detectd) 01/07/25 Range/Units 16:07 WBC (4.50-10.00) 10*3/uL RBC (4.10-5.20) 10*6/uL Hgb (12.0-15.0) g/dL Hct (37.2-46.3) % MCV (80.0-97.0) fL MCH (27.0-32.0) pg MCHC (32.0-37.0) g/dL Plt Count (140-440) 10*3/uL MPV (9.5-12.2) fL Immature Gran % (Auto) % Neutrophils % % Lymphocytes % % Monocytes % % Eosinophils % % Basophils % % Immature Gran # (0.00-0.04) 10*3/uL Neutrophils # (1.80-7.70) 10*3/uL Lymphocytes # (0.90-5.00) 10*3/uL Monocytes # (0.20-1.00) 10*3/uL Eosinophils # (0.04-0.35) 10*3/uL Basophils # (0.00-0.10) 10*3/uL Sodium 141 (137-145) mmol/L Potassium 4.0 (3.5-5.1) mmol/L Chloride 105 (98-107) mmol/L Carbon Dioxide 27 (22-30) mmol/L Anion Gap 9 mmol/L BUN 20 H (7-17) mg/dL Creatinine 0.85 (0.52-1.04) mg/dL Est GFR (CKD-EPI)AfAm >90 (>60 ml/min/1.73 sqM) Est GFR (CKD-EPI)NonAf >90 (>60 ml/min/1.73 sqM) Glucose 91 (74-99) mg/dL Calcium 9.6 (8.4-10.2) mg/dL Total Bilirubin 0.5 (0.2-1.3) mg/dL AST 18 (14-36) U/L ALT 16 (4-34) U/L Alkaline Phosphatase 66 (38-126) U/L Total Protein 7.5 (6.3-8.2) g/dL Albumin 4.2 (3.5-5.0) g/dL Lipase 150 (23-300) U/L Urine Color Urine Appearance (Clear) Urine pH (5.0-8.0) Ur Specific [place] (1.001-1.035) Urine Protein (Negative) Urine Glucose (UA) (Negative) Urine Ketones (Negative) Urine Blood (Negative) Urine Nitrite (Negative) Urine Bilirubin (Negative) Urine Urobilinogen (<2.0) mg/dL Ur Leukocyte Esterase (Negative) Urine RBC (0-5) /hpf Urine WBC (0-5) /hpf Ur Squamous Epith Cells (0-4) /hpf Urine Bacteria (None) /hpf Urine Mucus (None) /hpf Urine HCG, Qual (Not Detectd) Disposition Clinical Impression: Abdominal pain, Nausea and vomiting Disposition: HOME SELF-CARE Condition: Good Instructions (If sedation given, give patient instructions): Abdominal Pain (ED) Additional Instructions: Please return to the Emergency Department if symptoms worsen or any other concerns. Prescriptions: Ketorolac [Toradol] 10 mg PO Q8HR #15 tab Ondansetron Odt [Zofran Odt] 4 mg PO Q8HR PRN #10 tab PRN Reason: Nausea Is patient prescribed a controlled substance at d/c from ED?: No Referrals: None,Stated [Primary Care Provider] - 1-2 days Time of Disposition: 16:53
[2025-01-07 16:17] LABS: Basophils # (A) 0.04 10*3/uL (0.00-0.10); Basophils % (A) 0.4 %; Eosinophils # (A) 0.08 10*3/uL (0.04-0.35); Eosinophils % (A) 0.8 %; HCT 37.5 % (37.2-46.3); HGB 12.2 g/dL (12.0-15.0); Lymphocytes # (A) 3.44 10*3/uL (0.90-5.00); MCH 27.9 pg (27.0-32.0); MCHC 32.5 g/dL (32.0-37.0); MCV 85.8 fL (80.0-97.0); Monocytes # (A) 0.45 10*3/uL (0.20-1.00); Monocytes % (A) 4.6 %; Neutrophils # (A) 5.78 10*3/uL (1.80-7.70); Neutrophils % (A) 58.8 %; Platelet Count 229 10*3/uL (140-440); RBC 4.37 10*6/uL (4.10-5.20); RDW 13.5 % (11.5-14.5); WBC 9.83 10*3/uL (4.50-10.00)
[2025-01-07 16:22] LABS: Appearance,Urine Cloudy (Clear); Bacteria,Urine Rare /hpf; Bilirubin,Urine Negative (Negative); Blood,Urine Large (Negative); Color,Urine Light Red; Glucose,Urine (UA) Negative (Negative); Ketones,Urine Negative (Negative); Leukocyte Esterase,Urine Negative (Negative); Mucus,Urine Rare /hpf; Nitrite,Urine Negative (Negative); PH, Urine 5.5 (5.0-8.0); Protein,Urine Trace (Negative); RBC,Urine >182 /hpf (0-5); Specific Gravity,Urine 1.028 (1.001-1.035); Squamous Epithelial Cell,Urine 1 /hpf (0-4); Urobilinogen,Urine <2.0 mg/dL (<2.0); WBC,Urine 32 /hpf (0-5)
[2025-01-07] MEDS: ONDANSETRON 4 MG/2 ML VIAL IVP STA (16:23)
[2025-01-07] MEDS: KETOROLAC 15 MG/ML 1 ML VIAL IVP STA (16:24)
[2025-01-07 16:39] LABS: ALT 16 U/L (4-34); AST 18 U/L (14-36); African American GFR (CKD) >90 (>60 ml/min/1.73 sqM); Albumin 4.2 g/dL (3.5-5.0); Alkaline Phosphatase 66 U/L (38-126); Anion Gap 9 mmol/L; Blood Urea Nitrogen 20 mg/dL (7-17); Calcium 9.6 mg/dL (8.4-10.2); Carbon Dioxide 27 mmol/L (22-30); Chloride 105 mmol/L (98-107); Glucose 91 mg/dL (74-99); Lipase 150 U/L (23-300); Non-African American GFR(CKD) >90 (>60 ml/min/1.73 sqM); Sodium 141 mmol/L (137-145); Total Bilirubin 0.5 mg/dL (0.2-1.3); Total Protein 7.5 g/dL (6.3-8.2)
[2025-01-07 17:04] VITALS: BP 121/69; PULSE 90; TEMP 97.9
== END 2025-01-07 17:17 | disposition home or self-care (01) ==
LOC: EC 15:36
DX: R10.12 Left upper quadrant pain (principal); R11.2 Nausea with vomiting, unspecified; F17.290 Nicotine dependence, other tobacco product, uncomplicated
CPT/HCPCS: 36415; 80053; 83690; 85025; 81001; 81025; 99284; 96374; 96375; J2405; J1885